=== PATIENT | male | born 1945 | race Caucasian/White ===

== ENCOUNTER 2016-10-08 20:11 | Inpatient (IN) | payer MEDICARE ==
--- NOTE | 2016-10-08 20:55 | ER Document Report ---
ED General - General Chief Complaint: Shortness Of Breath Stated Complaint: TROUBLE BREATHING Cannot obtain history due to: Altered mental status Notes: Patient is a 71-year-old male with prior history of emphysema, peripheral arterial disease with bilateral BKA's, who presents by EMS after apparently falling out of his motorized chair prior to arrival. Patient was able to call for help but was noted by EMS at time of arrival to be confused, frequently falling asleep, initially having saturations at 86%. Patient does not apparently normally use supplemental oxygen. He is otherwise a very poor historian, falls asleep during attempts at history taking and no additional meaningful history can be obtained. TRAVEL OUTSIDE OF THE [place] IN LAST 30 DAYS: No - Related Data Allergies/Adverse Reactions: No Known Drug Allergies Allergy (Verified 05/06/16 16:59) Past Medical History - General Information source: Patient, Emergency Med Personnel - Social History Smoking Status: Former Smoker Frequency of alcohol use: None Drug Abuse: None Lives with: Alone Family History: Reviewed & Not Pertinent - Past Medical History Cardiac Medical History: Reports: Hx Coronary Artery Disease, Hx Heart Attack - 2011, Hx Hypertension Denies: Hx Congestive Heart Failure Pulmonary Medical History: Reports: Hx Asthma, Hx COPD, Hx Pneumonia Denies: Hx Bronchitis, Hx Tuberculosis Neurological Medical History: Denies: Hx Cerebrovascular Accident, Hx Seizures Endocrine Medical History: Reports: Hx Diabetes Mellitus Type 2 Renal/ Medical History: Denies: Hx Benign Prostatic Hyperplasia, Hx End Stage Renal Disease, Hx Kidney Stones GI Medical History: Reports: Hx Gastroesophageal Reflux Disease, Hx Hiatal Hernia - PT UNSURE. Denies: Hx Cirrhosis, Hx Hepatitis, Hx Ulcer Musculoskeltal Medical History: Denies Hx Arthritis, Denies Hx Multiple Sclerosis Psychiatric Medical History: Reports: Hx Depression Denies: Hx Bipolar Disorder, Hx Schizophrenia Infectious Medical History: Denies: Hx Hepatitis Past Surgical History: Reports: Hx Orthopedic Surgery - Bilateral BKA. Denies: Hx Open Heart Surgery, Hx Pacemaker - Immunizations Hx Diphtheria, Pertussis, Tetanus Vaccination: - unknown Hx Pneumococcal Vaccination: 09/20/10 Review of Systems - Review of Systems Notes: Constitutional: Negative for fever. HENT: Negative for sore throat. Eyes: Negative for visual changes. Cardiovascular: Negative for chest pain. Respiratory: Positive for shortness of breath. Gastrointestinal: Negative for abdominal pain, vomiting or diarrhea. Genitourinary: Positive for decreased urine output into del rosario Musculoskeletal: Negative for back pain. Skin: Negative for rash. Neurological: Negative for headaches, weakness or numbness. 10 point ROS negative except as marked above and in HPI. Physical Exam - Vital signs Vitals: Resp 20 10/08/16 20:31 Interpretation: Tachycardic, Hypoxic, Tachypneic Notes: PHYSICAL EXAMINATION: GENERAL: Chronically ill in appearance, in moderate respiratory distress HEAD: Atraumatic, normocephalic. EYES: Pupils equal round and reactive to light, extraocular movements intact, sclera anicteric, conjunctiva are normal. ENT: nares patent, oropharynx clear without exudates. Dry mucous membranes. NECK: Normal range of motion, supple without lymphadenopathy LUNGS: Moderate respiratory distress, tachypneic mid 20s. Scattered wheezing bilaterally. HEART: Regular tachycardia without murmurs ABDOMEN: Soft, nontender, normoactive bowel sounds. No guarding, no rebound. No masses appreciated. EXTREMITIES: Bilateral BKA NEUROLOGICAL: No focal neurological deficits. Moves all extremities spontaneously and on command. PSYCH: Falls asleep in the middle of sentences. Unable to maintain a train of thought. SKIN: Warm, Dry, normal turgor, no rashes or lesions noted. Course - Re-evaluation Re-evalutation: 10/08/16 20:54 Patient presents hypoxic, tachycardic, ill in appearance. He is falling asleep in the middle of sentences and attempts to talk to me. His urine is bloody in color. He is a chronically ill bilateral amputee with G-tube in place. He is not able to provide much significant history other he states he fell out of his motorized wheelchair and was able to call for help. However each time I try to get further details history he falls asleep. He has been immediately placed on a cardiac cath lab manager, EKG obtained and does not show any acute ischemic changes. IV access has been established and labs will be obtained. 10/08/16 21:29 Patient continues to fall asleep when I talk to him, has abdominal retractions when trying to breathe and continues to be tachypneic. I will place him on BiPAP at this time. 10/08/16 23:09 Patient's respiratory effort is improved on BiPAP but his mental status remains confused with frequent episodes of falling asleep. Urinalysis with obvious infection despite changing the catheter. He was started on IV Zosyn. Suspect that this is the etiology of patient's somnolence and confusion. I discussed with his primary care provider Dr. Anders who will admit the patient to the [facility]. - Vital Signs Vital signs: Temp Pulse Resp BP Pulse Ox 98.0 F 18 127/63 H 96 10/09/16 01:01 10/09/16 01:01 10/09/16 01:01 10/09/16 01:01 - Laboratory Result Diagrams: 10/08/16 21:00 10/08/16 21:00 Laboratory results interpreted by me: 10/08/16 10/08/16 10/08/16 21:00 21:00 21:00 WBC 13.0 H Hgb 12.0 L MCH 25.6 L MCHC 30.7 L RDW 15.3 H Lymphocytes % 11.7 L Monocytes % 13.3 H Absolute Neutrophils 9.4 H Absolute Monocytes 1.7 H VBG pCO2 64.9 H VBG HCO3 32.4 H Carbon Dioxide 32 H BUN 27 H Est GFR (Non-Af Amer) 59 L Glucose 148 H ALT 19 L Creatine Kinase 50 L Urine Protein Urine Blood Urine Nitrite Ur Leukocyte Esterase Urine Ascorbic Acid 10/08/16 22:08 WBC Hgb MCH MCHC RDW Lymphocytes % Monocytes % Absolute Neutrophils Absolute Monocytes VBG pCO2 VBG HCO3 Carbon Dioxide BUN Est GFR (Non-Af Amer) Glucose ALT Creatine Kinase Urine Protein 100 H Urine Blood LARGE H Urine Nitrite POSITIVE H Ur Leukocyte Esterase LARGE H Urine Ascorbic Acid 40 H - Diagnostic Test Radiology reviewed: Image reviewed, Reports reviewed Radiology results interpreted by me: 10/08/16 23:10 Chest x-ray: No acute infiltrate - EKG Interpretation by Me Additional EKG results interpreted by me: 10/09/16 02:09 Normal sinus rhythm. Rate 78. Right bundle branch block and LAFB. Unchanged from prior. QTC 500 Critical Care Note - Critical Care Note Total time excluding time spent on procedures (mins): 35 Comments: Critical care time spent obtaining history from patient or surrogate, discussions with consultants, development of treatment plan with patient or surrogate, evaluation of patient's response to treatment, examination of patient , ordering and performing treatments and interventions, ordering and review of laboratory studies, re-evaluation of patient's condition, ordering and review of radiographic studies and review of old charts Discharge - Discharge Clinical Impression: Respiratory distress, Encephalopathy, Pyelonephritis Sepsis Qualifiers: Sepsis type: sepsis due to unspecified organism Qualified Code(s): A41.9 - Sepsis, unspecified organism Condition: Critical Disposition: ADMITTED INPATIENT Admitting Provider: [facility] Admitted: [facility]
[2016-10-08] MEDS ORDERED: IPRATROPIUM/ALBUTEROL 0.5-2.5 MG/3 ML AMPUL NEB ONE (21:14)
[2016-10-08 21:19] LABS: ABSOLUTE BASOPHILS # (AUTO) 0.1 10^3/uL (0.0-0.2); ABSOLUTE EOSINOPHILS # (AUTO) 0.3 10^3/uL (0.0-0.6); ABSOLUTE LYMPHOCYTES (AUTO) 1.5 10^3/uL (0.5-4.7); ABSOLUTE MONOCYTES (AUTO) 1.7 10^3/uL (0.1-1.4); ABSOLUTE NEUT (AUTO) 9.4 10^3/uL (1.7-8.2); BASOPHILS % (AUTO) 0.5 % (0-2); EOSINOPHILS % (AUTO) 2.1 % (0-6); LYMPHOCYTES % (AUTO) 11.7 % (13-45); MEAN CORPUSCULAR HEMOGLOBIN 25.6 pg (27.0-33.4); MEAN CORPUSCULAR HGB CONC 30.7 g/dL (32.0-36.0); MEAN CORPUSCULAR VOLUME 83 fl (80-97); MONOCYTES % (AUTO) 13.3 % (3-13); RED BLOOD COUNT 4.67 10^6/uL (4.35-5.55); RED CELL DISTRIBUTION WIDTH 15.3 % (11.5-14.0); SEGMENTED NEUTROPHILS % (AUTO) 72.4 % (42-78)
[2016-10-08 21:30] LABS: VENOUS BLOOD BASE EXCESS 4.4 mmol/L; VENOUS BLOOD HCO3 32.4 mmol/L (20-32); VENOUS BLOOD PCO2 64.9 mmHg (35-63); VENOUS BLOOD PH 7.32 (7.30-7.42)
[2016-10-08 21:37] LABS: ALANINE AMINOTRANSFERASE 19 U/L (21-72); ALBUMIN 3.9 g/dL (3.5-5.0); ALKALINE PHOSPHATASE 88 U/L (38-126); ANION GAP 10 (5-19); ASPARTATE AMINO TRANSFERASE 21 U/L (17-59); BILIRUBIN,TOTAL 0.6 mg/dL (0.2-1.3); BLOOD UREA NITROGEN 27 mg/dL (7-20); CALCIUM 9.2 mg/dL (8.4-10.2); CARBON DIOXIDE 32 mmol/L (22-30); CHLORIDE 101 mmol/L (98-107); CREATINE KINASE 50 U/L (55-170); CREATININE RESULT 1.21 mg/dL (0.52-1.25); GLUCOSE 148 mg/dL (75-110); SODIUM 142.8 mmol/L (137-145); TOTAL PROTEIN 6.8 g/dL (6.3-8.2)
[2016-10-08 21:52] LABS: CREATINE KINASE MB 1.45 ng/mL (<4.55); TROPONIN I 0.026 ng/mL
[2016-10-08 22:35] LABS: APPEARANCE,URINE CLOUDY; BILIRUBIN,URINE NEGATIVE (NEGATIVE); GLUCOSE, URINE NEGATIVE (NEGATIVE); KETONES,URINE NEGATIVE (NEGATIVE); LEUKOCYTE ESTERASE,URINE LARGE (NEGATIVE); NITRITE,URINE POSITIVE (NEGATIVE); PROTEIN,URINE 100 mg/dL (NEGATIVE); URINE SPECIFIC GRAVITY 1.014; UROBILINOGEN,URINE NEGATIVE mg/dL (<2.0)
[2016-10-08] MEDS ORDERED: PIPERACILLIN/TAZOBACTAM 3.375 GM VIAL IV ONE (23:02)
--- NOTE | 2016-10-09 08:16 | EKG REPORT ---
SEVERITY:- ABNORMAL ECG - SINUS RHYTHM RBBB AND LAFB : Confirmed by: Roge Barton MD 09-Oct-2016 08:15:13
[2016-10-09] MEDS ORDERED: DEXTROSE 40% GEL 15 GM TUBE PO PRN ×2 (08:37)
[2016-10-09] MEDS ORDERED: GLUCAGON,HUMAN RECOMB 1 MG INJ IM PRN (08:37)
[2016-10-09] MEDS ORDERED: DEXTROSE 50%-WATER 25 GM/50 ML DISP.SYRIN IV PRN ×2 (08:37)
[2016-10-09] MEDS ORDERED: IPRATROPIUM/ALBUTEROL 0.5-2.5 MG/3 ML AMPUL NEB PRN (08:38)
[2016-10-09] MEDS ORDERED: LANSOPRAZOLE 30 MG TAB.RAP.DR PO ONE (09:30)
[2016-10-09 09:41] LABS: PROTHROMBIN TIME 13.7 SEC (11.4-15.4)
[2016-10-09 09:42] LABS: PARTIAL THROMBOPLASTIN TIME 33.7 SEC (23.5-35.8)
[2016-10-09] MEDS ORDERED: PIPERACILLIN SODIUM/TAZOBACTAM 2.25 GM in NORMAL SALINE 50 ML IV ONE (09:45)
[2016-10-09] MEDS: CARVEDILOL 6.25 MG TABLET PEG SCH ×2 (11:08→23:02)
[2016-10-09] MEDS: PIPERACILLIN SODIUM/TAZOBACTAM 2.25 GM in NORMAL SALINE 50 ML IV SCH ×2 (14:40→23:02)
[2016-10-09] MEDS: NORMAL SALINE 1000 ML 1,000 ML IV PRN (14:41)
[2016-10-09] MEDS ORDERED: PIPERACILLIN SODIUM/TAZOBACTAM 3.375 GM in NORMAL SALINE 100 ML IV SCH (15:00)
--- NOTE | 2016-10-09 17:05 | PDOC H&P ---
History of Present Illness Admission Date/PCP: 10/09/16 08:30 [facility] Patient complains of: AMS, Shortness of breath History of Present Illness: TOBY HENDERSON is a 71 year old male brought to ED by EMS personnel due to reported altered mental status, falling off electric wheelchair ad falling asleep in process of talking and discussion. Patient reported self initial call for assistance but EMS staff reported episode of easy somnolence, hypoxemia and confusion. There as reported recording of pulse oximetry oxygen saturation at 86 % without oxygen supplementation. Patient do have history of significant cigarette smoking and COPD. His last hospitalization at this hospital resulted in intubation and vent support with resultant transfer to [facility] facility. He had indwelling del rosario catheter and PEG tube placement before discharge from the facility. His initial ED evaluation revealed significant urine abnormality and venous hypercapnia. In view of his presentation and need for BiPAP support, he was advised hospitalization. Past Medical History Cardiac Medical History: Reports: Coronary Artery Disease, Myocardial Infarction - 2012, Hypertension Denies: Congestive Heart Failure Pulmonary Medical History: Reports: Asthma, Chronic Obstructive Pulmonary Disease (COPD), Pneumonia Denies: Bronchitis, Tuberculosis Neurological Medical History: Denies: Seizures Endocrine Medical History: Reports: Diabetes Mellitus Type 2 Renal/ Medical History: Denies: End Stage Renal Disease GI Medical History: Reports: Gastroesophageal Reflux Disease, Hiatal Hernia - PT UNSURE Denies: Cirrhosis, Hepatitis Musculoskeltal Medical History: Denies: Arthritis Psychiatric Medical History: Reports: Depression Denies: Bipolar Disorder Hematology: Denies: Anemia, Sickle Cell Disease, Bleeding Tendencies Past Surgical History Past Surgical History: Reports: Orthopedic Surgery - Bilateral BKA Denies: Pacemaker Social History Lives with: Alone Smoking Status: Current Every Day Smoker Cigarettes Packs Per Day: 1 Last Time Smoked: 10/08/16 Frequency of Alcohol Use: None Hx Recreational Drug Use: No Drugs: None Hx Prescription Drug Abuse: No - Advance Directive Resuscitation Status: Full Code Family History Family History: Reviewed & Not Pertinent Parental Family History Reviewed: Yes Children Family History Reviewed: Yes Sibling(s) Family History Reviewed.: Yes Medication/Allergy Home Medications: Ascorbic Acid [Vitamin C 500 mg Tablet] 500 mg PEG DAILY 10/09/16 Budesonide/Formoterol Fumarate [Symbicort Hfa 160-4.5 Mcg Inhaler 6 gm] 2 puff IH Q12 10/09/16 Bumetanide [Bumex 1 mg Tablet] 1 mg PEG DAILY 10/09/16 Carvedilol [Coreg 6.25 mg Tablet] 6.25 mg PEG Q12 10/09/16 Ezetimibe [Zetia 10 mg Tablet] 10 mg PEG DAILY 10/09/16 Famotidine [Pepcid 40 mg Tablet] 40 mg PEG QHS 10/09/16 Guaifenesin [Robitussin Syrup 200 mg/10 ml Ud Cup] 200 mg PEG Q6HP PRN 10/09/16 Hydrocodone Bit/Acetaminophen [Hydrocodon-Acetaminophen 5-325] 1 tab PEG Q6 Insulin Detemir [Levemir Flextouch] 18 unit SQ Q12 10/09/16 Insulin Lispro [Humalog Insulin 100 Unit/1 ml 3 ml Vial] 0 unit SUBCUT .SLD SCALE 10/09/16 Ipratropium/Albuterol Sulfate [Duoneb 3 ml Ampul] 3 ml NEB [id number] 10/09/16 Metoclopramide HCl [Reglan 10 mg Tablet] 10 mg PEG Q6 10/09/16 Multivitamin/Iron/Folic Acid [Centrum Complete Multivit Tab] 1 tab PEG DAILY Pantoprazole Sodium [Protonix] 40 mg PEG DAILY 10/09/16 Polyethylene Glycol 3350 [Miralax Powder 17 gm/Packet] 1 packet PEG DAILY Quetiapine Fumarate [Seroquel 25 mg Tablet] 25 mg PEG Q12 10/09/16 Tiotropium [place] [Spiriva Handihaler 18 mcg/dose (30 Dose)] 1 cap IH DAILY Allergies/Adverse Reactions: No Known Drug Allergies Allergy (Verified 05/06/16 16:59) Review of Systems ROS unobtainable: Due to mental status All systems: reviewed and no additional remarkable complaints except as stated Physical Exam Vital Signs: Temp Pulse Resp BP Pulse Ox 98.0 F 74 22 H 148/60 H 100 10/09/16 12:10 10/09/16 14:00 10/09/16 12:10 10/09/16 12:10 10/09/16 12:10 Intake & Output 10/08/16 10/09/16 10/10/16 06:59 06:59 06:59 Intake Total 222 Output Total 100 Balance 122 Physical Exam: Remain on BiPAP support and arousable at the time of my assessment. General appearance: PRESENT: disheveled, obese Eye exam: PRESENT: conjunctiva pink, EOMI, PERRLA Mouth exam: PRESENT: moist - fairly. Neck exam: PRESENT: full ROM. ABSENT: carotid bruit, JVD, lymphadenopathy, thyromegaly Respiratory exam: PRESENT: decreased breath sounds, rhonchi. ABSENT: accessory muscle use, chest wall tenderness, clear to auscultation dolores, crackles, prolonged expiratory phas, rales, retraction, stridor, symmetrical, tachypnea, unlabored, wheezes, other Cardiovascular exam: PRESENT: RRR. ABSENT: diastolic murmur, rubs, systolic murmur GI/Abdominal exam: PRESENT: normal bowel sounds, soft, other - PEG site is satisfactory. ABSENT: distended, guarding, mass, organolmegaly, rebound, tenderness Gentrourinary exam: PRESENT: indwelling catheter Extremities exam: PRESENT: full ROM, left BKA, right BKA Musculoskeletal exam: PRESENT: deformity - from arthritic joint involvement Neurological exam: PRESENT: altered - but arousable Psychiatric exam: PRESENT: other - limited evaluation due to current alertness status Skin exam: PRESENT: dry, intact - except for PERG site region, warm, other - PEG site satis. ABSENT: cyanosis, rash Results Laboratory Results: see [place] lab results. I reviewed these results and they form part of my final medial decision marking process. Impressions: Chest X-Ray 10/08/16 20:38 IMPRESSION: No acute cardiopulmonary findings. Assessment & Plan - Diagnosis (1) Toxic metabolic encephalopathy Is this a current diagnosis for this admission?: YesPlan: see admitting physician orders. (2) Urinary tract infection associated with indwelling urethral catheter Is this a current diagnosis for this admission?: YesPlan: see admitting physician orders. (3) COPD (chronic obstructive pulmonary disease) Is this a current diagnosis for this admission?: YesPlan: see admitting physician orders. - Time Time Spent: 50 to 70 Minutes Medications reviewed and adjusted accordingly: Yes Anticipated discharge: Home with Homehealth Within: Other - Inpatient Certification Medical Necessity: Need Close Monitoring Due to Risk of Patient Decompensation, Need For IV Fluids, Need For Continuous Telemetry Monitoring, Need for IV Antibiotics, Risk of Complication if Not Cared For in Hospital Post Hospital Care: D/C [facility] Hand Documentation - Plan Summary Plan Summary: see admitting physician orders.
[2016-10-09] MEDS: BUDESONIDE/FORMOTEROL 160-4.5 MCG 60 PUFF/6 GM MDI IH SCH (23:08)
[2016-10-10] MEDS: INSULIN DETEMIR 100 UNIT/ML 3 ML PEN SUBCUT SCH ×3 (00:06→23:17)
[2016-10-10 06:10] LABS: ABSOLUTE EOSINOPHILS # (AUTO) 0.2 10^3/uL (0.0-0.6); ABSOLUTE LYMPHOCYTES (AUTO) 1.4 10^3/uL (0.5-4.7); ABSOLUTE MONOCYTES (AUTO) 1.2 10^3/uL (0.1-1.4); ABSOLUTE NEUT (AUTO) 7.2 10^3/uL (1.7-8.2); BASOPHILS % (AUTO) 0.3 % (0-2); EOSINOPHILS % (AUTO) 1.8 % (0-6); HEMATOCRIT 36.7 % (37.9-51.0); HEMOGLOBIN 11.3 g/dL (13.5-17.0); HGB HCT DIFFERENCE -2.8; LYMPHOCYTES % (AUTO) 13.9 % (13-45); MEAN CORPUSCULAR HEMOGLOBIN 25.9 pg (27.0-33.4); MEAN CORPUSCULAR HGB CONC 30.8 g/dL (32.0-36.0); MEAN CORPUSCULAR VOLUME 84 fl (80-97); MONOCYTES % (AUTO) 11.9 % (3-13); RED BLOOD COUNT 4.37 10^6/uL (4.35-5.55); RED CELL DISTRIBUTION WIDTH 14.9 % (11.5-14.0); SEGMENTED NEUTROPHILS % (AUTO) 72.1 % (42-78); WHITE BLOOD COUNT 9.9 10^3/uL (4.0-10.5)
[2016-10-10] MEDS: LANSOPRAZOLE 30 MG TAB.RAP.DR PO SCH (06:27)
[2016-10-10 06:28] LABS: ALANINE AMINOTRANSFERASE 19 U/L (21-72); ALKALINE PHOSPHATASE 71 U/L (38-126); ANION GAP 7 (5-19); ASPARTATE AMINO TRANSFERASE 15 U/L (17-59); BILIRUBIN,TOTAL 0.4 mg/dL (0.2-1.3); BLOOD UREA NITROGEN 29 mg/dL (7-20); CALCIUM 8.7 mg/dL (8.4-10.2); CARBON DIOXIDE 31 mmol/L (22-30); CHLORIDE 105 mmol/L (98-107); CREATININE RESULT 0.95 mg/dL (0.52-1.25); GLUCOSE 112 mg/dL (75-110); POTASSIUM 4.3 mmol/L (3.6-5.0); SODIUM 143.1 mmol/L (137-145); TOTAL PROTEIN 6.1 g/dL (6.3-8.2)
[2016-10-10] MEDS: PIPERACILLIN SODIUM/TAZOBACTAM 2.25 GM in NORMAL SALINE 50 ML IV SCH ×4 (06:28→21:51)
[2016-10-10] MEDS: ENOXAPARIN SODIUM INJ 40 MG/0.4 ML DISP.SYRIN SUBCUT SCH (10:13)
[2016-10-10] MEDS: TIOTROPIUM BROMIDE DPI 5 CAP/KIT (18 MCG/CAP) IH SCH (10:14)
[2016-10-10] MEDS: BUDESONIDE/FORMOTEROL 160-4.5 MCG 60 PUFF/6 GM MDI IH SCH ×2 (10:14→21:54)
[2016-10-10] MEDS: EZETIMIBE 10 MG TABLET PO SCH (10:15)
[2016-10-10] MEDS: CARVEDILOL 6.25 MG TABLET PEG SCH ×2 (10:16→23:15)
[2016-10-10] MEDS: INSULIN LISPRO 100 UNIT/ML 3 ML VIAL SUBCUT PRN ×2 (12:16→23:24)
--- NOTE | 2016-10-10 19:14 | PDOC PROGRESS REPORT ---
Subjective Progress Note for:: 10/10/16 Subjective:: Patient was seen by the bedside, he has metabolic encephalopathy due to UTI Physical Exam Vital Signs: Temp Pulse Resp BP Pulse Ox 97.9 F 80 24 H 130/62 H 94 10/10/16 12:18 10/10/16 14:00 10/10/16 12:18 10/10/16 12:18 10/10/16 12:18 Intake & Output 10/09/16 10/10/16 10/11/16 06:59 06:59 06:59 Intake Total 1591 1810 Output Total 525 100 Balance 1066 1710 Weight 70.5 kg General appearance: PRESENT: no acute distress Eye exam: PRESENT: PERRLA Respiratory exam: PRESENT: clear to auscultation dolores Cardiovascular exam: PRESENT: +S1, +S2 GI/Abdominal exam: PRESENT: soft Neurological exam: PRESENT: alert Results Laboratory Results: 10/10/16 05:03 10/10/16 05:03 10/10/16 10/10/16 05:03 05:03 WBC 9.9 RBC 4.37 Hgb 11.3 L Hct 36.7 L MCV 84 MCH 25.9 L MCHC 30.8 L RDW 14.9 H Plt Count 231 Seg Neutrophils % 72.1 Lymphocytes % 13.9 Monocytes % 11.9 Eosinophils % 1.8 Basophils % 0.3 Absolute Neutrophils 7.2 Absolute Lymphocytes 1.4 Absolute Monocytes 1.2 Absolute Eosinophils 0.2 Absolute Basophils 0.0 Sodium 143.1 Potassium 4.3 Chloride 105 Carbon Dioxide 31 H Anion Gap 7 BUN 29 H Creatinine 0.95 Est GFR ( Amer) > 60 Est GFR (Non-Af Amer) > 60 Glucose 112 H Calcium 8.7 Total Bilirubin 0.4 AST 15 L ALT 19 L Alkaline Phosphatase 71 Total Protein 6.1 L Albumin 3.0 L Impressions: Chest X-Ray 10/08/16 20:38 IMPRESSION: No acute cardiopulmonary findings. Assessment & Plan - Diagnosis (1) Urinary tract infection Qualifiers: Urinary tract infection type: catheter-associated UTI Indwelling urinary catheter type: indwelling urethral catheter Encounter type: initial encounter Qualified Code(s): T83.511A - Infection and inflammatory reaction due to indwelling urethral catheter, initial encounter; N39.0 - Urinary tract infection, site not specified Is this a current diagnosis for this admission?: YesPlan: Continue IV antibiotic
[2016-10-11] MEDS: PIPERACILLIN SODIUM/TAZOBACTAM 2.25 GM in NORMAL SALINE 50 ML IV SCH ×4 (03:29→22:17)
[2016-10-11] MEDS: NORMAL SALINE 1000 ML 1,000 ML IV PRN ×2 (04:18→21:10)
[2016-10-11] MEDS: INSULIN DETEMIR 100 UNIT/ML 3 ML PEN SUBCUT SCH ×2 (09:36→22:22)
[2016-10-11] MEDS: LANSOPRAZOLE 30 MG TAB.RAP.DR PO SCH (09:36)
[2016-10-11] MEDS: CARVEDILOL 6.25 MG TABLET PEG SCH ×2 (09:37→22:20)
[2016-10-11] MEDS: EZETIMIBE 10 MG TABLET PO SCH (09:37)
[2016-10-11] MEDS: BUDESONIDE/FORMOTEROL 160-4.5 MCG 60 PUFF/6 GM MDI IH SCH ×2 (09:37→22:21)
[2016-10-11] MEDS: TIOTROPIUM BROMIDE DPI 5 CAP/KIT (18 MCG/CAP) IH SCH (09:38)
[2016-10-11] MEDS: ENOXAPARIN SODIUM INJ 40 MG/0.4 ML DISP.SYRIN SUBCUT SCH (09:43)
[2016-10-11] MEDS: CLONIDINE HCL 0.2 MG TABLET PO PRN (17:27)
[2016-10-11] MEDS: INSULIN LISPRO 100 UNIT/ML 3 ML VIAL SUBCUT PRN (17:27)
--- NOTE | 2016-10-11 18:05 | PDOC PROGRESS REPORT ---
Subjective Progress Note for:: 10/11/16 Subjective:: Patient is seen by the bedside, blood pressure is elevated Physical Exam Vital Signs: Temp Pulse Resp BP Pulse Ox 98.2 F 72 20 167/64 H 98 10/11/16 16:17 10/11/16 16:17 10/11/16 16:17 10/11/16 16:17 10/11/16 16:17 Intake & Output 10/10/16 10/11/16 10/12/16 06:59 06:59 06:59 Intake Total 1591 3558 360 Output Total 525 600 200 Balance 1066 2958 160 Weight 70.5 kg General appearance: PRESENT: no acute distress Eye exam: PRESENT: PERRLA Respiratory exam: PRESENT: clear to auscultation dolores Cardiovascular exam: PRESENT: +S1, +S2 Results Laboratory Results: 10/10/16 05:03 10/10/16 05:03 Impressions: Chest X-Ray 10/08/16 20:38 IMPRESSION: No acute cardiopulmonary findings. Assessment & Plan - Diagnosis (1) Urinary tract infection Qualifiers: Urinary tract infection type: catheter-associated UTI Indwelling urinary catheter type: indwelling urethral catheter Encounter type: initial encounter Qualified Code(s): T83.511A - Infection and inflammatory reaction due to indwelling urethral catheter, initial encounter; N39.0 - Urinary tract infection, site not specified Is this a current diagnosis for this admission?: Yes
[2016-10-12] MEDS: PIPERACILLIN SODIUM/TAZOBACTAM 2.25 GM in NORMAL SALINE 50 ML IV SCH ×4 (03:17→20:23)
[2016-10-12] MEDS: LANSOPRAZOLE 30 MG TAB.RAP.DR PO SCH (06:38)
[2016-10-12] MEDS: BUDESONIDE/FORMOTEROL 160-4.5 MCG 60 PUFF/6 GM MDI IH SCH ×2 (10:49→21:51)
[2016-10-12] MEDS: CARVEDILOL 6.25 MG TABLET PEG SCH ×2 (10:50→21:51)
[2016-10-12] MEDS: TIOTROPIUM BROMIDE DPI 5 CAP/KIT (18 MCG/CAP) IH SCH (10:50)
[2016-10-12] MEDS: EZETIMIBE 10 MG TABLET PO SCH (10:50)
[2016-10-12] MEDS: INSULIN DETEMIR 100 UNIT/ML 3 ML PEN SUBCUT SCH ×2 (10:51→21:51)
[2016-10-12] MEDS: ENOXAPARIN SODIUM INJ 40 MG/0.4 ML DISP.SYRIN SUBCUT SCH (10:52)
--- NOTE | 2016-10-12 18:04 | PDOC PROGRESS REPORT ---
Subjective Progress Note for:: 10/12/16 Subjective:: Patient reported improvement in his breathing. No chest pain. Patient reported discomfort with attempts at clamping his indwelling Coleman cath in anticipation of removal. He expressed wish to keep Coleman cath in place until he is able to transfer to his wheelchair safely because he does not want to use urinal in bed ! I did explain to him associated risk of recurrent UTI with his indwelling Coleman cath. Patient did confirm that he is currently a resident at [facility]. Physical Exam Vital Signs: Temp Pulse Resp BP Pulse Ox 98.3 F 74 18 163/70 H 96 10/12/16 16:10 10/12/16 16:55 10/12/16 16:55 10/12/16 16:10 10/12/16 16:55 Intake & Output 10/11/16 10/12/16 10/13/16 06:59 06:59 06:59 Intake Total 3558 3100 459 Output Total 600 1000 200 Balance 2958 2100 259 General appearance: PRESENT: no acute distress Head exam: PRESENT: atraumatic, normocephalic Eye exam: PRESENT: conjunctiva pink, EOMI, PERRLA Mouth exam: PRESENT: moist Neck exam: PRESENT: full ROM. ABSENT: carotid bruit, JVD, lymphadenopathy, thyromegaly Respiratory exam: PRESENT: decreased breath sounds - at lung bases. ABSENT: accessory muscle use, chest wall tenderness, clear to auscultation dolores, crackles , prolonged expiratory phas, rales, retraction, rhonchi, stridor, symmetrical, tachypnea, unlabored, wheezes, other Cardiovascular exam: PRESENT: RRR. ABSENT: diastolic murmur, rubs, systolic murmur GI/Abdominal exam: PRESENT: normal bowel sounds, soft. ABSENT: distended, guarding, mass, organolmegaly, rebound, tenderness Gentrourinary exam: PRESENT: indwelling catheter Extremities exam: PRESENT: left BKA, right BKA Neurological exam: PRESENT: alert, awake, CN II-XII grossly intact, motor sensory deficit Psychiatric exam: PRESENT: appropriate affect, normal mood. ABSENT: homicidal ideation, suicidal ideation Skin exam: PRESENT: dry, warm Results Laboratory Results: 10/10/16 05:03 10/10/16 05:03 10/10/16 00:15 Nasophary ([facility] Only) MRSA Surveillance Culture - Final MRSA RECOVERED Impressions: Chest X-Ray 10/08/16 20:38 IMPRESSION: No acute cardiopulmonary findings. Assessment & Plan - Diagnosis (1) Toxic metabolic encephalopathy Is this a current diagnosis for this admission?: YesPlan: see attending physician orders. Improved. (2) Urinary tract infection associated with indwelling urethral catheter Is this a current diagnosis for this admission?: YesPlan: see attending physician orders. Continue Zosyn coverage as adequate based on urine culture and sensitivity findings. (3) COPD (chronic obstructive pulmonary disease) Is this a current diagnosis for this admission?: YesPlan: see attending physician orders. Patient is currently off BiPAP usage. He remain on supplemental oxygen at 2L/min via nasal cannula. - Time Time Spent with patient: 25-34 minutes Medications reviewed and adjusted accordingly: Yes Anticipated discharge: SNF - Inpatient Certification Medical Necessity: Need For IV Fluids, Need For Continuous Telemetry Monitoring , Need for Nebulizer Therapy and Monitoring of Response, Need for IV Antibiotics , Risk of Complication if Not Cared For in Hospital Post Hospital Care: D/C or Transfer Summary - Plan Summary Plan Summary: See attending physician orders.
[2016-10-12] MEDS: NORMAL SALINE 1000 ML 1,000 ML IV PRN (20:18)
[2016-10-13] MEDS: PIPERACILLIN SODIUM/TAZOBACTAM 2.25 GM in NORMAL SALINE 50 ML IV SCH ×2 (02:32→10:28)
[2016-10-13] MEDS: CLONIDINE HCL 0.2 MG TABLET PO PRN ×2 (04:56→18:08)
[2016-10-13 06:38] LABS: ABSOLUTE EOSINOPHILS # (AUTO) 0.2 10^3/uL (0.0-0.6); ABSOLUTE LYMPHOCYTES (AUTO) 1.1 10^3/uL (0.5-4.7); ABSOLUTE NEUT (AUTO) 6.2 10^3/uL (1.7-8.2); BASOPHILS % (AUTO) 0.3 % (0-2); EOSINOPHILS % (AUTO) 2.4 % (0-6); HEMATOCRIT 32.5 % (37.9-51.0); HEMOGLOBIN 10.5 g/dL (13.5-17.0); LYMPHOCYTES % (AUTO) 12.9 % (13-45); MEAN CORPUSCULAR HEMOGLOBIN 26.4 pg (27.0-33.4); MEAN CORPUSCULAR HGB CONC 32.3 g/dL (32.0-36.0); MEAN CORPUSCULAR VOLUME 82 fl (80-97); MONOCYTES % (AUTO) 11.7 % (3-13); RED BLOOD COUNT 3.97 10^6/uL (4.35-5.55); RED CELL DISTRIBUTION WIDTH 14.8 % (11.5-14.0); SEGMENTED NEUTROPHILS % (AUTO) 72.7 % (42-78); WHITE BLOOD COUNT 8.5 10^3/uL (4.0-10.5)
[2016-10-13 06:46] LABS: ALBUMIN 2.9 g/dL (3.5-5.0); ANION GAP 6 (5-19); BLOOD UREA NITROGEN 15 mg/dL (7-20); CARBON DIOXIDE 27 mmol/L (22-30); CHLORIDE 106 mmol/L (98-107); CREATININE RESULT 0.83 mg/dL (0.52-1.25); GLUCOSE 74 mg/dL (75-110); POTASSIUM 4.1 mmol/L (3.6-5.0); SODIUM 139.4 mmol/L (137-145); TOTAL PROTEIN 5.3 g/dL (6.3-8.2)
[2016-10-13 06:48] LABS: ALANINE AMINOTRANSFERASE 30 U/L (21-72); ALKALINE PHOSPHATASE 58 U/L (38-126); ASPARTATE AMINO TRANSFERASE 20 U/L (17-59); BILIRUBIN,TOTAL 0.5 mg/dL (0.2-1.3); CALCIUM 8.5 mg/dL (8.4-10.2)
[2016-10-13] MEDS: LANSOPRAZOLE 30 MG TAB.RAP.DR PO SCH (07:05)
[2016-10-13] MEDS: TIOTROPIUM BROMIDE DPI 5 CAP/KIT (18 MCG/CAP) IH SCH (10:27)
[2016-10-13] MEDS: EZETIMIBE 10 MG TABLET PO SCH (10:29)
[2016-10-13] MEDS: CARVEDILOL 6.25 MG TABLET PEG SCH ×2 (10:29→21:59)
[2016-10-13] MEDS: ENOXAPARIN SODIUM INJ 40 MG/0.4 ML DISP.SYRIN SUBCUT SCH (10:30)
[2016-10-13] MEDS: BUDESONIDE/FORMOTEROL 160-4.5 MCG 60 PUFF/6 GM MDI IH SCH ×2 (10:30→21:58)
[2016-10-13] MEDS: INSULIN DETEMIR 100 UNIT/ML 3 ML PEN SUBCUT SCH ×2 (10:31→21:58)
[2016-10-13] MEDS: NORMAL SALINE 1000 ML 1,000 ML IV PRN (10:31)
--- NOTE | 2016-10-13 12:41 | PDOC PROGRESS REPORT ---
Subjective Progress Note for:: 10/13/16 Subjective:: Patient denied chest pain or difficulty with breathing. No nausea or vomiting. No abdominal pain. Tolerating oral feeding. PEG site satisfactory. No fever or chills. Remain on IV Zosyn therapy. Blood culture remain no growth. Physical Exam Vital Signs: Temp Pulse Resp BP Pulse Ox 97.7 F 72 20 148/75 H 98 10/13/16 07:37 10/13/16 07:37 10/13/16 07:37 10/13/16 07:37 10/13/16 07:37 Intake & Output 10/12/16 10/13/16 10/14/16 06:59 06:59 06:59 Intake Total 3100 3403 Output Total 1000 1400 Balance 2100 2002 Weight 70 kg General appearance: PRESENT: no acute distress, obese Head exam: PRESENT: atraumatic, normocephalic Eye exam: PRESENT: conjunctiva pink, EOMI, PERRLA Mouth exam: PRESENT: moist Respiratory exam: ABSENT: accessory muscle use, chest wall tenderness, clear to auscultation dolores, crackles, decreased breath sounds, prolonged expiratory phas, rales, retraction, rhonchi, stridor, symmetrical, tachypnea, unlabored, wheezes , other Cardiovascular exam: PRESENT: RRR. ABSENT: diastolic murmur, rubs, systolic murmur GI/Abdominal exam: PRESENT: normal bowel sounds, soft, other - PEG site satisfactory. ABSENT: distended, guarding, mass, organolmegaly, rebound, tenderness Extremities exam: PRESENT: full ROM, left BKA, right BKA Musculoskeletal exam: PRESENT: deformity - arthritis involvement in multiple joints Neurological exam: PRESENT: alert, awake, CN II-XII grossly intact, motor sensory deficit Psychiatric exam: PRESENT: appropriate affect, normal mood. ABSENT: homicidal ideation, suicidal ideation Skin exam: PRESENT: dry, skin tears - left elbow region, warm Results Laboratory Results: 10/13/16 06:07 10/13/16 06:07 10/13/16 10/13/16 06:07 06:07 WBC 8.5 RBC 3.97 L Hgb 10.5 L Hct 32.5 L MCV 82 MCH 26.4 L MCHC 32.3 RDW 14.8 H Plt Count 235 Seg Neutrophils % 72.7 Lymphocytes % 12.9 L Monocytes % 11.7 Eosinophils % 2.4 Basophils % 0.3 Absolute Neutrophils 6.2 Absolute Lymphocytes 1.1 Absolute Monocytes 1.0 Absolute Eosinophils 0.2 Absolute Basophils 0.0 Sodium 139.4 Potassium 4.1 Chloride 106 Carbon Dioxide 27 Anion Gap 6 BUN 15 Creatinine 0.83 Est GFR ( Amer) > 60 Est GFR (Non-Af Amer) > 60 Glucose 74 L Calcium 8.5 Total Bilirubin 0.5 AST 20 ALT 30 Alkaline Phosphatase 58 Total Protein 5.3 L Albumin 2.9 L 10/10/16 00:15 Nasophary ([facility] Only) MRSA Surveillance Culture - Final MRSA RECOVERED Impressions: Chest X-Ray 10/08/16 20:38 IMPRESSION: No acute cardiopulmonary findings. Assessment & Plan - Diagnosis (1) Toxic metabolic encephalopathy Is this a current diagnosis for this admission?: YesPlan: see attending physician orders. Improved. (2) Urinary tract infection associated with indwelling urethral catheter Is this a current diagnosis for this admission?: YesPlan: see attending physician orders. Continue Zosyn coverage as adequate based on urine culture and sensitivity findings. Follow up on blood culture finding. (3) COPD (chronic obstructive pulmonary disease) Is this a current diagnosis for this admission?: Yes - Time Time Spent with patient: 25-34 minutes Medications reviewed and adjusted accordingly: Yes Anticipated discharge: SNF Within: when bed available - Inpatient Certification Based on my medical assessment, after consideration of the patient's comorbidities, presenting symptoms, or acuity I expect that the services needed warrant INPATIENT care.: Yes I certify that my determination is in accordance with my understanding of Medicare's requirements for reasonable and necessary INPATIENT services [42 CFR 412.3e].: Yes Medical Necessity: Need For IV Fluids, Need For Continuous Telemetry Monitoring , Need for IV Antibiotics, Risk of Complication if Not Cared For in Hospital Post Hospital Care: D/C or Transfer Summary - Plan Summary Plan Summary: See attending physician orders.
[2016-10-13] MEDS: PIPERACILLIN SODIUM/TAZOBACTAM 3.375 GM in NORMAL SALINE 100 ML IV SCH ×2 (18:09→23:47)
[2016-10-13] MEDS ORDERED: PIPERACILLIN SODIUM/TAZOBACTAM 3.375 GM in NORMAL SALINE 100 ML IV SCH (21:00)
[2016-10-14] MEDS: CLONIDINE HCL 0.2 MG TABLET PO PRN (01:42)
[2016-10-14] MEDS: NORMAL SALINE 1000 ML 1,000 ML IV PRN ×2 (01:42→20:14)
[2016-10-14] MEDS: LANSOPRAZOLE 30 MG TAB.RAP.DR PO SCH (06:39)
[2016-10-14] MEDS: PIPERACILLIN SODIUM/TAZOBACTAM 3.375 GM in NORMAL SALINE 100 ML IV SCH ×3 (06:39→17:36)
[2016-10-14] MEDS: CARVEDILOL 6.25 MG TABLET PEG SCH ×2 (09:50→22:17)
[2016-10-14] MEDS: EZETIMIBE 10 MG TABLET PO SCH (09:50)
[2016-10-14] MEDS: TIOTROPIUM BROMIDE DPI 5 CAP/KIT (18 MCG/CAP) IH SCH (09:50)
[2016-10-14] MEDS: BUDESONIDE/FORMOTEROL 160-4.5 MCG 60 PUFF/6 GM MDI IH SCH ×2 (09:51→22:17)
[2016-10-14] MEDS: INSULIN DETEMIR 100 UNIT/ML 3 ML PEN SUBCUT SCH ×2 (09:51→22:15)
[2016-10-14] MEDS: ENOXAPARIN SODIUM INJ 40 MG/0.4 ML DISP.SYRIN SUBCUT SCH (09:57)
--- NOTE | 2016-10-14 17:26 | PDOC PROGRESS REPORT ---
Subjective Progress Note for:: 10/14/16 Subjective:: Patient denied chest pain or difficulty with breathing. No nausea or vomiting. No abdominal pain. Tolerating oral feeding. PEG site satisfactory. No fever or chills. D/C IV Zosyn therapy tonight. Blood culture remain no growth x 5 days. Physical Exam Vital Signs: Temp Pulse Resp BP Pulse Ox 98.3 F 67 16 185/71 H 95 10/14/16 16:38 10/14/16 16:38 10/14/16 16:38 10/14/16 16:38 10/14/16 16:38 Intake & Output 10/13/16 10/14/16 10/15/16 06:59 06:59 06:59 Intake Total 3403 2859 Output Total 1400 2225 Balance 2002 63 Weight 70 kg 75.7 kg General appearance: PRESENT: no acute distress, well-developed, well-nourished Head exam: PRESENT: atraumatic, normocephalic Mouth exam: PRESENT: moist Respiratory exam: PRESENT: rhonchi - minimal expiratory phase. ABSENT: accessory muscle use, chest wall tenderness, clear to auscultation dolores, crackles , decreased breath sounds, prolonged expiratory phas, rales, retraction, stridor , symmetrical, tachypnea, unlabored, wheezes, other Cardiovascular exam: PRESENT: RRR. ABSENT: diastolic murmur, rubs, systolic murmur GI/Abdominal exam: PRESENT: normal bowel sounds, soft, other - PEG site satisfactory. ABSENT: distended, guarding, mass, organolmegaly, rebound, tenderness Extremities exam: PRESENT: left BKA, right BKA Neurological exam: PRESENT: alert, awake, oriented to person, oriented to place , oriented to time, oriented to situation, CN II-XII grossly intact, motor sensory deficit Psychiatric exam: PRESENT: appropriate affect, normal mood. ABSENT: homicidal ideation, suicidal ideation Skin exam: PRESENT: dry, intact, warm. ABSENT: cyanosis, rash Results Laboratory Results: 10/13/16 06:07 10/13/16 06:07 Impressions: Chest X-Ray 10/08/16 20:38 IMPRESSION: No acute cardiopulmonary findings. Assessment & Plan - Diagnosis (1) Toxic metabolic encephalopathy Is this a current diagnosis for this admission?: Yes (2) Urinary tract infection associated with indwelling urethral catheter Is this a current diagnosis for this admission?: YesPlan: D/C Zosyn after tonight's last dose. Start on Bactrim DS 1 tablet po bid from tomorrow morning. Blood culture is no growth x 5 days. (3) COPD (chronic obstructive pulmonary disease) Is this a current diagnosis for this admission?: Yes - Time Time Spent with patient: 25-34 minutes Medications reviewed and adjusted accordingly: Yes - Inpatient Certification Medical Necessity: Need Close Monitoring Due to Risk of Patient Decompensation, Need For Continuous Telemetry Monitoring, Need for IV Antibiotics, Risk of Complication if Not Cared For in Hospital Post Hospital Care: D/C or Transfer Summary - Plan Summary Plan Summary: see attending physician orders.
[2016-10-14] MEDS ORDERED: AMLODIPINE BESYLATE 5 MG TABLET PO ONE (18:45)
[2016-10-15] MEDS: LANSOPRAZOLE 30 MG TAB.RAP.DR PO SCH (05:52)
[2016-10-15] MEDS: CARVEDILOL 6.25 MG TABLET PEG SCH (09:55)
[2016-10-15] MEDS: EZETIMIBE 10 MG TABLET PO SCH (09:55)
[2016-10-15] MEDS: BUDESONIDE/FORMOTEROL 160-4.5 MCG 60 PUFF/6 GM MDI IH SCH (09:56)
[2016-10-15] MEDS: ENOXAPARIN SODIUM INJ 40 MG/0.4 ML DISP.SYRIN SUBCUT SCH (09:58)
[2016-10-15] MEDS ORDERED: SULFAMETHOXAZOLE/TRIMETHOPRIM 800-160 MG TABLET PO SCH (10:00)
[2016-10-15] MEDS ORDERED: AMLODIPINE BESYLATE 5 MG TABLET PO SCH (10:00)
[2016-10-15] MEDS: TIOTROPIUM BROMIDE DPI 5 CAP/KIT (18 MCG/CAP) IH SCH (12:04)
[2016-10-15] MEDS: INSULIN DETEMIR 100 UNIT/ML 3 ML PEN SUBCUT SCH (12:04)
[2016-10-15 12:15] VITALS: BP 172/64
--- NOTE | 2016-10-15 13:30 | PDOC TRANSFER SUMMARY ---
General - Admit/Disc Date/PCP Admission Date/Primary Care Provider: 10/09/16 08:30 TJ ARREOLA Discharge Date: 10/15/16 - Discharge Diagnosis (1) Toxic metabolic encephalopathy Is this a current diagnosis for this admission?: Yes (2) Urinary tract infection associated with indwelling urethral catheter Is this a current diagnosis for this admission?: Yes (3) COPD (chronic obstructive pulmonary disease) Is this a current diagnosis for this admission?: Yes - Additional Information Resuscitation Status: Full Code Discharge Diet: Regular - consistency, Cardiac, Diabetic Discharge Activity: Activity As Tolerated Home Medications: Ascorbic Acid [Vitamin C 500 mg Tablet] 500 mg PEG DAILY 10/09/16 Budesonide/Formoterol Fumarate [Symbicort HFA 160-4.5 mcg Inhaler 6 gm] 2 puff IH Q12 10/09/16 Bumetanide [Bumex 1 mg Tablet] 1 mg PEG DAILY 10/09/16 Carvedilol [Coreg 6.25 mg Tablet] 6.25 mg PEG Q12 10/09/16 Ezetimibe [Zetia 10 mg Tablet] 10 mg PEG DAILY 10/09/16 Famotidine [Pepcid 40 mg Tablet] 40 mg PEG QHS 10/09/16 Guaifenesin [Robitussin Syrup 200 mg/10 ml Ud Cup] 200 mg PEG Q6HP PRN 10/09/16 Hydrocodone Bit/Acetaminophen [Hydrocodon-Acetaminophen 5-325] 1 tab PEG Q6 Insulin Detemir [Levemir Flextouch] 18 unit SQ Q12 10/09/16 Insulin Lispro [Humalog Insulin (Lispro) 100 unit/mL] 0 unit SUBCUT .SLD SCALE 10/09/16 Ipratropium/Albuterol Sulfate [Duoneb 3 ml Ampul] 3 ml NEB CHL9ONS 10/09/16 Metoclopramide HCl [Reglan 10 mg Tablet] 10 mg PEG Q6 10/09/16 Multivitamin/Iron/Folic Acid [Centrum Complete Multivit Tab] 1 tab PEG DAILY Pantoprazole Sodium [Protonix] 40 mg PEG DAILY 10/09/16 Polyethylene Glycol 3350 [Miralax Powder 17 gm/Packet] 1 packet PEG DAILY Quetiapine Fumarate [Seroquel 25 mg Tablet] 25 mg PEG Q12 10/09/16 Tiotropium [place] [Spiriva Handihaler 18 mcg/dose (30 Dose)] 1 cap IH DAILY Amlodipine Besylate [Norvasc 5 mg Tablet] 5 mg PO DAILY #30 tablet 10/15/16 Sulfamethoxazole/Trimethoprim [Septra-Ds 800-160 mg Tablet] 1 tab PO Q12 #14 tablet 10/15/16 History of Present Illness Admission Date/PCP: 10/09/16 08:30 TJ ARREOLA Patient complains of: Altered mental status, Fall off electric chair History of Present Illness: TOBY HENDERSON is a 71 year old male brought to ED by EMS personnel due to reported altered mental status, falling off electric wheelchair and falling asleep in process of talking and discussion. Patient reported self initial call for assistance but EMS staff reported episode of easy somnolence, hypoxemia and confusion. There as reported recording of pulse oximetry oxygen saturation at 86 % without oxygen supplementation. Patient do have history of significant cigarette smoking and COPD. His last hospitalization at this hospital resulted in intubation and vent support with resultant transfer to [facility] facility. He had indwelling del rosario catheter and PEG tube placement before discharge from the facility. His initial ED evaluation revealed significant urine abnormality and venous hypercapnia. In view of his presentation and need for BiPAP support, he was advised hospitalization. Hospital Course Hospital Course: Patient's hypoxemia and altered mental status did resolved with use of BiPAP support. He was managed with IV Zosyn for urinary tract infection with culture growth of Enterobacter cloacae and Citrobacter freundii, both sensitive to Zosyn. Patient had del rosario catheter and PEG tube in situ for skin severe cellulitis and nutritional support. Patient overall clinical condition did improved. Patent was not agreeable to removal of Del Rosario catheter or PEG tube. He was eating adequately orally during this hospitalization. He is currently on Septra DS bid x 5 days based on organism sensitivity report. Patient is agreeable [facility]. He will arrange for office follow up upon discharge from the facility. His blood culture was no growth x 5 days. Physical Exam Vital Signs: Temp Pulse Resp BP Pulse Ox 97.4 F 67 16 172/64 H 94 10/15/16 10:59 10/15/16 10:59 10/15/16 10:59 10/15/16 10:59 10/15/16 10:59 Intake & Output 10/14/16 10/15/16 10/16/16 06:59 06:59 06:59 Intake Total 2859 3230 Output Total 2225 1900 Balance 634 1330 Weight 75.7 kg 70.1 kg General appearance: PRESENT: no acute distress, well-developed, well-nourished Head exam: PRESENT: atraumatic Eye exam: PRESENT: conjunctiva pink, EOMI, PERRLA. ABSENT: scleral icterus Neck exam: ABSENT: carotid bruit, JVD, lymphadenopathy, thyromegaly Respiratory exam: PRESENT: clear to auscultation dolores. ABSENT: rales, rhonchi, wheezes Cardiovascular exam: PRESENT: RRR. ABSENT: diastolic murmur, rubs, systolic murmur GI/Abdominal exam: PRESENT: other - peg site satisfactory. ABSENT: ascites, diminished bowel sounds, distended, firm, guarding, hernia, hyperactive bowel sounds, hypoactive bowel sounds, mass, Sorto's sign, normal bowel sounds, organolmegaly, rebound, rigid, soft, tenderness Musculoskeletal exam: PRESENT: other - bilateral BKA Neurological exam: PRESENT: alert, awake, oriented to person, oriented to place , oriented to time, oriented to situation, CN II-XII grossly intact. ABSENT: motor sensory deficit Psychiatric exam: PRESENT: appropriate affect, normal mood. ABSENT: homicidal ideation, suicidal ideation Skin exam: PRESENT: dry, intact, warm. ABSENT: cyanosis, rash Results Laboratory Results: 10/13/16 06:07 10/13/16 06:07 Impressions: Chest X-Ray 10/08/16 20:38 IMPRESSION: No acute cardiopulmonary findings. Transfer Plan - Disposition Transfer Plan: Patient will be transfer to [facility] for continuation of his care plan and stay. - Time Spent with Patient Time spent with patient: Greater than 30 Minutes Qualifiers PATEINT BEING DISCHARGED WITH ANY OF THE FOLLOWING DIAGNOSIS?: No Plan Discharge Plan: See attending physician orders. Time Spent: Greater than 30 Minutes
== END 2016-10-15 17:50 | DRG 698 ==
LOC: ER 20:11 → EH 23:34 → UNDOADMIN 23:34 → EH 10-09 03:27 → 3S 10-09 03:27
PROVIDERS: ADMIT Internal Medicine Geriatric Medicine; ATTEND Internal Medicine Geriatric Medicine
DX: T83.511A Infection and inflammatory reaction due to indwelling urethral catheter, initial encounter (principal); G92 Toxic encephalopathy; L03.90 Cellulitis, unspecified; N39.0 Urinary tract infection, site not specified; J43.9 Emphysema, unspecified; I25.10 Atherosclerotic heart disease of native coronary artery without angina pectoris; I10 Essential (primary) hypertension; E11.9 Type 2 diabetes mellitus without complications; K21.9 Gastro-esophageal reflux disease without esophagitis; B96.89 Other specified bacterial agents as the cause of diseases classified elsewhere; I73.9 Peripheral vascular disease, unspecified; I25.2 Old myocardial infarction; Z93.1 Gastrostomy status; Z79.4 Long term (current) use of insulin; Z79.51 Long term (current) use of inhaled steroids; Z89.512 Acquired absence of left leg below knee; Z89.511 Acquired absence of right leg below knee; Z87.891 Personal history of nicotine dependence
CPT/HCPCS: 36415; 71010; 80053; 81001; 82550; 82553; 82803; 82962; 84484; 85025; 85610; 85730; 87040; 87086; 87088; 87186; 93005; 93010; 94640; 94660; 99291; J1650; J1815; J2543; J3490; J7030; J7620

== ENCOUNTER 2016-11-12 11:15 | Day surgery (SDC) | payer MEDICARE ==
[2016-11-12] MEDS ORDERED: ONDANSETRON HCL INJ/PF 4 MG/2 ML SDV ONE (11:52)
[2016-11-12] MEDS ORDERED: PROMETHAZINE HCL INJ 25 MG/1 ML VIAL ONE (11:52)
[2016-11-12] MEDS ORDERED: DIPHENHYDRAMINE HCL 50 MG/ML VIAL ONE (11:52)
[2016-11-12] MEDS ORDERED: NALOXONE HCL INJ/PF 0.4 MG/1 ML SDV ONE (11:52)
[2016-11-12] MEDS ORDERED: MIDAZOLAM 2 MG/2 ML INJ ONE (11:53)
[2016-11-12] MEDS ORDERED: FLUMAZENIL INJ 0.5 MG/5 ML VIAL IV ONE (11:54)
[2016-11-12] MEDS ORDERED: GLUCAGON,HUMAN RECOMB 1 MG INJ ONE (11:54)
[2016-11-12] MEDS ORDERED: FENTANYL CITRATE INJ/PF 100 MCG/2 ML AMPUL ONE ×2 (11:54)
[2016-11-12] MEDS ORDERED: EPINEPHRINE INJ 1 MG/10 ML DISP.SYRIN ONE (11:54)
[2016-11-12] MEDS: MIDAZOLAM 2 MG/2 ML INJ ONE ×3 (12:40→12:47)
--- NOTE | 2016-11-12 12:59 | Operative Report ---
Operative Report DATE OF SURGERY: 11/12/16 Operative Report: The risks benefits and alternatives of the procedure explained to the patient in detail and informed consent is obtained that GIF Olympus video scope was inserted into the patient's mouth and hypopharynx the esophagus is identified intubated and insufflated the scope was then advanced through the esophagus stomach and duodenum retroflexion maneuver is done the esophagus stomach and first and second portions of the duodenum examined PREOPERATIVE DIAGNOSIS: Patient wants PEG tube to be removed POSTOPERATIVE DIAGNOSIS: PEG removed. Gastritis status post biopsy rule out Helicobacter pylori OPERATION: EGD with biopsy SURGEON: MICHAEL DAY ANESTHESIA: Moderate Sedation - 4 mg of Versed, 50 g of fentanyl. Conscious sedation monitoring time 15 minutes. TISSUE REMOVED OR ALTERED: Gastric specimen obtained rule out Helicobacter pylori COMPLICATIONS: None. ESTIMATED BLOOD LOSS: none. INTRAOPERATIVE FINDINGS: Mild gastritis. PEG tube is snared on the anterior. The exterior portion was cut. The bumper is removed via the patient's mouth. Both parts are intact PROCEDURE: Patient tolerated the procedure well No immediate post procedure complications are noted Patient discharged in good condition Discharge date 11/12/2016 Discharge diet: Regular. Discharge activity: Regular. When necessary follow-up Patient is instructed to call the office or proceed to the emergency room if there are any further polyps or questions We'll await on biopsies and contact patient if necessary
[2016-11-12 14:11] VITALS: BP 141/64
== END 2016-11-12 14:05 | disposition home or self-care (01) ==
LOC: END 11:15
PROVIDERS: ATTEND Internal Medicine Gastroenterology
PROC: 0DP64UZ Removal of Feeding Device from Stomach, Percutaneous Endoscopic Approach (ICD-10-PCS; 2016-11-12)
PROC: 0DB68ZX Excision of Stomach, Via Natural or Artificial Opening Endoscopic, Diagnostic (ICD-10-PCS; principal; 2016-11-12 12:30)
DX: Z43.1 Encounter for attention to gastrostomy (principal); K29.70 Gastritis, unspecified, without bleeding; F32.9 Major depressive disorder, single episode, unspecified; I25.2 Old myocardial infarction; Z86.14 Personal history of Methicillin resistant Staphylococcus aureus infection; D50.9 Iron deficiency anemia, unspecified; E78.5 Hyperlipidemia, unspecified; I25.10 Atherosclerotic heart disease of native coronary artery without angina pectoris; I73.9 Peripheral vascular disease, unspecified; J44.9 Chronic obstructive pulmonary disease, unspecified; K21.9 Gastro-esophageal reflux disease without esophagitis; I12.9 Hypertensive chronic kidney disease with stage 1 through stage 4 chronic kidney disease, or unspecified chronic kidney disease; E11.22 Type 2 diabetes mellitus with diabetic chronic kidney disease; N18.3 Chronic kidney disease, stage 3 (moderate); Z79.899 Other long term (current) drug therapy
CPT/HCPCS: 43239; 82962; 88305 ×2; J2250; J3010; J0171; J1200; J1610; J2310; J2405; J2550; J3490

== ENCOUNTER 2017-06-10 16:00 | Inpatient (IN) | payer MEDICARE ==
--- NOTE | 2017-06-10 16:05 | ER Document Report ---
ED General <MISA MAYA - Last Filed: 06/10/17 17:31> - General Mode of Arrival: Medic Information source: POA - Power of [employer] [facility], Emergency Med Personnel TRAVEL OUTSIDE OF THE [place] IN LAST 30 DAYS: No <MILA PALACIOS - Last Filed: 06/10/17 17:53> - General Stated Complaint: UNRESPONSIVE Notes: Patient is a 72-year-old male who presents to the emergency department today secondary to being found unresponsive. Patient's last known well was 0900 this morning when he talked to the daughter via phone. Home health states when they arrived at the patient's house today he was slumped over in a wheelchair with drool. EMS states on their arrival the patient was 44% on room air and improved to 50% after 6 L nasal cannula. Patient had a BTL of 202. EMS states that the daughter was adamant that the patient was a DNR/DNI and was going home to get the documents. Patient is unresponsive with a GCS of 3. (MILA PALACIOS) - Related Data Allergies/Adverse Reactions: No Known Drug Allergies Allergy (Verified 06/10/17 16:28) Past Medical History - General Information source: Emergency Med Personnel, [facility] Records - Social History Smoking Status: Former Smoker Frequency of alcohol use: None Lives with: Family Family History: Reviewed & Not Pertinent - Past Medical History Cardiac Medical History: Reports: Hx Coronary Artery Disease, Hx Heart Attack - 2011, Hx Hypertension Pulmonary Medical History: Reports: Hx Asthma, Hx COPD, Hx Pneumonia Endocrine Medical History: Reports: Hx Diabetes Mellitus Type 2 GI Medical History: Reports: Hx Gastroesophageal Reflux Disease, Hx Hiatal Hernia - PT UNSURE Psychiatric Medical History: Reports: Hx Depression Past Surgical History: Reports: Hx Orthopedic Surgery - Bilateral BKA - Immunizations Hx Diphtheria, Pertussis, Tetanus Vaccination: No - unknown Hx Pneumococcal Vaccination: 09/20/10 <MILA PALACIOS - Last Filed: 06/10/17 17:53> Review of Systems - Review of Systems -: Yes ROS unobtainable due to patient's medical condition <MILA PALACIOS - Last Filed: 06/10/17 17:53> Physical Exam <MISA MAYA - Last Filed: 06/10/17 17:31> <MILA PALACIOS - Last Filed: 06/10/17 17:53> - Vital signs Vitals: Resp 34 H 06/10/17 16:01 - Notes Notes: Physical Exam: General: Unresponsive HEENT: Normocephalic. Atraumatic. Oropharynx clear. Dry mucous membranes. Neck: Supple. Non-tender. Respiratory: Hyperventilating, very shallow inspirations. Cardiovascular: Regular rate and rhythm. Abdominal: Large diastases rectus. No distension. Back: No deformity or step off. Extremities: Upper extremities: No edema. Lower extremities: Bilateral BKA. Neurological: Unresponsive. GCS of 3. Psychological: Unable to assess. Skin: Warm. Dry. Normal color. (MILA PALACIOS) Course - Laboratory Result Diagrams: 06/10/17 16:05 06/10/17 16:05 - Diagnostic Test Radiology reviewed: Image reviewed - Changes consistent with COPD - EKG Interpretation by Me Rate: Tachycardia - Sinus tachycardia with left ventricular fascicular and right bundle branch blocks. Nonspecific ST abnormalities. Rate 108. <MISA MAYA - Last Filed: 06/10/17 17:31> - Laboratory Result Diagrams: 06/10/17 16:05 06/10/17 16:05 <MILA PALACIOS - Last Filed: 06/10/17 17:53> - Re-evaluation Re-evalutation: 06/10/17 16:30 Patient was placed on BiPAP as he did have respiratory effort, tachycardia though it was somewhat shallow. He was unresponsive and could not give history or further care wishes. Family made it very clear to EMS that the patient is a DNR/DNI. As well, they are not here currently. We will continue workup until we can define their care wishes. 06/10/17 17:30 Patient's daughter arrived and confirmed the DNR/DNI. Patient apparently had been on a ventilator extensive the last year even with tracheostomy and at one point had undergone traumatic CPR and he did not want further with this. She understands with his respiratory failure, he is at high likelihood of . They do want to continue treatment at this point but no further heroic measures in that way. 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 Anders and he requests admission to the [facility]. ( MISA MAYA) - Vital Signs Vital signs: Temp Pulse Resp BP Pulse Ox 99.7 F 29 H 116/72 94 06/10/17 16:50 06/10/17 16:50 06/10/17 16:50 06/10/17 16:50 - Laboratory Laboratory results interpreted by ms: 06/10/17 06/10/17 06/10/17 16:05 16:05 16:05 WBC 12.9 H RDW 15.3 H Seg Neutrophils % 84.4 H Lymphocytes % 8.4 L Absolute Neutrophils 10.9 H VBG pH 7.15 L* VBG pCO2 101.0 H* VBG HCO3 34.0 H Potassium 5.4 H Chloride 97 L BUN 48 H Creatinine 1.51 H Est GFR ( Amer) 55 L Est GFR (Non-Af Amer) 45 L Glucose 231 H Direct Bilirubin 0.6 H Creatine Kinase 25 L Urine Protein Urine Urobilinogen Urine Ascorbic Acid 06/10/17 17:27 WBC RDW Seg Neutrophils % Lymphocytes % Absolute Neutrophils VBG pH VBG pCO2 VBG HCO3 Potassium Chloride BUN Creatinine Est GFR ( Amer) Est GFR (Non-Af Amer) Glucose Direct Bilirubin Creatine Kinase Urine Protein >=500 H Urine Urobilinogen 4.0 H Urine Ascorbic Acid 40 H Critical Care Note - Critical Care Note Total time excluding time spent on procedures (mins): 32 <MISA MAYA - Last Filed: 06/10/17 17:31> Discharge - Discharge Admitting Provider: [facility] Unit Admitted: [facility] <MISA MAYA - Last Filed: 06/10/17 17:31> <MILA PALACIOS - Last Filed: 06/10/17 17:53> - Discharge Clinical Impression: Acute respiratory failure, COPD (chronic obstructive pulmonary disease) Condition: Critical Disposition: ADMITTED INPATIENT Scribe Documentation - Scribe Written by Mirza:: Mirza Taylor, 06/10/2017 1753 acting as scribe for :: Chelle <MILA PALACIOS - Last Filed: 06/10/17 17:53>
[2017-06-10 16:26] LABS: ABSOLUTE LYMPHOCYTES (AUTO) 1.1 10^3/uL (0.5-4.7); ABSOLUTE MONOCYTES (AUTO) 0.9 10^3/uL (0.1-1.4); ABSOLUTE NEUT (AUTO) 10.9 10^3/uL (1.7-8.2); BASOPHILS % (AUTO) 0.4 % (0-2); HEMATOCRIT 45.8 % (37.9-51.0); HEMOGLOBIN 15.1 g/dL (13.5-17.0); HGB HCT DIFFERENCE -0.5; LYMPHOCYTES % (AUTO) 8.4 % (13-45); MEAN CORPUSCULAR HEMOGLOBIN 28.3 pg (27.0-33.4); MEAN CORPUSCULAR HGB CONC 32.9 g/dL (32.0-36.0); MEAN CORPUSCULAR VOLUME 86 fl (80-97); MONOCYTES % (AUTO) 6.8 % (3-13); RED BLOOD COUNT 5.33 10^6/uL (4.35-5.55); RED CELL DISTRIBUTION WIDTH 15.3 % (11.5-14.0); SEGMENTED NEUTROPHILS % (AUTO) 84.4 % (42-78); WHITE BLOOD COUNT 12.9 10^3/uL (4.0-10.5)
[2017-06-10 16:33] LABS: PROTHROMBIN TIME 13.8 SEC (11.4-15.4)
--- NOTE | 2017-06-10 16:49 | RADIOLOGY REPORT (SQ) ---
EXAM DESCRIPTION: CHEST SINGLE VIEW COMPLETED DATE/TIME: 06/10/2017 4:20 pm REASON FOR STUDY: Unresponsive COMPARISON: 10/08/2016 EXAM PARAMETERS: NUMBER OF VIEWS: One view. TECHNIQUE: Single frontal radiographic view of the chest acquired. RADIATION DOSE: NA LIMITATIONS: None. FINDINGS: LUNGS AND PLEURA: No opacities, masses or pneumothorax. No pleural effusion. MEDIASTINUM AND HILAR STRUCTURES: No masses. Contour normal. HEART AND VASCULAR STRUCTURES: Heart normal in size. Normal vasculature. BONES: No acute findings. HARDWARE: None in the chest. OTHER: No other significant finding. IMPRESSION: NO ACUTE RADIOGRAPHIC FINDING IN THE CHEST. TECHNICAL DOCUMENTATION: JOB ID: [id number]
[2017-06-10 16:55] LABS: VENOUS BLOOD BASE EXCESS 1.1 mmol/L
[2017-06-10 16:57] LABS: VENOUS BLOOD PH 7.15 (7.30-7.42)
[2017-06-10 17:01] LABS: ALANINE AMINOTRANSFERASE 36 U/L (21-72); ALKALINE PHOSPHATASE 114 U/L (38-126); ANION GAP 13 (5-19); ASPARTATE AMINO TRANSFERASE 25 U/L (17-59); BILIRUBIN,DIRECT 0.6 mg/dL (0.0-0.4); BILIRUBIN,TOTAL 0.8 mg/dL (0.2-1.3); BLOOD UREA NITROGEN 48 mg/dL (7-20); CALCIUM 9.4 mg/dL (8.4-10.2); CARBON DIOXIDE 30 mmol/L (22-30); CHLORIDE 97 mmol/L (98-107); CREATINE KINASE 25 U/L (55-170); CREATININE RESULT 1.51 mg/dL (0.52-1.25); GLUCOSE 231 mg/dL (75-110); POTASSIUM 5.4 mmol/L (3.6-5.0); SODIUM 140.4 mmol/L (137-145); TOTAL PROTEIN 7.2 g/dL (6.3-8.2)
[2017-06-10 17:10] LABS: CREATINE KINASE MB 1.27 ng/mL (<4.55)
[2017-06-10 17:16] LABS: TROPONIN I 0.05 ng/mL
[2017-06-10] MEDS ORDERED: METHYLPREDNISOLONE INJ 125 MG/2 ML SDV IV ONE (17:26)
[2017-06-10] MEDS ORDERED: PIPERACILLIN/TAZOBACTAM 3.375 GM VIAL IV ONE (17:27)
[2017-06-10 17:44] LABS: APPEARANCE,URINE SLIGHTLY-CLOUDY; BILIRUBIN,URINE NEGATIVE (NEGATIVE); GLUCOSE, URINE NEGATIVE (NEGATIVE); KETONES,URINE NEGATIVE (NEGATIVE); LEUKOCYTE ESTERASE,URINE NEGATIVE (NEGATIVE); NITRITE,URINE NEGATIVE (NEGATIVE); PROTEIN,URINE >=500 mg/dL (NEGATIVE); URINE SPECIFIC GRAVITY 1.018
--- NOTE | 2017-06-10 18:33 | EKG REPORT ---
SEVERITY:- ABNORMAL ECG - SINUS TACHYCARDIA RBBB AND LAFB : Confirmed by: Roge Barton MD 10-Jun-2017 18:32:55
--- NOTE | 2017-06-10 19:58 | PDOC H&P ---
History of Present Illness Admission Date/PCP: 06/10/17 18:14 TJ ARREOLA MD Patient complains of: Unresponsiveness History of Present Illness: TOBY HENDERSON is a 72 year old male patient known to my practice who presented to the ED via EMS after he was found unresponsive by daughter at home. She reported talking to him earlier this morning but patient have been somewhat confused and lack memory of recent event over last 2 days. There is reported of urinary incontinence over last couple of days. There is no reported fever or chills. Daughter reported that he was slumped over in wheelchair, unresponsive, and dishevelled. His home care nurse oximetry did recorded saturation at 95% on room air but EMS personnel found patient hypoxemic with saturation in the 40% range. His hypoxemia did improved with supplemental oxygen administration. Patient has a DNR/DNI advance directive which has been honored since arrival in the ED. His initial evaluation did revealed hypoxemia, hypercapnia and respiratory acidosis state. He is currently on BiPAP support with administration of IV antibiotic, steroid and IV fluid. Patient remain nonverbal at the time of my evaluation and daughter at bedside was able to contribute to his medical history. His morbidities include COPD, current cigarette smoking, Diabetes mellitus, HTN, CAD with old VA, HLD, PAD s/p Bilateral BKA, healing stump wounds, GERD and Depression. Past Medical History Cardiac Medical History: Reports: Coronary Artery Disease, Myocardial Infarction - 2012, Hyperlipidema, Hypertension Denies: Congestive Heart Failure Pulmonary Medical History: Reports: Asthma, Chronic Obstructive Pulmonary Disease (COPD), Pneumonia Denies: Bronchitis, Tuberculosis Neurological Medical History: Denies: Seizures Endocrine Medical History: Reports: Diabetes Mellitus Type 2 Renal/ Medical History: Denies: End Stage Renal Disease GI Medical History: Reports: Gastroesophageal Reflux Disease, Hiatal Hernia - PT UNSURE Denies: Cirrhosis, Hepatitis Musculoskeltal Medical History: Denies: Arthritis Psychiatric Medical History: Reports: Depression Denies: Bipolar Disorder Hematology: Denies: Anemia, Sickle Cell Disease, Bleeding Tendencies Past Surgical History Past Surgical History: Reports: Orthopedic Surgery - Bilateral BKA Denies: Pacemaker Social History Lives with: Family Smoking Status: Former Smoker Frequency of Alcohol Use: None Hx Recreational Drug Use: No Drugs: None Hx Prescription Drug Abuse: No Family History Family History: Reviewed & Not Pertinent Parental Family History Reviewed: Yes Children Family History Reviewed: Yes Sibling(s) Family History Reviewed.: Yes Medication/Allergy Home Medications: Amlodipine Besylate [Norvasc 5 mg Tablet] 5 mg PO DAILY 06/10/17 Ascorbic Acid [Vitamin C 500 mg Tablet] 500 mg PO DAILY 06/10/17 Aspirin [[place] Aspirin] 81 mg PO DAILY 06/10/17 Budesonide/Formoterol Fumarate [Symbicort Hfa 160-4.5 Mcg Inhaler 6 gm] 2 puff IH Q12 06/10/17 Bumetanide [Bumex 1 mg Tablet] 1 tab PO DAILY 06/10/17 Carvedilol [Coreg 6.25 mg Tablet] 6.25 mg PO Q12 06/10/17 Ezetimibe [Zetia 10 mg Tablet] 10 mg PO DAILY 06/10/17 Glimepiride [Amaryl 4 mg Tablet] 4 mg PO DAILY 06/10/17 Metoclopramide HCl [Reglan 10 mg Tablet] 10 mg PO Q6 06/10/17 Multivitamin/Iron/Folic Acid [Centrum Complete Multivit Tab] 1 each PO DAILY Omeprazole 20 mg PO DAILY 06/10/17 Quetiapine Fumarate [Seroquel 25 mg Tablet] 25 mg PO Q12 06/10/17 Allergies/Adverse Reactions: No Known Drug Allergies Allergy (Verified 06/10/17 16:28) Review of Systems ROS unobtainable: Due to mental status - remain on BiPAP support. Daugther at bedside was able to contribute to his medical history. Physical Exam Vital Signs: Temp Pulse Resp BP Pulse Ox 99.7 F 29 H 116/72 94 06/10/17 16:50 06/10/17 16:50 06/10/17 16:50 06/10/17 16:50 General appearance: PRESENT: disheveled, mild distress Head exam: PRESENT: atraumatic, normocephalic Eye exam: PRESENT: PERRLA. ABSENT: conjunctiva pale, scleral icterus Mouth exam: PRESENT: moist Neck exam: PRESENT: full ROM. ABSENT: carotid bruit, JVD, lymphadenopathy, thyromegaly Respiratory exam: PRESENT: accessory muscle use, decreased breath sounds, rhonchi - minmal expirartory phase, tachypnea Cardiovascular exam: PRESENT: RRR. ABSENT: diastolic murmur, rubs, systolic murmur Pulses: PRESENT: normal femoral pulses Vascular exam: PRESENT: normal capillary refill. ABSENT: pallor GI/Abdominal exam: PRESENT: normal bowel sounds, soft. ABSENT: distended, guarding, mass, organolmegaly, rebound, tenderness Rectal exam: PRESENT: deferred Extremities exam: PRESENT: left BKA, right BKA. ABSENT: pedal edema Neurological exam: PRESENT: altered Psychiatric exam: PRESENT: appropriate affect, normal mood. ABSENT: homicidal ideation, suicidal ideation Skin exam: PRESENT: warm, other - healing bilateral stump wounds. ABSENT: pallor Results Laboratory Results: I reviewed his lab result on [place] and form significant part of my medical decision making in this case. Impressions: Chest X-Ray 06/10/17 16:07 IMPRESSION: NO ACUTE RADIOGRAPHIC FINDING IN THE CHEST. Assessment & Plan - Diagnosis (1) Acute respiratory failure Qualifiers: Respiratory failure complication: hypoxia and hypercapnia Qualified Code(s) : J96.01 - Acute respiratory failure with hypoxia; J96.02 - Acute respiratory failure with hypercapnia Is this a current diagnosis for this admission?: Yes Plan: See admitting attending physician orders. (2) COPD (chronic obstructive pulmonary disease) Qualifiers: COPD type: unspecified COPD Qualified Code(s): J44.9 - Chronic obstructive pulmonary disease, unspecified Is this a current diagnosis for this admission?: Yes Plan: See admitting attending physician orders. (3) Toxic metabolic encephalopathy Is this a current diagnosis for this admission?: Yes Plan: See admitting attending physician orders. (4) SIRS (systemic inflammatory response syndrome) Is this a current diagnosis for this admission?: Yes Plan: See admitting attending physician orders. (5) Probable sepsis Is this a current diagnosis for this admission?: Yes Plan: See admitting attending physician orders. (6) Diabetes mellitus, type 2 Qualifiers: Diabetes mellitus complication status: with unspecified complications Diabetes mellitus alf insulin use: with alf use Qualified Code(s) : E11.8 - Type 2 diabetes mellitus with unspecified complications; Z79.4 - intermodal customer service (current) use of insulin Is this a current diagnosis for this admission?: Yes Plan: See admitting attending physician orders. (7) HTN (hypertension) Qualifiers: Hypertension type: essential hypertension Qualified Code(s): I10 - Essential (primary) hypertension Is this a current diagnosis for this admission?: Yes Plan: See admitting attending physician orders. (8) HLD (hyperlipidemia) Qualifiers: Hyperlipidemia type: pure hypercholesterolemia Qualified Code(s): E78.00 - Pure hypercholesterolemia, unspecified; E78.0 - Pure hypercholesterolemia Is this a current diagnosis for this admission?: Yes Plan: See admitting attending physician orders. (9) CAD (coronary artery disease) Qualifiers: Coronary Disease-Associated Artery/Lesion type: [place] artery Associated angina: without angina Is this a current diagnosis for this admission?: Yes Plan: See admitting attending physician orders. (10) Old VA (myocardial infarction) Is this a current diagnosis for this admission?: Yes Plan: See admitting attending physician orders. (11) GERD (gastroesophageal reflux disease) Qualifiers: Esophagitis presence: without esophagitis Qualified Code(s): K21.9 - Gastro -esophageal reflux disease without esophagitis Is this a current diagnosis for this admission?: Yes Plan: See admitting attending physician orders. (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, stage 2 Is this a current diagnosis for this admission?: Yes Plan: See admitting attending physician orders. (13) Tobacco abuse disorder Is this a current diagnosis for this admission?: Yes Plan: See admitting attending physician orders. - Time Time Spent: Greater than 70 Minutes Medications reviewed and adjusted accordingly: Yes Anticipated discharge: Home with Homehealth Within: Other - Inpatient Certification Based on my medical assessment, after consideration of the patient's comorbidities, presenting symptoms, or acuity I expect that the services needed warrant INPATIENT care.: Yes I certify that my determination is in accordance with my understanding of Medicare's requirements for reasonable and necessary INPATIENT services [42 CFR 412.3e].: Yes Medical Necessity: Need Close Monitoring Due to Risk of Patient Decompensation, Need For IV Fluids, Need For Continuous Telemetry Monitoring, Need for Nebulizer Therapy and Monitoring of Response, Need for IV Antibiotics, Risk of Complication if Not Cared For in Hospital Post Hospital Care: D/C Radio Rigger Documentation - Plan Summary Plan Summary: See admitting attending physician orders.
[2017-06-10] MEDS ORDERED: DEXTROSE 40% GEL 15 GM TUBE PO PRN (20:00)
[2017-06-10] MEDS ORDERED: DEXTROSE 50%-WATER 25 GM/50 ML DISP.SYRIN IV PRN (20:00)
[2017-06-10] MEDS ORDERED: GLUCAGON,HUMAN RECOMB 1 MG INJ SUBCUT PRN (20:00)
[2017-06-10] MEDS ORDERED: ACETAMINOPHEN 650 MG SUPP.RECT PR PRN (20:10)
[2017-06-10] MEDS ORDERED: METHYLPREDNISOLONE INJ 125 MG/2 ML SDV IV SCH (20:15)
[2017-06-10 23:00] LABS: PARTIAL THROMBOPLASTIN TIME 29.7 SEC (23.5-35.8); PROTHROMBIN TIME 13.8 SEC (11.4-15.4)
[2017-06-10 23:21] LABS: CREATINE KINASE MB 1.42 ng/mL (<4.55)
[2017-06-10 23:28] LABS: TROPONIN I 0.194 ng/mL
[2017-06-11] MEDS: METHYLPREDNISOLONE INJ 125 MG/2 ML SDV IV SCH ×4 (00:31→21:48)
[2017-06-11] MEDS: PANTOPRAZOLE SODIUM 40 MG VIAL IV SCH ×3 (00:31→21:54)
[2017-06-11] MEDS: PIPERACILLIN SODIUM/TAZOBACTAM 3.375 GM in DEXTROSE 5%-WATER 100 ML IV SCH ×4 (00:32→17:55)
[2017-06-11] MEDS: NORMAL SALINE 1000 ML 1,000 ML IV PRN ×2 (00:32→17:56)
[2017-06-11 00:33] LABS: ARTERIAL BLOOD BASE EXCESS 2.1 mmol/L; ARTERIAL BLOOD O2 SATURATION 95.7 % (94-98)
[2017-06-11] MEDS: INSULIN LISPRO 100 UNIT/ML 3 ML VIAL SUBCUT PRN ×3 (00:33→17:56)
[2017-06-11 05:12] LABS: HEMOGLOBIN 14.3 g/dL (13.5-17.0)
[2017-06-11 05:22] LABS: HEMATOCRIT 43.4 % (37.9-51.0); HGB HCT DIFFERENCE -0.5; MEAN CORPUSCULAR HEMOGLOBIN 28.3 pg (27.0-33.4); MEAN CORPUSCULAR HGB CONC 32.9 g/dL (32.0-36.0); MEAN CORPUSCULAR VOLUME 86 fl (80-97); RED BLOOD COUNT 5.03 10^6/uL (4.35-5.55); RED CELL DISTRIBUTION WIDTH 15.2 % (11.5-14.0); WHITE BLOOD COUNT 11.6 10^3/uL (4.0-10.5)
[2017-06-11 05:29] LABS: CREATINE KINASE MB 1.14 ng/mL (<4.55); TROPONIN I 0.216 ng/mL
[2017-06-11 05:32] LABS: ALANINE AMINOTRANSFERASE 41 U/L (21-72); ALBUMIN 3.6 g/dL (3.5-5.0); ALKALINE PHOSPHATASE 94 U/L (38-126); ANION GAP 12 (5-19); ASPARTATE AMINO TRANSFERASE 25 U/L (17-59); BILIRUBIN,DIRECT 0.5 mg/dL (0.0-0.4); BILIRUBIN,TOTAL 0.6 mg/dL (0.2-1.3); BLOOD UREA NITROGEN 63 mg/dL (7-20); CALCIUM 8.8 mg/dL (8.4-10.2); CARBON DIOXIDE 30 mmol/L (22-30); CHLORIDE 101 mmol/L (98-107); CREATININE RESULT 2.17 mg/dL (0.52-1.25); GLUCOSE 225 mg/dL (75-110); MAGNESIUM 1.8 mg/dL (1.6-2.3); PHOSPHORUS 7.7 mg/dL (2.5-4.5); POTASSIUM 5.4 mmol/L (3.6-5.0); SODIUM 143.1 mmol/L (137-145); TOTAL PROTEIN 6.5 g/dL (6.3-8.2)
[2017-06-11 05:39] LABS: BASOPHILS % (MANUAL) 0 % (0-2); EOSINOPHILS % (MANUAL) 0 % (0-6); LYMPHOCYTES % (MANUAL) 4 % (13-45); TOTAL CELLS COUNTED 100
[2017-06-11 05:40] LABS: CREATINE KINASE < 20 U/L (55-170); TOXIC GRANULATION SLIGHT
[2017-06-11 05:41] LABS: ANISOCYTOSIS SLIGHT; OVALOCYTES SLIGHT; POIKILOCYTOSIS SLIGHT; POLYCHROMASIA SLIGHT; TEAR DROP CELLS SLIGHT
[2017-06-11] MEDS ORDERED: DEXTROSE 5%-WATER 1000 ML 1,000 ML with SODIUM BICARBONATE 50 MEQ IV PRN ×2 (07:56)
[2017-06-11] MEDS: ENOXAPARIN SODIUM INJ 40 MG/0.4 ML DISP.SYRIN SUBCUT SCH (10:47)
[2017-06-11 12:01] LABS: CREATINE KINASE MB 1.23 ng/mL (<4.55); TROPONIN I 0.144 ng/mL
--- NOTE | 2017-06-11 17:06 | PDOC PROGRESS REPORT ---
Subjective Progress Note for:: 06/11/17 Subjective:: Patient is much better, presently lucid and appropriate in responses. Remain on BiPAP support and Bicarbonate drip. No fever or chills. Denied any chest pain. Remain NPO status. Physical Exam Vital Signs: Temp Pulse Resp BP Pulse Ox 98.1 F 87 22 H 114/65 96 06/11/17 15:35 06/11/17 15:35 06/11/17 15:35 06/11/17 15:35 06/11/17 15:35 Intake & Output 06/10/17 06/11/17 06/12/17 06:59 06:59 06:59 Intake Total 485 1261 Output Total 150 150 Balance 335 1111 Weight 69.4 kg General appearance: PRESENT: cooperative, mild distress Head exam: PRESENT: atraumatic, normocephalic Eye exam: ABSENT: conjunctiva pale, scleral icterus Mouth exam: PRESENT: moist - fairly., other - BiPAP in use Respiratory exam: PRESENT: clear to auscultation dolores, decreased breath sounds - at lung bases Cardiovascular exam: PRESENT: RRR. ABSENT: diastolic murmur, rubs, systolic murmur GI/Abdominal exam: PRESENT: normal bowel sounds, soft. ABSENT: distended, guarding, mass, organolmegaly, rebound, tenderness Extremities exam: PRESENT: left BKA, right BKA Musculoskeletal exam: ABSENT: ambulatory Neurological exam: PRESENT: alert, awake, oriented to person, oriented to place , oriented to time, oriented to situation, CN II-XII grossly intact. ABSENT: motor sensory deficit Psychiatric exam: PRESENT: appropriate affect, normal mood. ABSENT: homicidal ideation, suicidal ideation Skin exam: PRESENT: dry, warm, other - bilateral stumps healed ulcers Results Laboratory Results: 06/11/17 04:35 06/11/17 04:35 06/11/17 06/11/17 06/11/17 00:24 04:35 04:35 WBC 11.6 H RBC 5.03 Hgb 14.3 Hct 43.4 MCV 86 MCH 28.3 MCHC 32.9 RDW 15.2 H Plt Count 248 Seg Neutrophils % Not Reportable Lymphocytes % Not Reportable Monocytes % Not Reportable Eosinophils % Not Reportable Basophils % Not Reportable Absolute Neutrophils Not Reportable Absolute Lymphocytes Not Reportable Absolute Monocytes Not Reportable Absolute Eosinophils Not Reportable Absolute Basophils Not Reportable Carbonic Acid 2.75 H HCO3/H2CO3 Ratio 12:1 ABG pH 7.18 L* ABG pCO2 91.3 H* ABG pO2 100.8 H ABG HCO3 33.6 H ABG O2 Saturation 95.7 ABG Base Excess 2.1 FiO2 60% Sodium 143.1 Potassium 5.4 H Chloride 101 Carbon Dioxide 30 Anion Gap 12 BUN 63 H Creatinine 2.17 H Est GFR ( Amer) 36 L Est GFR (Non-Af Amer) 30 L Glucose 225 H Calcium 8.8 Phosphorus 7.7 H Magnesium 1.8 Total Bilirubin 0.6 AST 25 ALT 41 Alkaline Phosphatase 94 Total Protein 6.5 Albumin 3.6 06/10/17 06/10/17 06/11/17 22:45 22:45 04:35 Creatine Kinase < 20 L < 20 L CK-MB (CK-2) 1.42 Troponin I 0.194 06/11/17 06/11/17 06/11/17 04:35 11:14 11:14 Creatine Kinase 74 CK-MB (CK-2) 1.14 1.23 Troponin I 0.216 0.144 Impressions: Chest X-Ray 06/10/17 16:07 IMPRESSION: NO ACUTE RADIOGRAPHIC FINDING IN THE CHEST. Assessment & Plan - Diagnosis (1) Acute respiratory failure Qualifiers: Respiratory failure complication: hypoxia and hypercapnia Qualified Code(s) : J96.01 - Acute respiratory failure with hypoxia; J96.02 - Acute respiratory failure with hypercapnia Is this a current diagnosis for this admission?: Yes (2) COPD (chronic obstructive pulmonary disease) Qualifiers: COPD type: unspecified COPD Qualified Code(s): J44.9 - Chronic obstructive pulmonary disease, unspecified Is this a current diagnosis for this admission?: Yes (3) Toxic metabolic encephalopathy Is this a current diagnosis for this admission?: Yes (4) SIRS (systemic inflammatory response syndrome) Is this a current diagnosis for this admission?: Yes (5) Probable sepsis Is this a current diagnosis for this admission?: Yes (6) Diabetes mellitus, type 2 Qualifiers: Diabetes mellitus complication status: with unspecified complications Diabetes mellitus terminal operator insulin use: with terminal operator use Qualified Code(s) : E11.8 - Type 2 diabetes mellitus with unspecified complications; Z79.4 - assisted (current) use of insulin Is this a current diagnosis for this admission?: Yes (7) HTN (hypertension) Qualifiers: Hypertension type: essential hypertension Qualified Code(s): I10 - Essential (primary) hypertension Is this a current diagnosis for this admission?: Yes (8) HLD (hyperlipidemia) Qualifiers: Hyperlipidemia type: pure hypercholesterolemia Qualified Code(s): E78.00 - Pure hypercholesterolemia, unspecified; E78.0 - Pure hypercholesterolemia Is this a current diagnosis for this admission?: Yes (9) CAD (coronary artery disease) Qualifiers: Coronary Disease-Associated Artery/Lesion type: [place] artery Associated angina: without angina Is this a current diagnosis for this admission?: Yes (10) Old [place] (myocardial infarction) Is this a current diagnosis for this admission?: Yes (11) GERD (gastroesophageal reflux disease) Qualifiers: Esophagitis presence: without esophagitis Qualified Code(s): K21.9 - Gastro -esophageal reflux disease without esophagitis Is this a current diagnosis for this admission?: Yes (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, stage 2 Is this a current diagnosis for this admission?: Yes (13) Tobacco abuse disorder Is this a current diagnosis for this admission?: Yes - Time Time Spent with patient: 35 or more minutes Medications reviewed and adjusted accordingly: Yes Anticipated discharge: Other - Possible [facility] placement upon discharge. - Inpatient Certification Based on my medical assessment, after consideration of the patient's comorbidities, presenting symptoms, or acuity I expect that the services needed warrant INPATIENT care.: Yes I certify that my determination is in accordance with my understanding of Medicare's requirements for reasonable and necessary INPATIENT services [42 CFR 412.3e].: Yes Medical Necessity: Need Close Monitoring Due to Risk of Patient Decompensation, Need For IV Fluids, Need For Continuous Telemetry Monitoring, Need for Neurological Checks, Need for IV Antibiotics, Risk of Complication if Not Cared For in Hospital - Plan Summary Plan Summary: Obtain repeat ABG if PCO2 < 50 we will try him off BiPAP support while awake and use device only while sleeping. Continue IV Levofloxacin and Cefepime coverage. Obtain BMP and CBC with diff in AM. I will discontinue Bicarb infusion. Maintain on all other current medication management. I had extensive discussion with patient and daughter regarding ASSISTED placement upon discharge. Patient do have history of JUWAN and twice on CPAP machine at home in the past.
[2017-06-11 19:22] LABS: ARTERIAL BLOOD BASE EXCESS 1.4 mmol/L; ARTERIAL BLOOD O2 SATURATION 97.2 % (94-98)
[2017-06-12] MEDS: PIPERACILLIN SODIUM/TAZOBACTAM 3.375 GM in DEXTROSE 5%-WATER 100 ML IV SCH ×5 (01:02→23:40)
[2017-06-12 05:24] LABS: HEMATOCRIT 40.9 % (37.9-51.0); HEMOGLOBIN 13.6 g/dL (13.5-17.0); HGB HCT DIFFERENCE -0.1; MEAN CORPUSCULAR HEMOGLOBIN 28.4 pg (27.0-33.4); MEAN CORPUSCULAR HGB CONC 33.1 g/dL (32.0-36.0); MEAN CORPUSCULAR VOLUME 86 fl (80-97); RED BLOOD COUNT 4.77 10^6/uL (4.35-5.55); WHITE BLOOD COUNT 10.2 10^3/uL (4.0-10.5)
[2017-06-12 05:51] LABS: BASOPHILS % (MANUAL) 0 % (0-2); EOSINOPHILS % (MANUAL) 0 % (0-6); LYMPHOCYTES % (MANUAL) 7 % (13-45); TOTAL CELLS COUNTED 100
[2017-06-12 05:52] LABS: ANISOCYTOSIS 1+; TOXIC GRANULATION SLIGHT
[2017-06-12] MEDS: NORMAL SALINE 1000 ML 1,000 ML IV PRN ×2 (06:04→22:43)
[2017-06-12] MEDS: METHYLPREDNISOLONE INJ 125 MG/2 ML SDV IV SCH ×3 (06:22→22:43)
[2017-06-12 06:45] LABS: ANION GAP 6 (5-19); BLOOD UREA NITROGEN 73 mg/dL (7-20); CALCIUM 7.9 mg/dL (8.4-10.2); CARBON DIOXIDE 32 mmol/L (22-30); CHLORIDE 103 mmol/L (98-107); CREATININE RESULT 1.99 mg/dL (0.52-1.25); GLUCOSE 231 mg/dL (75-110); PHOSPHORUS 3.7 mg/dL (2.5-4.5); POTASSIUM 4.6 mmol/L (3.6-5.0); SODIUM 141.2 mmol/L (137-145)
--- NOTE | 2017-06-12 09:22 | PDOC PROGRESS REPORT ---
Subjective Progress Note for:: 06/12/17 Subjective:: Patient is currently doing fair this morning. Patient's denied any chest pain denied any shortness of the breath. Patient did not wear any BiPAP last night. Patient's PCO2 was high yesterday Patient's otherwise feeling much better Physical Exam Vital Signs: Temp Pulse Resp BP Pulse Ox 97.6 F 77 22 H 135/64 H 96 06/12/17 04:19 06/12/17 04:19 06/12/17 04:19 06/12/17 04:19 06/12/17 04:19 Intake & Output 06/11/17 06/12/17 06/13/17 06:59 06:59 06:59 Intake Total 485 1561 1000 Output Total 150 850 Balance 518 898 4043 Weight 69.4 kg 76.1 kg General appearance: PRESENT: no acute distress, well-developed, well-nourished Head exam: PRESENT: atraumatic, normocephalic Eye exam: PRESENT: conjunctiva pink, EOMI, PERRLA. ABSENT: scleral icterus Ear exam: PRESENT: normal external ear exam Mouth exam: PRESENT: moist, tongue midline Neck exam: PRESENT: full ROM. ABSENT: carotid bruit, JVD, lymphadenopathy, thyromegaly Respiratory exam: PRESENT: clear to auscultation dolores Cardiovascular exam: PRESENT: RRR. ABSENT: diastolic murmur, rubs, systolic murmur Pulses: PRESENT: normal dorsalis pedis pul, +2 pedal pulses bilateral Vascular exam: PRESENT: normal capillary refill GI/Abdominal exam: PRESENT: normal bowel sounds, soft. ABSENT: distended, guarding, mass, organolmegaly, rebound, tenderness Rectal exam: PRESENT: deferred Extremities exam: PRESENT: left BKA, right BKA Neurological exam: PRESENT: alert, awake, oriented to person, oriented to place , oriented to time, oriented to situation, CN II-XII grossly intact. ABSENT: motor sensory deficit Psychiatric exam: PRESENT: appropriate affect, normal mood. ABSENT: homicidal ideation, suicidal ideation Skin exam: PRESENT: dry, intact, warm. ABSENT: cyanosis, rash Results Laboratory Results: 06/12/17 04:24 06/12/17 06:19 06/11/17 06/12/17 06/12/17 19:00 04:24 04:24 WBC 10.2 RBC 4.77 Hgb 13.6 Hct 40.9 MCV 86 MCH 28.4 MCHC 33.1 RDW 15.0 H Plt Count 202 Seg Neutrophils % Not Reportable Lymphocytes % Not Reportable Monocytes % Not Reportable Eosinophils % Not Reportable Basophils % Not Reportable Absolute Neutrophils Not Reportable Absolute Lymphocytes Not Reportable Absolute Monocytes Not Reportable Absolute Eosinophils Not Reportable Absolute Basophils Not Reportable Carbonic Acid 2.42 H HCO3/H2CO3 Ratio 13:1 ABG pH 7.21 L ABG pCO2 80.5 H* ABG pO2 117.1 H ABG HCO3 31.6 H ABG O2 Saturation 97.2 ABG Base Excess 1.4 FiO2 4L Sodium Cancelled Potassium Cancelled Chloride Cancelled Carbon Dioxide Cancelled Anion Gap Cancelled BUN Cancelled Creatinine Cancelled Est GFR ( Amer) Cancelled Est GFR (Non-Af Amer) Cancelled Glucose Cancelled Calcium Cancelled Phosphorus Cancelled 06/12/17 06:19 WBC RBC Hgb Hct MCV MCH MCHC RDW Plt Count Seg Neutrophils % Lymphocytes % Monocytes % Eosinophils % Basophils % Absolute Neutrophils Absolute Lymphocytes Absolute Monocytes Absolute Eosinophils Absolute Basophils Carbonic Acid HCO3/H2CO3 Ratio ABG pH ABG pCO2 ABG pO2 ABG HCO3 ABG O2 Saturation ABG Base Excess FiO2 Sodium 141.2 Potassium 4.6 Chloride 103 Carbon Dioxide 32 H Anion Gap 6 BUN 73 H Creatinine 1.99 H Est GFR ( Amer) 40 L Est GFR (Non-Af Amer) 33 L Glucose 231 H Calcium 7.9 L Phosphorus 3.7 06/10/17 06/10/17 06/11/17 22:45 22:45 04:35 Creatine Kinase < 20 L < 20 L CK-MB (CK-2) 1.42 Troponin I 0.194 06/11/17 06/11/17 06/11/17 04:35 11:14 11:14 Creatine Kinase 74 CK-MB (CK-2) 1.14 1.23 Troponin I 0.216 0.144 Impressions: Chest X-Ray 06/10/17 16:07 IMPRESSION: NO ACUTE RADIOGRAPHIC FINDING IN THE CHEST. Assessment & Plan - Diagnosis (1) Acute respiratory failure Qualifiers: Respiratory failure complication: hypoxia and hypercapnia Qualified Code(s) : J96.01 - Acute respiratory failure with hypoxia; J96.02 - Acute respiratory failure with hypercapnia Is this a current diagnosis for this admission?: Yes Plan: We will repeat the ABG patient will chronic respiratory failure but looks currently better maybe consider the BiPAP at night times if is still elevated PCO2 patient is currently on 2 L nasal cannula and very comfortable (2) CAD (coronary artery disease) Qualifiers: Coronary Disease-Associated Artery/Lesion type: [place] artery Associated angina: without angina Is this a current diagnosis for this admission?: Yes Plan: Patient's currently denied any chest pain (3) COPD (chronic obstructive pulmonary disease) Qualifiers: COPD type: unspecified COPD Qualified Code(s): J44.9 - Chronic obstructive pulmonary disease, unspecified Is this a current diagnosis for this admission?: Yes Plan: This is a nebulizer treatment every 6 hours (4) Diabetes mellitus, type 2 Qualifiers: Diabetes mellitus complication status: with unspecified complications Diabetes mellitus buttermaker insulin use: with buttermaker use Qualified Code(s) : E11.8 - Type 2 diabetes mellitus with unspecified complications; Z79.4 - correction (current) use of insulin Is this a current diagnosis for this admission?: Yes Plan: continues to current medications (5) HTN (hypertension) Qualifiers: Hypertension type: essential hypertension Qualified Code(s): I10 - Essential (primary) hypertension Is this a current diagnosis for this admission?: Yes Plan: Under control (6) Probable sepsis Is this a current diagnosis for this admission?: Yes Plan: Continues to IV antibiotic (7) Acute renal failure Qualifiers: Acute renal failure type: unspecified Qualified Code(s): N17.9 - Acute kidney failure, unspecified Is this a current diagnosis for this admission?: Yes Plan: Currently all improving - Time Time Spent with patient: 15-24 minutes Medications reviewed and adjusted accordingly: Yes Anticipated discharge: Home Within: Other - Inpatient Certification Medical Necessity: Need For IV Fluids, Need for IV Antibiotics Post Hospital Care: D/C Applications Consultant Documentation - Plan Summary Plan Summary: Continues to have antibiotics decrease the IV fluid and repeat the ABG and CBC and Chem-7 in the morning
[2017-06-12] MEDS: IPRATROPIUM/ALBUTEROL 0.5-2.5 MG/3 ML AMPUL NEB PRN ×2 (09:43→14:05)
[2017-06-12 09:59] LABS: ARTERIAL BLOOD BASE EXCESS 1.1 mmol/L; ARTERIAL BLOOD O2 SATURATION 96.6 % (94-98)
[2017-06-12] MEDS: PANTOPRAZOLE SODIUM 40 MG VIAL IV SCH ×2 (13:04→22:43)
[2017-06-12] MEDS: ENOXAPARIN SODIUM INJ 40 MG/0.4 ML DISP.SYRIN SUBCUT SCH (13:05)
[2017-06-12] MEDS: INSULIN LISPRO 100 UNIT/ML 3 ML VIAL SUBCUT PRN ×3 (13:11→23:40)
[2017-06-13] MEDS: METHYLPREDNISOLONE INJ 125 MG/2 ML SDV IV SCH ×3 (06:16→22:58)
[2017-06-13] MEDS: PIPERACILLIN SODIUM/TAZOBACTAM 3.375 GM in DEXTROSE 5%-WATER 100 ML IV SCH ×4 (06:16→22:58)
[2017-06-13 07:17] LABS: HEMATOCRIT 40.4 % (37.9-51.0); HEMOGLOBIN 13.2 g/dL (13.5-17.0); HGB HCT DIFFERENCE -0.8; MEAN CORPUSCULAR HEMOGLOBIN 27.8 pg (27.0-33.4); MEAN CORPUSCULAR HGB CONC 32.7 g/dL (32.0-36.0); MEAN CORPUSCULAR VOLUME 85 fl (80-97); RED BLOOD COUNT 4.76 10^6/uL (4.35-5.55); RED CELL DISTRIBUTION WIDTH 15.1 % (11.5-14.0); WHITE BLOOD COUNT 9.4 10^3/uL (4.0-10.5)
[2017-06-13 07:41] LABS: ANION GAP 8 (5-19); BLOOD UREA NITROGEN 77 mg/dL (7-20); CALCIUM 7.7 mg/dL (8.4-10.2); CARBON DIOXIDE 28 mmol/L (22-30); CHLORIDE 105 mmol/L (98-107); CREATININE RESULT 1.66 mg/dL (0.52-1.25); GLUCOSE 254 mg/dL (75-110); POTASSIUM 4.4 mmol/L (3.6-5.0); SODIUM 140.8 mmol/L (137-145)
[2017-06-13] MEDS: IPRATROPIUM/ALBUTEROL 0.5-2.5 MG/3 ML AMPUL NEB PRN ×4 (08:17→19:41)
[2017-06-13 08:27] LABS: BASOPHILS % (MANUAL) 0 % (0-2); EOSINOPHILS % (MANUAL) 0 % (0-6); LYMPHOCYTES % (MANUAL) 4 % (13-45); TOTAL CELLS COUNTED 100
[2017-06-13 08:28] LABS: ANISOCYTOSIS SLIGHT; HYPOCHROMASIA SLIGHT; POLYCHROMASIA SLIGHT
[2017-06-13] MEDS: PANTOPRAZOLE SODIUM 40 MG VIAL IV SCH (10:08)
[2017-06-13] MEDS: ENOXAPARIN SODIUM INJ 40 MG/0.4 ML DISP.SYRIN SUBCUT SCH (10:09)
[2017-06-13] MEDS: INSULIN LISPRO 100 UNIT/ML 3 ML VIAL SUBCUT PRN ×4 (10:11→22:58)
--- NOTE | 2017-06-13 13:09 | PDOC PROGRESS REPORT ---
Subjective Progress Note for:: 06/13/17 Subjective:: Patient is currently feeling much better. Patient's denied any chest pain without any shortness of the breath CO2 level is also improving yesterday Physical Exam Vital Signs: Temp Pulse Resp BP Pulse Ox 97.7 F 79 16 145/70 H 96 06/13/17 08:16 06/13/17 11:57 06/13/17 11:57 06/13/17 08:16 06/13/17 11:57 Intake & Output 06/12/17 06/13/17 06/14/17 06:59 06:59 06:59 Intake Total 1561 3284 810 Output Total 850 1025 Balance 711 2259 810 Weight 76.1 kg General appearance: PRESENT: no acute distress, well-developed, well-nourished Head exam: PRESENT: atraumatic, normocephalic Eye exam: PRESENT: conjunctiva pink, EOMI, PERRLA. ABSENT: scleral icterus Ear exam: PRESENT: normal external ear exam Mouth exam: PRESENT: moist, tongue midline Neck exam: PRESENT: full ROM. ABSENT: carotid bruit, JVD, lymphadenopathy, thyromegaly Respiratory exam: PRESENT: clear to auscultation dolores Cardiovascular exam: PRESENT: RRR. ABSENT: diastolic murmur, rubs, systolic murmur Pulses: PRESENT: normal dorsalis pedis pul, +2 pedal pulses bilateral Vascular exam: PRESENT: normal capillary refill GI/Abdominal exam: PRESENT: normal bowel sounds, soft. ABSENT: distended, guarding, mass, organolmegaly, rebound, tenderness Rectal exam: PRESENT: deferred Extremities exam: PRESENT: left BKA, right BKA Neurological exam: PRESENT: alert, awake, oriented to person, oriented to place , oriented to time, oriented to situation, CN II-XII grossly intact. ABSENT: motor sensory deficit Psychiatric exam: PRESENT: appropriate affect, normal mood. ABSENT: homicidal ideation, suicidal ideation Skin exam: PRESENT: dry, intact, warm. ABSENT: cyanosis, rash Results Laboratory Results: 06/13/17 06:52 06/13/17 06:52 06/13/17 06/13/17 06:52 06:52 WBC 9.4 RBC 4.76 Hgb 13.2 L Hct 40.4 MCV 85 MCH 27.8 MCHC 32.7 RDW 15.1 H Plt Count 213 Seg Neutrophils % Not Reportable Lymphocytes % Not Reportable Monocytes % Not Reportable Eosinophils % Not Reportable Basophils % Not Reportable Absolute Neutrophils Not Reportable Absolute Lymphocytes Not Reportable Absolute Monocytes Not Reportable Absolute Eosinophils Not Reportable Absolute Basophils Not Reportable Sodium 140.8 Potassium 4.4 Chloride 105 Carbon Dioxide 28 Anion Gap 8 BUN 77 H Creatinine 1.66 H Est GFR ( Amer) 49 L Est GFR (Non-Af Amer) 41 L Glucose 254 H Calcium 7.7 L 06/11/17 23:10 Nasophary (Mrsa Only) MRSA Surveillance Culture - Final NO MRSA RECOVERED 06/10/17 06/10/17 06/11/17 22:45 22:45 04:35 Creatine Kinase < 20 L < 20 L CK-MB (CK-2) 1.42 Troponin I 0.194 06/11/17 06/11/17 06/11/17 04:35 11:14 11:14 Creatine Kinase 74 CK-MB (CK-2) 1.14 1.23 Troponin I 0.216 0.144 Impressions: Chest X-Ray 06/10/17 16:07 IMPRESSION: NO ACUTE RADIOGRAPHIC FINDING IN THE CHEST. Assessment & Plan - Diagnosis (1) Acute respiratory failure Qualifiers: Respiratory failure complication: hypoxia and hypercapnia Qualified Code(s) : J96.01 - Acute respiratory failure with hypoxia; J96.02 - Acute respiratory failure with hypercapnia Is this a current diagnosis for this admission?: Yes Plan: We will repeat the ABG patient will chronic respiratory failure but looks currently better maybe consider the BiPAP at night times if is still elevated PCO2 patient is currently on 2 L nasal cannula and very comfortable (2) CAD (coronary artery disease) Qualifiers: Coronary Disease-Associated Artery/Lesion type: [place] artery Associated angina: without angina Is this a current diagnosis for this admission?: Yes Plan: Patient's currently denied any chest pain (3) COPD (chronic obstructive pulmonary disease) Qualifiers: COPD type: unspecified COPD Qualified Code(s): J44.9 - Chronic obstructive pulmonary disease, unspecified Is this a current diagnosis for this admission?: Yes Plan: This is a nebulizer treatment every 6 hours (4) Diabetes mellitus, type 2 Qualifiers: Diabetes mellitus complication status: with unspecified complications Diabetes mellitus snf insulin use: with supervisor intermediates use Qualified Code(s) : E11.8 - Type 2 diabetes mellitus with unspecified complications; Z79.4 - intermodal dispatcher (current) use of insulin Is this a current diagnosis for this admission?: Yes Plan: continues to current medications (5) HTN (hypertension) Qualifiers: Hypertension type: essential hypertension Qualified Code(s): I10 - Essential (primary) hypertension Is this a current diagnosis for this admission?: Yes Plan: Under control (6) Probable sepsis Is this a current diagnosis for this admission?: Yes Plan: Continues to IV antibiotic (7) Acute renal failure Qualifiers: Acute renal failure type: unspecified Qualified Code(s): N17.9 - Acute kidney failure, unspecified Is this a current diagnosis for this admission?: Yes Plan: Currently all improving - Time Time Spent with patient: 15-24 minutes Medications reviewed and adjusted accordingly: Yes Within: Other - Inpatient Certification Medical Necessity: Need Close Monitoring Due to Risk of Patient Decompensation Post Hospital Care: D/C Low Altitude Air Defense Gunner Documentation - Plan Summary Plan Summary: Repeat the blood work and ABG in the morning
[2017-06-14 04:46] LABS: HEMATOCRIT 41.4 % (37.9-51.0); HEMOGLOBIN 13.6 g/dL (13.5-17.0); HGB HCT DIFFERENCE -0.6; MEAN CORPUSCULAR HEMOGLOBIN 27.7 pg (27.0-33.4); MEAN CORPUSCULAR HGB CONC 32.8 g/dL (32.0-36.0); MEAN CORPUSCULAR VOLUME 84 fl (80-97); RED CELL DISTRIBUTION WIDTH 14.9 % (11.5-14.0); WHITE BLOOD COUNT 8.8 10^3/uL (4.0-10.5)
[2017-06-14 05:03] LABS: ANION GAP 11 (5-19); BLOOD UREA NITROGEN 71 mg/dL (7-20); CALCIUM 7.9 mg/dL (8.4-10.2); CARBON DIOXIDE 28 mmol/L (22-30); CHLORIDE 105 mmol/L (98-107); CREATININE RESULT 1.51 mg/dL (0.52-1.25); GLUCOSE 243 mg/dL (75-110); POTASSIUM 4.2 mmol/L (3.6-5.0); SODIUM 143.6 mmol/L (137-145)
[2017-06-14 05:34] LABS: BASOPHILS % (MANUAL) 0 % (0-2); EOSINOPHILS % (MANUAL) 0 % (0-6); LYMPHOCYTES % (MANUAL) 3 % (13-45); TOTAL CELLS COUNTED 100
[2017-06-14 05:37] LABS: ANISOCYTOSIS SLIGHT; TOXIC GRANULATION SLIGHT; TOXIC VACUOLATION PRESENT
[2017-06-14] MEDS: PIPERACILLIN SODIUM/TAZOBACTAM 3.375 GM in DEXTROSE 5%-WATER 100 ML IV SCH ×3 (06:12→17:36)
[2017-06-14] MEDS: METHYLPREDNISOLONE INJ 125 MG/2 ML SDV IV SCH (06:13)
[2017-06-14 07:06] LABS: ARTERIAL BLOOD BASE EXCESS 5.2 mmol/L; ARTERIAL BLOOD O2 SATURATION 95.6 % (94-98)
[2017-06-14] MEDS: INSULIN LISPRO 100 UNIT/ML 3 ML VIAL SUBCUT PRN ×3 (08:37→17:36)
[2017-06-14] MEDS: ENOXAPARIN SODIUM INJ 40 MG/0.4 ML DISP.SYRIN SUBCUT SCH (09:01)
--- NOTE | 2017-06-14 12:50 | PDOC PROGRESS REPORT ---
Subjective Progress Note for:: 06/14/17 Subjective:: Patient is improving and compliant with BiPAP machine. No fever or chills. Denied any chest pain. No nausea or vomiting. Tolerating oral feeding. No diarrhea or constipation. Physical Exam Vital Signs: Temp Pulse Resp BP Pulse Ox 97.7 F 76 18 139/66 H 100 06/14/17 11:32 06/14/17 11:32 06/14/17 11:32 06/14/17 11:32 06/14/17 11:32 Intake & Output 06/13/17 06/14/17 06/15/17 06:59 06:59 06:59 Intake Total 3284 2481 Output Total 1025 570 Balance 2259 1911 Weight 80.2 kg Physical Exam: General appearance: PRESENT: cooperative, mild distress Head exam: PRESENT: atraumatic, normocephalic Eye exam: ABSENT: conjunctiva pale, scleral icterus Mouth exam: PRESENT: moist - fairly., other - BiPAP in use Respiratory exam: PRESENT: clear to auscultation dolores, decreased breath sounds - at lung bases Cardiovascular exam: PRESENT: RRR. ABSENT: diastolic murmur, rubs, systolic murmur GI/Abdominal exam: PRESENT: normal bowel sounds, soft. ABSENT: distended, guarding, mass, organomegaly, rebound, tenderness Extremities exam: PRESENT: left BKA, right BKA Musculoskeletal exam: ABSENT: ambulatory Neurological exam: PRESENT: alert, awake, oriented to person, oriented to place , oriented to time, oriented to situation, CN II-XII grossly intact. ABSENT: motor sensory deficit Psychiatric exam: PRESENT: appropriate affect, normal mood. ABSENT: homicidal ideation, suicidal ideation Skin exam: PRESENT: dry, warm, other - bilateral stumps healed ulcers Results Laboratory Results: 06/14/17 03:55 06/14/17 03:55 06/14/17 06/14/17 06/14/17 03:55 03:55 06:50 WBC 8.8 RBC 4.90 Hgb 13.6 Hct 41.4 MCV 84 MCH 27.7 MCHC 32.8 RDW 14.9 H Plt Count 210 Seg Neutrophils % Not Reportable Lymphocytes % Not Reportable Monocytes % Not Reportable Eosinophils % Not Reportable Basophils % Not Reportable Absolute Neutrophils Not Reportable Absolute Lymphocytes Not Reportable Absolute Monocytes Not Reportable Absolute Eosinophils Not Reportable Absolute Basophils Not Reportable Carbonic Acid 1.41 H HCO3/H2CO3 Ratio 21:1 ABG pH 7.43 ABG pCO2 46.8 H ABG pO2 77.2 L ABG HCO3 30.4 H ABG O2 Saturation 95.6 ABG Base Excess 5.2 FiO2 3 LITERS Sodium 143.6 Potassium 4.2 Chloride 105 Carbon Dioxide 28 Anion Gap 11 BUN 71 H Creatinine 1.51 H Est GFR ( Amer) 55 L Est GFR (Non-Af Amer) 45 L Glucose 243 H Calcium 7.9 L 06/11/17 23:10 Nasophary (Mrsa Only) MRSA Surveillance Culture - Final NO MRSA RECOVERED 06/10/17 06/10/17 06/11/17 22:45 22:45 04:35 Creatine Kinase < 20 L < 20 L CK-MB (CK-2) 1.42 Troponin I 0.194 06/11/17 06/11/17 06/11/17 04:35 11:14 11:14 Creatine Kinase 74 CK-MB (CK-2) 1.14 1.23 Troponin I 0.216 0.144 Impressions: Chest X-Ray 06/10/17 16:07 IMPRESSION: NO ACUTE RADIOGRAPHIC FINDING IN THE CHEST. Assessment & Plan - Diagnosis (1) Acute respiratory failure Qualifiers: Respiratory failure complication: hypoxia and hypercapnia Qualified Code(s) : J96.01 - Acute respiratory failure with hypoxia; J96.02 - Acute respiratory failure with hypercapnia Is this a current diagnosis for this admission?: Yes (2) COPD (chronic obstructive pulmonary disease) Qualifiers: COPD type: unspecified COPD Qualified Code(s): J44.9 - Chronic obstructive pulmonary disease, unspecified Is this a current diagnosis for this admission?: Yes (3) Toxic metabolic encephalopathy Is this a current diagnosis for this admission?: Yes (4) SIRS (systemic inflammatory response syndrome) Is this a current diagnosis for this admission?: Yes (5) Probable sepsis Is this a current diagnosis for this admission?: Yes (6) Diabetes mellitus, type 2 Qualifiers: Diabetes mellitus complication status: with unspecified complications Diabetes mellitus retirement insulin use: with retirement use Qualified Code(s) : E11.8 - Type 2 diabetes mellitus with unspecified complications; 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 of insulin Is this a current diagnosis for this admission?: Yes (7) HTN (hypertension) Qualifiers: Hypertension type: essential hypertension Qualified Code(s): I10 - Essential (primary) hypertension Is this a current diagnosis for this admission?: Yes (8) HLD (hyperlipidemia) Qualifiers: Hyperlipidemia type: pure hypercholesterolemia Qualified Code(s): E78.00 - Pure hypercholesterolemia, unspecified; E78.0 - Pure hypercholesterolemia Is this a current diagnosis for this admission?: Yes (9) CAD (coronary artery disease) Qualifiers: Coronary Disease-Associated Artery/Lesion type: [place] artery Associated angina: without angina Is this a current diagnosis for this admission?: Yes (10) [place] (myocardial infarction) Is this a current diagnosis for this admission?: Yes (11) GERD (gastroesophageal reflux disease) Qualifiers: Esophagitis presence: without esophagitis Qualified Code(s): K21.9 - Gastro -esophageal reflux disease without esophagitis Is this a current diagnosis for this admission?: Yes (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, stage 2 Is this a current diagnosis for this admission?: Yes (13) Tobacco abuse disorder Is this a current diagnosis for this admission?: Yes - Time Time Spent with patient: 25-34 minutes Medications reviewed and adjusted accordingly: Yes - Inpatient Certification Based on my medical assessment, after consideration of the patient's comorbidities, presenting symptoms, or acuity I expect that the services needed warrant INPATIENT care.: Yes I certify that my determination is in accordance with my understanding of Medicare's requirements for reasonable and necessary INPATIENT services [42 CFR 412.3e].: Yes Medical Necessity: Need Close Monitoring Due to Risk of Patient Decompensation, Need For IV Fluids, Need For Continuous Telemetry Monitoring, Need for Nebulizer Therapy and Monitoring of Response, Need for IV Antibiotics, Risk of Complication if Not Cared For in Hospital Post Hospital Care: D/C Social Worker Delinquency Prevention Documentation - Plan Summary Plan Summary: Continue current antibiotic therapy. Restart on Amlodipine, Carvedalol, Glimeperide and decrease IV Solu Medrol to 40 mg q8hrs. Maintain on IV fluid support.
[2017-06-14] MEDS: NORMAL SALINE 1000 ML 1,000 ML IV PRN (13:28)
[2017-06-14] MEDS: METHYLPREDNISOLONE INJ 40 MG/1 ML SDV IV SCH ×2 (13:28→22:04)
[2017-06-14] MEDS: CARVEDILOL 6.25 MG TABLET PO SCH (21:44)
[2017-06-15] MEDS: PIPERACILLIN SODIUM/TAZOBACTAM 3.375 GM in DEXTROSE 5%-WATER 100 ML IV SCH ×4 (05:28→11:33)
[2017-06-15] MEDS: METHYLPREDNISOLONE INJ 40 MG/1 ML SDV IV SCH ×2 (05:28→13:18)
[2017-06-15 05:29] LABS: ANION GAP 6 (5-19); BLOOD UREA NITROGEN 61 mg/dL (7-20); CALCIUM 7.7 mg/dL (8.4-10.2); CARBON DIOXIDE 31 mmol/L (22-30); CHLORIDE 108 mmol/L (98-107); CREATININE RESULT 1.23 mg/dL (0.52-1.25); GLUCOSE 142 mg/dL (75-110); POTASSIUM 4.3 mmol/L (3.6-5.0); SODIUM 144.6 mmol/L (137-145)
[2017-06-15] MEDS: IPRATROPIUM/ALBUTEROL 0.5-2.5 MG/3 ML AMPUL NEB PRN ×2 (07:26→11:34)
[2017-06-15] MEDS: NORMAL SALINE 1000 ML 1,000 ML IV PRN (07:49)
[2017-06-15] MEDS: GLIMEPIRIDE 4 MG TABLET PO SCH (07:50)
[2017-06-15] MEDS: ENOXAPARIN SODIUM INJ 40 MG/0.4 ML DISP.SYRIN SUBCUT SCH (09:12)
[2017-06-15] MEDS: EZETIMIBE 10 MG TABLET PO SCH (09:15)
[2017-06-15] MEDS: AMLODIPINE BESYLATE 5 MG TABLET PO SCH (09:16)
[2017-06-15] MEDS: CARVEDILOL 6.25 MG TABLET PO SCH ×2 (09:16→21:19)
[2017-06-15] MEDS: MULTIVITAMIN TABLET PO SCH (09:17)
[2017-06-15] MEDS: ASPIRIN 81 MG TABLET, CHEWABLE PO SCH (09:17)
[2017-06-15] MEDS ORDERED: (PENDING PHARMACY ID) (Multivitamin/Iron/Folic Acid [Centrum Complete Multivit Tab] 1 EACH PO SCH (10:00)
[2017-06-15] MEDS: INSULIN LISPRO 100 UNIT/ML 3 ML VIAL SUBCUT PRN ×2 (11:43→16:26)
--- NOTE | 2017-06-15 18:03 | PDOC PROGRESS REPORT ---
Subjective Progress Note for:: 06/15/17 Subjective:: Patient is not agreeable with WINIFRED placement at this time. He continue to demonstrate breathing difficulty suggestive of chronic respiratory failure. Patient is compliant with BiPAP machine. No fever or chills. Denied any chest pain. No nausea or vomiting. Tolerating oral feeding. No diarrhea or constipation. Physical Exam Vital Signs: Temp Pulse Resp BP Pulse Ox 97.7 F 66 20 150/63 H 92 06/15/17 12:14 06/15/17 14:00 06/15/17 12:14 06/15/17 12:14 06/15/17 12:14 Intake & Output 06/14/17 06/15/17 06/16/17 06:59 06:59 06:59 Intake Total 2481 2747 Output Total 570 200 Balance 1911 2547 Weight 80.2 kg 81.1 kg Physical Exam: General appearance: PRESENT: cooperative, mild distress Head exam: PRESENT: atraumatic, normocephalic Eye exam: ABSENT: conjunctiva pale, scleral icterus Mouth exam: PRESENT: moist - fairly., other - BiPAP in use Respiratory exam: PRESENT: clear to auscultation dolores, decreased breath sounds - at lung bases Cardiovascular exam: PRESENT: RRR. ABSENT: diastolic murmur, rubs, systolic murmur GI/Abdominal exam: PRESENT: normal bowel sounds, soft. ABSENT: distended, guarding, mass, organomegaly, rebound, tenderness Extremities exam: PRESENT: left BKA, right BKA Musculoskeletal exam: ABSENT: ambulatory Neurological exam: PRESENT: alert, awake, oriented to person, oriented to place , oriented to time, oriented to situation, CN II-XII grossly intact. ABSENT: motor sensory deficit Psychiatric exam: PRESENT: appropriate affect, normal mood. ABSENT: homicidal ideation, suicidal ideation Skin exam: PRESENT: dry, warm, other - bilateral stumps healed ulcers Results Laboratory Results: 06/14/17 03:55 06/15/17 04:15 06/15/17 04:15 Sodium 144.6 Potassium 4.3 Chloride 108 H Carbon Dioxide 31 H Anion Gap 6 BUN 61 H Creatinine 1.23 Est GFR ( Amer) > 60 Est GFR (Non-Af Amer) 58 L Glucose 142 H Calcium 7.7 L 06/10/17 06/10/17 06/11/17 22:45 22:45 04:35 Creatine Kinase < 20 L < 20 L CK-MB (CK-2) 1.42 Troponin I 0.194 06/11/17 06/11/17 06/11/17 04:35 11:14 11:14 Creatine Kinase 74 CK-MB (CK-2) 1.14 1.23 Troponin I 0.216 0.144 Impressions: Chest X-Ray 06/10/17 16:07 IMPRESSION: NO ACUTE RADIOGRAPHIC FINDING IN THE CHEST. Assessment & Plan - Diagnosis (1) Acute respiratory failure Qualifiers: Respiratory failure complication: hypoxia and hypercapnia Qualified Code(s) : J96.01 - Acute respiratory failure with hypoxia; J96.02 - Acute respiratory failure with hypercapnia Is this a current diagnosis for this admission?: Yes (2) COPD (chronic obstructive pulmonary disease) Qualifiers: COPD type: unspecified COPD Qualified Code(s): J44.9 - Chronic obstructive pulmonary disease, unspecified Is this a current diagnosis for this admission?: Yes (3) Toxic metabolic encephalopathy Is this a current diagnosis for this admission?: Yes (4) SIRS (systemic inflammatory response syndrome) Is this a current diagnosis for this admission?: Yes (5) Probable sepsis Is this a current diagnosis for this admission?: Yes (6) Diabetes mellitus, type 2 Qualifiers: Diabetes mellitus complication status: with unspecified complications Diabetes mellitus care home insulin use: with adjunct faculty for medical terminology use Qualified Code(s) : E11.8 - Type 2 diabetes mellitus with unspecified complications; Z79.4 - emt intermediate (current) use of insulin Is this a current diagnosis for this admission?: Yes (7) HTN (hypertension) Qualifiers: Hypertension type: essential hypertension Qualified Code(s): I10 - Essential (primary) hypertension Is this a current diagnosis for this admission?: Yes (8) HLD (hyperlipidemia) Qualifiers: Hyperlipidemia type: pure hypercholesterolemia Qualified Code(s): E78.00 - Pure hypercholesterolemia, unspecified; E78.0 - Pure hypercholesterolemia Is this a current diagnosis for this admission?: Yes (9) CAD (coronary artery disease) Qualifiers: Coronary Disease-Associated Artery/Lesion type: [place] artery Associated angina: without angina Is this a current diagnosis for this admission?: Yes (10) [place] (myocardial infarction) Is this a current diagnosis for this admission?: Yes (11) GERD (gastroesophageal reflux disease) Qualifiers: Esophagitis presence: without esophagitis Qualified Code(s): K21.9 - Gastro -esophageal reflux disease without esophagitis Is this a current diagnosis for this admission?: Yes (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, stage 2 Is this a current diagnosis for this admission?: Yes (13) Tobacco abuse disorder Is this a current diagnosis for this admission?: Yes - Time Time Spent with patient: 25-34 minutes Medications reviewed and adjusted accordingly: Yes Anticipated discharge: Home with Homehealth Within: Other - Inpatient Certification Based on my medical assessment, after consideration of the patient's comorbidities, presenting symptoms, or acuity I expect that the services needed warrant INPATIENT care.: Yes I certify that my determination is in accordance with my understanding of Medicare's requirements for reasonable and necessary INPATIENT services [42 CFR 412.3e].: Yes Medical Necessity: Need Close Monitoring Due to Risk of Patient Decompensation, Need For IV Fluids, Need For Continuous Telemetry Monitoring, Need for Nebulizer Therapy and Monitoring of Response, Need for IV Antibiotics, Risk of Complication if Not Cared For in Hospital Post Hospital Care: D/C Second Shift Supervisor Documentation - Plan Summary Plan Summary: D/C IV Solu Medrol. Start on tapering dose oral Prednisone therapy. D/C IV Zosyn with no growth from blood and urine culture x 5 days. Start on Augmentin 500/125 mg po bid. Commence effort for CPAP machine at home for chronic Respiratory failure with hypercapnia and hypoxemia. Consider discharge home with device. Post discharge plan discussed with patient and daughter at bedside.
[2017-06-15] MEDS ORDERED: PREDNISONE 20 MG TABLET PO ONE (19:00)
[2017-06-15] MEDS: AMOXICILLIN TR/POT CLAVULANATE 500-125 MG TAB PO SCH (21:20)
[2017-06-16] MEDS: NORMAL SALINE 1000 ML 1,000 ML IV PRN ×2 (01:05→18:42)
[2017-06-16] MEDS: AMOXICILLIN TR/POT CLAVULANATE 500-125 MG TAB PO SCH ×3 (05:17→21:58)
[2017-06-16] MEDS: IPRATROPIUM/ALBUTEROL 0.5-2.5 MG/3 ML AMPUL NEB PRN ×2 (07:45→12:26)
[2017-06-16] MEDS: GLIMEPIRIDE 4 MG TABLET PO SCH (08:38)
[2017-06-16] MEDS: ENOXAPARIN SODIUM INJ 40 MG/0.4 ML DISP.SYRIN SUBCUT SCH (09:21)
[2017-06-16] MEDS: AMLODIPINE BESYLATE 5 MG TABLET PO SCH (09:21)
[2017-06-16] MEDS: CARVEDILOL 6.25 MG TABLET PO SCH ×2 (09:22→21:59)
[2017-06-16] MEDS: ASPIRIN 81 MG TABLET, CHEWABLE PO SCH (09:22)
[2017-06-16] MEDS: MULTIVITAMIN TABLET PO SCH (09:22)
[2017-06-16] MEDS: EZETIMIBE 10 MG TABLET PO SCH (09:22)
[2017-06-16] MEDS ORDERED: PREDNISONE 20 MG TABLET PO SCH (10:00)
--- NOTE | 2017-06-16 19:01 | PDOC PROGRESS REPORT ---
Subjective Progress Note for:: 06/16/17 Subjective:: No fever or chills. Denied any chest pain. Remain on BiPAP support. No nausea or vomiting. Tolerating oral feeding. No diarrhea or constipation. Physical Exam Vital Signs: Temp Pulse Resp BP Pulse Ox 98.4 F 68 20 138/85 H 94 06/16/17 15:20 06/16/17 15:20 06/16/17 15:20 06/16/17 15:20 06/16/17 15:20 Intake & Output 06/15/17 06/16/17 06/17/17 06:59 06:59 06:59 Intake Total 2747 3154 1608 Output Total 200 1925 500 Balance 2547 1229 1108 Weight 81.1 kg 84.2 kg Physical Exam: General appearance: PRESENT: cooperative, mild distress Head exam: PRESENT: atraumatic, normocephalic Eye exam: ABSENT: conjunctiva pale, scleral icterus Mouth exam: PRESENT: moist - fairly., other - BiPAP in use Respiratory exam: PRESENT: clear to auscultation dolores, decreased breath sounds - at lung bases Cardiovascular exam: PRESENT: RRR. ABSENT: diastolic murmur, rubs, systolic murmur GI/Abdominal exam: PRESENT: normal bowel sounds, soft. ABSENT: distended, guarding, mass, organomegaly, rebound, tenderness Extremities exam: PRESENT: left BKA, right BKA Musculoskeletal exam: ABSENT: ambulatory Neurological exam: PRESENT: alert, awake, oriented to person, oriented to place , oriented to time, oriented to situation, CN II-XII grossly intact. ABSENT: motor sensory deficit Psychiatric exam: PRESENT: appropriate affect, normal mood. ABSENT: homicidal ideation, suicidal ideation Skin exam: PRESENT: dry, warm, other - bilateral stumps healed ulcers Results Laboratory Results: 06/14/17 03:55 06/15/17 04:15 06/10/17 06/10/17 06/11/17 22:45 22:45 04:35 Creatine Kinase < 20 L < 20 L CK-MB (CK-2) 1.42 Troponin I 0.194 06/11/17 06/11/17 06/11/17 04:35 11:14 11:14 Creatine Kinase 74 CK-MB (CK-2) 1.14 1.23 Troponin I 0.216 0.144 Impressions: Chest X-Ray 06/10/17 16:07 IMPRESSION: NO ACUTE RADIOGRAPHIC FINDING IN THE CHEST. Assessment & Plan - Diagnosis (1) Acute respiratory failure Qualifiers: Respiratory failure complication: hypoxia and hypercapnia Qualified Code(s) : J96.01 - Acute respiratory failure with hypoxia; J96.02 - Acute respiratory failure with hypercapnia Is this a current diagnosis for this admission?: Yes (2) COPD (chronic obstructive pulmonary disease) Qualifiers: COPD type: unspecified COPD Qualified Code(s): J44.9 - Chronic obstructive pulmonary disease, unspecified Is this a current diagnosis for this admission?: Yes (3) Toxic metabolic encephalopathy Is this a current diagnosis for this admission?: Yes (4) SIRS (systemic inflammatory response syndrome) Is this a current diagnosis for this admission?: Yes (5) Probable sepsis Is this a current diagnosis for this admission?: Yes (6) Diabetes mellitus, type 2 Qualifiers: Diabetes mellitus complication status: with unspecified complications Diabetes mellitus fdc insulin use: with continuous churn buttermaker use Qualified Code(s) : E11.8 - Type 2 diabetes mellitus with unspecified complications; Z79.4 - senior care (current) use of insulin Is this a current diagnosis for this admission?: Yes (7) HTN (hypertension) Qualifiers: Hypertension type: essential hypertension Qualified Code(s): I10 - Essential (primary) hypertension Is this a current diagnosis for this admission?: Yes (8) HLD (hyperlipidemia) Qualifiers: Hyperlipidemia type: pure hypercholesterolemia Qualified Code(s): E78.00 - Pure hypercholesterolemia, unspecified; E78.0 - Pure hypercholesterolemia Is this a current diagnosis for this admission?: Yes (9) CAD (coronary artery disease) Qualifiers: Coronary Disease-Associated Artery/Lesion type: [place] artery Associated angina: without angina Is this a current diagnosis for this admission?: Yes (10) [place] (myocardial infarction) Is this a current diagnosis for this admission?: Yes (11) GERD (gastroesophageal reflux disease) Qualifiers: Esophagitis presence: without esophagitis Qualified Code(s): K21.9 - Gastro -esophageal reflux disease without esophagitis Is this a current diagnosis for this admission?: Yes (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, stage 2 Is this a current diagnosis for this admission?: Yes (13) Tobacco abuse disorder Is this a current diagnosis for this admission?: Yes - Time Time Spent with patient: 25-34 minutes Medications reviewed and adjusted accordingly: Yes Anticipated discharge: Home with Homehealth Within: within 48 hours - Inpatient Certification Based on my medical assessment, after consideration of the patient's comorbidities, presenting symptoms, or acuity I expect that the services needed warrant INPATIENT care.: Yes I certify that my determination is in accordance with my understanding of Medicare's requirements for reasonable and necessary INPATIENT services [42 CFR 412.3e].: Yes Medical Necessity: Need Close Monitoring Due to Risk of Patient Decompensation, Need For Continuous Telemetry Monitoring, Risk of Complication if Not Cared For in Hospital Post Hospital Care: D/C Client Onboarding Analyst Documentation - Plan Summary Plan Summary: D/C Coleman cath. Encourage use of bedside urinal. Decrease Prednisone to 10 mg po daily from 06/17/17. Continue on all other current medication management. Follow up on efforts at getting CPAP machine upon discharge home. I had extensive discussion with patient's daughter regarding post discharge care plan personal assistance arrangement at home. Obtain CBC with diff and BMP in am.
[2017-06-17] MEDS: DEXTROSE 40% GEL 15 GM TUBE PO PRN ×3 (01:53→16:08)
[2017-06-17 05:18] LABS: ABSOLUTE LYMPHOCYTES (AUTO) 0.6 10^3/uL (0.5-4.7); ABSOLUTE MONOCYTES (AUTO) 0.8 10^3/uL (0.1-1.4); ABSOLUTE NEUT (AUTO) 7.7 10^3/uL (1.7-8.2); EOSINOPHILS % (AUTO) 0.3 % (0-6); HEMOGLOBIN 13.1 g/dL (13.5-17.0); HGB HCT DIFFERENCE -0.7; LYMPHOCYTES % (AUTO) 6.7 % (13-45); MEAN CORPUSCULAR HEMOGLOBIN 27.6 pg (27.0-33.4); MEAN CORPUSCULAR HGB CONC 32.7 g/dL (32.0-36.0); MEAN CORPUSCULAR VOLUME 84 fl (80-97); MONOCYTES % (AUTO) 8.6 % (3-13); RED BLOOD COUNT 4.74 10^6/uL (4.35-5.55); RED CELL DISTRIBUTION WIDTH 15.2 % (11.5-14.0); SEGMENTED NEUTROPHILS % (AUTO) 84.4 % (42-78); WHITE BLOOD COUNT 9.1 10^3/uL (4.0-10.5)
[2017-06-17] MEDS: AMOXICILLIN TR/POT CLAVULANATE 500-125 MG TAB PO SCH ×3 (05:18→22:47)
[2017-06-17 05:46] LABS: BLOOD UREA NITROGEN 38 mg/dL (7-20); CALCIUM 7.7 mg/dL (8.4-10.2); CARBON DIOXIDE 29 mmol/L (22-30); CREATININE RESULT 0.86 mg/dL (0.52-1.25); GLUCOSE 99 mg/dL (75-110)
[2017-06-17 05:58] LABS: ANION GAP 5 (5-19); CHLORIDE 108 mmol/L (98-107); POTASSIUM 4.2 mmol/L (3.6-5.0); SODIUM 141.6 mmol/L (137-145)
[2017-06-17] MEDS: IPRATROPIUM/ALBUTEROL 0.5-2.5 MG/3 ML AMPUL NEB PRN ×3 (07:51→15:32)
[2017-06-17] MEDS: GLIMEPIRIDE 4 MG TABLET PO SCH (08:11)
[2017-06-17] MEDS: ASPIRIN 81 MG TABLET, CHEWABLE PO SCH (10:03)
[2017-06-17] MEDS: MULTIVITAMIN TABLET PO SCH (10:03)
[2017-06-17] MEDS: ENOXAPARIN SODIUM INJ 40 MG/0.4 ML DISP.SYRIN SUBCUT SCH (10:03)
[2017-06-17] MEDS: CARVEDILOL 6.25 MG TABLET PO SCH ×2 (10:04→22:47)
[2017-06-17] MEDS: EZETIMIBE 10 MG TABLET PO SCH (10:04)
[2017-06-17] MEDS: AMLODIPINE BESYLATE 5 MG TABLET PO SCH (10:04)
[2017-06-17] MEDS: PREDNISONE 10 MG TABLET PO SCH (10:04)
[2017-06-17] MEDS: NORMAL SALINE 1000 ML 1,000 ML IV PRN (11:35)
--- NOTE | 2017-06-17 18:04 | PDOC PROGRESS REPORT ---
Subjective Progress Note for:: 06/17/17 Subjective:: No fever or chills. Denied any chest pain. Remain on BiPAP support. No nausea or vomiting. Tolerating oral feeding. There is reported episode of diarrhea. Patient had episodes of hypoglycemia with need for glucose gel and resultant diarrhea. Physical Exam Vital Signs: Temp Pulse Resp BP Pulse Ox 98.6 F 81 20 135/68 H 96 06/17/17 10:56 06/17/17 15:32 06/17/17 15:32 06/17/17 10:56 06/17/17 15:32 Intake & Output 06/16/17 06/17/17 06/18/17 06:59 06:59 06:59 Intake Total 3154 3033 548 Output Total 1925 500 Balance 1229 2533 548 Weight 84.2 kg 83.2 kg Physical Exam: General appearance: PRESENT: cooperative, mild distress Head exam: PRESENT: atraumatic, normocephalic Eye exam: ABSENT: conjunctiva pale, scleral icterus Mouth exam: PRESENT: moist - fairly., other - BiPAP in use Respiratory exam: PRESENT: clear to auscultation dolores, decreased breath sounds - at lung bases Cardiovascular exam: PRESENT: RRR. ABSENT: diastolic murmur, rubs, systolic murmur GI/Abdominal exam: PRESENT: normal bowel sounds, soft. ABSENT: distended, guarding, mass, organomegaly, rebound, tenderness Extremities exam: PRESENT: left BKA, right BKA Musculoskeletal exam: ABSENT: ambulatory Neurological exam: PRESENT: alert, awake, oriented to person, oriented to place , oriented to time, oriented to situation, CN II-XII grossly intact. ABSENT: motor sensory deficit Psychiatric exam: PRESENT: appropriate affect, normal mood. ABSENT: homicidal ideation, suicidal ideation Skin exam: PRESENT: dry, warm, other - bilateral stumps healed ulcers Results Laboratory Results: 06/17/17 04:22 06/17/17 04:22 06/17/17 06/17/17 04:22 04:22 WBC 9.1 RBC 4.74 Hgb 13.1 L Hct 40.0 MCV 84 MCH 27.6 MCHC 32.7 RDW 15.2 H Plt Count 176 Seg Neutrophils % 84.4 H Lymphocytes % 6.7 L Monocytes % 8.6 Eosinophils % 0.3 Basophils % 0.0 Absolute Neutrophils 7.7 Absolute Lymphocytes 0.6 Absolute Monocytes 0.8 Absolute Eosinophils 0.0 Absolute Basophils 0.0 Sodium 141.6 Potassium 4.2 Chloride 108 H Carbon Dioxide 29 Anion Gap 5 BUN 38 H Creatinine 0.86 Est GFR ( Amer) > 60 Est GFR (Non-Af Amer) > 60 Glucose 99 Calcium 7.7 L 06/10/17 06/10/17 06/11/17 22:45 22:45 04:35 Creatine Kinase < 20 L < 20 L CK-MB (CK-2) 1.42 Troponin I 0.194 06/11/17 06/11/17 06/11/17 04:35 11:14 11:14 Creatine Kinase 74 CK-MB (CK-2) 1.14 1.23 Troponin I 0.216 0.144 Impressions: Chest X-Ray 06/10/17 16:07 IMPRESSION: NO ACUTE RADIOGRAPHIC FINDING IN THE CHEST. Assessment & Plan - Diagnosis (1) Acute respiratory failure Qualifiers: Respiratory failure complication: hypoxia and hypercapnia Qualified Code(s) : J96.01 - Acute respiratory failure with hypoxia; J96.02 - Acute respiratory failure with hypercapnia Is this a current diagnosis for this admission?: Yes (2) COPD (chronic obstructive pulmonary disease) Qualifiers: COPD type: unspecified COPD Qualified Code(s): J44.9 - Chronic obstructive pulmonary disease, unspecified Is this a current diagnosis for this admission?: Yes (3) Toxic metabolic encephalopathy Is this a current diagnosis for this admission?: Yes (4) SIRS (systemic inflammatory response syndrome) Is this a current diagnosis for this admission?: Yes (5) Probable sepsis Is this a current diagnosis for this admission?: Yes (6) Diabetes mellitus, type 2 Qualifiers: Diabetes mellitus complication status: with unspecified complications Diabetes mellitus residential insulin use: with residential use Qualified Code(s) : E11.8 - Type 2 diabetes mellitus with unspecified complications; Z79.4 - manager terminal (current) use of insulin Is this a current diagnosis for this admission?: Yes (7) HTN (hypertension) Qualifiers: Hypertension type: essential hypertension Qualified Code(s): I10 - Essential (primary) hypertension Is this a current diagnosis for this admission?: Yes (8) HLD (hyperlipidemia) Qualifiers: Hyperlipidemia type: pure hypercholesterolemia Qualified Code(s): E78.00 - Pure hypercholesterolemia, unspecified; E78.0 - Pure hypercholesterolemia Is this a current diagnosis for this admission?: Yes (9) CAD (coronary artery disease) Qualifiers: Coronary Disease-Associated Artery/Lesion type: picayune artery Associated angina: without angina Is this a current diagnosis for this admission?: Yes (10) Old [place] (myocardial infarction) Is this a current diagnosis for this admission?: Yes (11) GERD (gastroesophageal reflux disease) Qualifiers: Esophagitis presence: without esophagitis Qualified Code(s): K21.9 - Gastro -esophageal reflux disease without esophagitis Is this a current diagnosis for this admission?: Yes (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, stage 2 Is this a current diagnosis for this admission?: Yes (13) Tobacco abuse disorder Is this a current diagnosis for this admission?: Yes - Time Time Spent with patient: 25-34 minutes Medications reviewed and adjusted accordingly: Yes Anticipated discharge: Home with Homehealth - Inpatient Certification Based on my medical assessment, after consideration of the patient's comorbidities, presenting symptoms, or acuity I expect that the services needed warrant INPATIENT care.: Yes I certify that my determination is in accordance with my understanding of Medicare's requirements for reasonable and necessary INPATIENT services [42 CFR 412.3e].: Yes Medical Necessity: Need Close Monitoring Due to Risk of Patient Decompensation, Need For IV Fluids, Need For Continuous Telemetry Monitoring, Need for IV Antibiotics, Risk of Complication if Not Cared For in Hospital Post Hospital Care: D/C Producer Arborist Manager Documentation - Plan Summary Plan Summary: Decrease Glimepiride to 2 mg p.o daily. D/C IV fluid. Continue all other current medication management. I had discussion with daughter at bedside and [facility] will provide CPAP probably tomorrow.
[2017-06-18] MEDS: DEXTROSE 50%-WATER 25 GM/50 ML DISP.SYRIN IV PRN ×2 (01:42→06:30)
[2017-06-18] MEDS: AMOXICILLIN TR/POT CLAVULANATE 500-125 MG TAB PO SCH ×3 (05:55→22:22)
[2017-06-18] MEDS: NORMAL SALINE 1000 ML 1,000 ML IV PRN (06:01)
[2017-06-18] MEDS: GLIMEPIRIDE 1 MG TABLET PO SCH (08:42)
[2017-06-18] MEDS: ENOXAPARIN SODIUM INJ 40 MG/0.4 ML DISP.SYRIN SUBCUT SCH (09:35)
[2017-06-18] MEDS: ASPIRIN 81 MG TABLET, CHEWABLE PO SCH (09:35)
[2017-06-18] MEDS: EZETIMIBE 10 MG TABLET PO SCH (09:35)
[2017-06-18] MEDS: CARVEDILOL 6.25 MG TABLET PO SCH ×2 (09:35→22:23)
[2017-06-18] MEDS: PREDNISONE 10 MG TABLET PO SCH (09:36)
[2017-06-18] MEDS: AMLODIPINE BESYLATE 5 MG TABLET PO SCH (09:36)
[2017-06-18] MEDS: MULTIVITAMIN TABLET PO SCH (09:36)
[2017-06-18] MEDS: IPRATROPIUM/ALBUTEROL 0.5-2.5 MG/3 ML AMPUL NEB PRN (09:54)
--- NOTE | 2017-06-18 19:03 | PDOC DISCHARGE SUMMARY ---
General - Admit/Disc Date/PCP Admission Date/Primary Care Provider: 06/10/17 19:58 TJ MAXWELL Discharge Date: 06/18/17 - Discharge Diagnosis (1) Acute respiratory failure Is this a current diagnosis for this admission?: Yes (2) COPD (chronic obstructive pulmonary disease) Is this a current diagnosis for this admission?: Yes (3) Toxic metabolic encephalopathy Is this a current diagnosis for this admission?: Yes (4) SIRS (systemic inflammatory response syndrome) Is this a current diagnosis for this admission?: Yes (5) Probable sepsis Is this a current diagnosis for this admission?: Yes (6) Diabetes mellitus, type 2 Is this a current diagnosis for this admission?: Yes (7) HTN (hypertension) Is this a current diagnosis for this admission?: Yes (8) HLD (hyperlipidemia) Is this a current diagnosis for this admission?: Yes (9) CAD (coronary artery disease) Is this a current diagnosis for this admission?: Yes (10) Old [place] (myocardial infarction) Is this a current diagnosis for this admission?: Yes (11) GERD (gastroesophageal reflux disease) Is this a current diagnosis for this admission?: Yes (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, stage 2 Is this a current diagnosis for this admission?: Yes (13) Tobacco abuse disorder Is this a current diagnosis for this admission?: Yes (14) Chronic respiratory failure with hypoxia and hypercapnia Is this a current diagnosis for this admission?: Yes Summary: see attending physician orders. - Additional Information Resuscitation Status: Do Not Resuscitate Discharge Diet: Cardiac, Diabetic Discharge Activity: Activity As Tolerated Home Medications: Amlodipine Besylate [Norvasc 5 mg Tablet] 5 mg PO DAILY 06/10/17 Ascorbic Acid [Vitamin C 500 mg Tablet] 500 mg PO DAILY 06/10/17 Aspirin [[place] Aspirin] 81 mg PO DAILY 06/10/17 Budesonide/Formoterol Fumarate [Symbicort HFA 160-4.5 mcg Inhaler 6 gm] 2 puff IH Q12 06/10/17 Carvedilol [Coreg 6.25 mg Tablet] 6.25 mg PO Q12 06/10/17 Ezetimibe [Zetia 10 mg Tablet] 10 mg PO DAILY 06/10/17 Glimepiride [Amaryl 4 mg Tablet] 4 mg PO DAILY 06/10/17 Multivitamin/Iron/Folic Acid [Centrum Complete Multivit Tab] 1 each PO DAILY Omeprazole 20 mg PO DAILY 06/10/17 Quetiapine Fumarate [Seroquel 25 mg Tablet] 25 mg PO Q12 06/10/17 Acetazolamide [Diamox 250 mg Tab] 250 mg PO DAILY #30 tab 06/18/17 Prednisone [Deltasone 5 mg Tablet] 5 mg PO DAILY 7 Days #7 tablet 06/18/17 Roflumilast [Daliresp 500 mcg Tablet] 500 mcg PO DAILY #30 tablet 06/18/17 History of Present Illness History of Present Illness: TOBY HENDERSON is a 72 year old male patient known to my practice who presented to the ED via EMS after he was found unresponsive by daughter at home. She reported talking to him earlier this morning but patient have been somewhat confused and lack memory of recent event over last 2 days. There is reported of urinary incontinence over last couple of days. There is no reported fever or chills. Daughter reported that he was slumped over in wheelchair, unresponsive, and dishevelled. His home care nurse oximetry did recorded saturation at 95% on room air but EMS personnel found patient hypoxemic with saturation in the 40% range. His hypoxemia did improved with supplemental oxygen administration. Patient has a DNR/DNI advance directive which has been honored since arrival in the ED. His initial evaluation did revealed hypoxemia, hypercapnia and respiratory acidosis state. He is currently on BiPAP support with administration of IV antibiotic, steroid and IV fluid. Patient remain nonverbal at the time of my evaluation and daughter at bedside was able to contribute to his medical history. His morbidities include COPD, current cigarette smoking, Diabetes mellitus, HTN, CAD with old NH, HLD, PAD s/p Bilateral BKA, healing stump wounds, GERD and Depression. Hospital Course Hospital Course: Patient did respond to BiPAP support and antibiotic therapy. Patient remain on BiPAP support while sleeping due to his chronic respiratory failure with hypercapnia and hypoxemia. Attempt at getting him CPAP machine was unsuccessful but we are on work-in progress to get BiPAP machine for respiratory support at home. He will be discharge home today with reactivation of his home Health Agency services. He will follow up in the office as instructed upon discharge. Physical Exam Vital Signs: Temp Pulse Resp BP Pulse Ox 98.1 F 72 20 144/72 H 97 06/18/17 15:33 06/18/17 15:33 06/18/17 15:33 06/18/17 15:33 06/18/17 17:28 Intake & Output 06/17/17 06/18/17 06/19/17 06:59 06:59 06:59 Intake Total 3033 2913 1050 Output Total 500 Balance 2533 2913 1050 Weight 83.2 kg 83.5 kg Physical Exam: General appearance: PRESENT: cooperative, mild distress Head exam: PRESENT: atraumatic, normocephalic Eye exam: ABSENT: conjunctiva pale, scleral icterus Mouth exam: PRESENT: moist - fairly., other - BiPAP in use Respiratory exam: PRESENT: clear to auscultation dolores, decreased breath sounds - at lung bases Cardiovascular exam: PRESENT: RRR. ABSENT: diastolic murmur, rubs, systolic murmur GI/Abdominal exam: PRESENT: normal bowel sounds, soft. ABSENT: distended, guarding, mass, organomegaly, rebound, tenderness Extremities exam: PRESENT: left BKA, right BKA Musculoskeletal exam: ABSENT: ambulatory Neurological exam: PRESENT: alert, awake, oriented to person, oriented to place , oriented to time, oriented to situation, CN II-XII grossly intact. ABSENT: motor sensory deficit Psychiatric exam: PRESENT: appropriate affect, normal mood. ABSENT: homicidal ideation, suicidal ideation Skin exam: PRESENT: dry, warm, other - bilateral stumps healed ulcers Results Laboratory Results: 06/17/17 04:22 06/17/17 04:22 06/10/17 06/10/17 06/11/17 22:45 22:45 04:35 Creatine Kinase < 20 L < 20 L CK-MB (CK-2) 1.42 Troponin I 0.194 06/11/17 06/11/17 06/11/17 04:35 11:14 11:14 Creatine Kinase 74 CK-MB (CK-2) 1.14 1.23 Troponin I 0.216 0.144 Impressions: Chest X-Ray 06/10/17 16:07 IMPRESSION: NO ACUTE RADIOGRAPHIC FINDING IN THE CHEST. Qualifiers PATEINT BEING DISCHARGED WITH ANY OF THE FOLLOWING DIAGNOSIS?: No Plan Discharge Plan: Continue efforts at getting BiPAP machine on outpatient. Patient is willing to rent machine from the DME supplier at this time to enable discharge home tonight. He will follow up in the office as instructed upon discharge. Time Spent: Greater than 30 Minutes - More than 50 % of my time was spent in care coordination and post discharge care plan.
[2017-06-19] MEDS: AMOXICILLIN TR/POT CLAVULANATE 500-125 MG TAB PO SCH ×3 (06:28→21:16)
[2017-06-19] MEDS: AMLODIPINE BESYLATE 5 MG TABLET PO SCH (08:58)
[2017-06-19] MEDS: MULTIVITAMIN TABLET PO SCH (08:58)
[2017-06-19] MEDS: ASPIRIN 81 MG TABLET, CHEWABLE PO SCH (08:59)
[2017-06-19] MEDS: CARVEDILOL 6.25 MG TABLET PO SCH ×2 (08:59→21:16)
[2017-06-19] MEDS: GLIMEPIRIDE 1 MG TABLET PO SCH (08:59)
[2017-06-19] MEDS: EZETIMIBE 10 MG TABLET PO SCH (09:00)
[2017-06-19] MEDS: PREDNISONE 5 MG TABLET PO SCH (09:00)
[2017-06-19] MEDS: ENOXAPARIN SODIUM INJ 40 MG/0.4 ML DISP.SYRIN SUBCUT SCH (09:04)
[2017-06-19] MEDS: IPRATROPIUM/ALBUTEROL 0.5-2.5 MG/3 ML AMPUL NEB PRN ×3 (09:09→19:54)
[2017-06-20] MEDS: AMOXICILLIN TR/POT CLAVULANATE 500-125 MG TAB PO SCH ×3 (05:30→21:31)
[2017-06-20] MEDS: GLIMEPIRIDE 1 MG TABLET PO SCH (08:21)
[2017-06-20] MEDS: IPRATROPIUM/ALBUTEROL 0.5-2.5 MG/3 ML AMPUL NEB PRN ×2 (08:30→20:23)
[2017-06-20] MEDS: CARVEDILOL 6.25 MG TABLET PO SCH ×2 (09:06→21:31)
[2017-06-20] MEDS: AMLODIPINE BESYLATE 5 MG TABLET PO SCH (09:06)
[2017-06-20] MEDS: ASPIRIN 81 MG TABLET, CHEWABLE PO SCH (09:06)
[2017-06-20] MEDS: EZETIMIBE 10 MG TABLET PO SCH (09:06)
[2017-06-20] MEDS: MULTIVITAMIN TABLET PO SCH (09:06)
[2017-06-20] MEDS: PREDNISONE 5 MG TABLET PO SCH (09:06)
[2017-06-20] MEDS: ENOXAPARIN SODIUM INJ 40 MG/0.4 ML DISP.SYRIN SUBCUT SCH (09:11)
[2017-06-20] MEDS: INSULIN LISPRO 100 UNIT/ML 3 ML VIAL SUBCUT PRN (21:31)
[2017-06-21] MEDS: AMOXICILLIN TR/POT CLAVULANATE 500-125 MG TAB PO SCH (05:52)
[2017-06-21] MEDS: GLIMEPIRIDE 1 MG TABLET PO SCH (08:01)
[2017-06-21] MEDS: ASPIRIN 81 MG TABLET, CHEWABLE PO SCH (09:42)
[2017-06-21] MEDS: CARVEDILOL 6.25 MG TABLET PO SCH (09:43)
[2017-06-21] MEDS: EZETIMIBE 10 MG TABLET PO SCH (09:43)
[2017-06-21] MEDS: AMLODIPINE BESYLATE 5 MG TABLET PO SCH (09:44)
[2017-06-21] MEDS: ENOXAPARIN SODIUM INJ 40 MG/0.4 ML DISP.SYRIN SUBCUT SCH (09:48)
[2017-06-21] MEDS: IPRATROPIUM/ALBUTEROL 0.5-2.5 MG/3 ML AMPUL NEB PRN (10:30)
[2017-06-21] MEDS: MULTIVITAMIN TABLET PO SCH (10:38)
[2017-06-21] MEDS: PREDNISONE 5 MG TABLET PO SCH (10:38)
[2017-06-21 12:55] VITALS: BP 149/59
== END 2017-06-21 13:29 | disposition home health service (06) | DRG 871 ==
LOC: ER 16:00 → UNDOADMIN 18:14 → EH 18:14 → 3N 20:38 → EH 20:38
PROVIDERS: ADMIT Internal Medicine Geriatric Medicine; ATTEND Internal Medicine Geriatric Medicine
DX: A41.9 Sepsis, unspecified organism (principal); J96.21 Acute and chronic respiratory failure with hypoxia; J96.22 Acute and chronic respiratory failure with hypercapnia; G92 Toxic encephalopathy; J44.1 Chronic obstructive pulmonary disease with (acute) exacerbation; N17.9 Acute kidney failure, unspecified; Z66 Do not resuscitate; E11.9 Type 2 diabetes mellitus without complications; I10 Essential (primary) hypertension; E78.5 Hyperlipidemia, unspecified; I25.10 Atherosclerotic heart disease of native coronary artery without angina pectoris; K21.9 Gastro-esophageal reflux disease without esophagitis; L98.499 Non-pressure chronic ulcer of skin of other sites with unspecified severity; T87.89 Other complications of amputation stump; F17.210 Nicotine dependence, cigarettes, uncomplicated; I25.2 Old myocardial infarction; Z89.512 Acquired absence of left leg below knee; Z89.511 Acquired absence of right leg below knee
CPT/HCPCS: 36415; 36600; 71010; 80048; 80053; 81001; 82550; 82553; 82803; 82962; 83036; 83605; 83735; 84100; 84484; 85025; 85610; 85730; 87040; 87086; 93005; 93010; 94640; 94660; 96365; 96375; 99291; J1650; J1815; J2543; J2920; J2930; J3490; J7030; J7060; J7512; J7620; S0164

== ENCOUNTER 2019-08-14 07:38 | Inpatient (IN) | payer MEDICARE ==
[2019-08-14 08:16] LABS: ABSOLUTE EOSINOPHILS # (AUTO) 0.4 10^3/uL (0.0-0.6); ABSOLUTE LYMPHOCYTES (AUTO) 1.9 10^3/uL (0.5-4.7); ABSOLUTE MONOCYTES (AUTO) 1.4 10^3/uL (0.1-1.4); ABSOLUTE NEUT (AUTO) 9.4 10^3/uL (1.7-8.2); BASOPHILS % (AUTO) 0.3 % (0-2); EOSINOPHILS % (AUTO) 2.8 % (0-6); HEMATOCRIT 39.8 % (37.9-51.0); HEMOGLOBIN 12.8 g/dL (13.5-17.0); LYMPHOCYTES % (AUTO) 14.3 % (13-45); MEAN CORPUSCULAR HEMOGLOBIN 28.5 pg (27.0-33.4); MEAN CORPUSCULAR HGB CONC 32.2 g/dL (32.0-36.0); MEAN CORPUSCULAR VOLUME 88 fl (80-97); MONOCYTES % (AUTO) 10.5 % (3-13); PLATELET COUNT 231 10^3/uL (150-450); RED CELL DISTRIBUTION WIDTH 14.5 % (11.5-14.0); SEGMENTED NEUTROPHILS % (AUTO) 72.1 % (42-78); TOTAL CELLS COUNTED % (AUTO) 100 %
[2019-08-14 08:21] LABS: VENOUS BLOOD BASE EXCESS -5.9 mmol/L; VENOUS BLOOD HCO3 25.3 mmol/L (20-32)
--- NOTE | 2019-08-14 08:24 | RADIOLOGY REPORT (SQ) ---
EXAM DESCRIPTION: CHEST SINGLE VIEW COMPLETED DATE/TIME: 08/14/2019 8:09 am REASON FOR STUDY: bed 1 db COMPARISON: 06/10/2017. EXAM PARAMETERS: NUMBER OF VIEWS: One view. TECHNIQUE: Single frontal radiographic view of the chest acquired. RADIATION DOSE: NA LIMITATIONS: None. FINDINGS: LUNGS AND PLEURA: No opacities, masses or pneumothorax. No pleural effusion. MEDIASTINUM AND HILAR STRUCTURES: No masses. Contour normal. HEART AND VASCULAR STRUCTURES: Heart normal in size. Normal vasculature. BONES: No acute findings. HARDWARE: None in the chest. OTHER: No other significant finding. IMPRESSION: NO ACUTE RADIOGRAPHIC FINDING IN THE CHEST. TECHNICAL DOCUMENTATION: JOB ID: [id number] 1917 [employer]- All Rights Reserved Reading location - IP/workstation name: [email or web address]
[2019-08-14 08:26] LABS: VENOUS BLOOD PCO2 80.5 mmHg (35-63); VENOUS BLOOD PH 7.12 (7.30-7.42)
[2019-08-14 08:42] LABS: ALBUMIN 3.8 g/dL (3.5-5.0); ALKALINE PHOSPHATASE 79 U/L (38-126); ANION GAP 6 (5-19); ASPARTATE AMINO TRANSFERASE 30 U/L (17-59); BILIRUBIN,DIRECT 0.1 mg/dL (0.0-0.4); BILIRUBIN,TOTAL 0.3 mg/dL (0.2-1.3); BLOOD UREA NITROGEN 39 mg/dL (7-20); CARBON DIOXIDE 29 mmol/L (22-30); CHLORIDE 110 mmol/L (98-107); CREATINE KINASE 196 U/L (55-170); GLUCOSE 161 mg/dL (75-110); TOTAL PROTEIN 6.8 g/dL (6.3-8.2)
[2019-08-14 08:53] LABS: CREATINE KINASE MB 3.45 ng/mL (<4.55)
[2019-08-14 08:56] LABS: TROPONIN I 0.048 ng/mL
[2019-08-14] MEDS ORDERED: ALBUTEROL SULFATE 0.083% NEB 2.5 MG/3 ML AMPUL NEB ONE (09:19)
--- NOTE | 2019-08-14 09:48 | ER Document Report ---
Entered by MILA PALACIOS SCRIBE 08/14/19 0752 Acting as scribe for:DAISY TAI MD ED Respiratory Problem - General Stated Complaint: DIFFICULTY BREATHING Time Seen by Provider: 08/14/19 07:43 Primary Care Provider: TJ ARREOLA MD [Primary Care Provider] - Follow up as needed Mode of Arrival: Medic Information source: Patient, Friend Notes: This 74-year-old male patient presents to the emergency department today for complaints of respiratory distress. EMS states on arrival the patient had an oxygen saturation on room air of 83%. Patient was given albuterol, Atrovent, and 125 mg Solu-Medrol in route, on arrival here he was on 4L nasal cannula and was saturating 97%. Sister at bedside states the patient had a mild cough for the last few days. Patient has been "going downhill" for the last few weeks. Patient denies any fevers. Patient still smokes "a couple packs a day of cigarettes". Pertinent PMHx/PSHx: COPD, continues to smoke - additional PMHx/PSHx not pertinent to this visit as recorded. The patient is a DNR. PCP: Doctor Arreola TRAVEL OUTSIDE OF THE [place] IN LAST 30 DAYS: No - Related Data Allergies/Adverse Reactions: No Known Drug Allergies Allergy (Verified 06/10/17 16:28) Past Medical History - General Information source: Patient - Social History Smoking Status: Current Every Day Smoker Cigarette use (# per day): Yes Frequency of alcohol use: None Drug Abuse: None Lives with: Family Family History: Reviewed & Not Pertinent - Past Medical History Cardiac Medical History: Reports: Hx Coronary Artery Disease, Hx Heart Attack - 2011, Hx Hypercholesterolemia, Hx Hypertension Pulmonary Medical History: Reports: Hx Asthma, Hx COPD, Hx Pneumonia Endocrine Medical History: Reports: Hx Diabetes Mellitus Type 2 GI Medical History: Reports: Hx Gastroesophageal Reflux Disease, Hx Hiatal Hernia - PT UNSURE Psychiatric Medical History: Reports: Hx Depression Past Surgical History: Reports: Hx Orthopedic Surgery - Bilateral BKA - Immunizations Hx Diphtheria, Pertussis, Tetanus Vaccination: No - unknown Hx Pneumococcal Vaccination: 09/20/10 Review of Systems - Review of Systems Constitutional: No symptoms reported EENT: No symptoms reported Cardiovascular: No symptoms reported Respiratory: See HPI, Short of breath Gastrointestinal: No symptoms reported Genitourinary: No symptoms reported Male Genitourinary: No symptoms reported Musculoskeletal: No symptoms reported Skin: No symptoms reported Hematologic/Lymphatic: No symptoms reported Neurological/Psychological: No symptoms reported -: Yes All other systems reviewed and negative Physical Exam - Vital signs Vitals: Resp Pulse Ox 27 H 99 08/14/19 07:42 08/14/19 07:42 - Notes Notes: Physical Exam: General: Alert, appears short of breath. HEENT: Normocephalic. Atraumatic. PERRL. Extraocular movements intact. Oropharynx clear. Neck: Supple. Non-tender. Respiratory: Wheezing and rhonchi bilaterally. On a non-rebreather mask on 7-8 L of oxygen, patient saturating 100%, bumped down to 5 L and still saturating 100%, bumped down to 3 L and his oxygen saturation is 95%. Cardiovascular: Regular rate and rhythm. Abdominal: Normal Inspection. Non-tender. No distension. Normal Bowel Sounds. Back: See skin exam Extremities: Upper extremities: Normal inspection. Normal ROM. Lower extremities: Bilateral BKA's. Neurological: Normal cognition. AAOx4. Normal speech. Psychological: Normal affect. Normal Mood. Skin: Right upper back has a sebaceous cyst draining purulent discharge. Course - Vital Signs Vital signs: Temp Pulse Resp BP Pulse Ox 26 H 171/82 H 99 08/14/19 08:26 08/14/19 11:31 08/14/19 11:31 - Laboratory Result Diagrams: 08/14/19 07:45 08/14/19 07:45 Laboratory results interpreted by me: 08/14/19 08/14/19 08/14/19 07:45 07:45 07:45 WBC 13.0 H Hgb 12.8 L RDW 14.5 H Absolute Neuts (auto) 9.4 H Carbonic Acid ABG pH ABG pCO2 ABG pO2 ABG HCO3 ABG Total CO2 ABG O2 Saturation VBG pH 7.12 L* VBG pCO2 80.5 H* Sodium 145.1 H Chloride 110 H BUN 39 H Creatinine 1.33 H Est GFR (MDRD) Non-Af 52 L Glucose 161 H Creatine Kinase 196 H 08/14/19 10:26 WBC Hgb RDW Absolute Neuts (auto) Carbonic Acid 2.37 H ABG pH 7.15 L* ABG pCO2 78.6 H* ABG pO2 157.7 H ABG HCO3 26.6 H ABG Total CO2 29.0 H ABG O2 Saturation 98.4 H VBG pH VBG pCO2 Sodium Chloride BUN Creatinine Est GFR (MDRD) Non-Af Glucose Creatine Kinase - Diagnostic Test Radiology reviewed: Image reviewed, Reports reviewed - No infiltrate or failure, COPD - EKG Interpretation by Me EKG shows normal: Sinus rhythm, [place], Intervals, QRS Complexes, ST-T Waves Rate: Normal - 91 Rhythm: NSR [place]/QRS: RBBB When compared to previous EKG there are: No significant change - Consults Dr. Arreola Time consulted: 11:37 Consulted provider: will see as inpatient Critical Care Note - Critical Care Note Total time excluding time spent on procedures (mins): 40 Discharge - Discharge Clinical Impression: Respiratory distress, Acute respiratory failure with hypoxia and hypercapnia, Tobacco abuse disorder, Infected sebaceous cyst of skin Condition: Fair Disposition: ADMITTED INPATIENT Admitting Provider: [facility] Unit Admitted: [facility] Referrals: TJ ARREOLA MD [Primary Care Provider] - Follow up as needed I personally performed the services described in the documentation, reviewed and edited the documentation which was dictated to the scribe in my presence, and it accurately records my words and actions.
[2019-08-14 10:36] LABS: ARTERIAL BLOOD BASE EXCESS -4.2 mmol/L; ARTERIAL BLOOD H2CO3 2.37 mmol/L (1.05-1.35); ARTERIAL BLOOD HCO3 26.6 mmol/L (20-24); ARTERIAL BLOOD O2 SATURATION 98.4 % (94-98); ARTERIAL BLOOD PO2 157.7 mmHg (80-100)
[2019-08-14 10:41] LABS: ARTERIAL BLOOD FIO2 35%
[2019-08-14 10:42] LABS: ARTERIAL BLOOD PCO2 78.6 mmHg (35-45); ARTERIAL BLOOD PH 7.15 (7.35-7.45)
[2019-08-14 13:46] LABS: APPEARANCE,URINE SLIGHTLY-CLOUDY; BILIRUBIN,URINE NEGATIVE (NEGATIVE); COLOR,URINE YELLOW; GLUCOSE, URINE NEGATIVE (NEGATIVE); KETONES,URINE NEGATIVE (NEGATIVE); LEUKOCYTE ESTERASE,URINE MODERATE (NEGATIVE); NITRITE,URINE NEGATIVE (NEGATIVE); PROTEIN,URINE >=500 mg/dL (NEGATIVE); URINE SPECIFIC GRAVITY 1.014; UROBILINOGEN,URINE NEGATIVE mg/dL (<2.0)
--- NOTE | 2019-08-14 19:22 | PDOC H&P ---
History of Present Illness Admission Date/PCP: 08/14/19 12:03 [facility] Patient complains of: Difficulty with breathing History of Present Illness: TOBY HENDERSON is a 74 year old male patient known to my practice who presented to the ED today via EMS due to worsening difficulty with breathing. Daughter at bedside narrated that his oral intake has been downward for couple of days although he ate find when prepped food were presented to him. No repor constantino fever or chills but continue to experience baseline COPD related coughing episodes and continue to smoke cigarette. Patient is currently not using necessary CPAP machine due to his noncompliance that led to his insurance discontinuation of coverage and removal by [employer]. EMS staff reported oxygen saturation at 83% on room air upon their arrival. He was treated with albuterol and ipratropium nebulizer as well as IV Solu Medrol en route to the ED. His initial ED evaluation was remarkable for exacerbated COPD with severe hypercapnia. He will be admitted to [facility] for further evaluation and management. His morbidities are as listed below. Past Medical History Cardiac Medical History: Reports: Coronary Artery Disease, Myocardial Infarction - 2012, Hyperlipidema, Hypertension Denies: Congestive Heart Failure Pulmonary Medical History: Reports: Asthma, Chronic Obstructive Pulmonary Disease (COPD), Pneumonia Denies: Bronchitis, Tuberculosis Neurological Medical History: Denies: Seizures Endocrine Medical History: Reports: Diabetes Mellitus Type 2 Renal/ Medical History: Denies: End Stage Renal Disease GI Medical History: Reports: Gastroesophageal Reflux Disease, Hiatal Hernia - PT UNSURE Denies: Cirrhosis, Hepatitis Musculoskeltal Medical History: Denies: Arthritis Psychiatric Medical History: Reports: Depression Denies: Bipolar Disorder Hematology: Denies: Anemia, Sickle Cell Disease, Bleeding Tendencies Past Surgical History Past Surgical History: Reports: Orthopedic Surgery - Bilateral BKA Denies: Pacemaker Social History Lives with: Family Smoking Status: Current Every Day Smoker Cigarettes Packs Per Day: 2 Frequency of Alcohol Use: None Hx Recreational Drug Use: No Drugs: None Hx Prescription Drug Abuse: No - Advance Directive Resuscitation Status: Do Not Resuscitate Family History Family History: Reviewed & Not Pertinent Parental Family History Reviewed: Yes Children Family History Reviewed: Yes Sibling(s) Family History Reviewed.: Yes Medication/Allergy Home Medications: Acetazolamide [Acetazolamide ER] 500 mg PO DAILY 08/14/19 Amlodipine Besylate [Norvasc 10 mg Tablet] 10 mg PO DAILY 08/14/19 Ascorbic Acid [Vitamin C 500 mg Tablet] 1 tab PO DAILY 08/14/19 Aspirin [Ecotrin 81 mg EC Tablet] 81 mg PO DAILY 08/14/19 Carvedilol [Coreg 6.25 mg Tablet] 6.25 mg PO BID 08/14/19 Ezetimibe [Zetia 10 mg Tablet] 10 mg PO DAILY 08/14/19 Fluticasone/Vilanterol [Breo 100-25 Mcg Ellipta 14 Dose/Dpi] 1 inh IH DAILY 08/14/19 Glimepiride 2 mg PO DAILY 08/14/19 Mv-Mins/Folic/Lycopene/Ginkgo [One Daily For Men 50+ Adv Tab] 1 each PO DAILY 08/14/19 Quetiapine Fumarate [Seroquel] 25 mg PO BID 08/14/19 Roflumilast [Daliresp 500 mcg Tablet] 500 mcg PO DAILY 08/14/19 Allergies/Adverse Reactions: No Known Drug Allergies Allergy (Verified 06/10/17 16:28) Review of Systems ROS unobtainable: Due to mental status - not able to adequately communicate verbally at the time of my evaluation. Daughter did not reeal any other significant observation on review of system. All systems: reviewed and no additional remarkable complaints except as stated Physical Exam Vital Signs: Temp Pulse Resp BP Pulse Ox 97.8 F 90 15 150/66 H 100 08/14/19 16:00 08/14/19 16:00 08/14/19 16:00 08/14/19 16:00 08/14/19 16:00 Intake & Output 08/13/19 08/14/19 08/15/19 06:59 06:59 06:59 Weight 65.1 kg General appearance: PRESENT: severe distress - on BIPAP support presently Head exam: PRESENT: atraumatic, normocephalic Eye exam: PRESENT: conjunctiva pink, PERRLA. ABSENT: scleral icterus Ear exam: PRESENT: normal external ear exam Mouth exam: PRESENT: dry mucosa Respiratory exam: PRESENT: decreased breath sounds, prolonged expiratory phas, rhonchi - minimally in expiratory phase Cardiovascular exam: PRESENT: RRR. ABSENT: diastolic murmur, rubs, systolic murmur Vascular exam: ABSENT: pallor GI/Abdominal exam: PRESENT: normal bowel sounds, soft. ABSENT: distended, guarding, mass, organolmegaly, rebound, tenderness Extremities exam: PRESENT: left BKA, right BKA. ABSENT: pedal edema Musculoskeletal exam: ABSENT: ambulatory Neurological exam: PRESENT: altered - due to hypercapnia Skin exam: PRESENT: dry, warm, other - comodone lesion on upper back Results Laboratory Results: 08/14/19 07:45 08/14/19 07:45 08/14/19 08/14/19 08/14/19 07:45 07:45 07:45 WBC 13.0 H RBC 4.50 Hgb 12.8 L Hct 39.8 MCV 88 MCH 28.5 MCHC 32.2 RDW 14.5 H Plt Count 231 Seg Neutrophils % 72.1 Carbonic Acid HCO3/H2CO3 Ratio ABG pH ABG pCO2 ABG pO2 ABG HCO3 ABG O2 Saturation ABG Base Excess VBG pH 7.12 L* VBG pCO2 80.5 H* VBG HCO3 25.3 VBG Base Excess -5.9 FiO2 Sodium 145.1 H Potassium 4.0 Chloride 110 H Carbon Dioxide 29 Anion Gap 6 BUN 39 H Creatinine 1.33 H Est GFR ( Amer) > 60 Glucose 161 H Calcium 10.0 Total Bilirubin 0.3 AST 30 Alkaline Phosphatase 79 Total Protein 6.8 Albumin 3.8 Urine Color Urine Appearance Urine pH Ur Specific [place] Urine Protein Urine Glucose (UA) Urine Ketones Urine Blood Urine Nitrite Ur Leukocyte Esterase Urine WBC (Auto) Urine RBC (Auto) 08/14/19 08/14/19 10:26 13:00 WBC RBC Hgb Hct MCV MCH MCHC RDW Plt Count Seg Neutrophils % Carbonic Acid 2.37 H HCO3/H2CO3 Ratio 11:1 ABG pH 7.15 L* ABG pCO2 78.6 H* ABG pO2 157.7 H ABG HCO3 26.6 H ABG O2 Saturation 98.4 H ABG Base Excess -4.2 VBG pH VBG pCO2 VBG HCO3 VBG Base Excess FiO2 35% Sodium Potassium Chloride Carbon Dioxide Anion Gap BUN Creatinine Est GFR ( Amer) Glucose Calcium Total Bilirubin AST Alkaline Phosphatase Total Protein Albumin Urine Color YELLOW Urine Appearance SLIGHTLY-CLOUDY Urine pH 5.0 Ur Specific [place] 1.014 Urine Protein >=500 H Urine Glucose (UA) NEGATIVE Urine Ketones NEGATIVE Urine Blood NEGATIVE Urine Nitrite NEGATIVE Ur Leukocyte Esterase MODERATE H Urine WBC (Auto) 64 Urine RBC (Auto) 2 08/14/19 07:45 Back - Abscess Gram Stain - Final 08/14/19 08/14/19 07:45 07:45 Creatine Kinase 196 H CK-MB (CK-2) 3.45 Troponin I 0.048 Impressions: Chest X-Ray 08/14/19 07:40 IMPRESSION: NO ACUTE RADIOGRAPHIC FINDING IN THE CHEST. Assessment & Plan - Diagnosis (1) Acute on chronic respiratory failure with hypoxia and hypercapnia Is this a current diagnosis for this admission?: Yes Plan: See admitting attending physician orders for details about care plan. (2) Chronic obstructive pulmonary disease with acute exacerbation Is this a current diagnosis for this admission?: Yes Plan: See admitting attending physician orders for details about care plan. (3) Diabetes mellitus, type 2 Qualifiers: Diabetes mellitus half-way insulin use: with half-way use Diabetes mellitus complication status: with other specified complication Qualified Code(s): E11.69 - Type 2 diabetes mellitus with other specified complication; 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 Is this a current diagnosis for this admission?: Yes Plan: See admitting attending physician orders for details about care plan. (4) HTN (hypertension) Qualifiers: Hypertension type: essential hypertension Qualified Code(s): I10 - Essential (primary) hypertension Is this a current diagnosis for this admission?: Yes Plan: See admitting attending physician orders for details about care plan. (5) HLD (hyperlipidemia) Qualifiers: Hyperlipidemia type: unspecified Qualified Code(s): E78.5 - Hyperlipidemia, unspecified Is this a current diagnosis for this admission?: Yes Plan: See admitting attending physician orders for details about care plan. (6) Old AR (myocardial infarction) Is this a current diagnosis for this admission?: Yes Plan: See admitting attending physician orders for details about care plan. (7) GERD (gastroesophageal reflux disease) Qualifiers: Esophagitis presence: without esophagitis Qualified Code(s): K21.9 - Gastro-esophageal reflux disease without esophagitis Is this a current diagnosis for this admission?: Yes Plan: See admitting attending physician orders for details about care plan. - Time Time Spent: Greater than 70 Minutes Medications reviewed and adjusted accordingly: Yes Anticipated discharge: Home with Homehealth Within: Other - Inpatient Certification Based on my medical assessment, after consideration of the patient's comorbidi ties, presenting symptoms, or acuity I expect that the services needed warrant INPATIENT care.: Yes I certify that my determination is in accordance with my understanding of Ramez valenzuela's requirements for reasonable and necessary INPATIENT services [42 CFR 412.3e].: Yes Medical Necessity: Significant Comorbidiites Make Outpatient Treatment Too Risky, Need Close Monitoring Due to Risk of Patient Decompensation, Need For IV Fluids, Need For Continuous Telemetry Monitoring, Need for Nebulizer Therapy and Monitoring of Response, Need for IV Antibiotics, Risk of Complication if Not Cared For in Hospital, Risk of Diagnosis Which Will Require Inpatient Eval/Care/Monitoring Post Hospital Care: D/C Paramedic Documentation - Plan Summary Plan Summary: See admitting attending physician orders for details about care plan.
[2019-08-14] MEDS ORDERED: DEXTROSE 40% GEL 15 GM TUBE PO PRN ×2 (19:25)
[2019-08-14] MEDS ORDERED: GLUCAGON,HUMAN RECOMB 1 MG INJ SUBCUT PRN (19:25)
[2019-08-14] MEDS ORDERED: DEXTROSE 50%-WATER 25 GM/50 ML DISP.SYRIN IV PRN ×2 (19:25)
[2019-08-14] MEDS ORDERED: DEXTROSE 5%-NORMAL SALINE 1,000 ML IV PRN (19:40)
[2019-08-14] MEDS ORDERED: ACETAMINOPHEN 650 MG SUPP.RECT PR PRN (19:46)
[2019-08-14] MEDS: LEVOFLOXACIN 500 MG/D5W RTU 500 MG/100 ML RTUPB IV SCH (20:42)
[2019-08-14] MEDS: PANTOPRAZOLE SODIUM 40 MG VIAL IV SCH (21:09)
[2019-08-14] MEDS: METHYLPREDNISOLONE INJ 125 MG/2 ML SDV IV SCH (21:09)
[2019-08-14] MEDS: INSULIN LISPRO 100 UNIT/ML 3 ML VIAL SUBCUT SCH (21:10)
[2019-08-14] MEDS: CEFEPIME 2 GM/D5W RTU 2 GM/50 ML RTUPB IV SCH (22:16)
--- NOTE | 2019-08-14 23:54 | EKG REPORT ---
SEVERITY:- ABNORMAL ECG - SINUS RHYTHM RIGHT BUNDLE BRANCH BLOCK INFERIOR INFARCT, AGE INDETERMINATE : Confirmed by: Mariam Ferguson 14-Aug-2019 23:53:36
[2019-08-15 05:01] LABS: HEMATOCRIT 36.4 % (37.9-51.0); HEMOGLOBIN 12.1 g/dL (13.5-17.0); MEAN CORPUSCULAR HEMOGLOBIN 28.9 pg (27.0-33.4); MEAN CORPUSCULAR HGB CONC 33.2 g/dL (32.0-36.0); MEAN CORPUSCULAR VOLUME 87 fl (80-97); PLATELET COUNT 188 10^3/uL (150-450); RED BLOOD COUNT 4.18 10^6/uL (4.35-5.55); RED CELL DISTRIBUTION WIDTH 13.9 % (11.5-14.0); WHITE BLOOD COUNT 8.7 10^3/uL (4.0-10.5)
[2019-08-15] MEDS: METHYLPREDNISOLONE INJ 125 MG/2 ML SDV IV SCH ×3 (05:07→22:51)
[2019-08-15 05:21] LABS: ALBUMIN 3.2 g/dL (3.5-5.0); ALKALINE PHOSPHATASE 68 U/L (38-126); ANION GAP 7 (5-19); ASPARTATE AMINO TRANSFERASE 17 U/L (17-59); BILIRUBIN,DIRECT 0.1 mg/dL (0.0-0.4); BILIRUBIN,TOTAL 0.3 mg/dL (0.2-1.3); BLOOD UREA NITROGEN 48 mg/dL (7-20); CARBON DIOXIDE 24 mmol/L (22-30); CHLORIDE 113 mmol/L (98-107); GLUCOSE 265 mg/dL (75-110); POTASSIUM 4.3 mmol/L (3.6-5.0); TOTAL PROTEIN 5.6 g/dL (6.3-8.2)
[2019-08-15 05:46] LABS: ABSOLUTE LYMPHOCYTES# (MANUAL) 0.4 10^3/uL (0.5-4.7); ABSOLUTE MONOCYTES # (MANUAL) 0.3 10^3/uL (0.1-1.4); BASOPHILS % (MANUAL) 0 % (0-2); EOSINOPHILS % (MANUAL) 0 % (0-6); LYMPHOCYTES % (MANUAL) 5 % (13-45); MONOCYTES % (MANUAL) 4 % (3-13); SEGMENTED NEUTROPHILS % (MAN) 91 % (42-78); TOTAL CELLS COUNTED 100
[2019-08-15 05:47] LABS: PLATELET COMMENT ADEQUATE; RBC MORPHOLOGY COMMENT NORMO-CYTIC/CHROMIC
[2019-08-15 06:55] LABS: ARTERIAL BLOOD BASE EXCESS -3.4 mmol/L; ARTERIAL BLOOD FIO2 24%; ARTERIAL BLOOD H2CO3 1.41 mmol/L (1.05-1.35); ARTERIAL BLOOD O2 SATURATION 95.4 % (94-98); ARTERIAL BLOOD PCO2 46.8 mmHg (35-45); ARTERIAL BLOOD PH 7.31 (7.35-7.45); ARTERIAL BLOOD PO2 84.5 mmHg (80-100); ARTERIAL BLOOD TOTAL CO2 24.5 mmol/L (23-27)
[2019-08-15] MEDS: INSULIN LISPRO 100 UNIT/ML 3 ML VIAL SUBCUT SCH ×4 (08:24→22:49)
[2019-08-15] MEDS: CEFEPIME 2 GM/D5W RTU 2 GM/50 ML RTUPB IV SCH ×2 (09:08→22:50)
[2019-08-15] MEDS: PANTOPRAZOLE SODIUM 40 MG VIAL IV SCH ×2 (09:10→22:49)
[2019-08-15] MEDS: ENOXAPARIN SODIUM INJ 40 MG/0.4 ML DISP.SYRIN SUBCUT SCH (09:10)
[2019-08-15] MEDS: NORMAL SALINE 1000 ML 1,000 ML IV PRN (09:12)
[2019-08-15] MEDS: LEVOFLOXACIN 500 MG/D5W RTU 500 MG/100 ML RTUPB IV SCH (17:27)
--- NOTE | 2019-08-15 19:12 | PDOC PROGRESS REPORT ---
Subjective Progress Note for:: 08/15/19 Subjective:: Patient is full alert and appropriate at his baseline. Remain on supplemental oxygen via nasal cannula. No chest pain. No nausea, vomiting or abdominal pain. No fever or chills. Reason For Visit: ACUTE ON CHRONIC RESPIRATORY WITH HYPOXEMIA Physical Exam Vital Signs: Temp Pulse Resp BP Pulse Ox 97.9 F 98 17 132/47 H 98 08/15/19 11:39 08/15/19 13:46 08/15/19 11:39 08/15/19 11:39 08/15/19 11:39 Intake & Output 08/14/19 08/15/19 08/16/19 06:59 06:59 06:59 Intake Total 420 2008 Output Total 210 650 Balance 210 1358 Weight 69.5 kg General appearance: PRESENT: mild distress - on supplemental oxygen via cannula. Head exam: PRESENT: atraumatic, normocephalic Eye exam: PRESENT: conjunctiva pink. ABSENT: scleral icterus Ear exam: PRESENT: normal external ear exam Mouth exam: PRESENT: moist Respiratory exam: PRESENT: decreased breath sounds - at lung bases, rhonchi - end expiratory phase Cardiovascular exam: PRESENT: RRR. ABSENT: diastolic murmur, rubs, systolic murmur Vascular exam: ABSENT: pallor GI/Abdominal exam: PRESENT: normal bowel sounds, soft. ABSENT: distended, guarding, mass, organolmegaly, rebound, tenderness Extremities exam: PRESENT: left BKA, right BKA. ABSENT: pedal edema Neurological exam: PRESENT: alert, awake, oriented to person, oriented to place, oriented to time, oriented to situation, CN II-XII grossly intact. ABSENT: motor sensory deficit Psychiatric exam: PRESENT: appropriate affect, normal mood. ABSENT: homicidal ideation, suicidal ideation Skin exam: PRESENT: dry, warm Results Laboratory Results: 08/15/19 04:37 08/15/19 04:37 08/15/19 08/15/19 08/15/19 04:37 04:37 06:25 WBC 8.7 RBC 4.18 L Hgb 12.1 L Hct 36.4 L MCV 87 MCH 28.9 MCHC 33.2 RDW 13.9 Plt Count 188 Seg Neutrophils % Not Reportable Carbonic Acid 1.41 H HCO3/H2CO3 Ratio 16:1 ABG pH 7.31 L ABG pCO2 46.8 H ABG pO2 84.5 ABG HCO3 23.0 ABG O2 Saturation 95.4 ABG Base Excess -3.4 FiO2 24% Sodium 143.8 Potassium 4.3 Chloride 113 H Carbon Dioxide 24 Anion Gap 7 BUN 48 H Creatinine 1.34 H Est GFR ( Amer) > 60 Glucose 265 H Calcium 9.0 Total Bilirubin 0.3 AST 17 Alkaline Phosphatase 68 Total Protein 5.6 L Albumin 3.2 L 08/14/19 07:45 Back - Abscess Gram Stain - Final 08/14/19 08/14/19 07:45 07:45 Creatine Kinase 196 H CK-MB (CK-2) 3.45 Troponin I 0.048 Impressions: Chest X-Ray 08/14/19 07:40 IMPRESSION: NO ACUTE RADIOGRAPHIC FINDING IN THE CHEST. Assessment & Plan - Diagnosis (1) Acute on chronic respiratory failure with hypoxia and hypercapnia Is this a current diagnosis for this admission?: Yes (2) Chronic obstructive pulmonary disease with acute exacerbation Is this a current diagnosis for this admission?: Yes (3) Diabetes mellitus, type 2 Qualifiers: Diabetes mellitus buttermaker continuous churn insulin use: with buttermaker continuous churn use Diabetes mellitus complication status: with other specified complication Qualified Code(s): E11.69 - Type 2 diabetes mellitus with other specified complication; Z79.4 - buttermaker continuous churn (current) use of insulin Is this a current diagnosis for this admission?: Yes (4) HTN (hypertension) Qualifiers: Hypertension type: essential hypertension Qualified Code(s): I10 - Essential (primary) hypertension Is this a current diagnosis for this admission?: Yes (5) HLD (hyperlipidemia) Qualifiers: Hyperlipidemia type: unspecified Qualified Code(s): E78.5 - Hyperlipidemia, unspecified Is this a current diagnosis for this admission?: Yes (6) Old RI (myocardial infarction) Is this a current diagnosis for this admission?: Yes (7) GERD (gastroesophageal reflux disease) Qualifiers: Esophagitis presence: without esophagitis Qualified Code(s): K21.9 - Gastro-esophageal reflux disease without esophagitis Is this a current diagnosis for this admission?: Yes - Time Time Spent with patient: 35 or more minutes Level of Care: IMCU Medications reviewed and adjusted accordingly: Yes Anticipated discharge: Home with Homehealth Within: Other - Inpatient Certification Based on my medical assessment, after consideration of the patient's comorbidities, presenting symptoms, or acuity I expect that the services needed warrant INPATIENT care.: Yes I certify that my determination is in accordance with my understanding of Medicare's requirements for reasonable and necessary INPATIENT services [42 CFR 412.3e].: Yes Medical Necessity: Significant Comorbidiites Make Outpatient Treatment Too Risky, Need Close Monitoring Due to Risk of Patient Decompensation, Need For IV Fluids, Need For Continuous Telemetry Monitoring, Need for Nebulizer Therapy and Monitoring of Response, Need for IV Antibiotics, Risk of Complication if Not Cared For in Hospital, Risk of Diagnosis Which Will Require Inpatient Eval/Care/Monitoring Post Hospital Care: D/C Health And Safety Manager Documentation - Plan Summary Plan Summary: Decrease IV Solu Medrol to 80 mg q 8 hours. Restart preadmission diabetes mellitus medication. Obtain pulmonary consultation with Dr. Byrnes. Emphasized need for NIPPV device upon discharge.
[2019-08-15] MEDS: IPRATROPIUM/ALBUTEROL 0.5-2.5 MG/3 ML AMPUL NEB PRN (21:53)
[2019-08-15] MEDS ORDERED: METHYLPREDNISOLONE INJ 40 MG/1 ML SDV IV SCH (22:00)
[2019-08-16] MEDS: NORMAL SALINE 1000 ML 1,000 ML IV PRN (06:52)
[2019-08-16] MEDS: INSULIN LISPRO 100 UNIT/ML 3 ML VIAL SUBCUT SCH ×4 (08:27→21:59)
[2019-08-16] MEDS: CEFEPIME 2 GM/D5W RTU 2 GM/50 ML RTUPB IV SCH ×2 (09:32→21:56)
[2019-08-16] MEDS: PANTOPRAZOLE SODIUM 40 MG VIAL IV SCH ×2 (09:33→21:57)
[2019-08-16] MEDS: METHYLPREDNISOLONE INJ 125 MG/2 ML SDV IV SCH ×2 (09:35→21:58)
[2019-08-16] MEDS: GLIMEPIRIDE 1 MG TABLET PO SCH (09:36)
[2019-08-16] MEDS: ENOXAPARIN SODIUM INJ 40 MG/0.4 ML DISP.SYRIN SUBCUT SCH (09:36)
[2019-08-16] MEDS: ASPIRIN 81 MG TABLET, ENT COATED PO SCH (09:38)
[2019-08-16] MEDS: EZETIMIBE 10 MG TABLET PO SCH (09:38)
[2019-08-16] MEDS: MULTIVITAMIN TABLET PO SCH (09:38)
[2019-08-16] MEDS: QUETIAPINE FUMARATE 25 MG TABLET PO SCH ×2 (09:38→18:08)
[2019-08-16] MEDS: CARVEDILOL 6.25 MG TABLET PO SCH ×2 (09:38→21:58)
[2019-08-16] MEDS: AMLODIPINE BESYLATE 10 MG TABLET PO SCH (09:38)
[2019-08-16] MEDS: ACETAZOLAMIDE 500 MG CAPSULE.SA PO SCH (09:39)
[2019-08-16] MEDS: ROFLUMILAST 500 MCG TABLET PO SCH (09:39)
[2019-08-16] MEDS: ASCORBIC ACID 500 MG TABLET PO SCH (09:39)
[2019-08-16] MEDS ORDERED: GINKGO PO SCH (10:00)
[2019-08-16] MEDS ORDERED: (PENDING PHARMACY ID) (Roflumilast [Daliresp 500 Mcg Tablet] 500 MCG) PO SCH (10:00)
[2019-08-16] MEDS ORDERED: FOLIC PO SCH (10:00)
[2019-08-16] MEDS ORDERED: MV MINS PO SCH (10:00)
[2019-08-16] MEDS ORDERED: (PENDING PHARMACY ID) (Glimepiride [Glimepiride] 2 MG) PO SCH (10:00)
[2019-08-16] MEDS ORDERED: EAC PO SCH (10:00)
[2019-08-16] MEDS ORDERED: [UNRECOGNIZED DRUG - OTHER] PO SCH (10:00)
[2019-08-16] MEDS ORDERED: LYCOPENE PO SCH (10:00)
[2019-08-16] MEDS: LEVOFLOXACIN 500 MG TABLET PO SCH (18:08)
[2019-08-17] MEDS: NORMAL SALINE 1000 ML 1,000 ML IV PRN ×2 (02:49→22:55)
[2019-08-17] MEDS: INSULIN LISPRO 100 UNIT/ML 3 ML VIAL SUBCUT SCH ×4 (08:19→21:21)
[2019-08-17] MEDS: CEFEPIME 2 GM/D5W RTU 2 GM/50 ML RTUPB IV SCH ×2 (09:41→21:21)
[2019-08-17] MEDS: METHYLPREDNISOLONE INJ 125 MG/2 ML SDV IV SCH (09:42)
[2019-08-17] MEDS: ENOXAPARIN SODIUM INJ 40 MG/0.4 ML DISP.SYRIN SUBCUT SCH (09:42)
[2019-08-17] MEDS: ASPIRIN 81 MG TABLET, ENT COATED PO SCH (09:43)
[2019-08-17] MEDS: ROFLUMILAST 500 MCG TABLET PO SCH (09:43)
[2019-08-17] MEDS: AMLODIPINE BESYLATE 10 MG TABLET PO SCH (09:43)
[2019-08-17] MEDS: ASCORBIC ACID 500 MG TABLET PO SCH (09:43)
[2019-08-17] MEDS: MULTIVITAMIN TABLET PO SCH (09:43)
[2019-08-17] MEDS: QUETIAPINE FUMARATE 25 MG TABLET PO SCH ×2 (09:43→18:04)
[2019-08-17] MEDS: CARVEDILOL 6.25 MG TABLET PO SCH ×2 (09:43→21:17)
[2019-08-17] MEDS: ACETAZOLAMIDE 500 MG CAPSULE.SA PO SCH (09:44)
[2019-08-17] MEDS: GLIMEPIRIDE 1 MG TABLET PO SCH (09:44)
[2019-08-17] MEDS: EZETIMIBE 10 MG TABLET PO SCH (09:44)
[2019-08-17] MEDS: PANTOPRAZOLE SODIUM 40 MG VIAL IV SCH ×2 (09:44→21:13)
[2019-08-17] MEDS ORDERED: METHYLPREDNISOLONE INJ 125 MG/2 ML SDV IV SCH (10:00)
--- NOTE | 2019-08-17 10:00 | PDOC PROGRESS REPORT ---
Subjective Progress Note for:: 08/17/19 Subjective:: Patient was admitted for the COPD acute exacerbations in the chronic respiratory failure and wound infections Patient is currently doing much better patient's chronic smoker . Patient's denied any chest pain no short of breath Discussed with the patient and the daughter on the bedside Patient with bilateral amputations currently live by himself but according to th e daughter patients pretty much do all his work by himself Patient's use of BiPAP last night because of chronic respiratory failure We will waiting for the pulmonary consult Reason For Visit: ACUTE ON CHRONIC RESPIRATORY WITH HYPOXEMIA Physical Exam Vital Signs: Temp Pulse Resp BP Pulse Ox 97.7 F 80 16 140/65 H 98 08/17/19 08:32 08/17/19 08:32 08/17/19 08:32 08/17/19 08:32 08/17/19 08:32 Intake & Output 08/16/19 08/17/19 08/18/19 06:59 06:59 06:59 Intake Total 3058 2017 Output Total 650 Balance 2408 2017 Weight 75.6 kg 76.4 kg General appearance: PRESENT: no acute distress, well-developed, well-nourished Head exam: PRESENT: atraumatic, normocephalic Eye exam: PRESENT: conjunctiva pink, EOMI, PERRLA. ABSENT: scleral icterus Ear exam: PRESENT: normal external ear exam Mouth exam: PRESENT: moist, tongue midline Neck exam: PRESENT: full ROM. ABSENT: carotid bruit, JVD, lymphadenopathy, thyromegaly Respiratory exam: PRESENT: clear to auscultation dolores Cardiovascular exam: PRESENT: RRR. ABSENT: diastolic murmur, rubs, systolic murmur Vascular exam: PRESENT: normal capillary refill GI/Abdominal exam: PRESENT: normal bowel sounds, soft. ABSENT: distended, guarding, mass, organolmegaly, rebound, tenderness Rectal exam: PRESENT: deferred Extremities exam: PRESENT: left BKA, right BKA Neurological exam: PRESENT: alert, awake, oriented to person, oriented to place, oriented to time, oriented to situation, CN II-XII grossly intact. ABSENT: motor sensory deficit Psychiatric exam: PRESENT: appropriate affect, normal mood. ABSENT: homicidal ideation, suicidal ideation Skin exam: PRESENT: dry, intact, warm. ABSENT: cyanosis, rash Results Laboratory Results: 08/15/19 04:37 08/15/19 04:37 08/14/19 07:45 Back - Abscess Gram Stain - Final 08/14/19 08/14/19 07:45 07:45 Creatine Kinase 196 H CK-MB (CK-2) 3.45 Troponin I 0.048 Impressions: Chest X-Ray 08/14/19 07:40 IMPRESSION: NO ACUTE RADIOGRAPHIC FINDING IN THE CHEST. Assessment & Plan - Diagnosis (1) Acute on chronic respiratory failure with hypoxia and hypercapnia Is this a current diagnosis for this admission?: Yes Plan: Continues to BiPAP at night we will repeat the ABG (2) Respiratory distress Is this a current diagnosis for this admission?: Yes Plan: Currently all resolved (3) CAD (coronary artery disease) Qualifiers: Coronary Disease-Associated Artery/Lesion type: [place] artery Associated angina: without angina Is this a current diagnosis for this admission?: Yes (4) COPD (chronic obstructive pulmonary disease) Qualifiers: COPD type: unspecified COPD Qualified Code(s): J44.9 - Chronic obstructive pulmonary disease, unspecified Is this a current diagnosis for this admission?: Yes Plan: Reduce the IV Solu-Medrol continue some nebulizer treatment discussed with the patient about the smoking counseling (5) Diabetes mellitus, type 2 Qualifiers: Diabetes mellitus fdc insulin use: with intermediate designer use Diabetes mellitus complication status: with other specified complication Qualified Code(s): E11.69 - Type 2 diabetes mellitus with other specified complication; Z79.4 - senior living (current) use of insulin Is this a current diagnosis for this admission?: Yes Plan: Continues to current medications (6) HLD (hyperlipidemia) Qualifiers: Hyperlipidemia type: unspecified Qualified Code(s): E78.5 - Hyperlipidemia, unspecified Is this a current diagnosis for this admission?: Yes (7) HTN (hypertension) Qualifiers: Hypertension type: essential hypertension Qualified Code(s): I10 - Essential (primary) hypertension Is this a current diagnosis for this admission?: Yes (8) Sepsis Qualifiers: Sepsis type: sepsis due to unspecified organism Qualified Code(s): A41.9 - Sepsis, unspecified organism Is this a current diagnosis for this admission?: Yes - Time Time Spent with patient: 25-34 minutes Level of Care: IMCU Anticipated discharge: Home Within: Other - Inpatient Certification Based on my medical assessment, after consideration of the patient's comorbidities, presenting symptoms, or acuity I expect that the services needed warrant INPATIENT care.: Yes I certify that my determination is in accordance with my understanding of Medicare's requirements for reasonable and necessary INPATIENT services [42 CFR 412.3e].: Yes Post Hospital Care: D/C or Transfer Summary - Plan Summary Plan Summary: Continues to current medications Will wait for the pulmonary consult Discussed with the patient and the daughter Repeat the ABG in the morning
[2019-08-17 12:55] LABS: ARTERIAL BLOOD BASE EXCESS -8.3 mmol/L; ARTERIAL BLOOD H2CO3 1.67 mmol/L (1.05-1.35); ARTERIAL BLOOD HCO3 20.4 mmol/L (20-24); ARTERIAL BLOOD O2 SATURATION 96.4 % (94-98); ARTERIAL BLOOD PCO2 55.5 mmHg (35-45); ARTERIAL BLOOD PO2 105.6 mmHg (80-100); ARTERIAL BLOOD TOTAL CO2 22.1 mmol/L (23-27)
[2019-08-17 12:56] LABS: ARTERIAL BLOOD FIO2 5L
[2019-08-17 12:59] LABS: ARTERIAL BLOOD PH 7.18 (7.35-7.45)
[2019-08-17 15:24] LABS: ARTERIAL BLOOD BASE EXCESS -7.8 mmol/L; ARTERIAL BLOOD H2CO3 1.27 mmol/L (1.05-1.35); ARTERIAL BLOOD HCO3 18.7 mmol/L (20-24); ARTERIAL BLOOD O2 SATURATION 95.1 % (94-98); ARTERIAL BLOOD PCO2 42.1 mmHg (35-45); ARTERIAL BLOOD PH 7.27 (7.35-7.45); ARTERIAL BLOOD PO2 85.3 mmHg (80-100)
[2019-08-17 15:26] LABS: ARTERIAL BLOOD FIO2 5
[2019-08-17] MEDS: LEVOFLOXACIN 500 MG TABLET PO SCH (18:04)
[2019-08-17] MEDS: METHYLPREDNISOLONE INJ 40 MG/1 ML SDV IV SCH (21:14)
[2019-08-18 05:39] LABS: HEMATOCRIT 37.9 % (37.9-51.0); HEMOGLOBIN 12.5 g/dL (13.5-17.0); MEAN CORPUSCULAR HEMOGLOBIN 28.6 pg (27.0-33.4); MEAN CORPUSCULAR HGB CONC 32.8 g/dL (32.0-36.0); MEAN CORPUSCULAR VOLUME 87 fl (80-97); PLATELET COUNT 160 10^3/uL (150-450); RED BLOOD COUNT 4.35 10^6/uL (4.35-5.55); WHITE BLOOD COUNT 8.7 10^3/uL (4.0-10.5)
[2019-08-18 05:55] LABS: ANION GAP 7 (5-19); BLOOD UREA NITROGEN 77 mg/dL (7-20); CARBON DIOXIDE 20 mmol/L (22-30); CHLORIDE 116 mmol/L (98-107); GLUCOSE 160 mg/dL (75-110); POTASSIUM 4.5 mmol/L (3.6-5.0)
[2019-08-18 06:06] LABS: CALCIUM 7.1 mg/dL (8.4-10.2)
[2019-08-18 06:22] LABS: ABSOLUTE LYMPHOCYTES# (MANUAL) 0.2 10^3/uL (0.5-4.7); BASOPHILS % (MANUAL) 0 % (0-2); EOSINOPHILS % (MANUAL) 0 % (0-6); LYMPHOCYTES % (MANUAL) 2 % (13-45); MONOCYTES % (MANUAL) 0 % (3-13); PLATELET COMMENT ADEQUATE; RBC MORPHOLOGY COMMENT NORMO-CYTIC/CHROMIC; SEGMENTED NEUTROPHILS % (MAN) 98 % (42-78); TOTAL CELLS COUNTED 100
[2019-08-18] MEDS: METHYLPREDNISOLONE INJ 40 MG/1 ML SDV IV SCH ×2 (09:42→22:00)
[2019-08-18] MEDS: CEFEPIME 2 GM/D5W RTU 2 GM/50 ML RTUPB IV SCH (09:43)
[2019-08-18] MEDS: PANTOPRAZOLE SODIUM 40 MG VIAL IV SCH ×2 (09:43→22:00)
[2019-08-18] MEDS: ROFLUMILAST 500 MCG TABLET PO SCH (09:44)
[2019-08-18] MEDS: MULTIVITAMIN TABLET PO SCH (09:44)
[2019-08-18] MEDS: ENOXAPARIN SODIUM INJ 40 MG/0.4 ML DISP.SYRIN SUBCUT SCH (09:44)
[2019-08-18] MEDS: ASPIRIN 81 MG TABLET, ENT COATED PO SCH (09:45)
[2019-08-18] MEDS: QUETIAPINE FUMARATE 25 MG TABLET PO SCH ×2 (09:45→17:58)
[2019-08-18] MEDS: ASCORBIC ACID 500 MG TABLET PO SCH (09:45)
[2019-08-18] MEDS: GLIMEPIRIDE 1 MG TABLET PO SCH (09:47)
[2019-08-18] MEDS: ACETAZOLAMIDE 500 MG CAPSULE.SA PO SCH (09:47)
[2019-08-18] MEDS: EZETIMIBE 10 MG TABLET PO SCH (09:47)
[2019-08-18] MEDS: CARVEDILOL 6.25 MG TABLET PO SCH ×2 (09:48→22:00)
[2019-08-18] MEDS: AMLODIPINE BESYLATE 10 MG TABLET PO SCH (09:48)
[2019-08-18] MEDS: INSULIN LISPRO 100 UNIT/ML 3 ML VIAL SUBCUT SCH ×4 (09:55→22:00)
--- NOTE | 2019-08-18 10:28 | PDOC PROGRESS REPORT ---
Subjective Progress Note for:: 08/18/19 Subjective:: Patient is currently doing well Patient is to use the BiPAP Patient's denied any chest pain no short of breath Patient's having no fever no chills Reason For Visit: ACUTE ON CHRONIC RESPIRATORY WITH HYPOXEMIA Physical Exam Vital Signs: Temp Pulse Resp BP Pulse Ox 97.4 F 59 L 22 H 125/65 100 08/18/19 08:01 08/18/19 08:01 08/18/19 08:01 08/18/19 08:01 08/18/19 08:01 Intake & Output 08/17/19 08/18/19 08/19/19 06:59 06:59 06:59 Intake Total 2017 1700 Balance 2017 1700 Weight 76.4 kg 78.7 kg General appearance: PRESENT: no acute distress, well-developed, well-nourished Head exam: PRESENT: atraumatic, normocephalic Eye exam: PRESENT: conjunctiva pink, EOMI, PERRLA. ABSENT: scleral icterus Ear exam: PRESENT: normal external ear exam Mouth exam: PRESENT: moist, tongue midline Neck exam: PRESENT: full ROM. ABSENT: carotid bruit, JVD, lymphadenopathy, thyromegaly Respiratory exam: PRESENT: clear to auscultation dolores Cardiovascular exam: PRESENT: RRR. ABSENT: diastolic murmur, rubs, systolic murmur Pulses: PRESENT: normal dorsalis pedis pul, +2 pedal pulses bilateral Vascular exam: PRESENT: normal capillary refill GI/Abdominal exam: PRESENT: normal bowel sounds, soft. ABSENT: distended, guarding, mass, organolmegaly, rebound, tenderness Rectal exam: PRESENT: deferred Extremities exam: PRESENT: left BKA, right BKA, pedal edema Neurological exam: PRESENT: alert, awake, oriented to person, oriented to place, oriented to time, oriented to situation, CN II-XII grossly intact. ABSENT: motor sensory deficit Psychiatric exam: PRESENT: appropriate affect, normal mood. ABSENT: homicidal ideation, suicidal ideation Skin exam: PRESENT: dry, intact, warm. ABSENT: cyanosis, rash Results Laboratory Results: 08/18/19 04:44 08/18/19 04:44 08/17/19 08/17/19 08/18/19 12:00 15:10 04:44 WBC 8.7 RBC 4.35 Hgb 12.5 L Hct 37.9 MCV 87 MCH 28.6 MCHC 32.8 RDW 14.0 Plt Count 160 Seg Neutrophils % Not Reportable Carbonic Acid 1.67 H 1.27 HCO3/H2CO3 Ratio 12:1 14:1 ABG pH 7.18 L* 7.27 L ABG pCO2 55.5 H 42.1 ABG pO2 105.6 H 85.3 ABG HCO3 20.4 18.7 L ABG O2 Saturation 96.4 95.1 ABG Base Excess -8.3 -7.8 FiO2 5L 5 Sodium Potassium Chloride Carbon Dioxide Anion Gap BUN Creatinine Est GFR ( Amer) Glucose Calcium 08/18/19 04:44 WBC RBC Hgb Hct MCV MCH MCHC RDW Plt Count Seg Neutrophils % Carbonic Acid HCO3/H2CO3 Ratio ABG pH ABG pCO2 ABG pO2 ABG HCO3 ABG O2 Saturation ABG Base Excess FiO2 Sodium 143.0 Potassium 4.5 Chloride 116 H Carbon Dioxide 20 L Anion Gap 7 BUN 77 H Creatinine 1.99 H Est GFR ( Amer) 40 L Glucose 160 H Calcium 7.1 L 08/14/19 07:45 Back - Abscess Gram Stain - Final 08/14/19 07:45 Back - Abscess Wound Culture - Final Staphylococcus Aureus Enterococcus Faecalis(Group D) Anaerococcus (Peptostrep) Sp. Skin Meme 08/14/19 08/14/19 07:45 07:45 Creatine Kinase 196 H CK-MB (CK-2) 3.45 Troponin I 0.048 Impressions: Chest X-Ray 08/14/19 07:40 IMPRESSION: NO ACUTE RADIOGRAPHIC FINDING IN THE CHEST. Assessment & Plan - Diagnosis (1) Acute on chronic respiratory failure with hypoxia and hypercapnia Is this a current diagnosis for this admission?: Yes Plan: Continues to BiPAP at night we will repeat the ABG (2) Respiratory distress Is this a current diagnosis for this admission?: Yes Plan: Currently all resolved (3) CAD (coronary artery disease) Qualifiers: Coronary Disease-Associated Artery/Lesion type: upper [place] artery Associated angina: without angina Is this a current diagnosis for this admission?: Yes (4) COPD (chronic obstructive pulmonary disease) Qualifiers: COPD type: unspecified COPD Qualified Code(s): J44.9 - Chronic obstructive pulmonary disease, unspecified Is this a current diagnosis for this admission?: Yes Plan: Reduce the IV Solu-Medrol continue some nebulizer treatment discussed with the patient about the smoking counseling (5) Diabetes mellitus, type 2 Qualifiers: Diabetes mellitus long-term insulin use: with long-term use Diabetes mellitus complication status: with other specified complication Qualified Code(s): E11.69 - Type 2 diabetes mellitus with other specified complication; Z79.4 - long term care social worker (current) use of insulin Is this a current diagnosis for this admission?: Yes Plan: Continues to current medications (6) HLD (hyperlipidemia) Qualifiers: Hyperlipidemia type: unspecified Qualified Code(s): E78.5 - Hyperlipidemia, unspecified Is this a current diagnosis for this admission?: Yes (7) HTN (hypertension) Qualifiers: Hypertension type: essential hypertension Qualified Code(s): I10 - Essential (primary) hypertension Is this a current diagnosis for this admission?: Yes (8) Sepsis Qualifiers: Sepsis type: sepsis due to unspecified organism Qualified Code(s): A41.9 - Sepsis, unspecified organism Is this a current diagnosis for this admission?: Yes (9) Acute renal failure Qualifiers: Acute renal failure type: unspecified Qualified Code(s): N17.9 - Acute kidney failure, unspecified Is this a current diagnosis for this admission?: Yes Plan: We will get the ultrasound for the kidney increase the IV fluid Consider put the Coleman catheter after the bladder scan Consult nephrology - Time Time Spent with patient: 25-34 minutes Level of Care: IMCU Medications reviewed and adjusted accordingly: Yes - Plan Summary Plan Summary: With the patient and the daughter on the bedside regarding the all the test reports and the plans
--- NOTE | 2019-08-18 12:14 | RADIOLOGY REPORT (SQ) ---
EXAM DESCRIPTION: U/S RETROPERITON (RENAL/AORTA) COMPLETED DATE/TIME: 08/18/2019 11:30 am REASON FOR STUDY: renal failure COMPARISON: CT chest 05/09/2016 TECHNIQUE: Dynamic and static grayscale images acquired of the kidneys and bladder and recorded on P ACS. Additional selected color Doppler and spectral images recorded. LIMITATIONS: None. FINDINGS: RIGHT KIDNEY: Normal size, 10.6 cm in length. Mild cortical thinning with increased corti josue echogenicity. No solid or suspicious masses. No hydronephrosis. No calcifications. LEFT KIDNEY: Normal size, 11.3 cm in length. Normal echogenicity. No solid or suspicious masses. Le ft upper pole renal cortical cyst 2 cm in size. No hydronephrosis. No calcifications. BLADDER: No masses. OTHER FINDINGS: Incidental finding of gallstones in the gallbladder IMPRESSION: No hydronephrosis or hydroureter. Mild bilateral cortical thinning and increased cortic al echogenicity both kidneys. TECHNICAL DOCUMENTATION: JOB ID: [id number] PT [employer]- All Rights Reserved Reading location - IP/workstation name: [facility]
[2019-08-18 15:21] LABS: ARTERIAL BLOOD BASE EXCESS -7.8 mmol/L; ARTERIAL BLOOD H2CO3 1.11 mmol/L (1.05-1.35); ARTERIAL BLOOD HCO3 17.9 mmol/L (20-24); ARTERIAL BLOOD O2 SATURATION 95.3 % (94-98); ARTERIAL BLOOD PO2 83.3 mmHg (80-100)
[2019-08-18 15:27] LABS: ARTERIAL BLOOD FIO2 30%
[2019-08-18] MEDS: NORMAL SALINE 1000 ML 1,000 ML IV PRN ×2 (16:13→22:05)
--- NOTE | 2019-08-18 16:35 | PDOC CONSULTATION ---
Consultation Consult Date: 08/18/19 Attending physician:: HAMZAH ANDERSON Provider Consulted: LYN CROWE Consult reason:: Dyspnea History of Present Illness Admission Date/PCP: 08/14/19 12:03 TJ OSUNKOYA History of Present Illness: TOBY HENDERSON is a 74 year old male presented with increasing shortness of breath he states he has a cough but denies any productive phlegm he denies hemoptysis PPD was negative dates unknown. He denies any history chronic lung d isease as a child or adolescent. He admits to exposure to large amounts of passive smoke as a child as well as an adult. He is self smoked a pack a day for 66 years. 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 Past Medical History Cardiac Medical History: Reports: Coronary Artery Disease, Myocardial Infarction - 2012, Hyperlipidema, Hypertension Denies: Congestive Heart Failure Pulmonary Medical History: Reports: Asthma, Chronic Obstructive Pulmonary Disease (COPD), Pneumonia Denies: Bronchitis, Tuberculosis Neurological Medical History: Denies: Seizures Endocrine Medical History: Reports: Diabetes Mellitus Type 2 Renal/ Medical History: Denies: End Stage Renal Disease GI Medical History: Reports: Gastroesophageal Reflux Disease, Hiatal Hernia - PT UNSURE Denies: Cirrhosis, Hepatitis Musculoskeltal Medical History: Denies: Arthritis Psychiatric Medical History: Reports: Depression Denies: Bipolar Disorder Hematology: Denies: Anemia, Sickle Cell Disease, Bleeding Tendencies Infectious Medical History: Denies: Clostridium Difficile, Hepatitis B, Hepatitis C Past Surgical History Past Surgical History: Reports: Orthopedic Surgery - Bilateral BKA, Other - Bilateral cataract surgery Denies: Pacemaker Social History Information Source: Patient, [facility] Records Lives with: Family Smoking Status: Current Every Day Smoker Cigarettes Packs Per Day: 2 Number of Years Smokin Passive smoke exposure as: Both Frequency of Alcohol Use: None Hx Recreational Drug Use: No Drugs: None Hx Prescription Drug Abuse: No Do you have pets?: No Have you had any respiratory illnesses as a child?: Yes Have you been exposed to any sick contacts recently?: No Have you had any recent respiratory illnesses?: Yes Have you travelled outside of [place] in the past 12 months?: No - Advance Directive Resuscitation Status: Do Not Resuscitate Family History Parental Family History Reviewed: Yes Children Family History Reviewed: Yes Sibling(s) Family History Reviewed.: Yes Medication/Allergy Home Medications: Acetazolamide [Acetazolamide ER] 500 mg PO DAILY 08/14/19 Amlodipine Besylate [Norvasc 10 mg Tablet] 10 mg PO DAILY 08/14/19 Ascorbic Acid [Vitamin C 500 mg Tablet] 1 tab PO DAILY 08/14/19 Aspirin [Ecotrin 81 mg EC Tablet] 81 mg PO DAILY 08/14/19 Carvedilol [Coreg 6.25 mg Tablet] 6.25 mg PO BID 08/14/19 Ezetimibe [Zetia 10 mg Tablet] 10 mg PO DAILY 08/14/19 Fluticasone/Vilanterol [Breo 100-25 Mcg Ellipta 14 Dose/Dpi] 1 inh IH DAILY 08/14/19 Glimepiride 2 mg PO DAILY 08/14/19 Mv-Mins/Folic/Lycopene/Ginkgo [One Daily For Men 50+ Adv Tab] 1 each PO DAILY 08/14/19 Quetiapine Fumarate [Seroquel] 25 mg PO BID 08/14/19 Roflumilast [Daliresp 500 mcg Tablet] 500 mcg PO DAILY 08/14/19 Allergies/Adverse Reactions: No Known Drug Allergies Allergy (Verified 06/10/17 16:28) Review of Systems Gastrointestinal: PRESENT: dysphagia Physical Exam Vital Signs: Temp Pulse Resp BP Pulse Ox 97.4 F 73 26 H 125/65 97 08/18/19 08:01 08/18/19 14:00 08/18/19 14:49 08/18/19 08:01 08/18/19 14:49 Intake & Output 08/17/19 08/18/19 08/19/19 06:59 06:59 06:59 Intake Total 2017 1699 Balance 2017 1699 Weight 76.4 kg 78.7 kg General appearance: PRESENT: no acute distress, disheveled, obese Head exam: PRESENT: atraumatic, normocephalic Eye exam: PRESENT: conjunctiva pale, EOMI. ABSENT: nystagmus, periorbital swelling Mouth exam: PRESENT: dry mucosa, neck supple, tongue midline Teeth exam: PRESENT: poor dentation Neck exam: ABSENT: carotid bruit, JVD, lymphadenopathy, thyromegaly, tracheal deviation, tracheostomy Respiratory exam: PRESENT: decreased breath sounds, prolonged expiratory phas, rales, rhonchi, symmetrical, tachypnea, unlabored, wheezes. ABSENT: retraction, stridor Cardiovascular exam: PRESENT: RRR, +S1, +S2, tachycardia Pulses: PRESENT: normal radial pulses GI/Abdominal exam: PRESENT: soft. ABSENT: distended, guarding, mass, organolmegaly, rigid, tenderness Extremities exam: ABSENT: calf tenderness, clubbing, joint swelling, tenderness Musculoskeletal exam: ABSENT: deformity, dislocation Neurological exam: PRESENT: alert, awake Psychiatric exam: PRESENT: appropriate affect Skin exam: PRESENT: dry, skin tears, warm Results Laboratory Results: 08/18/19 04:44 08/18/19 04:44 08/18/19 08/18/19 08/18/19 04:44 04:44 14:58 WBC 8.7 RBC 4.35 Hgb 12.5 L Hct 37.9 MCV 87 MCH 28.6 MCHC 32.8 RDW 14.0 Plt Count 160 Seg Neutrophils % Not Reportable Carbonic Acid 1.11 HCO3/H2CO3 Ratio 16:1 ABG pH 7.30 L ABG pCO2 37.0 ABG pO2 83.3 ABG HCO3 17.9 L ABG O2 Saturation 95.3 ABG Base Excess -7.8 FiO2 30% Sodium 143.0 Potassium 4.5 Chloride 116 H Carbon Dioxide 20 L Anion Gap 7 BUN 77 H Creatinine 1.99 H Est GFR ( Amer) 40 L Glucose 160 H Calcium 7.1 L 08/14/19 07:45 Back - Abscess Gram Stain - Final 08/14/19 07:45 Back - Abscess Wound Culture - Final Staphylococcus Aureus Enterococcus Faecalis(Group D) Anaerococcus (Peptostrep) Sp. Skin Meme 08/14/19 08/14/19 07:45 07:45 Creatine Kinase 196 H CK-MB (CK-2) 3.45 Troponin I 0.048 Impressions: Chest X-Ray 08/14/19 07:40 IMPRESSION: NO ACUTE RADIOGRAPHIC FINDING IN THE CHEST. Renal Ultrasound 08/18/19 00:00 IMPRESSION: No hydronephrosis or hydroureter. Mild bilateral cortical thinning and increased cortical echogenicity both kidneys. Assessment & Plan - Diagnosis (1) Acute on chronic respiratory failure with hypoxia and hypercapnia Is this a current diagnosis for this admission?: Yes Plan: Greater than [id number] history; Generic Name Dose Route Start Last Admin Trade Name Freq PRN Reason Stop Dose Admin Methylprednisolone Sodium Succinate 40 mg 08/17/19 22:00 08/18/19 09:42 Solu-Medrol Inj/Pf 40 Mg/1 Ml Sdv IV 09/16/19 21:59 40 mg Q12 ISIDORO Albuterol/Ipratropium 3 ml 08/14/19 19:46 08/15/19 21:53 Duoneb 3 Ml Ampul NEB 09/13/19 19:45 3 ml [id number] PRN SHORTNESS OF BREATH Suggest adding Pulmicort 0.5 twice daily radiograph does not demonstrate pneumonia but areas hyperlucency and flat diaphragms (2) Tobacco abuse disorder Is this a current diagnosis for this admission?: Yes Plan: Stop smoking we discussed at length risk and dangers associated with continued tobacco use - Time Time Spent: 30 to 50 Minutes
--- NOTE | 2019-08-18 17:09 | PDOC CONSULTATION ---
Consultation Consult Date: 08/18/19 Provider Consulted: Kelby STARR Consult reason:: Acute kidney disease History of Present Illness Admission Date/PCP: 08/14/19 12:03 TJ ARREOLA History of Present Illness: TOBY HENDERSON is a 74 year old male With history of diabetic mellitus, hype rtension, severe COPD, history of sleep apnea noncompliant with CPAP was admitted with history of worsening shortness of breath. He says she has been coughing for the last few days and he is just scoliosis plan. No complaints of any chest pain, palpitations, fever or chills. Unfortunately patient still continues to smoke. Evaluations revealed that he was having acute COPD and respiratory failure. He was admitted and has been put on steroids and nebulizers and continues on BiPAP at the moment. He admits to the fact that his intake has been very poor for the last 3 to 4 days prior to his admission. He says he is making small amounts of urine. Labs and medications were reviewed. His baseline creatinine is 1.0 as per lab review, couple of months ago. Admission creatinine was 1.3 but now is gone up to 1.9 Past Medical History Cardiac Medical History: Reports: Coronary Artery Disease, Hyperlipidemia, Hypertension-primary, Myocardial Infarction - 2012 Pulmonary Medical History: Reports: Asthma, Chronic Obstructive Pulmonary Disease (COPD), Pneumonia Denies: Bronchitis, Tuberculosis Neurological Medical History: Denies: Seizures Endocrine Medical History: Reports: Diabetes Mellitus Type 2 Renal/ Medical History: Denies: Benign Prostatic Hyperplasia, End Stage Renal Disease GI Medical History: Reports: Gastroesophageal Reflux Disease, Hiatal Hernia - PT UNSURE Denies: Cirrhosis, Hepatitis Musculoskeltal Medical History: Denies: Arthritis Psychiatric Medical History: Reports: Depression Denies: Bipolar Disorder Infectious Medical History: Denies: Clostridium Difficile, Hepatitis B, Hepatitis C Past Surgical History Past Surgical History: Reports: Orthopedic Surgery - Bilateral BKA, Other - Bilateral cataract surgery Denies: Pacemaker Social History Lives with: Family Smoking Status: Current Every Day Smoker Cigarettes Packs Per Day: 2 Number of Years Smokin Frequency of Alcohol Use: None Hx Recreational Drug Use: No Drugs: None Hx Prescription Drug Abuse: No - Advance Directive Resuscitation Status: Do Not Resuscitate Family History Parental Family History Reviewed: Yes - Negative for ESRD Children Family History Reviewed: No Sibling(s) Family History Reviewed.: No Medication/Allergy Home Medications: Acetazolamide [Acetazolamide ER] 500 mg PO DAILY 08/14/19 Amlodipine Besylate [Norvasc 10 mg Tablet] 10 mg PO DAILY 08/14/19 Ascorbic Acid [Vitamin C 500 mg Tablet] 1 tab PO DAILY 08/14/19 Aspirin [Ecotrin 81 mg EC Tablet] 81 mg PO DAILY 08/14/19 Carvedilol [Coreg 6.25 mg Tablet] 6.25 mg PO BID 08/14/19 Ezetimibe [Zetia 10 mg Tablet] 10 mg PO DAILY 08/14/19 Fluticasone/Vilanterol [Breo 100-25 Mcg Ellipta 14 Dose/Dpi] 1 inh IH DAILY 08/14/19 Glimepiride 2 mg PO DAILY 08/14/19 Mv-Mins/Folic/Lycopene/Ginkgo [One Daily For Men 50+ Adv Tab] 1 each PO DAILY 08/14/19 Quetiapine Fumarate [Seroquel] 25 mg PO BID 08/14/19 Roflumilast [Daliresp 500 mcg Tablet] 500 mcg PO DAILY 08/14/19 Allergies/Adverse Reactions: No Known Drug Allergies Allergy (Verified 06/10/17 16:28) Review of Systems Constitutional: PRESENT: anorexia, fatigue, weakness. ABSENT: fever(s), headache(s), night sweats Ears: PRESENT: hearing changes Nose, Mouth, and Throat: ABSENT: mouth pain, sore throat Cardiovascular: PRESENT: dyspnea on exertion. ABSENT: chest pain, edema, orthropnea, palpitations Respiratory: PRESENT: cough, dyspnea, sputum. ABSENT: hemoptysis Gastrointestinal: PRESENT: constipation. ABSENT: abdominal pain, bloating, diarrhea, dysphagia, nausea, vomiting Integumentary: ABSENT: lesions, pruritus, rash Neurological: ABSENT: abnormal movements, abnormal speech, confusion, convulsions, focal weakness, frequent falls, lack of coordination Psychiatric: PRESENT: depression Endocrine: ABSENT: polydipsia, polyphagia, polyuria Physical Exam Vital Signs: Temp Pulse Resp BP Pulse Ox 97.4 F 73 26 H 125/65 97 08/18/19 08:01 08/18/19 14:00 08/18/19 14:49 08/18/19 08:01 08/18/19 14:49 Intake & Output 08/17/19 08/18/19 08/19/19 06:59 06:59 06:59 Intake Total 2017 170 Balance 2017 1700 Weight 76.4 kg 78.7 kg General appearance: PRESENT: severe distress - Currently on BiPAP Eye exam: PRESENT: EOMI, PERRLA. ABSENT: scleral icterus Ear exam: PRESENT: normal external ear exam Mouth exam: ABSENT: moist Neck exam: ABSENT: lymphadenopathy, meningismus, tenderness, thyromegaly, tracheal deviation Respiratory exam: PRESENT: decreased breath sounds, rhonchi - Scattered.. ABSENT: crackles Cardiovascular exam: PRESENT: +S1, +S2, systolic murmur GI/Abdominal exam: PRESENT: normal bowel sounds, soft. ABSENT: organomegaly, tenderness Extremities exam: PRESENT: other - He is a bilateral BKA. Neurological exam: PRESENT: alert, awake, oriented to person, oriented to place, oriented to time Skin exam: PRESENT: dry. ABSENT: cyanosis, erythema, mottled, rash Results Laboratory Results: 08/18/19 04:44 08/18/19 04:44 08/18/19 08/18/19 08/18/19 04:44 04:44 14:58 WBC 8.7 RBC 4.35 Hgb 12.5 L Hct 37.9 MCV 87 MCH 28.6 MCHC 32.8 RDW 14.0 Plt Count 160 Seg Neutrophils % Not Reportable Carbonic Acid 1.11 HCO3/H2CO3 Ratio 16:1 ABG pH 7.30 L ABG pCO2 37.0 ABG pO2 83.3 ABG HCO3 17.9 L ABG O2 Saturation 95.3 ABG Base Excess -7.8 FiO2 30% Sodium 143.0 Potassium 4.5 Chloride 116 H Carbon Dioxide 20 L Anion Gap 7 BUN 77 H Creatinine 1.99 H Est GFR ( Amer) 40 L Glucose 160 H Calcium 7.1 L 08/14/19 07:45 Back - Abscess Gram Stain - Final 08/14/19 07:45 Back - Abscess Wound Culture - Final Staphylococcus Aureus Enterococcus Faecalis(Group D) Anaerococcus (Peptostrep) Sp. Skin Meme 08/14/19 08/14/19 07:45 07:45 Creatine Kinase 196 H CK-MB (CK-2) 3.45 Troponin I 0.048 Impressions: Chest X-Ray 08/14/19 07:40 IMPRESSION: NO ACUTE RADIOGRAPHIC FINDING IN THE CHEST. Renal Ultrasound 08/18/19 00:00 IMPRESSION: No hydronephrosis or hydroureter. Mild bilateral cortical thinning and increased cortical echogenicity both kidneys. Assessment & Plan - Diagnosis (1) Acute on chronic respiratory failure with hypoxia and hypercapnia Is this a current diagnosis for this admission?: Yes Plan: Currently on BiPAP. On current IV steroids and nebulizers ongoing. Unfortunately continues to smoke in spite of understanding the consequences.Noncompliant with CPAP for his JUWAN/COPD (2) Tobacco abuse disorder Is this a current diagnosis for this admission?: Yes Plan: Continues to smoke till yesterday (3) Acute renal failure Qualifiers: Acute renal failure type: unspecified Qualified Code(s): N17.9 - Acute kidney failure, unspecified Is this a current diagnosis for this admission?: Yes Plan: Baseline creatinine was 1.0 couple of months ago. Admission creatinine was 1.3 and rising up to 1.9. Patient clinically dry. We will continue IV fluids for the moment and monitor the response. Renal ultrasound shows no obstructive uropathy. (4) COPD (chronic obstructive pulmonary disease) Qualifiers: COPD type: unspecified COPD Qualified Code(s): J44.9 - Chronic obstructive pulmonary disease, unspecified Is this a current diagnosis for this admission?: Yes Plan: Quite severe. Currently on BiPAP. (5) Diabetes mellitus, type 2 Qualifiers: Diabetes mellitus [employer] insulin use: with [employer] use Diabetes mellitus complication status: with other specified complication Qualified Code(s): E11.69 - Type 2 diabetes mellitus with other specified complication; Z79.4 - penitentiary (current) use of insulin Is this a current diagnosis for this admission?: Yes Plan: Unfortunately complicated. Patient seems to have rather a cavalier attitude to his medical problems unfortunately. (6) HTN (hypertension) Qualifiers: Hypertension type: essential hypertension Qualified Code(s): I10 - Essential (primary) hypertension Is this a current diagnosis for this admission?: Yes Plan: Controlled.
[2019-08-18] MEDS: LEVOFLOXACIN 500 MG TABLET PO SCH (17:58)
[2019-08-19] MEDS: NORMAL SALINE 1000 ML 1,000 ML IV PRN ×3 (01:44→22:02)
[2019-08-19 06:52] LABS: ANION GAP 6 (5-19); BLOOD UREA NITROGEN 70 mg/dL (7-20); CARBON DIOXIDE 19 mmol/L (22-30); CHLORIDE 115 mmol/L (98-107); GLUCOSE 124 mg/dL (75-110); POTASSIUM 4.3 mmol/L (3.6-5.0)
[2019-08-19 07:00] LABS: CALCIUM 6.4 mg/dL (8.4-10.2)
[2019-08-19] MEDS: INSULIN LISPRO 100 UNIT/ML 3 ML VIAL SUBCUT SCH ×4 (08:01→22:14)
[2019-08-19] MEDS ORDERED: CALCIUM GLUCONATE 1000 MG/10 ML INJ IV ONE (08:30)
[2019-08-19] MEDS: PANTOPRAZOLE SODIUM 40 MG VIAL IV SCH ×2 (09:29→22:01)
[2019-08-19] MEDS: ENOXAPARIN SODIUM INJ 40 MG/0.4 ML DISP.SYRIN SUBCUT SCH (09:29)
[2019-08-19] MEDS: METHYLPREDNISOLONE INJ 40 MG/1 ML SDV IV SCH (09:29)
[2019-08-19] MEDS: ASPIRIN 81 MG TABLET, ENT COATED PO SCH (09:30)
[2019-08-19] MEDS: ASCORBIC ACID 500 MG TABLET PO SCH (09:30)
[2019-08-19] MEDS: QUETIAPINE FUMARATE 25 MG TABLET PO SCH ×2 (09:30→17:32)
[2019-08-19] MEDS: MULTIVITAMIN TABLET PO SCH (09:30)
[2019-08-19] MEDS: CARVEDILOL 6.25 MG TABLET PO SCH ×2 (09:30→22:02)
[2019-08-19] MEDS: GLIMEPIRIDE 1 MG TABLET PO SCH (09:30)
[2019-08-19] MEDS: EZETIMIBE 10 MG TABLET PO SCH (09:30)
[2019-08-19] MEDS: AMLODIPINE BESYLATE 10 MG TABLET PO SCH (09:30)
[2019-08-19] MEDS: ROFLUMILAST 500 MCG TABLET PO SCH (09:31)
--- NOTE | 2019-08-19 10:20 | PDOC PROGRESS REPORT ---
Subjective Progress Note for:: 08/19/19 Subjective:: Patient is currently doing well Patient seen by the Dr. Byrnes adjust the BiPAP Patient seen by the Dr. Dennis from renal failure Patient ultrasound is negative for any hydronephrosis with any obstructions Patient's calcium is low Patient's last albumin was 3.2 Patient is denied any chest pain no short of breath Reason For Visit: ACUTE ON CHRONIC RESPIRATORY WITH HYPOXEMIA Physical Exam Vital Signs: Temp Pulse Resp BP Pulse Ox 97.4 F 77 20 137/56 H 99 08/19/19 08:03 08/19/19 08:03 08/19/19 08:03 08/19/19 08:03 08/19/19 08:03 Intake & Output 08/18/19 08/19/19 08/20/19 06:59 06:59 06:59 Intake Total 1700 3458 Output Total 200 Balance 1700 3258 Weight 78.7 kg 78 kg General appearance: PRESENT: no acute distress, well-developed, well-nourished Head exam: PRESENT: atraumatic, normocephalic Eye exam: PRESENT: conjunctiva pink, EOMI, PERRLA. ABSENT: scleral icterus Ear exam: PRESENT: normal external ear exam Mouth exam: PRESENT: moist, tongue midline Neck exam: PRESENT: full ROM. ABSENT: carotid bruit, JVD, lymphadenopathy, thyromegaly Respiratory exam: PRESENT: clear to auscultation dolores Cardiovascular exam: PRESENT: RRR. ABSENT: diastolic murmur, rubs, systolic murmur Vascular exam: PRESENT: normal capillary refill GI/Abdominal exam: PRESENT: normal bowel sounds, soft. ABSENT: distended, guarding, mass, organolmegaly, rebound, tenderness Rectal exam: PRESENT: deferred Extremities exam: PRESENT: left BKA, right BKA Neurological exam: PRESENT: alert, awake, oriented to person, oriented to place, oriented to time, oriented to situation, CN II-XII grossly intact. ABSENT: motor sensory deficit Psychiatric exam: PRESENT: appropriate affect, normal mood. ABSENT: homicidal ideation, suicidal ideation Skin exam: PRESENT: dry, intact, warm. ABSENT: cyanosis, rash Results Laboratory Results: 08/18/19 04:44 08/19/19 05:52 08/18/19 08/19/19 14:58 05:52 Carbonic Acid 1.11 HCO3/H2CO3 Ratio 16:1 ABG pH 7.30 L ABG pCO2 37.0 ABG pO2 83.3 ABG HCO3 17.9 L ABG O2 Saturation 95.3 ABG Base Excess -7.8 FiO2 30% Sodium 139.7 Potassium 4.3 Chloride 115 H Carbon Dioxide 19 L Anion Gap 6 BUN 70 H Creatinine 1.74 H Est GFR ( Amer) 46 L Glucose 124 H Calcium 6.4 L* 08/14/19 07:50 Blood Blood Culture - Final NO GROWTH IN 5 DAYS 08/14/19 07:45 Blood Blood Culture - Final NO GROWTH IN 5 DAYS 08/14/19 08/14/19 07:45 07:45 Creatine Kinase 196 H CK-MB (CK-2) 3.45 Troponin I 0.048 Impressions: Chest X-Ray 08/14/19 07:40 IMPRESSION: NO ACUTE RADIOGRAPHIC FINDING IN THE CHEST. Renal Ultrasound 08/18/19 00:00 IMPRESSION: No hydronephrosis or hydroureter. Mild bilateral cortical thinning and increased cortical echogenicity both kidneys. Assessment & Plan - Diagnosis (1) Acute on chronic respiratory failure with hypoxia and hypercapnia Is this a current diagnosis for this admission?: Yes Plan: Continues to current medications (2) Respiratory distress Is this a current diagnosis for this admission?: Yes Plan: As per Dr. Byrnes's not continues to BiPAP will put on the Pulmicort reduce the steroids (3) CAD (coronary artery disease) Qualifiers: Coronary Disease-Associated Artery/Lesion type: [place] artery Associated angina: without angina Is this a current diagnosis for this admission?: Yes (4) COPD (chronic obstructive pulmonary disease) Qualifiers: COPD type: unspecified COPD Qualified Code(s): J44.9 - Chronic obstructive pulmonary disease, unspecified Is this a current diagnosis for this admission?: Yes Plan: Reduce the IV Solu-Medrol continue some nebulizer treatment discussed with the patient about the smoking counseling (5) Diabetes mellitus, type 2 Qualifiers: Diabetes mellitus mcfp insulin use: with buttermaker continuous churn use Diabetes mellitus complication status: with other specified complication Qualified Code(s): E11.69 - Type 2 diabetes mellitus with other specified complication; Z79.4 - terminal carman (current) use of insulin Is this a current diagnosis for this admission?: Yes Plan: Continues to current medications (6) HLD (hyperlipidemia) Qualifiers: Hyperlipidemia type: unspecified Qualified Code(s): E78.5 - Hyperlipidemia, unspecified Is this a current diagnosis for this admission?: Yes (7) HTN (hypertension) Qualifiers: Hypertension type: essential hypertension Qualified Code(s): I10 - Essential (primary) hypertension Is this a current diagnosis for this admission?: Yes (8) Sepsis Qualifiers: Sepsis type: sepsis due to unspecified organism Qualified Code(s): A41.9 - Sepsis, unspecified organism Is this a current diagnosis for this admission?: Yes (9) Acute renal failure Qualifiers: Acute renal failure type: unspecified Qualified Code(s): N17.9 - Acute kidney failure, unspecified Is this a current diagnosis for this admission?: Yes Plan: Will replace the calcium's check the albumin Follow with the nephrology - Time Time Spent with patient: 15-24 minutes Level of Care: IMCU Medications reviewed and adjusted accordingly: Yes Anticipated discharge: Home with Homehealth Within: Other - Plan Summary Plan Summary: See other MD orders
[2019-08-19] MEDS: LEVOFLOXACIN 500 MG TABLET PO SCH (17:31)
[2019-08-19] MEDS: CALCIUM CARBONATE 500 MG TABLET PO SCH (17:31)
[2019-08-19] MEDS: BUDESONIDE NEB 0.5 MG/2 ML AMPUL NEB SCH (19:53)
[2019-08-20 05:17] LABS: HEMATOCRIT 36.1 % (37.9-51.0); MEAN CORPUSCULAR HEMOGLOBIN 28.5 pg (27.0-33.4); MEAN CORPUSCULAR HGB CONC 33.3 g/dL (32.0-36.0); MEAN CORPUSCULAR VOLUME 86 fl (80-97); PLATELET COUNT 151 10^3/uL (150-450); RED BLOOD COUNT 4.22 10^6/uL (4.35-5.55); RED CELL DISTRIBUTION WIDTH 13.8 % (11.5-14.0); WHITE BLOOD COUNT 8.6 10^3/uL (4.0-10.5)
[2019-08-20 05:39] LABS: ANION GAP 7 (5-19); BLOOD UREA NITROGEN 68 mg/dL (7-20); CARBON DIOXIDE 17 mmol/L (22-30); CHLORIDE 117 mmol/L (98-107); GLUCOSE 70 mg/dL (75-110); POTASSIUM 4.1 mmol/L (3.6-5.0)
[2019-08-20 05:41] LABS: ABSOLUTE LYMPHOCYTES# (MANUAL) 0.4 10^3/uL (0.5-4.7); ABSOLUTE MONOCYTES # (MANUAL) 0.7 10^3/uL (0.1-1.4); BAND NEUTROPHILS % (MANUAL) 2 % (3-5); BASOPHILS % (MANUAL) 0 % (0-2); EOSINOPHILS % (MANUAL) 0 % (0-6); LYMPHOCYTES % (MANUAL) 5 % (13-45); MONOCYTES % (MANUAL) 8 % (3-13); PLATELET COMMENT ADEQUATE; RBC MORPHOLOGY COMMENT NORMO-CYTIC/CHROMIC; SEGMENTED NEUTROPHILS % (MAN) 85 % (42-78); TOTAL CELLS COUNTED 100
[2019-08-20 05:53] LABS: CALCIUM 6.3 mg/dL (8.4-10.2)
[2019-08-20] MEDS ORDERED: CALCIUM GLUCONATE 1,000 MG in DEXTROSE 5%-WATER 50 ML IV ONE (06:15)
[2019-08-20] MEDS ORDERED: CALCIUM GLUCONATE 1000 MG/10 ML INJ IV ONE (06:29)
[2019-08-20] MEDS: NORMAL SALINE 1000 ML 1,000 ML IV PRN ×2 (06:36→17:42)
[2019-08-20] MEDS: INSULIN LISPRO 100 UNIT/ML 3 ML VIAL SUBCUT SCH ×4 (07:58→22:22)
[2019-08-20] MEDS: BUDESONIDE NEB 0.5 MG/2 ML AMPUL NEB SCH ×2 (08:23→19:46)
[2019-08-20] MEDS: IPRATROPIUM/ALBUTEROL 0.5-2.5 MG/3 ML AMPUL NEB PRN ×2 (08:23→14:49)
[2019-08-20] MEDS ORDERED: METHYLPREDNISOLONE INJ 40 MG/1 ML SDV IV SCH (10:00)
[2019-08-20] MEDS: ROFLUMILAST 500 MCG TABLET PO SCH (10:12)
[2019-08-20] MEDS: AMLODIPINE BESYLATE 10 MG TABLET PO SCH (10:12)
[2019-08-20] MEDS: MULTIVITAMIN TABLET PO SCH (10:12)
[2019-08-20] MEDS: CALCIUM CARBONATE 500 MG TABLET PO SCH ×2 (10:12→17:38)
[2019-08-20] MEDS: ASCORBIC ACID 500 MG TABLET PO SCH (10:12)
[2019-08-20] MEDS: ASPIRIN 81 MG TABLET, ENT COATED PO SCH (10:12)
[2019-08-20] MEDS: EZETIMIBE 10 MG TABLET PO SCH (10:12)
[2019-08-20] MEDS: PANTOPRAZOLE SODIUM 40 MG VIAL IV SCH ×3 (10:13→21:25)
[2019-08-20] MEDS: QUETIAPINE FUMARATE 25 MG TABLET PO SCH ×2 (10:13→17:37)
[2019-08-20] MEDS: GLIMEPIRIDE 1 MG TABLET PO SCH (10:14)
[2019-08-20] MEDS: ENOXAPARIN SODIUM INJ 40 MG/0.4 ML DISP.SYRIN SUBCUT SCH (10:14)
[2019-08-20] MEDS: CARVEDILOL 6.25 MG TABLET PO SCH ×2 (10:15→21:20)
--- NOTE | 2019-08-20 10:38 | PDOC PROGRESS REPORT ---
Subjective Progress Note for:: 08/20/19 Subjective:: Patient is currently doing well Patient's calcium is 6.3 the albumin is 2.8 corrected calcium is 7.3 patient's denied any chest pain no short of breath Reason For Visit: ACUTE ON CHRONIC RESPIRATORY WITH HYPOXEMIA Physical Exam Vital Signs: Temp Pulse Resp BP Pulse Ox 98.1 F 85 24 H 142/75 H 93 08/20/19 07:59 08/20/19 08:23 08/20/19 08:38 08/20/19 07:59 08/20/19 08:38 Intake & Output 08/19/19 08/20/19 08/21/19 06:59 06:59 06:59 Intake Total 3458 4159 Output Total 200 550 Balance 3258 3609 Weight 78 kg 84.2 kg General appearance: PRESENT: no acute distress, well-developed, well-nourished Head exam: PRESENT: atraumatic, normocephalic Eye exam: PRESENT: conjunctiva pink, EOMI, PERRLA. ABSENT: scleral icterus Ear exam: PRESENT: normal external ear exam Mouth exam: PRESENT: moist, tongue midline Neck exam: PRESENT: full ROM. ABSENT: carotid bruit, JVD, lymphadenopathy, thyromegaly Respiratory exam: PRESENT: clear to auscultation dolores Cardiovascular exam: PRESENT: RRR. ABSENT: diastolic murmur, rubs, systolic murmur Vascular exam: PRESENT: normal capillary refill GI/Abdominal exam: PRESENT: normal bowel sounds, soft. ABSENT: distended, guarding, mass, organolmegaly, rebound, tenderness Rectal exam: PRESENT: deferred Neurological exam: PRESENT: alert, awake, oriented to person, oriented to place, oriented to time, oriented to situation, CN II-XII grossly intact. ABSENT: motor sensory deficit Psychiatric exam: PRESENT: appropriate affect, normal mood. ABSENT: homicidal ideation, suicidal ideation Skin exam: PRESENT: dry, intact, warm. ABSENT: cyanosis, rash Results Laboratory Results: 08/20/19 04:47 08/20/19 04:47 08/19/19 08/20/19 08/20/19 05:52 04:47 04:47 WBC 8.6 RBC 4.22 L Hgb 12.0 L Hct 36.1 L MCV 86 MCH 28.5 MCHC 33.3 RDW 13.8 Plt Count 151 Seg Neutrophils % Not Reportable Sodium 141.2 Potassium 4.1 Chloride 117 H Carbon Dioxide 17 L Anion Gap 7 BUN 68 H Creatinine 1.59 H Est GFR ( Amer) 51 L Glucose 70 L Calcium 6.3 L* Albumin 2.8 L 08/14/19 07:50 Blood Blood Culture - Final NO GROWTH IN 5 DAYS 08/14/19 07:45 Blood Blood Culture - Final NO GROWTH IN 5 DAYS 08/14/19 08/14/19 07:45 07:45 Creatine Kinase 196 H CK-MB (CK-2) 3.45 Troponin I 0.048 Impressions: Chest X-Ray 08/14/19 07:40 IMPRESSION: NO ACUTE RADIOGRAPHIC FINDING IN THE CHEST. Renal Ultrasound 08/18/19 00:00 IMPRESSION: No hydronephrosis or hydroureter. Mild bilateral cortical thinning and increased cortical echogenicity both kidneys. Assessment & Plan - Diagnosis (1) Acute on chronic respiratory failure with hypoxia and hypercapnia Is this a current diagnosis for this admission?: Yes Plan: Continues to current medications (2) Respiratory distress Is this a current diagnosis for this admission?: Yes Plan: As per Dr. Byrnes's not continues to BiPAP will put on the Pulmicort reduce the steroids (3) CAD (coronary artery disease) Qualifiers: Coronary Disease-Associated Artery/Lesion type: [place] artery Associated angina: without angina Is this a current diagnosis for this admission?: Yes (4) COPD (chronic obstructive pulmonary disease) Qualifiers: COPD type: unspecified COPD Qualified Code(s): J44.9 - Chronic obstructive pulmonary disease, unspecified Is this a current diagnosis for this admission?: Yes Plan: Reduce the IV Solu-Medrol continue some nebulizer treatment discussed with the patient about the smoking counseling (5) Diabetes mellitus, type 2 Qualifiers: Diabetes mellitus custodial insulin use: with custodial use Diabetes mellitus complication status: with other specified complication Qualified Code(s): E11.69 - Type 2 diabetes mellitus with other specified complication; Z79.4 - custodial (current) use of insulin Is this a current diagnosis for this admission?: Yes Plan: Continues to current medications (6) HLD (hyperlipidemia) Qualifiers: Hyperlipidemia type: unspecified Qualified Code(s): E78.5 - Hyperlipidemia, unspecified Is this a current diagnosis for this admission?: Yes (7) HTN (hypertension) Qualifiers: Hypertension type: essential hypertension Qualified Code(s): I10 - Essential (primary) hypertension Is this a current diagnosis for this admission?: Yes (8) Sepsis Qualifiers: Sepsis type: sepsis due to unspecified organism Qualified Code(s): A41.9 - Sepsis, unspecified organism Is this a current diagnosis for this admission?: Yes (9) Acute renal failure Qualifiers: Acute renal failure type: unspecified Qualified Code(s): N17.9 - Acute kidney failure, unspecified Is this a current diagnosis for this admission?: Yes Plan: Continues to IV fluids (10) Hypocalcemia Is this a current diagnosis for this admission?: Yes Plan: Replace the calcium's - Time Time Spent with patient: 15-24 minutes Level of Care: IMCU Medications reviewed and adjusted accordingly: Yes Anticipated discharge: Home Within: Other - Plan Summary Plan Summary: Continues current medications as above
[2019-08-20] MEDS: LEVOFLOXACIN 500 MG TABLET PO SCH (17:38)
[2019-08-21] MEDS: NORMAL SALINE 1000 ML 1,000 ML IV PRN ×2 (03:39→14:38)
[2019-08-21 07:11] LABS: ABSOLUTE LYMPHOCYTES (AUTO) 1.1 10^3/uL (0.5-4.7); ABSOLUTE MONOCYTES (AUTO) 1.6 10^3/uL (0.1-1.4); BASOPHILS % (AUTO) 0.1 % (0-2); EOSINOPHILS % (AUTO) 0.2 % (0-6); HEMATOCRIT 38.2 % (37.9-51.0); HEMOGLOBIN 12.6 g/dL (13.5-17.0); LYMPHOCYTES % (AUTO) 8.2 % (13-45); MEAN CORPUSCULAR HEMOGLOBIN 28.5 pg (27.0-33.4); MEAN CORPUSCULAR HGB CONC 32.9 g/dL (32.0-36.0); MEAN CORPUSCULAR VOLUME 87 fl (80-97); MONOCYTES % (AUTO) 11.6 % (3-13); PLATELET COUNT 176 10^3/uL (150-450); RED BLOOD COUNT 4.41 10^6/uL (4.35-5.55); RED CELL DISTRIBUTION WIDTH 14.1 % (11.5-14.0); SEGMENTED NEUTROPHILS % (AUTO) 79.9 % (42-78); TOTAL CELLS COUNTED % (AUTO) 100 %; WHITE BLOOD COUNT 13.7 10^3/uL (4.0-10.5)
[2019-08-21 07:33] LABS: ANION GAP 6 (5-19); BLOOD UREA NITROGEN 61 mg/dL (7-20); CARBON DIOXIDE 18 mmol/L (22-30); CHLORIDE 118 mmol/L (98-107); GLUCOSE 80 mg/dL (75-110)
[2019-08-21 07:41] LABS: CALCIUM 6.3 mg/dL (8.4-10.2)
[2019-08-21] MEDS: IPRATROPIUM/ALBUTEROL 0.5-2.5 MG/3 ML AMPUL NEB PRN (08:58)
[2019-08-21] MEDS: BUDESONIDE NEB 0.5 MG/2 ML AMPUL NEB SCH ×2 (08:58→21:27)
[2019-08-21] MEDS: INSULIN LISPRO 100 UNIT/ML 3 ML VIAL SUBCUT SCH ×4 (09:30→22:42)
[2019-08-21] MEDS: EZETIMIBE 10 MG TABLET PO SCH (10:15)
[2019-08-21] MEDS: ASCORBIC ACID 500 MG TABLET PO SCH (10:15)
[2019-08-21] MEDS: MULTIVITAMIN TABLET PO SCH (10:15)
[2019-08-21] MEDS: QUETIAPINE FUMARATE 25 MG TABLET PO SCH ×2 (10:15→17:55)
[2019-08-21] MEDS: CARVEDILOL 6.25 MG TABLET PO SCH ×2 (10:15→22:40)
[2019-08-21] MEDS: AMLODIPINE BESYLATE 10 MG TABLET PO SCH (10:15)
[2019-08-21] MEDS: PANTOPRAZOLE SODIUM 40 MG VIAL IV SCH (10:15)
[2019-08-21] MEDS: CALCIUM CARBONATE 500 MG TABLET PO SCH ×2 (10:16→17:55)
[2019-08-21] MEDS: ROFLUMILAST 500 MCG TABLET PO SCH (10:16)
[2019-08-21] MEDS: ASPIRIN 81 MG TABLET, ENT COATED PO SCH (10:16)
[2019-08-21] MEDS: ENOXAPARIN SODIUM INJ 40 MG/0.4 ML DISP.SYRIN SUBCUT SCH (10:16)
--- NOTE | 2019-08-21 13:06 | PDOC PROGRESS REPORT ---
Subjective Progress Note for:: 08/21/19 Reason For Visit: Patient seen this morning. He presently looks a whole lot better than when I saw him last time couple of days ago he is off the BiPAP even though he says he is been using it at night. He says his abdomen is distended though not painful. He says he has bowel incontinence and does not want any laxatives. Appetite is still very used. No complaints of nausea vomiting. He denies any symptoms to indicate tetany. He denies any history of chest pains, fever or chills. Labs and medications were reviewed which show slightly rising creatinine. His calcium has dropped from an admission of 10-6.3 and he has been getting intermittent IV calcium besides p.o. Getting IV fluids. Physical Exam Vital Signs: Temp Pulse Resp BP Pulse Ox 97.9 F 77 18 122/61 98 08/21/19 11:41 08/21/19 11:41 08/21/19 11:41 08/21/19 11:41 08/21/19 11:41 Intake & Output 08/20/19 08/21/19 08/22/19 06:59 06:59 06:59 Intake Total 4159 3435 Output Total 550 Balance 3609 3435 Weight 84.2 kg 83 kg General appearance: PRESENT: no acute distress Respiratory exam: PRESENT: clear to auscultation dolores, decreased breath sounds. ABSENT: crackles Cardiovascular exam: PRESENT: +S1, +S2, systolic murmur GI/Abdominal exam: PRESENT: normal bowel sounds, soft. ABSENT: organomegaly, tenderness Extremities exam: ABSENT: pedal edema - Bilateral amputee Neurological exam: PRESENT: alert, awake, oriented to person, oriented to place Psychiatric exam: PRESENT: appropriate affect Skin exam: PRESENT: dry. ABSENT: erythema, mottled, rash Results Laboratory Results: 08/21/19 06:37 08/21/19 06:37 08/21/19 08/21/19 06:37 06:37 WBC 13.7 H RBC 4.41 Hgb 12.6 L Hct 38.2 MCV 87 MCH 28.5 MCHC 32.9 RDW 14.1 H Plt Count 176 Seg Neutrophils % 79.9 H Sodium 142.2 Potassium 4.0 Chloride 118 H Carbon Dioxide 18 L Anion Gap 6 BUN 61 H Creatinine 2.11 H Est GFR ( Amer) 37 L Glucose 80 Calcium 6.3 L* 08/20/19 10:35 Sputum Gram Stain - Final 08/20/19 10:35 Sputum Sputum Culture - Final 08/14/19 08/14/19 07:45 07:45 Creatine Kinase 196 H CK-MB (CK-2) 3.45 Troponin I 0.048 Impressions: Chest X-Ray 08/14/19 07:40 IMPRESSION: NO ACUTE RADIOGRAPHIC FINDING IN THE CHEST. Renal Ultrasound 08/18/19 00:00 IMPRESSION: No hydronephrosis or hydroureter. Mild bilateral cortical thinning and increased cortical echogenicity both kidneys. Assessment & Plan - Diagnosis (1) Acute renal failure Qualifiers: Acute renal failure type: unspecified Qualified Code(s): N17.9 - Acute kidney failure, unspecified Is this a current diagnosis for this admission?: Yes Plan: Nonoliguric. However slightly worsening creatinine now at 2.1 against a baseline of around 1.0. Continue on IV fluids.No indications for renal replacements. Monitor. (2) Acute on chronic respiratory failure with hypoxia and hypercapnia Is this a current diagnosis for this admission?: Yes Plan: Much improved than when I saw him 2 days earlier. Currently he is breathing on nasal cannula off the BiPAP. (3) Tobacco abuse disorder Is this a current diagnosis for this admission?: Yes Plan: Unfortunately continue to smoke in spite of severe COPD. (4) COPD (chronic obstructive pulmonary disease) Qualifiers: COPD type: unspecified COPD Qualified Code(s): J44.9 - Chronic obstructive pulmonary disease, unspecified Is this a current diagnosis for this admission?: Yes Plan: Much improved from admission. As per Dr. Fatima. (5) Diabetes mellitus, type 2 Qualifiers: Diabetes mellitus correction insulin use: with superintendent terminal use Diabetes mellitus complication status: with other specified complication Qualified Code(s): E11.69 - Type 2 diabetes mellitus with other specified complication; Z79.4 - salvage determiner (current) use of insulin Is this a current diagnosis for this admission?: Yes Plan: Advised tight control. (6) HTN (hypertension) Qualifiers: Hypertension type: essential hypertension Qualified Code(s): I10 - Essen tial (primary) hypertension Is this a current diagnosis for this admission?: Yes Plan: Well-controlled. (7) Hypocalcemia Is this a current diagnosis for this admission?: Yes Plan: Presently showing no signs of tetany. Current calcium is 6.3 with an albumin of 2.8 corrected calcium still below normal. We will check/initiate work-up. Start calcitriol as well besides calcium replacements.
[2019-08-21] MEDS: CALCITRIOL 0.25 MCG CAPSULE PO SCH ×2 (14:36→17:55)
--- NOTE | 2019-08-21 19:06 | PDOC PROGRESS REPORT ---
Subjective Progress Note for:: 08/16/19 Reason For Visit: ACUTE ON CHRONIC RESPIRATORY WITH HYPOXEMIA Physical Exam Vital Signs: Temp Pulse Resp BP Pulse Ox 97.7 F 87 18 141/65 H 98 08/16/19 12:00 08/16/19 12:00 08/16/19 12:00 08/16/19 12:00 08/16/19 12:00 Intake & Output 08/15/19 08/16/19 08/17/19 06:59 06:59 06:59 Intake Total 420 3058 50 Output Total 210 650 Balance 210 2408 50 Weight 69.5 kg 75.6 kg Physical Exam: General appearance: PRESENT: mild distress - on supplemental oxygen via cannula. Head exam: PRESENT: atraumatic, normocephalic Eye exam: PRESENT: conjunctiva pink. ABSENT: pallor, scleral icterus Ear exam: PRESENT: normal external ear exam Mouth exam: PRESENT: moist Respiratory exam: PRESENT: decreased breath sounds - at lung bases, rhonchi - end expiratory phase Cardiovascular exam: PRESENT: RRR. ABSENT: diastolic murmur, rubs, systolic murmur GI/Abdominal exam: PRESENT: normal bowel sounds, soft. ABSENT: distended, guarding, mass, organomegaly, rebound, tenderness Extremities exam: PRESENT: left BKA, right BKA. ABSENT: pedal edema Neurological exam: PRESENT: alert, awake, oriented to person, oriented to place, oriented to time, oriented to situation, CN II-XII grossly intact. ABSENT: motor sensory deficit Psychiatric exam: PRESENT: appropriate affect, normal mood. ABSENT: homicidal ideation, suicidal ideation Skin exam: PRESENT: dry, warm Results Laboratory Results: 08/15/19 04:37 08/15/19 04:37 08/14/19 07:45 Back - Abscess Gram Stain - Final 08/14/19 08/14/19 07:45 07:45 Creatine Kinase 196 H CK-MB (CK-2) 3.45 Troponin I 0.048 Impressions: Chest X-Ray 08/14/19 07:40 IMPRESSION: NO ACUTE RADIOGRAPHIC FINDING IN THE CHEST. Assessment & Plan - Diagnosis (1) Acute on chronic respiratory failure with hypoxia and hypercapnia Is this a current diagnosis for this admission?: Yes (2) Chronic obstructive pulmonary disease with acute exacerbation Is this a current diagnosis for this admission?: Yes (3) Diabetes mellitus, type 2 Qualifiers: Diabetes mellitus extermination inspector insulin use: with penitentiary use Diabetes mellitus complication status: with other specified complication Qualified Code(s): E11.69 - Type 2 diabetes mellitus with other specified complication; Z79.4 - [facility] (current) use of insulin Is this a current diagnosis for this admission?: Yes (4) HTN (hypertension) Qualifiers: Hypertension type: essential hypertension Qualified Code(s): I10 - Essential (primary) hypertension Is this a current diagnosis for this admission?: Yes (5) HLD (hyperlipidemia) Qualifiers: Hyperlipidemia type: unspecified Qualified Code(s): E78.5 - Hyperlipidemia, unspecified Is this a current diagnosis for this admission?: Yes (6) Old [facility] (myocardial infarction) Is this a current diagnosis for this admission?: Yes (7) GERD (gastroesophageal reflux disease) Qualifiers: Esophagitis presence: without esophagitis Qualified Code(s): K21.9 - Gastro-esophageal reflux disease without esophagitis Is this a current diagnosis for this admission?: Yes - Time Time Spent with patient: 25-34 minutes Level of Care: IMCU Medications reviewed and adjusted accordingly: Yes Anticipated discharge: Home with Homehealth Within: Other - Inpatient Certification Based on my medical assessment, after consideration of the patient's comorbidities, presenting symptoms, or acuity I expect that the services needed warrant INPATIENT care.: Yes I certify that my determination is in accordance with my understanding of Medicare's requirements for reasonable and necessary INPATIENT services [42 CFR 412.3e].: Yes Medical Necessity: Significant Comorbidiites Make Outpatient Treatment Too Risky, Need Close Monitoring Due to Risk of Patient Decompensation, Need For Continuous Telemetry Monitoring, Need for IV Antibiotics, Risk of Complication if Not Cared For in Hospital, Risk of Diagnosis Which Will Require Inpatient Eval/Care/Monitoring Post Hospital Care: D/C Head Of Ict Documentation - Plan Summary Plan Summary: Continue current medication management. Dr. Fatima will cover my service until 08/21/2019.
--- NOTE | 2019-08-21 19:15 | PDOC PROGRESS REPORT ---
Subjective Progress Note for:: 08/21/19 Subjective:: Patient remain on BiPAP support. No chest pain. No nausea, vomiting or abdominal pain. No fever or chills. There is increase edema in upper extremities, scrotal region and bilateral BKA region. Patient has been on IV fluid support due to worsening renal function. Reason For Visit: ACUTE ON CHRONIC RESPIRATORY WITH HYPOXEMIA Physical Exam Vital Signs: Temp Pulse Resp BP Pulse Ox 97.9 F 86 20 138/60 H 96 08/21/19 16:01 08/21/19 16:01 08/21/19 16:01 08/21/19 16:01 08/21/19 16:01 Intake & Output 08/20/19 08/21/19 08/22/19 06:59 06:59 06:59 Intake Total 4159 3435 1540 Output Total 550 Balance 3609 3435 1540 Weight 84.2 kg 83 kg Physical Exam: General appearance: PRESENT: mild distress - on BIPAP support and supplemental oxygen. Head exam: PRESENT: atraumatic, normocephalic Eye exam: PRESENT: conjunctiva pink. ABSENT: scleral icterus Ear exam: PRESENT: normal external ear exam Mouth exam: PRESENT: moist Respiratory exam: PRESENT: decreased breath sounds - at lung bases, rhonchi - end expiratory phase Cardiovascular exam: PRESENT: RRR. ABSENT: diastolic murmur, rubs, systolic murmur Vascular exam: ABSENT: pallor GI/Abdominal exam: PRESENT: normal bowel sounds, soft. ABSENT: distended, gu arding, mass, organomegaly, rebound, tenderness Extremities exam: PRESENT: left BKA, right BKA. Pedal edema mostly involving upper extremities, scrotum and sacral regions Neurological exam: PRESENT: alert, awake, oriented to person, oriented to place, oriented to time, oriented to situation, CN II-XII grossly intact. ABSENT: motor sensory deficit Psychiatric exam: PRESENT: appropriate affect, normal mood. ABSENT: homicidal ideation, suicidal ideation Skin exam: PRESENT: dry, warm Results Laboratory Results: 08/21/19 06:37 08/21/19 06:37 08/21/19 08/21/19 08/21/19 06:37 06:37 14:50 WBC 13.7 H RBC 4.41 Hgb 12.6 L Hct 38.2 MCV 87 MCH 28.5 MCHC 32.9 RDW 14.1 H Plt Count 176 Seg Neutrophils % 79.9 H Sodium 142.2 Potassium 4.0 Chloride 118 H Carbon Dioxide 18 L Anion Gap 6 BUN 61 H Creatinine 2.11 H Est GFR ( Amer) 37 L Glucose 80 Calcium 6.3 L* PTH Intact 371.6 H 08/20/19 10:35 Sputum Gram Stain - Final 08/20/19 10:35 Sputum Sputum Culture - Final 08/14/19 08/14/19 07:45 07:45 Creatine Kinase 196 H CK-MB (CK-2) 3.45 Troponin I 0.048 Impressions: Chest X-Ray 08/14/19 07:40 IMPRESSION: NO ACUTE RADIOGRAPHIC FINDING IN THE CHEST. Renal Ultrasound 08/18/19 00:00 IMPRESSION: No hydronephrosis or hydroureter. Mild bilateral cortical thinning and increased cortical echogenicity both kidneys. 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 Is this a current diagnosis for this admission?: Yes (4) HTN (hypertension) Qualifiers: Hypertension type: essential hypertension Qualified Code(s): I10 - Essential (primary) hypertension Is this a current diagnosis for this admission?: Yes (5) HLD (hyperlipidemia) Qualifiers: Hyperlipidemia type: unspecified Qualified Code(s): E78.5 - Hyperlipidemia, unspecified Is this a current diagnosis for this admission?: Yes (6) Old [place] (myocardial infarction) Is this a current diagnosis for this admission?: Yes (7) GERD (gastroesophageal reflux disease) Qualifiers: Esophagitis presence: without esophagitis Qualified Code(s): K21.9 - Gastro-esophageal reflux disease without esophagitis Is this a current diagnosis for this admission?: Yes (8) Acute renal failure Qualifiers: Acute renal failure type: unspecified Qualified Code(s): N17.9 - Acute kidney failure, unspecified Is this a current diagnosis for this admission?: Yes Plan: Hold IV fluid infusion. Continue to monitor renal indices. (9) Edema due to hypoalbuminemia Is this a current diagnosis for this admission?: Yes Plan: Patient will receive IV Albumin infusion total 50 gm tonight. (10) Hypocalcemia Is this a current diagnosis for this admission?: Yes Plan: Obtain BMP with albumin level in AM. - Time Time Spent with patient: 35 or more minutes Level of Care: IMCU Medications reviewed and adjusted accordingly: Yes Anticipated discharge: Home with Homehealth Within: Other - Inpatient Certification Based on my medical assessment, after consideration of the patient's comorbidities, presenting symptoms, or acuity I expect that the services needed warrant INPATIENT care.: Yes I certify that my determination is in accordance with my understanding of Medicare's requirements for reasonable and necessary INPATIENT services [42 CFR 412.3e].: Yes Medical Necessity: Significant Comorbidiites Make Outpatient Treatment Too Risky, Need Close Monitoring Due to Risk of Patient Decompensation, Need For Continuous Telemetry Monitoring, Need for Nebulizer Therapy and Monitoring of R esponse, Risk of Complication if Not Cared For in Hospital, Risk of Diagnosis Which Will Require Inpatient Eval/Care/Monitoring Post Hospital Care: D/C Obstetrics Nurse Practitioner Documentation - Plan Summary Plan Summary: See attending physician orders for details about care plan. Nephrology [employer] hcm consultant input appreciated. Overall prognosis remain poor. Patient remain on DNR status.
[2019-08-21] MEDS: ALBUMIN HUMAN 12.5 GM/50 ML RTUINJ IV SCH ×3 (20:00→22:40)
[2019-08-21] MEDS: PANTOPRAZOLE SODIUM 40 MG TABLET.DR PO SCH (22:41)
[2019-08-21] MEDS: LEVOFLOXACIN 250 MG TABLET PO SCH (22:43)
[2019-08-22] MEDS: ALBUMIN HUMAN 12.5 GM/50 ML RTUINJ IV SCH (00:35)
[2019-08-22 05:50] LABS: ANION GAP 6 (5-19); BLOOD UREA NITROGEN 50 mg/dL (7-20); CARBON DIOXIDE 20 mmol/L (22-30); CHLORIDE 119 mmol/L (98-107); GLUCOSE 73 mg/dL (75-110)
[2019-08-22 05:54] LABS: CALCIUM 6.1 mg/dL (8.4-10.2)
[2019-08-22] MEDS: INSULIN LISPRO 100 UNIT/ML 3 ML VIAL SUBCUT SCH ×4 (07:06→22:43)
[2019-08-22] MEDS ORDERED: CALCIUM GLUCONATE 2,000 MG in DEXTROSE 5%-WATER 100 ML IV ONE (08:30)
[2019-08-22] MEDS: IPRATROPIUM/ALBUTEROL 0.5-2.5 MG/3 ML AMPUL NEB PRN ×3 (08:54→19:42)
[2019-08-22] MEDS: BUDESONIDE NEB 0.5 MG/2 ML AMPUL NEB SCH ×2 (08:54→19:43)
[2019-08-22] MEDS: CARVEDILOL 6.25 MG TABLET PO SCH ×2 (09:09→22:42)
[2019-08-22] MEDS: ROFLUMILAST 500 MCG TABLET PO SCH (09:09)
[2019-08-22] MEDS: ASPIRIN 81 MG TABLET, ENT COATED PO SCH (09:09)
[2019-08-22] MEDS: ASCORBIC ACID 500 MG TABLET PO SCH (09:10)
[2019-08-22] MEDS: AMLODIPINE BESYLATE 10 MG TABLET PO SCH (09:10)
[2019-08-22] MEDS: CALCIUM CARBONATE 500 MG TABLET PO SCH ×2 (09:10→17:32)
[2019-08-22] MEDS: MULTIVITAMIN TABLET PO SCH (09:10)
[2019-08-22] MEDS: QUETIAPINE FUMARATE 25 MG TABLET PO SCH ×2 (09:10→17:32)
[2019-08-22] MEDS: PANTOPRAZOLE SODIUM 40 MG TABLET.DR PO SCH ×2 (09:10→22:42)
[2019-08-22] MEDS: ENOXAPARIN SODIUM INJ 30 MG/0.3 ML DISP.SYRIN SUBCUT SCH (09:10)
[2019-08-22] MEDS: CALCITRIOL 0.25 MCG CAPSULE PO SCH ×2 (09:10→17:32)
[2019-08-22] MEDS: EZETIMIBE 10 MG TABLET PO SCH (09:11)
--- NOTE | 2019-08-22 11:08 | PDOC PROGRESS REPORT ---
Subjective Progress Note for:: 08/22/19 Reason For Visit: Patient doing better when seen this morning. He denies any history of chest pain and breathing is better. He denies any symptoms to indicate tetany. Labs and medications were reviewed with him that shows his calcium is still critically low at 6.1. He is on p.o. calcium and I began him on calcitriol yesterday. He also has been receiving intermittent IV calcium. Patient does not recall any history of calcium disorders in the past. He drinks about 5 gallons of milk on a weekly basis which he is off now because of his hospitalization. Physical Exam Vital Signs: Temp Pulse Resp BP Pulse Ox 98.1 F 85 20 141/67 H 93 08/22/19 07:16 08/22/19 08:54 08/22/19 08:54 08/22/19 07:16 08/22/19 08:54 Intake & Output 08/21/19 08/22/19 08/23/19 06:59 06:59 06:59 Intake Total 3435 2177 Balance 3435 2177 Weight 83 kg 84.7 kg General appearance: PRESENT: no acute distress Respiratory exam: PRESENT: clear to auscultation dolores, decreased breath sounds. ABSENT: crackles Cardiovascular exam: PRESENT: +S1, +S2, systolic murmur GI/Abdominal exam: PRESENT: normal bowel sounds, soft. ABSENT: organomegaly, tenderness Extremities exam: ABSENT: pedal edema - Bilateral amputee Neurological exam: PRESENT: alert, awake, oriented to person, oriented to place Psychiatric exam: PRESENT: appropriate affect Results Laboratory Results: 08/21/19 06:37 08/22/19 04:53 08/21/19 08/22/19 14:50 04:53 Sodium 145.2 H Potassium 4.0 Chloride 119 H Carbon Dioxide 20 L Anion Gap 6 BUN 50 H Creatinine 1.21 Est GFR ( Amer) > 60 Glucose 73 L Calcium 6.1 L* PTH Intact 371.6 H 08/14/19 08/14/19 07:45 07:45 Creatine Kinase 196 H CK-MB (CK-2) 3.45 Troponin I 0.048 Impressions: Chest X-Ray 08/14/19 07:40 IMPRESSION: NO ACUTE RADIOGRAPHIC FINDING IN THE CHEST. Renal Ultrasound 08/18/19 00:00 IMPRESSION: No hydronephrosis or hydroureter. Mild bilateral cortical thinning and increased cortical echogenicity both kidneys. Assessment & Plan - Diagnosis (1) Acute renal failure Qualifiers: Acute renal failure type: unspecified Qualified Code(s): N17.9 - Acute kidney failure, unspecified Is this a current diagnosis for this admission?: Yes Plan: Nonoliguric. His renal numbers are improving and his current creatinine is down to 1.2 which is almost back to baseline. From a renal point of view I am happy with the progress he has made and I can sign off that now. (2) Hypocalcemia Is this a current diagnosis for this admission?: Yes Plan: Presently showing no signs of tetany. Current calcium is 6.1. His PTH is high at 300+ secondary to his low calcium. I want to put him on [id number] IV calcium to prevent any tetany until all medications kick in. Discussed with him the symptoms and the consequences of low calcium and he understands. On c alcitriol as well besides calcium replacements. (3) Acute on chronic respiratory failure with hypoxia and hypercapnia Is this a current diagnosis for this admission?: Yes Plan: Much improved than when I saw him 2 days earlier. Currently he is breathing on nasal cannula off the BiPAP. (4) Tobacco abuse disorder Is this a current diagnosis for this admission?: Yes Plan: Unfortunately continue to smoke in spite of severe COPD. (5) COPD (chronic obstructive pulmonary disease) Qualifiers: COPD type: unspecified COPD Qualified Code(s): J44.9 - Chronic obstructive pulmonary disease, unspecified Is this a current diagnosis for this admission?: Yes Plan: Much improved from admission. As per Dr. Fatima. 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 (7) HTN (hypertension) Qualifiers: Hypertension type: essential hypertension Qualified Code(s): I10 - Essential (primary) hypertension Is this a current diagnosis for this admission?: Yes Plan: Well-controlled.
[2019-08-22] MEDS: CALCIUM GLUCONATE 1000 MG/10 ML INJ IV SCH ×2 (14:07→22:43)
--- NOTE | 2019-08-22 18:14 | PDOC PROGRESS REPORT ---
Subjective Progress Note for:: 08/22/19 Subjective:: Patient remain off IV Fluid support presently. is renal function is improving but demonstrate fluid overload with significant scrotal swelling and extremities edema. Patient remain on BiPAP support. No chest pain. No nausea, vomiting or abdominal pain. No fever or chills. Reason For Visit: ACUTE ON CHRONIC RESPIRATORY WITH HYPOXEMIA Physical Exam Vital Signs: Temp Pulse Resp BP Pulse Ox 98.1 F 78 16 141/67 H 91 L 08/22/19 07:16 08/22/19 07:16 08/22/19 07:16 08/22/19 07:16 08/22/19 07:16 Intake & Output 08/21/19 08/22/19 08/23/19 06:59 06:59 06:59 Intake Total 3435 2177 Balance 3435 2177 Weight 83 kg 84.7 kg Physical Exam: General appearance: PRESENT: mild distress - on BIPAP support and supplemental oxygen. Head exam: PRESENT: atraumatic, normocephalic Eye exam: PRESENT: conjunctiva pink. ABSENT: scleral icterus Ear exam: PRESENT: normal external ear exam Mouth exam: PRESENT: moist Respiratory exam: PRESENT: decreased breath sounds - at lung bases, rhonchi - end expiratory phase Cardiovascular exam: PRESENT: RRR. ABSENT: diastolic murmur, rubs, systolic murmur Vascular exam: ABSENT: pallor GI/Abdominal exam: PRESENT: normal bowel sounds, soft. ABSENT: distended, guarding, mass, organomegaly, rebound, tenderness : Present: scrotal and penile edema Extremities exam: PRESENT: left BKA, right BKA. Pedal edema mostly involving upper extremities, scrotum and sacral regions Neurological exam: PRESENT: alert, awake, oriented to person, oriented to place, oriented to time, oriented to situation, CN II-XII grossly intact. ABSENT: motor sensory deficit Psychiatric exam: PRESENT: appropriate affect, normal mood. ABSENT: homicidal ideation, suicidal ideation Skin exam: PRESENT: dry, warm Results Laboratory Results: 08/21/19 06:37 08/22/19 04:53 08/21/19 08/22/19 14:50 04:53 Sodium 145.2 H Potassium 4.0 Chloride 119 H Carbon Dioxide 20 L Anion Gap 6 BUN 50 H Creatinine 1.21 Est GFR ( Amer) > 60 Glucose 73 L Calcium 6.1 L* PTH Intact 371.6 H 08/14/19 08/14/19 07:45 07:45 Creatine Kinase 196 H CK-MB (CK-2) 3.45 Troponin I 0.048 Impressions: Chest X-Ray 08/14/19 07:40 IMPRESSION: NO ACUTE RADIOGRAPHIC FINDING IN THE CHEST. Renal Ultrasound 08/18/19 00:00 IMPRESSION: No hydronephrosis or hydroureter. Mild bilateral cortical thinning and increased cortical echogenicity both kidneys. Assessment & Plan - Diagnosis (1) Acute on chronic respiratory failure with hypoxia and hypercapnia Is this a current diagnosis for this admission?: Yes (2) Chronic obstructive pulmonary disease with acute exacerbation Is this a current diagnosis for this admission?: Yes (3) Diabetes mellitus, type 2 Qualifiers: Diabetes mellitus long term care administrator insulin use: with long term care administrator use Diabetes mellitus complication status: with other specified complication Qualified Code(s): E11.69 - Type 2 diabetes mellitus with other specified complication; Z79.4 - USP (current) use of insulin Is this a current diagnosis for this admission?: Yes (4) HTN (hypertension) Qualifiers: Hypertension type: essential hypertension Qualified Code(s): I10 - Essential (primary) hypertension Is this a current diagnosis for this admission?: Yes (5) HLD (hyperlipidemia) Qualifiers: Hyperlipidemia type: unspecified Qualified Code(s): E78.5 - Hyperlipidemia, unspecified Is this a current diagnosis for this admission?: Yes (6) Old [place] (myocardial infarction) Is this a current diagnosis for this admission?: Yes (7) GERD (gastroesophageal reflux disease) Qualifiers: Esophagitis presence: without esophagitis Qualified Code(s): K21.9 - [place] ro-esophageal reflux disease without esophagitis Is this a current diagnosis for this admission?: Yes (8) Acute renal failure Qualifiers: Acute renal failure type: unspecified Qualified Code(s): N17.9 - Acute kidney failure, unspecified Is this a current diagnosis for this admission?: Yes (9) Edema due to hypoalbuminemia Is this a current diagnosis for this admission?: Yes (10) Hypocalcemia Is this a current diagnosis for this admission?: Yes - Time Time Spent with patient: 35 or more minutes Level of Care: IMCU Medications reviewed and adjusted accordingly: Yes Anticipated discharge: Home with Homehealth Within: Other - Inpatient Certification Based on my medical assessment, after consideration of the patient's comorbidities, presenting symptoms, or acuity I expect that the services needed warrant INPATIENT care.: Yes I certify that my determination is in accordance with my understanding of Medicare's requirements for reasonable and necessary INPATIENT services [42 CFR 412.3e].: Yes Medical Necessity: Significant Comorbidiites Make Outpatient Treatment Too Risky, Need Close Monitoring Due to Risk of Patient Decompensation, Need For Continuous Telemetry Monitoring, Need for Nebulizer Therapy and Monitoring of Response, Risk of Complication if Not Cared For in Hospital, Risk of Diagnosis Which Will Require Inpatient Eval/Care/Monitoring Post Hospital Care: D/C Van Loader Documentation - Plan Summary Plan Summary: Continue calcium replacement therapy and monitor for signs of tetany. D/C Acetazolamide due t possible contribution to electrolyte imbalance. Monitor his BMP response.
[2019-08-22] MEDS ORDERED: SENNOSIDES/DOCUSATE 8.6-50 MG 1 EACH TABLET PO ONE (19:30)
[2019-08-22] MEDS ORDERED: BISACODYL 10 MG SUPP.RECT PR ONE (19:30)
[2019-08-22] MEDS: LEVOFLOXACIN 250 MG TABLET PO SCH (22:44)
[2019-08-23 05:33] LABS: ANION GAP 6 (5-19); BLOOD UREA NITROGEN 43 mg/dL (7-20); CALCIUM 7.2 mg/dL (8.4-10.2); CARBON DIOXIDE 20 mmol/L (22-30); CHLORIDE 118 mmol/L (98-107); GLUCOSE 144 mg/dL (75-110); POTASSIUM 4.2 mmol/L (3.6-5.0)
[2019-08-23] MEDS: CALCIUM GLUCONATE 1000 MG/10 ML INJ IV SCH ×3 (06:11→21:37)
[2019-08-23] MEDS: INSULIN LISPRO 100 UNIT/ML 3 ML VIAL SUBCUT SCH ×4 (07:44→21:34)
[2019-08-23] MEDS: BUDESONIDE NEB 0.5 MG/2 ML AMPUL NEB SCH ×2 (08:33→19:45)
[2019-08-23] MEDS: IPRATROPIUM/ALBUTEROL 0.5-2.5 MG/3 ML AMPUL NEB PRN ×2 (08:33→17:50)
[2019-08-23] MEDS: AMLODIPINE BESYLATE 10 MG TABLET PO SCH (09:45)
[2019-08-23] MEDS: ASCORBIC ACID 500 MG TABLET PO SCH (09:45)
[2019-08-23] MEDS: QUETIAPINE FUMARATE 25 MG TABLET PO SCH ×2 (09:45→17:47)
[2019-08-23] MEDS: CALCITRIOL 0.25 MCG CAPSULE PO SCH ×2 (09:45→17:47)
[2019-08-23] MEDS: MULTIVITAMIN TABLET PO SCH (09:45)
[2019-08-23] MEDS: ROFLUMILAST 500 MCG TABLET PO SCH (09:45)
[2019-08-23] MEDS: CARVEDILOL 6.25 MG TABLET PO SCH ×2 (09:45→21:33)
[2019-08-23] MEDS: EZETIMIBE 10 MG TABLET PO SCH (09:45)
[2019-08-23] MEDS: CALCIUM CARBONATE 500 MG TABLET PO SCH ×2 (09:45→17:47)
[2019-08-23] MEDS: ASPIRIN 81 MG TABLET, ENT COATED PO SCH (09:45)
[2019-08-23] MEDS: PANTOPRAZOLE SODIUM 40 MG TABLET.DR PO SCH ×2 (09:45→21:33)
[2019-08-23] MEDS: ENOXAPARIN SODIUM INJ 30 MG/0.3 ML DISP.SYRIN SUBCUT SCH (09:46)
[2019-08-23] MEDS ORDERED: FUROSEMIDE INJ/PF 20 MG/2 ML SDV IV ONE (11:45)
--- NOTE | 2019-08-23 12:10 | PDOC PROGRESS REPORT ---
Subjective Progress Note for:: 08/23/19 Reason For Visit: Patient seen today. He generally feeling better but he is getting a bit cantankerous as he says he is wants to get home as he has been here for too many days. He denies any complaints of any chest pain, fever or chills. He has noticed some edema. No complaints to indicate tetany. Labs and medications were reviewed with him that shows improved calcium at 7.1.His urine done earlier had also has shown a large amount of proteinuria indicative of nephrotic sy ndrome. Physical Exam Vital Signs: Temp Pulse Resp BP Pulse Ox 98.1 F 89 18 133/68 H 95 08/23/19 07:46 08/23/19 08:33 08/23/19 08:33 08/23/19 07:46 08/23/19 08:33 Intake & Output 08/22/19 08/23/19 08/24/19 06:59 06:59 06:59 Intake Total 2177 1063 Balance 2177 1063 Weight 84.7 kg 85.6 kg General appearance: PRESENT: no acute distress Respiratory exam: PRESENT: clear to auscultation dolores, decreased breath sounds. ABSENT: crackles Cardiovascular exam: PRESENT: +S1, +S2, systolic murmur GI/Abdominal exam: PRESENT: normal bowel sounds, soft. ABSENT: organomegaly, tenderness Extremities exam: PRESENT: +1 edema Neurological exam: PRESENT: alert, awake, oriented to person, oriented to place Psychiatric exam: PRESENT: anxious Results Laboratory Results: 08/21/19 06:37 08/23/19 04:49 08/22/19 08/22/19 08/23/19 04:53 04:53 04:49 Sodium 143.5 Potassium 4.2 Chloride 118 H Carbon Dioxide 20 L Anion Gap 6 BUN 43 H Creatinine 1.07 Est GFR ( Amer) > 60 Glucose 144 H Calcium 7.2 L Magnesium 2.4 H Albumin 2.9 L 08/14/19 08/14/19 07:45 07:45 Creatine Kinase 196 H CK-MB (CK-2) 3.45 Troponin I 0.048 Impressions: Chest X-Ray 08/14/19 07:40 IMPRESSION: NO ACUTE RADIOGRAPHIC FINDING IN THE CHEST. Renal Ultrasound 08/18/19 00:00 IMPRESSION: No hydronephrosis or hydroureter. Mild bilateral cortical thinning and increased cortical echogenicity both kidneys. Assessment & Plan - Diagnosis (1) Acute renal failure Qualifiers: Acute renal failure type: unspecified Qualified Code(s): N17.9 - Acute kidney failure, unspecified Is this a current diagnosis for this admission?: Yes Plan: Nonoliguric. Renal numbers are back to baseline but he is got fluid overload. IV fluids have been discontinued. We will start him on low dose diuretics.. (2) Hypocalcemia Is this a current diagnosis for this admission?: Yes Plan: Improving. No signs of tetany. This will need to be monitored very closely even as an outpatient to make sure that he does not go into tetany.Explained to him the reasons why I think his calcium is low. I did explain to him the consequences which can be given very severe including cardiac arrest if his calcium got too low. 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 (5) HTN (hypertension) Qualifiers: Hypertension type: essential hypertension Qualified Code(s): I10 - Essential (primary) hypertension Is this a current diagnosis for this admission?: Yes Plan: Well-controlled.
[2019-08-23 13:33] LABS: APPEARANCE,URINE SLIGHTLY-CLOUDY; BILIRUBIN,URINE NEGATIVE (NEGATIVE); COLOR,URINE YELLOW; GLUCOSE, URINE 50 mg/dL (NEGATIVE); KETONES,URINE NEGATIVE (NEGATIVE); LEUKOCYTE ESTERASE,URINE NEGATIVE (NEGATIVE); NITRITE,URINE NEGATIVE (NEGATIVE); PROTEIN,URINE 100 mg/dL (NEGATIVE); URINE SPECIFIC GRAVITY 1.011; UROBILINOGEN,URINE NEGATIVE mg/dL (<2.0)
[2019-08-23 13:53] LABS: UR PRO/CREAT RATIO RESULT 2.2 mg/mg (0.0-0.2); URINE CREATININE 37.5 mg/dL (22-328); URINE PROTEIN 80.9 mg/dL (<12)
[2019-08-23] MEDS: FUROSEMIDE 20 MG TABLET PO SCH (17:47)
[2019-08-23] MEDS: LEVOFLOXACIN 500 MG TABLET PO SCH (21:33)
[2019-08-24] MEDS: CALCIUM GLUCONATE 1000 MG/10 ML INJ IV SCH ×3 (05:09→21:49)
[2019-08-24] MEDS: BUDESONIDE NEB 0.5 MG/2 ML AMPUL NEB SCH ×2 (08:18→20:28)
[2019-08-24] MEDS: INSULIN LISPRO 100 UNIT/ML 3 ML VIAL SUBCUT SCH ×4 (08:27→22:22)
[2019-08-24] MEDS: PANTOPRAZOLE SODIUM 40 MG TABLET.DR PO SCH ×2 (09:23→21:49)
[2019-08-24] MEDS: EZETIMIBE 10 MG TABLET PO SCH (09:23)
[2019-08-24] MEDS: ROFLUMILAST 500 MCG TABLET PO SCH (09:23)
[2019-08-24] MEDS: FUROSEMIDE 20 MG TABLET PO SCH ×2 (09:23→17:41)
[2019-08-24] MEDS: CALCIUM CARBONATE 500 MG TABLET PO SCH ×2 (09:23→17:41)
[2019-08-24] MEDS: AMLODIPINE BESYLATE 10 MG TABLET PO SCH (09:24)
[2019-08-24] MEDS: MULTIVITAMIN TABLET PO SCH (09:24)
[2019-08-24] MEDS: ASCORBIC ACID 500 MG TABLET PO SCH (09:24)
[2019-08-24] MEDS: QUETIAPINE FUMARATE 25 MG TABLET PO SCH ×2 (09:24→17:41)
[2019-08-24] MEDS: CALCITRIOL 0.25 MCG CAPSULE PO SCH ×2 (09:24→17:41)
[2019-08-24] MEDS: ASPIRIN 81 MG TABLET, ENT COATED PO SCH (09:24)
[2019-08-24] MEDS: CARVEDILOL 6.25 MG TABLET PO SCH ×2 (09:24→21:49)
[2019-08-24] MEDS: ENOXAPARIN SODIUM INJ 30 MG/0.3 ML DISP.SYRIN SUBCUT SCH (10:29)
[2019-08-24] MEDS: LEVOFLOXACIN 500 MG TABLET PO SCH (21:49)
[2019-08-25] MEDS: CALCIUM GLUCONATE 1000 MG/10 ML INJ IV SCH ×2 (05:43→14:40)
[2019-08-25] MEDS: INSULIN LISPRO 100 UNIT/ML 3 ML VIAL SUBCUT SCH ×3 (08:21→16:59)
[2019-08-25] MEDS: BUDESONIDE NEB 0.5 MG/2 ML AMPUL NEB SCH ×2 (09:01→20:32)
[2019-08-25] MEDS: FUROSEMIDE 20 MG TABLET PO SCH ×2 (10:02→17:08)
[2019-08-25] MEDS: AMLODIPINE BESYLATE 10 MG TABLET PO SCH (10:03)
[2019-08-25] MEDS: CARVEDILOL 6.25 MG TABLET PO SCH (10:04)
[2019-08-25] MEDS: CALCITRIOL 0.25 MCG CAPSULE PO SCH ×2 (10:04→17:08)
[2019-08-25] MEDS: EZETIMIBE 10 MG TABLET PO SCH (10:05)
[2019-08-25] MEDS: QUETIAPINE FUMARATE 25 MG TABLET PO SCH ×2 (10:06→17:08)
[2019-08-25] MEDS: PANTOPRAZOLE SODIUM 40 MG TABLET.DR PO SCH (10:06)
[2019-08-25] MEDS: MULTIVITAMIN TABLET PO SCH (10:07)
[2019-08-25] MEDS: ASCORBIC ACID 500 MG TABLET PO SCH (10:07)
[2019-08-25] MEDS: ROFLUMILAST 500 MCG TABLET PO SCH (10:53)
[2019-08-25] MEDS: ASPIRIN 81 MG TABLET, ENT COATED PO SCH (10:53)
[2019-08-25] MEDS: ENOXAPARIN SODIUM INJ 30 MG/0.3 ML DISP.SYRIN SUBCUT SCH (10:54)
[2019-08-25] MEDS: CALCIUM CARBONATE 500 MG TABLET PO SCH ×2 (10:54→17:08)
--- NOTE | 2019-08-25 15:49 | PDOC PROGRESS REPORT ---
Subjective Progress Note for:: 08/23/19 Subjective:: Patient remain t baseline difficulty with breathing. No chest pain. No nausea, vomiting or abdominal pain. No fever or chills. Reason For Visit: ACUTE ON CHRONIC RESPIRATORY WITH HYPOXEMIA Physical Exam Vital Signs: Temp Pulse Resp BP Pulse Ox 97.7 F 93 20 143/61 H 94 08/23/19 11:47 08/23/19 19:00 08/23/19 17:53 08/23/19 11:47 08/23/19 17:53 Intake & Output 08/22/19 08/23/19 08/24/19 06:59 06:59 06:59 Intake Total 2177 1063 1080 Output Total 300 Balance 2177 1063 780 Weight 84.7 kg 85.6 kg Physical Exam: General appearance: PRESENT: mild distress - on BIPAP support and supplemental oxygen. Head exam: PRESENT: atraumatic, normocephalic Eye exam: PRESENT: conjunctiva pink. ABSENT: pallor, scleral icterus Ear exam: PRESENT: normal external ear exam Mouth exam: PRESENT: moist Respiratory exam: PRESENT: decreased breath sounds - at lung bases ABSENT: rhonchi, wheezing Cardiovascular exam: PRESENT: RRR. ABSENT: diastolic murmur, rubs, systolic murmur GI/Abdominal exam: PRESENT: normal bowel sounds, soft. ABSENT: distended, guarding, mass, organomegaly, rebound, tenderness : Present: improving penile edema Extremities exam: PRESENT: left BKA, right BKA. Pedal edema mostly involving up per extremities, scrotum and sacral regions Neurological exam: PRESENT: alert, awake, oriented to person, oriented to place, oriented to time, oriented to situation, CN II-XII grossly intact. ABSENT: motor sensory deficit Psychiatric exam: PRESENT: appropriate affect, normal mood. ABSENT: homicidal ideation, suicidal ideation Skin exam: PRESENT: dry, warm Results Laboratory Results: 08/21/19 06:37 08/23/19 04:49 08/23/19 08/23/19 04:49 13:00 Sodium 143.5 Potassium 4.2 Chloride 118 H Carbon Dioxide 20 L Anion Gap 6 BUN 43 H Creatinine 1.07 Est GFR ( Amer) > 60 Glucose 144 H Calcium 7.2 L Urine Color YELLOW Urine Appearance SLIGHTLY-CLOUDY Urine pH 5.0 Ur Specific [place] 1.011 Urine Protein 100 H Urine Glucose (UA) 50 H Urine Ketones NEGATIVE Urine Blood NEGATIVE Urine Nitrite NEGATIVE Ur Leukocyte Esterase NEGATIVE Urine WBC (Auto) 2 Urine RBC (Auto) 1 08/14/19 08/14/19 07:45 07:45 Creatine Kinase 196 H CK-MB (CK-2) 3.45 Troponin I 0.048 Impressions: Chest X-Ray 08/14/19 07:40 IMPRESSION: NO ACUTE RADIOGRAPHIC FINDING IN THE CHEST. Renal Ultrasound 08/18/19 00:00 IMPRESSION: No hydronephrosis or hydroureter. Mild bilateral cortical thinning and increased cortical echogenicity both kidneys. 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 (current) use of insulin Is this a current diagnosis for this admission?: Yes (4) HTN (hypertension) Qualifiers: Hypertension type: essential hypertension Qualified Code(s): I10 - Essential (primary) hypertension Is this a current diagnosis for this admission?: Yes (5) HLD (hyperlipidemia) Qualifiers: Hyperlipidemia type: unspecified Qualified Code(s): E78.5 - Hyperlipidemia, unspecified Is this a current diagnosis for this admission?: Yes (6) Old [place] (myocardial infarction) Is this a current diagnosis for this admission?: Yes (7) GERD (gastroesophageal reflux disease) Qualifiers: Esophagitis presence: without esophagitis Qualified Code(s): K21.9 - Gastro-esophageal reflux disease without esophagitis Is this a current diagnosis for this admission?: Yes (8) Acute renal failure Qualifiers: Acute renal failure type: unspecified Qualified Code(s): N17.9 - Acute kidney failure, unspecified Is this a current diagnosis for this admission?: Yes (9) Edema due to hypoalbuminemia Is this a current diagnosis for this admission?: Yes (10) Hypocalcemia Is this a current diagnosis for this admission?: Yes - Time Time Spent with patient: 25-34 minutes Level of Care: IMCU Medications reviewed and adjusted accordingly: Yes Anticipated discharge: Home Within: Other - Inpatient Certification Based on my medical assessment, after consideration of the patient's comorbidities, presenting symptoms, or acuity I expect that the services needed warrant INPATIENT care.: Yes I certify that my determination is in accordance with my understanding of Medicare's requirements for reasonable and necessary INPATIENT services [42 CFR 412.3e].: Yes Medical Necessity: Significant Comorbidiites Make Outpatient Treatment Too Risky, Need Close Monitoring Due to Risk of Patient Decompensation, Need For Continuous Telemetry Monitoring, Need for Nebulizer Therapy and Monitoring of R esponse, Risk of Complication if Not Cared For in Hospital, Risk of Diagnosis Which Will Require Inpatient Eval/Care/Monitoring 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 Maintain on all other current medication management.
--- NOTE | 2019-08-25 15:56 | PDOC PROGRESS REPORT ---
Subjective Progress Note for:: 08/24/19 Subjective:: Patient remain baseline difficulty with breathing. He participated satisfactorily with PT team regarding transfer safety into and out of wheelchair. No chest pain. No nausea, vomiting or abdominal pain. No fever or chills. Reason For Visit: ACUTE ON CHRONIC RESPIRATORY WITH HYPOXEMIA Physical Exam Vital Signs: Temp Pulse Resp BP Pulse Ox 97.3 F 75 16 148/54 H 97 08/24/19 07:42 08/24/19 14:00 08/24/19 08:19 08/24/19 07:42 08/24/19 08:19 Intake & Output 08/23/19 08/24/19 08/25/19 06:59 06:59 06:59 Intake Total 1063 1080 1080 Output Total 300 0 Balance 9889 680 4329 Weight 85.6 kg 85.4 kg Physical Exam: General appearance: PRESENT: mild distress - on BIPAP support and supplemental oxygen. Head exam: PRESENT: atraumatic, normocephalic Eye exam: PRESENT: conjunctiva pink. ABSENT: pallor, scleral icterus Ear exam: PRESENT: normal external ear exam Mouth exam: PRESENT: moist Respiratory exam: PRESENT: decreased breath sounds - at lung bases ABSENT: rhonchi, wheezing Cardiovascular exam: PRESENT: RRR. ABSENT: diastolic murmur, rubs, systolic murmur GI/Abdominal exam: PRESENT: normal bowel sounds, soft. ABSENT: distended, guarding, mass, organomegaly, rebound, tenderness : Present: improving penile edema Extremities exam: PRESENT: left BKA, right BKA. Pedal edema mostly involving upper extremities, scrotum and sacral regions Neurological exam: PRESENT: alert, awake, oriented to person, oriented to place, oriented to time, oriented to situation, CN II-XII grossly intact. ABSENT: mo tor sensory deficit Psychiatric exam: PRESENT: appropriate affect, normal mood. ABSENT: homicidal i deation, suicidal ideation Skin exam: PRESENT: dry, warm Results Laboratory Results: 08/21/19 06:37 08/23/19 04:49 08/14/19 08/14/19 07:45 07:45 Creatine Kinase 196 H CK-MB (CK-2) 3.45 Troponin I 0.048 Impressions: Chest X-Ray 08/14/19 07:40 IMPRESSION: NO ACUTE RADIOGRAPHIC FINDING IN THE CHEST. Renal Ultrasound 08/18/19 00:00 IMPRESSION: No hydronephrosis or hydroureter. Mild bilateral cortical thinning and increased cortical echogenicity both kidneys. 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 Is this a current diagnosis for this admission?: Yes (4) HTN (hypertension) Qualifiers: Hypertension type: essential hypertension Qualified Code(s): I10 - Essential (primary) hypertension Is this a current diagnosis for this admission?: Yes (5) HLD (hyperlipidemia) Qualifiers: Hyperlipidemia type: unspecified Qualified Code(s): E78.5 - Hyperlipidemia, unspecified Is this a current diagnosis for this admission?: Yes (6) Old [place] (myocardial infarction) Is this a current diagnosis for this admission?: Yes (7) GERD (gastroesophageal reflux disease) Qualifiers: Esophagitis presence: without esophagitis Qualified Code(s): K21.9 - Gastro-esophageal reflux disease without esophagitis Is this a current diagnosis for this admission?: Yes (8) Acute renal failure Qualifiers: Acute renal failure type: unspecified Qualified Code(s): N17.9 - Acute kidney failure, unspecified Is this a current diagnosis for this admission?: Yes (9) Edema due to hypoalbuminemia Is this a current diagnosis for this admission?: Yes (10) Hypocalcemia Is this a current diagnosis for this admission?: Yes - Time Time Spent with patient: 25-34 minutes Level of Care: IMCU Medications reviewed and adjusted accordingly: Yes Anticipated discharge: Home Within: within 48 hours - Inpatient Certification Based on my medical assessment, after consideration of the patient's comorbidities, presenting symptoms, or acuity I expect that the services needed warrant INPATIENT care.: Yes I certify that my determination is in accordance with my understanding of Medicare's requirements for reasonable and necessary INPATIENT services [42 CFR 412.3e].: Yes Medical Necessity: Significant Comorbidiites Make Outpatient Treatment Too Risky, Need Close Monitoring Due to Risk of Patient Decompensation, Need For Continuous Telemetry Monitoring, Need for Nebulizer Therapy and Monitoring of Response, Risk of Complication if Not Cared For in Hospital, Risk of Diagnosis Which Will Require Inpatient Eval/Care/Monitoring Post Hospital Care: D/C Service 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 I discussed possible discharge home with patient at bedside.
--- NOTE | 2019-08-25 16:56 | PDOC DISCHARGE SUMMARY ---
Impression - Admit/DC Date/PCP Admission Date/Primary Care Provider: 08/14/19 12:03 TJ ARREOLA Discharge Date: 08/25/19 - Discharge Diagnosis (1) Acute on chronic respiratory failure with hypoxia and hypercapnia Is this a current diagnosis for this admission?: Yes (2) Chronic obstructive pulmonary disease with acute exacerbation Is this a current diagnosis for this admission?: Yes (3) Diabetes mellitus, type 2 Is this a current diagnosis for this admission?: Yes (4) HTN (hypertension) Is this a current diagnosis for this admission?: Yes (5) HLD (hyperlipidemia) Is this a current diagnosis for this admission?: Yes (6) Old [place] (myocardial infarction) Is this a current diagnosis for this admission?: Yes (7) GERD (gastroesophageal reflux disease) Is this a current diagnosis for this admission?: Yes (8) Acute renal failure Is this a current diagnosis for this admission?: Yes (9) Edema due to hypoalbuminemia Is this a current diagnosis for this admission?: Yes (10) Hypocalcemia Is this a current diagnosis for this admission?: Yes - Assessment Summary: Patient was admitted for CO2 narcosis and hypoxemia with altered mental status. He was initially managed with BiPAP support and eventually transitioned to nasal cannula as his mentation improved. He was seen in consultation by Dr. Byrnes, cork insulator helper, and input in his care was greatly appreciated. His blood and sputum culture were no growth after adequate period of incubation. There was concern for possible abscess in his upper back lesion and wound culture did revealed multiple organism including staphylococcus aureus, enterococcus faecalis group D. He is currently on oral Levofloxacin. His hospitalization was further complicated with profound hypocalcemia and acute renal failure. He was seen in consultation by Dr Dennis, police radio dispatcher, with adjustment in his management and eventual resolution of his elevated creatinine and low eGFR. Hi hypocalcemia was probable multifactorial in view of his renal failure, elevated total PTH, hypoalbuminemia, and borderline low vitamin d level. His renal ultrasound revealed bilateral cortical thinning and increase echogenicity. He will be discharge home today. He will follow up with Dr. Byrnes, Dr Dennis and myself as instructed upon discharge. - Additional Information Resuscitation Status: Do Not Resuscitate Discharge Diet: Cardiac, Diabetic Discharge Activity: Activity As Tolerated, Slowly Increase Activity Referrals: TJ ARREOLA MD [Primary Care Provider] - 08/31/19 2:00 pm LYN BYRNES MD [ACTIVE STAFF] - Kelby DENNIS MD [ACTIVE STAFF] - Prescriptions: Calcitriol 0.5 mcg PO BID #60 capsule Levofloxacin [Levaquin 500 mg Tablet] 500 mg PO QHS #5 tablet Calcium Carbonate [Os-Narciso 500 mg Tablet (Oyster-Shell)] 1,000 mg PO BID #120 tablet Home Medications: Acetazolamide [Acetazolamide ER] 500 mg PO DAILY 08/14/19 Amlodipine Besylate [Norvasc 10 mg Tablet] 10 mg PO DAILY 08/14/19 Ascorbic Acid [Vitamin C 500 mg Tablet] 1 tab PO DAILY 08/14/19 Aspirin [Ecotrin 81 mg EC Tablet] 81 mg PO DAILY 08/14/19 Carvedilol [Coreg 6.25 mg Tablet] 6.25 mg PO BID 08/14/19 Ezetimibe [Zetia 10 mg Tablet] 10 mg PO DAILY 08/14/19 Fluticasone/Vilanterol [Breo 100-25 Mcg Ellipta 14 Dose/Dpi] 1 inh IH DAILY 08/14/19 Glimepiride 2 mg PO DAILY 08/14/19 Mv-Mins/Folic/Lycopene/Ginkgo [One Daily For Men 50+ Adv Tab] 1 each PO DAILY 08/14/19 Quetiapine Fumarate [Seroquel] 25 mg PO BID 08/14/19 Roflumilast [Daliresp 500 mcg Tablet] 500 mcg PO DAILY 08/14/19 Calcitriol 0.5 mcg PO BID #60 capsule 08/25/19 Calcium Carbonate [Os-Narciso 500 mg Tablet (Oyster-Shell)] 1,000 mg PO BID #120 tablet 08/25/19 Levofloxacin [Levaquin 500 mg Tablet] 500 mg PO QHS #5 tablet 08/25/19 History of Present Illiness History of Present Illness: TOBY HENDERSON is a 74 year old male patient known to my practice who presented to the ED today via EMS due to worsening difficulty with breathing. Daughter at bedside narrated that his oral intake has been downward for couple of days although he ate find when prepped food were presented to him. No reported fever or chills but continue to experience baseline COPD related coughing episodes and continue to smoke cigarette. Patient is currently not using necessary CPAP machine due to his noncompliance that led to his insurance discontinuation of coverage and removal by [employer]. EMS staff reported oxygen saturation at 83% on room air upon their arrival. He was treated with albuterol and ipratropium nebulizer as well as IV Solu Medrol en route to the ED. His initial ED evaluation was remarkable for exacerbated COPD with severe hypercapnia and associated hypoxemia. He will be admitted to [facility] for further evaluation and management. His morbidities are as listed below. Hospital Course Hospital Course: Patient was admitted for CO2 narcosis with altered mental status. He was initially managed with BiPAP support and eventually transitioned to nasal can nula as his mentation improved. He was seen in consultation by Dr. Byrnes, cork insulator helper, and input in his care was greatly appreciated. His blood and sputum culture were no growth after adequate period of incubation. There was concern for possible abscess in his upper back lesion and wound culture did revealed multiple organism including staphylococcus aureus, enterococcus faecalis group D. He is currently on oral Levofloxacin. His hospitalization was further complicated with profound hypocalcemia and acute renal failure. He was seen in consultation by Dr Dennis, police radio dispatcher, with adjustment in his management and eventual resolution of his elevated creatinine and low eGFR. Hi hypocalcemia was probable multifactorial in view of his renal failure, elevated total PTH, hypoalbuminemia, and borderline low vitamin d level. His renal ultrasound revealed bilateral cortical thinning and increase echogenicity. He will be discharge home today. He will follow up with Dr. Byrnes, Dr Dennis and myself as instructed upon discharge. Physical Exam Vital Signs: Temp Pulse Resp BP Pulse Ox 98.0 F 86 17 120/47 L 98 08/25/19 11:57 08/25/19 14:00 08/25/19 11:57 08/25/19 11:57 08/25/19 11:57 Intake & Output 08/24/19 08/25/19 08/26/19 06:59 06:59 06:59 Intake Total 1080 1198 720 Output Total 300 0 0 Balance 780 1198 720 Weight 85.4 kg General appearance: PRESENT: mild distress - on BIPAP support and supplemental oxygen. Head exam: PRESENT: atraumatic, normocephalic Eye exam: PRESENT: conjunctiva pink. ABSENT: pallor, scleral icterus Ear exam: PRESENT: normal external ear exam Mouth exam: PRESENT: moist Respiratory exam: PRESENT: decreased breath sounds - at lung bases ABSENT: rhonchi, wheezing Cardiovascular exam: PRESENT: RRR. ABSENT: diastolic murmur, rubs, systolic murmur GI/Abdominal exam: PRESENT: normal bowel sounds, soft. ABSENT: distended, guarding, mass, organomegaly, rebound, tenderness : Present: improving penile edema Extremities exam: PRESENT: left BKA, right BKA. Pedal edema mostly involving upper extremities, scrotum and sacral regions Neurological exam: PRESENT: alert, awake, oriented to person, oriented to place, oriented to time, oriented to situation, CN II-XII grossly intact. ABSENT: motor sensory deficit Psychiatric exam: PRESENT: appropriate affect, normal mood. ABSENT: homicidal ideation, suicidal ideation Skin exam: PRESENT: dry, warm Results Laboratory Results: WBC 13.7 10^3/uL (4.0-10.5) H 08/21/19 06:37 RBC 4.41 10^6/uL (4.35-5.55) 08/21/19 06:37 Hgb 12.6 g/dL (13.5-17.0) L 08/21/19 06:37 Hct 38.2 % (37.9-51.0) 08/21/19 06:37 MCV 87 fl (80-97) 08/21/19 06:37 MCH 28.5 pg (27.0-33.4) 08/21/19 06:37 MCHC 32.9 g/dL (32.0-36.0) 08/21/19 06:37 RDW 14.1 % (11.5-14.0) H 08/21/19 06:37 Plt Count 176 10^3/uL (150-450) 08/21/19 06:37 Lymph % (Auto) 8.2 % (13-45) L 08/21/19 06:37 [place] % (Auto) 11.6 % (3-13) 08/21/19 06:37 Eos % (Auto) 0.2 % (0-6) 08/21/19 06:37 Baso % (Auto) 0.1 % (0-2) 08/21/19 06:37 Absolute Neuts (auto) 11.0 10^3/uL (1.7-8.2) H 08/21/19 06:37 Absolute Lymphs (auto) 1.1 10^3/uL (0.5-4.7) 08/21/19 06:37 Absolute Monos (auto) 1.6 10^3/uL (0.1-1.4) H 08/21/19 06:37 Absolute Eos (auto) 0.0 10^3/uL (0.0-0.6) 08/21/19 06:37 Absolute Basos (auto) 0.0 10^3/uL (0.0-0.2) 08/21/19 06:37 Total Counted 100 08/20/19 04:47 Seg Neutrophils % 79.9 % (42-78) H 08/21/19 06:37 Seg Neuts % (Manual) 85 % (42-78) H 08/20/19 04:47 Band Neutrophils % 2 % (3-5) L 08/20/19 04:47 Lymphocytes % (Manual) 5 % (13-45) L 08/20/19 04:47 Monocytes % (Manual) 8 % (3-13) 08/20/19 04:47 Eosinophils % (Manual) 0 % (0-6) 08/20/19 04:47 Basophils % (Manual) 0 % (0-2) 08/20/19 04:47 Abs Neuts (Manual) 7.5 10^3/uL (1.7-8.2) 08/20/19 04:47 Abs Lymphs (Manual) 0.4 10^3/uL (0.5-4.7) L 08/20/19 04:47 Abs Monocytes (Manual) 0.7 10^3/uL (0.1-1.4) 08/20/19 04:47 Absolute Eos (Manual) 0.0 10^3/uL (0.0-0.6) 08/20/19 04:47 Abs Basophils (Manual) 0.0 10^3/uL (0.0-0.2) 08/20/19 04:47 Platelet Comment ADEQUATE 08/20/19 04:47 RBC Morph Comment NORMO-CYTIC/CHROMIC 08/20/19 04:47 Carbonic Acid 1.11 mmol/L (1.05-1.35) 08/18/19 14:58 HCO3/H2CO3 Ratio 16:1 08/18/19 14:58 ABG pH 7.30 (7.35-7.45) L 08/18/19 14:58 ABG pCO2 37.0 mmHg (35-45) 08/18/19 14:58 ABG pO2 83.3 mmHg (80-100) 08/18/19 14:58 ABG HCO3 17.9 mmol/L (20-24) L 08/18/19 14:58 ABG Total CO2 19.0 mmol/L (23-27) L 08/18/19 14:58 ABG O2 Saturation 95.3 % (94-98) 08/18/19 14:58 ABG Base Excess -7.8 mmol/L 08/18/19 14:58 VBG pH 7.12 (7.30-7.42) L* 08/14/19 07:45 VBG pCO2 80.5 mmHg (35-63) H* 08/14/19 07:45 VBG HCO3 25.3 mmol/L (20-32) 08/14/19 07:45 VBG Base Excess -5.9 mmol/L 08/14/19 07:45 FiO2 30% 08/18/19 14:58 Sodium 143.5 mmol/L (137-145) 08/23/19 04:49 Potassium 4.2 mmol/L (3.6-5.0) 08/23/19 04:49 Chloride 118 mmol/L (98-107) H 08/23/19 04:49 Carbon Dioxide 20 mmol/L (22-30) L 08/23/19 04:49 Anion Gap 6 (5-19) 08/23/19 04:49 BUN 43 mg/dL (7-20) H 08/23/19 04:49 Creatinine 1.07 mg/dL (0.52-1.25) 08/23/19 04:49 Est GFR ( Amer) > 60 (>60) 08/23/19 04:49 Est GFR (MDRD) Non-Af > 60 (>60) 08/23/19 04:49 Glucose 144 mg/dL (75-110) H 08/23/19 04:49 POC Glucose 189 mg/dL (70-110) H 08/25/19 11:59 Calcium 7.2 mg/dL (8.4-10.2) L 08/23/19 04:49 Magnesium 2.4 mg/dL (1.6-2.3) H 08/22/19 04:53 Total Bilirubin 0.3 mg/dL (0.2-1.3) 08/15/19 04:37 Direct Bilirubin 0.1 mg/dL (0.0-0.4) 08/15/19 04:37 Neonat Total Bilirubin Not Reportable 08/15/19 04:37 Neonat Direct Bilirubin Not Reportable 08/15/19 04:37 Neonat Indirect Bili Not Reportable 08/15/19 04:37 AST 17 U/L (17-59) 08/15/19 04:37 ALT 20 U/L (<50) 08/15/19 04:37 Alkaline Phosphatase 68 U/L (38-126) 08/15/19 04:37 Creatine Kinase 196 U/L (55-170) H 08/14/19 07:45 CK-MB (CK-2) 3.45 ng/mL (<4.55) 08/14/19 07:45 Troponin I 0.048 ng/mL 08/14/19 07:45 Total Protein 5.6 g/dL (6.3-8.2) L 08/15/19 04:37 Albumin 2.9 g/dL (3.5-5.0) L 08/22/19 04:53 Vitamin D 25-Hydroxy 20.9 ng/mL (14.7-68.3) 08/21/19 06:37 PTH Intact 371.6 pg/mL (10.0-65.0) H 08/21/19 14:50 Urine Color YELLOW 08/23/19 13:00 Urine Appearance SLIGHTLY-CLOUDY 08/23/19 13:00 Urine pH 5.0 (5.0-9.0) 08/23/19 13:00 Ur Specific [place] 1.011 08/23/19 13:00 Urine Protein 100 mg/dL (NEGATIVE) H 08/23/19 13:00 Urine Glucose (UA) 50 mg/dL (NEGATIVE) H 08/23/19 13:00 Urine Ketones NEGATIVE mg/dL (NEGATIVE) 08/23/19 13:00 Urine Blood NEGATIVE (NEGATIVE) 08/23/19 13:00 Urine Nitrite NEGATIVE (NEGATIVE) 08/23/19 13:00 Urine Bilirubin NEGATIVE (NEGATIVE) 08/23/19 13:00 Urine Urobilinogen NEGATIVE mg/dL (<2.0) 08/23/19 13:00 Ur Leukocyte Esterase NEGATIVE (NEGATIVE) 08/23/19 13:00 Urine WBC (Auto) 2 /HPF 08/23/19 13:00 Urine RBC (Auto) 1 /HPF 08/23/19 13:00 U Hyaline Cast (Auto) 1 /LPF 08/23/19 13:00 Urine Bacteria (Auto) 3+ /HPF 08/14/19 13:00 Urine WBC Clumps FEW /HPF 08/14/19 13:00 Squamous Epi Cells Auto <1 /HPF 08/23/19 13:00 Urine Mucus (Auto) RARE /LPF 08/23/19 13:00 Urine Yeast (Budding) PRESENT /HPF 08/14/19 13:00 Urine Creatinine 37.5 mg/dL (22-328) 08/23/19 13:00 Protein/Creatinin Ratio 2.2 mg/mg (0.0-0.2) H 08/23/19 13:00 Urine Total Protein 80.9 mg/dL (<12) H 08/23/19 13:00 Urine Ascorbic Acid 20 (NEGATIVE) H 08/23/19 13:00 08/14/19 07:45 CK-MB (CK-2) 3.45 Troponin I 0.048 Impressions: Chest X-Ray 08/14/19 07:40 IMPRESSION: NO ACUTE RADIOGRAPHIC FINDING IN THE CHEST. Renal Ultrasound 08/18/19 00:00 IMPRESSION: No hydronephrosis or hydroureter. Mild bilateral cortical thinning and increased cortical echogenicity both kidneys. Plan Health Concerns: Continue cigarette smoking with severe COPD and chronic respiratory failure is a set up for high readmission rate. Extensive counseling was undertaken during my several bedside visit regarding smoking cessation. Patient is very adamant to smoking again upon discharge. Plan of Treatment: Close follow up upon discharge. Goals: Close follow up and continue efforts t smoking cessation. Time Spent: Greater than 30 Minutes Stroke Is this a Stroke Patient?: No Acute Heart Failure - Is this a Heart Failure Patient?: No
[2019-08-25 17:06] VITALS: BP 140/65
[2019-08-25 17:21] LABS: ABSOLUTE EOSINOPHILS # (AUTO) 0.2 10^3/uL (0.0-0.6); ABSOLUTE LYMPHOCYTES (AUTO) 0.7 10^3/uL (0.5-4.7); ABSOLUTE MONOCYTES (AUTO) 1.5 10^3/uL (0.1-1.4); ABSOLUTE NEUT (AUTO) 9.2 10^3/uL (1.7-8.2); BASOPHILS % (AUTO) 0.2 % (0-2); EOSINOPHILS % (AUTO) 1.4 % (0-6); HEMATOCRIT 34.9 % (37.9-51.0); HEMOGLOBIN 11.7 g/dL (13.5-17.0); LYMPHOCYTES % (AUTO) 6.2 % (13-45); MEAN CORPUSCULAR HEMOGLOBIN 28.6 pg (27.0-33.4); MEAN CORPUSCULAR HGB CONC 33.4 g/dL (32.0-36.0); MEAN CORPUSCULAR VOLUME 86 fl (80-97); MONOCYTES % (AUTO) 12.6 % (3-13); PLATELET COUNT 177 10^3/uL (150-450); RED BLOOD COUNT 4.08 10^6/uL (4.35-5.55); RED CELL DISTRIBUTION WIDTH 13.9 % (11.5-14.0); SEGMENTED NEUTROPHILS % (AUTO) 79.6 % (42-78); TOTAL CELLS COUNTED % (AUTO) 100 %; WHITE BLOOD COUNT 11.6 10^3/uL (4.0-10.5)
[2019-08-25 17:37] LABS: ALBUMIN 2.9 g/dL (3.5-5.0); ALKALINE PHOSPHATASE 69 U/L (38-126); ANION GAP 6 (5-19); ASPARTATE AMINO TRANSFERASE 27 U/L (17-59); BILIRUBIN,DIRECT 0.1 mg/dL (0.0-0.4); BILIRUBIN,TOTAL 0.5 mg/dL (0.2-1.3); BLOOD UREA NITROGEN 31 mg/dL (7-20); CALCIUM 9.1 mg/dL (8.4-10.2); CARBON DIOXIDE 28 mmol/L (22-30); CHLORIDE 109 mmol/L (98-107); GLUCOSE 169 mg/dL (75-110); POTASSIUM 4.5 mmol/L (3.6-5.0); TOTAL PROTEIN 5.3 g/dL (6.3-8.2)
== END 2019-08-25 21:07 | disposition home health service (06) | DRG 189 ==
LOC: ER 07:38 → EH 12:03 → 3W 15:00
PROVIDERS: ADMIT Internal Medicine Geriatric Medicine; ATTEND Internal Medicine Geriatric Medicine
PROC: 5A09557 Assistance with Respiratory Ventilation, Greater than 96 Consecutive Hours, Continuous Positive Airway Pressure (ICD-10-PCS; principal; 2019-08-14)
DX: J96.21 Acute and chronic respiratory failure with hypoxia (principal); J44.1 Chronic obstructive pulmonary disease with (acute) exacerbation; N17.9 Acute kidney failure, unspecified; J96.22 Acute and chronic respiratory failure with hypercapnia; E11.9 Type 2 diabetes mellitus without complications; I10 Essential (primary) hypertension; E78.5 Hyperlipidemia, unspecified; I25.10 Atherosclerotic heart disease of native coronary artery without angina pectoris; K21.9 Gastro-esophageal reflux disease without esophagitis; E88.09 Other disorders of plasma-protein metabolism, not elsewhere classified; B95.61 Methicillin susceptible Staphylococcus aureus infection as the cause of diseases classified elsewhere; B95.2 Enterococcus as the cause of diseases classified elsewhere; E83.51 Hypocalcemia; F32.9 Major depressive disorder, single episode, unspecified; Z66 Do not resuscitate; E66.9 Obesity, unspecified; L72.3 Sebaceous cyst; F17.210 Nicotine dependence, cigarettes, uncomplicated; G47.30 Sleep apnea, unspecified; I25.2 Old myocardial infarction; Z89.512 Acquired absence of left leg below knee; Z89.511 Acquired absence of right leg below knee; Z79.899 Other long term (current) drug therapy; Z91.19 Patient's noncompliance with other medical treatment and regimen; Z79.4 Long term (current) use of insulin; Z79.82 Long term (current) use of aspirin
CPT/HCPCS: 36415; 36600; 71045; 76770; 80048; 80053; 81001; 82040; 82306; 82550; 82553; 82570; 82803; 82962; 83735; 83970; 84156; 84484; 85025; 87040; 87070; 87075; 87077; 87186; 87205; 93005; 93010; 94640; 94660; 99291; C9113; J0610; J0692; J1650; J1815; J1940; J1956; J2920; J2930; J3490; J7030; J7042; J7060; J7620; P9047

== ENCOUNTER 2019-09-08 15:38 | Inpatient (IN) | payer MEDICARE ==
--- NOTE | 2019-09-08 17:04 | RADIOLOGY REPORT (SQ) ---
EXAM DESCRIPTION: CHEST SINGLE VIEW COMPLETED DATE/TIME: 09/08/2019 4:56 pm REASON FOR STUDY: Diff. Breathing COMPARISON: 08/14/2019. EXAM PARAMETERS: NUMBER OF VIEWS: One view. TECHNIQUE: Single frontal radiographic view of the chest acquired. RADIATION DOSE: NA LIMITATIONS: None. FINDINGS: LUNGS AND PLEURA: No opacities, masses or pneumothorax. No pleural effusion. MEDIASTINUM AND HILAR STRUCTURES: No masses. Contour normal. HEART AND VASCULAR STRUCTURES: Heart normal in size. Normal vasculature. BONES: No acute findings. HARDWARE: None in the chest. OTHER: No other significant finding. IMPRESSION: NO ACUTE RADIOGRAPHIC FINDING IN THE CHEST. TECHNICAL DOCUMENTATION: JOB ID: [id number] [employer]- All Rights Reserved Reading location - IP/workstation name: [email or web address]
--- NOTE | 2019-09-08 17:29 | EKG REPORT ---
SEVERITY:- ABNORMAL ECG - SINUS RHYTHM ATRIAL PREMATURE COMPLEX IVCD, CONSIDER ATYPICAL RBBB : Confirmed by: Mariam Ferguson 08-Sep-2019 17:28:55
[2019-09-08 17:43] LABS: ABSOLUTE EOSINOPHILS # (AUTO) 0.3 10^3/uL (0.0-0.6); ABSOLUTE LYMPHOCYTES (AUTO) 0.9 10^3/uL (0.5-4.7); ABSOLUTE MONOCYTES (AUTO) 0.8 10^3/uL (0.1-1.4); ABSOLUTE NEUT (AUTO) 3.3 10^3/uL (1.7-8.2); BASOPHILS % (AUTO) 0.5 % (0-2); EOSINOPHILS % (AUTO) 6.3 % (0-6); HEMATOCRIT 34.9 % (37.9-51.0); HEMOGLOBIN 11.3 g/dL (13.5-17.0); LYMPHOCYTES % (AUTO) 17.2 % (13-45); MEAN CORPUSCULAR HEMOGLOBIN 28.3 pg (27.0-33.4); MEAN CORPUSCULAR HGB CONC 32.3 g/dL (32.0-36.0); MEAN CORPUSCULAR VOLUME 88 fl (80-97); MONOCYTES % (AUTO) 15.5 % (3-13); PLATELET COUNT 256 10^3/uL (150-450); RED BLOOD COUNT 3.99 10^6/uL (4.35-5.55); SEGMENTED NEUTROPHILS % (AUTO) 60.5 % (42-78); TOTAL CELLS COUNTED % (AUTO) 100 %; WHITE BLOOD COUNT 5.4 10^3/uL (4.0-10.5)
[2019-09-08 18:04] LABS: ALBUMIN 3.3 g/dL (3.5-5.0); ALKALINE PHOSPHATASE 74 U/L (38-126); ANION GAP 6 (5-19); ASPARTATE AMINO TRANSFERASE 25 U/L (17-59); BILIRUBIN,DIRECT 0.2 mg/dL (0.0-0.4); BILIRUBIN,TOTAL 0.3 mg/dL (0.2-1.3); BLOOD UREA NITROGEN 48 mg/dL (7-20); CARBON DIOXIDE 30 mmol/L (22-30); CHLORIDE 111 mmol/L (98-107); GLUCOSE 176 mg/dL (75-110); POTASSIUM 4.2 mmol/L (3.6-5.0); TOTAL PROTEIN 6.1 g/dL (6.3-8.2)
[2019-09-08 18:17] LABS: CALCIUM 13.1 mg/dL (8.4-10.2)
[2019-09-08] MEDS ORDERED: NORMAL SALINE 1000 ML 1,000 ML IV ONE (18:37)
[2019-09-08] MEDS ORDERED: FUROSEMIDE INJ/PF 20 MG/2 ML SDV IV ONE (18:38)
[2019-09-08] MEDS ORDERED: IPRATROPIUM/ALBUTEROL 0.5-2.5 MG/3 ML AMPUL NEB ONE (18:38)
--- NOTE | 2019-09-08 18:43 | ER Document Report ---
ED Medical Screen (RME) - General Chief Complaint: Breathing Difficulty Stated Complaint: WELLNESS CHECK Time Seen by Provider: 09/08/19 18:21 Primary Care Provider: TJ ARREOLA MD [Primary Care Provider] - Follow up as needed Information source: Patient, Relative Notes: Patient presents with difficulty breathing. Daughter states that patient was at home and daughter found him slumped over in a chair, patient's pulse ox at the time was 77%. Daughter gave the patient a breathing treatments and use of his rescue inhaler and called EMS. Patient with snoring respirations and arouses to voice and tactile stimulation. Patient presently with a calcium of 13.1. Daughter states that patient was recently admitted and was given IV calcium and then went home on 2 calcium supplements. I have greeted and performed a rapid initial assessment of this patient. A comprehensive ED assessment and evaluation of the patient, analysis of test results and completion of the medical decision making process will be conducted by additional ED providers. TRAVEL OUTSIDE OF THE [place] IN LAST 30 DAYS: No - Related Data Allergies/Adverse Reactions: No Known Drug Allergies Allergy (Verified 09/08/19 16:53) Past Medical History - Past Medical History Cardiac Medical History: Reports: Hx Coronary Artery Disease, Hx Heart Attack - 2011, Hx Hypercholesterolemia, Hx Hypertension Denies: Hx Congestive Heart Failure Pulmonary Medical History: Reports: Hx Asthma, Hx COPD, Hx Pneumonia Denies: Hx Bronchitis, Hx Tuberculosis Neurological Medical History: Denies: Hx Cerebrovascular Accident, Hx Seizures, Hx Parkinson's Disease Endocrine Medical History: Reports: Hx Diabetes Mellitus Type 2 Renal/ Medical History: Denies: Hx Benign Prostatic Hyperplasia, Hx End Stage Renal Disease, Hx Kidney Stones GI Medical History: Reports: Hx Gastroesophageal Reflux Disease, Hx Hiatal Hernia - PT UNSURE. Denies: Hx Cirrhosis, Hx Hepatitis, Hx Ulcer Musculoskeltal Medical History: Denies Hx Arthritis, Denies Hx Multiple Sclerosis Psychiatric Medical History: Reports: Hx Depression Denies: Hx Bipolar Disorder, Hx Schizophrenia Infectious Medical History: Denies: Hx C-Diff, Hx Hepatitis Past Surgical History: Reports: Hx Orthopedic Surgery - Bilateral BKA, Other - Bilateral cataract surgery. Denies: Hx Open Heart Surgery, Hx Pacemaker - Immunizations Hx Diphtheria, Pertussis, Tetanus Vaccination: No - unknown Physical Exam - Vital signs Vitals: Temp Pulse Resp BP Pulse Ox 98.3 F 76 14 142/52 H 96 12/20/19 16:21 09/08/19 16:21 09/08/19 16:21 09/08/19 16:21 09/08/19 16:21 - Respiratory Respiratory status: Tachypnea Breath sounds: Rhonchi, Wheezing Course - Re-evaluation Re-evalutation: 09/08/19 18:[address] Jackson regarding patient presentation and calcium of 13.1. Advises IV fluids and Lasix at this time. - Vital Signs Vital signs: Temp Pulse Resp BP Pulse Ox 98.3 F 76 14 142/52 H 94 09/08/19 16:21 09/08/19 16:21 09/08/19 16:21 09/08/19 16:21 09/08/19 16:46 - Laboratory Result Diagrams: 09/08/19 17:20 09/08/19 17:20 Laboratory results interpreted by me: 09/08/19 09/08/19 17:20 17:20 RBC 3.99 L Hgb 11.3 L Hct 34.9 L [place] % (Auto) 15.5 H Eos % (Auto) 6.3 H Sodium 146.7 H Chloride 111 H BUN 48 H Creatinine 1.85 H Est GFR ( Amer) 43 L Est GFR (MDRD) Non-Af 36 L Glucose 176 H Calcium 13.1 H* Total Protein 6.1 L Albumin 3.3 L Doctor's Discharge - Discharge Referrals: TJ ARREOLA MD [Primary Care Provider] - Follow up as needed
[2019-09-08 21:32] LABS: ARTERIAL BLOOD BASE EXCESS -1.1 mmol/L; ARTERIAL BLOOD H2CO3 1.97 mmol/L (1.05-1.35); ARTERIAL BLOOD HCO3 27.4 mmol/L (20-24); ARTERIAL BLOOD O2 SATURATION 91.4 % (94-98); ARTERIAL BLOOD PCO2 65.3 mmHg (35-45); ARTERIAL BLOOD PH 7.24 (7.35-7.45); ARTERIAL BLOOD PO2 72.4 mmHg (80-100); ARTERIAL BLOOD TOTAL CO2 29.4 mmol/L (23-27)
[2019-09-08 21:34] LABS: ARTERIAL BLOOD FIO2 ROOM AIR
--- NOTE | 2019-09-08 22:05 | ER Document Report ---
Entered by MILA PALACIOS SCRIBE 09/08/192030 Acting as scribe for:BERTHA GONZALEZ IV, MD ED Respiratory Problem - General Chief Complaint: Breathing Difficulty Stated Complaint: WELLNESS CHECK Time Seen by Provider: 09/08/19 18:21 Primary Care Provider: TJ ARREOLA MD [Primary Care Provider] - Follow up as needed Mode of Arrival: Medic Information source: Relative Cannot obtain history due to: Altered mental status Notes: This 74-year-old male patient presents to the emergency department today after the daughter found the patient with an oxygen saturation of 77%, slumped over in his wheelchair drooling just prior to arrival. Daughter states she tried to wake the patient up and he had a decreased level of responsiveness. Daughter states that this is a similar presentation to when the patient has been CO2 retaining in the past. Daughter states that the patient was admitted here for 12 days, discharged 2 weeks ago. 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 Patient has purulent drainage coming from both lower extremity stumps. Daughter states the patient has had very fluctuating BGL's over the last few weeks which is not normal for him. Daughter states when the patient was discharged from here he was discharged on Keflex for his stump infections, oyster calcium, and Narciso-Citrate. TRAVEL OUTSIDE OF THE [place] IN LAST 30 DAYS: No - Related Data Allergies/Adverse Reactions: No Known Drug Allergies Allergy (Verified 09/08/19 16:53) Past Medical History - General Information source: Patient, Relative Cannot obtain history due to: Altered mental status - Social History Smoking Status: Former Smoker Cigarette use (# per day): No Frequency of alcohol use: None Drug Abuse: None Lives with: Family Family History: Reviewed & Not Pertinent Patient has suicidal ideation: No Patient has homicidal ideation: No - Past Medical History Cardiac Medical History: Reports: Hx Coronary Artery Disease, Hx Heart Attack - 2011, Hx Hypercholesterolemia, Hx Hypertension Pulmonary Medical History: Reports: Hx Asthma, Hx COPD, Hx Pneumonia Endocrine Medical History: Reports: Hx Diabetes Mellitus Type 2 GI Medical History: Reports: Hx Gastroesophageal Reflux Disease, Hx Hiatal Hernia - PT UNSURE Psychiatric Medical History: Reports: Hx Depression Past Surgical History: Reports: Hx Orthopedic Surgery - Bilateral BKA, Other - Bilateral cataract surgery - Immunizations Hx Diphtheria, Pertussis, Tetanus Vaccination: No - unknown Hx Pneumococcal Vaccination: 09/20/18 Review of Systems - Review of Systems Notes: given by daughter at bedside -: Yes ROS unobtainable due to patient's medical condition Constitutional: denies: Fever EENT: No symptoms reported Cardiovascular: No symptoms reported Respiratory: See HPI, Short of breath Gastrointestinal: No symptoms reported Genitourinary: No symptoms reported Male Genitourinary: No symptoms reported Musculoskeletal: No symptoms reported Skin: See HPI Hematologic/Lymphatic: No symptoms reported Neurological/Psychological: See HPI, Confusion -: Yes All other systems reviewed and negative Physical Exam - Vital signs Vitals: Temp Pulse Resp BP Pulse Ox 98.3 F 76 14 142/52 H 96 09/08/19 16:21 09/08/19 16:21 09/08/19 16:21 09/08/19 16:21 09/08/19 16:21 - Notes Notes: Physical Exam: General: Alert, sleeps through most of the exam. HEENT: Normocephalic. Atraumatic. PERRL. Extraocular movements intact. Oropharynx clear. Neck: Supple. Non-tender. Respiratory: No respiratory distress. Coarse breath sounds bilaterally. Cardiovascular: Regular rate and rhythm. Abdominal: Normal Inspection. Non-tender. No distension. Normal Bowel Sounds. Back: No gross abnormalities. Extremities: Upper extremities: Normal inspection. Normal ROM. Lower extremities: Bilateral BKAs, coverings removed which reveals significant erythema to the distal stumps bilaterally, both draining purulent yellowish colored discharge, both are tender with palpation. Neurological: Withdraws to painful stimuli. Skin: Warm. Dry. Normal color. Course - Vital Signs Vital signs: Temp Pulse Resp BP Pulse Ox 97.6 F 76 29 H 137/58 H 90 L 09/08/19 22:25 09/08/19 16:21 09/08/19 22:01 09/08/19 22:01 09/08/19 22:01 - Laboratory Result Diagrams: 09/08/19 17:20 09/08/19 17:20 Laboratory results interpreted by me: 09/08/19 09/08/19 09/08/19 17:20 17:20 19:35 RBC 3.99 L Hgb 11.3 L Hct 34.9 L [place] % (Auto) 15.5 H Eos % (Auto) 6.3 H Carbonic Acid ABG pH ABG pCO2 ABG pO2 ABG HCO3 ABG Total CO2 ABG O2 Saturation Sodium 146.7 H Chloride 111 H BUN 48 H Creatinine 1.85 H Est GFR ( Amer) 43 L Est GFR (MDRD) Non-Af 36 L Glucose 176 H Calcium 13.1 H* Total Protein 6.1 L Albumin 3.3 L PTH Intact 6.0 L 09/08/19 21:09 RBC Hgb Hct [place] % (Auto) Eos % (Auto) Carbonic Acid 1.97 H ABG pH 7.24 L ABG pCO2 65.3 H ABG pO2 72.4 L ABG HCO3 27.4 H ABG Total CO2 29.4 H ABG O2 Saturation 91.4 L Sodium Chloride BUN Creatinine Est GFR ( Amer) Est GFR (MDRD) Non-Af Glucose Calcium Total Protein Albumin PTH Intact Discharge - Discharge Clinical Impression: Acute on chronic respiratory failure with hypoxia and hypercapnia Condition: Fair Disposition: ADMITTED INPATIENT [facility] Unit Admitted: I[facility] Referrals: TJ ARREOLA MD [Primary Care Provider] - Follow up as needed I personally performed the services described in the documentation, reviewed and edited the documentation which was dictated to the scribe in my presence, and it accurately records my words and actions.
[2019-09-09 00:11] LABS: APPEARANCE,URINE CLEAR; BILIRUBIN,URINE NEGATIVE (NEGATIVE); COLOR,URINE STRAW; GLUCOSE, URINE NEGATIVE (NEGATIVE); KETONES,URINE NEGATIVE (NEGATIVE); LEUKOCYTE ESTERASE,URINE NEGATIVE (NEGATIVE); NITRITE,URINE NEGATIVE (NEGATIVE); PROTEIN,URINE 30 mg/dL (NEGATIVE); URINE SPECIFIC GRAVITY 1.008; UROBILINOGEN,URINE NEGATIVE mg/dL (<2.0)
[2019-09-09 06:39] LABS: ABSOLUTE EOSINOPHILS # (AUTO) 0.3 10^3/uL (0.0-0.6); ABSOLUTE LYMPHOCYTES (AUTO) 0.7 10^3/uL (0.5-4.7); ABSOLUTE MONOCYTES (AUTO) 0.8 10^3/uL (0.1-1.4); ABSOLUTE NEUT (AUTO) 4.1 10^3/uL (1.7-8.2); BASOPHILS % (AUTO) 0.7 % (0-2); EOSINOPHILS % (AUTO) 5.3 % (0-6); HEMATOCRIT 33.5 % (37.9-51.0); HEMOGLOBIN 10.9 g/dL (13.5-17.0); LYMPHOCYTES % (AUTO) 12.3 % (13-45); MEAN CORPUSCULAR HEMOGLOBIN 28.2 pg (27.0-33.4); MEAN CORPUSCULAR HGB CONC 32.6 g/dL (32.0-36.0); MEAN CORPUSCULAR VOLUME 87 fl (80-97); MONOCYTES % (AUTO) 13.4 % (3-13); PLATELET COUNT 272 10^3/uL (150-450); RED BLOOD COUNT 3.86 10^6/uL (4.35-5.55); RED CELL DISTRIBUTION WIDTH 13.9 % (11.5-14.0); SEGMENTED NEUTROPHILS % (AUTO) 68.3 % (42-78); TOTAL CELLS COUNTED % (AUTO) 100 %
[2019-09-09 06:46] LABS: ANION GAP 6 (5-19); BLOOD UREA NITROGEN 46 mg/dL (7-20); CARBON DIOXIDE 27 mmol/L (22-30); CHLORIDE 114 mmol/L (98-107); GLUCOSE 101 mg/dL (75-110); POTASSIUM 3.9 mmol/L (3.6-5.0)
[2019-09-09 07:07] LABS: CALCIUM 12.3 mg/dL (8.4-10.2)
[2019-09-09] MEDS: FLUTICASONE/VILANTEROL 100-25 MCG/DOSE IH SCH (11:31)
[2019-09-09] MEDS: GLIMEPIRIDE 1 MG TABLET PO SCH (11:31)
[2019-09-09] MEDS: ROFLUMILAST 500 MCG TABLET PO SCH (11:32)
[2019-09-09] MEDS: MULTIVITAMIN TABLET PO SCH (11:32)
[2019-09-09] MEDS: ASCORBIC ACID 500 MG TABLET PO SCH (11:32)
[2019-09-09] MEDS: ASPIRIN 81 MG TABLET, ENT COATED PO SCH (11:32)
[2019-09-09] MEDS: QUETIAPINE FUMARATE 25 MG TABLET PO SCH ×2 (11:32→17:27)
[2019-09-09] MEDS: CARVEDILOL 6.25 MG TABLET PO SCH ×2 (11:32→17:27)
[2019-09-09] MEDS: AMLODIPINE BESYLATE 10 MG TABLET PO SCH (11:32)
[2019-09-09] MEDS: EZETIMIBE 10 MG TABLET PO SCH (11:39)
[2019-09-09] MEDS: ACETAZOLAMIDE 500 MG CAPSULE.SA PO SCH (11:42)
[2019-09-09] MEDS ORDERED: ALBUTEROL SULFATE HFA (90 MCG/PUFF) 8 GM MDI (1 MDI/ER DISP) IH PRN (12:37)
[2019-09-09] MEDS ORDERED: IPRATROPIUM/ALBUTEROL 0.5-2.5 MG/3 ML AMPUL NEB PRN (12:37)
[2019-09-09] MEDS ORDERED: ALBUTEROL SULFATE HFA (90 MCG/PUFF) 200 PUFF/8.5 GM MDI IH PRN (12:42)
[2019-09-09] MEDS ORDERED: (PENDING PHARMACY ID) (Calcitriol [Calcitriol] 0.5 MCG) PO SCH (12:45)
[2019-09-09] MEDS ORDERED: CALCITRIOL 0.25 MCG CAPSULE PO SCH (13:00)
--- NOTE | 2019-09-09 13:15 | PDOC H&P ---
History of Present Illness Admission Date/PCP: 09/09/19 00:32 TJ ARREOLA History of Present Illness: TOBY HENDERSON is a 74 year old male, he has multiple comorbid conditions he was just recently discharged from this hospital on 08/25/2019 he has a history of chronic respiratory failure with hypoxemia and hypercapnia, he apparently was brought to the emergency room by his daughter because he was found to be lethargic at home and the oxygen saturation was 77%, he was slumped over his wheelchair drooling patient's daughter stated that he had a similar presentation the last time he was admitted to the hospital. 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 The last time he was admitted he also had acute on chronic respiratory failure due to COPD exacerbation on review of his lab work the serum calcium is 13.30 PTH is 6, creatinine is 1.85, the last time was admitted he had hypocalcemia with elevated PTH and apparently he was started on calcitriol he also had a kidney ultrasound that was consistent with medical renal disease with hyper ec hogenicity of the kidney parenchyma. History taking was a challenge sometime but overall it was adequate the daughter was also in the room, is a DNR status. Patient is presently requiring noninvasive positive pressure ventilation with BiPAP, the chest x-ray was done was negative for any acute infiltrate to suggest pneumonia. Past Medical History Cardiac Medical History: Reports: Coronary Artery Disease, Myocardial Infarction - 2012, Hyperlipidema, Hypertension Pulmonary Medical History: Reports: Asthma, Chronic Obstructive Pulmonary Disease (COPD), Pneumonia Endocrine Medical History: Reports: Diabetes Mellitus Type 2 GI Medical History: Reports: Gastroesophageal Reflux Disease, Hiatal Hernia - PT UNSURE Psychiatric Medical History: Reports: Depression Past Surgical History Past Surgical History: Reports: Orthopedic Surgery - Bilateral BKA, Other - Bilateral cataract surgery Social History Lives with: Family Smoking Status: Former Smoker Cigarettes Packs Per Day: 1 Frequency of Alcohol Use: None Hx Recreational Drug Use: No Drugs: None Hx Prescription Drug Abuse: No Family History Family History: Reviewed & Not Pertinent Parental Family History Reviewed: Yes Children Family History Reviewed: Yes Sibling(s) Family History Reviewed.: Yes Medication/Allergy Home Medications: Amlodipine Besylate [Norvasc 10 mg Tablet] 10 mg PO DAILY 08/14/19 Ascorbic Acid [Vitamin C 500 mg Tablet] 1 tab PO DAILY 08/14/19 Aspirin [Ecotrin 81 mg EC Tablet] 81 mg PO DAILY 08/14/19 Carvedilol [Coreg 6.25 mg Tablet] 6.25 mg PO BID 08/14/19 Ezetimibe [Zetia 10 mg Tablet] 10 mg PO DAILY 08/14/19 Fluticasone/Vilanterol [Breo 100-25 Mcg Ellipta 14 Dose/Dpi] 1 inh IH DAILY 08/14/19 Glimepiride 2 mg PO DAILY 08/14/19 Mv-Mins/Folic/Lycopene/Ginkgo [One Daily For Men 50+ Adv Tab] 1 each PO DAILY 08/14/19 Quetiapine Fumarate [Seroquel] 25 mg PO BID 08/14/19 Roflumilast [Daliresp 500 mcg Tablet] 500 mcg PO DAILY 08/14/19 Calcitriol 0.5 mcg PO BID #60 capsule 08/25/19 Calcium Carbonate [Os-Narciso 500 mg Tablet (Oyster-Shell)] 1,000 mg PO BID #120 tablet 08/25/19 Albuterol Sulfate [Ventolin Hfa 8 gm Mdi (1 Mdi/ER Disp)] 2 puff IH Q6HP PRN 09/09/19 Cephalexin [Keflex] 500 mg PO BID 09/09/19 Ipratropium/Albuterol Sulfate [Duoneb 3 ml Ampul] 3 ml NEB ASDIR PRN 09/09/19 Silver Sulfadiazine [Ssd] 1 applic TOP ASDIR PRN 09/09/19 Allergies/Adverse Reactions: No Known Drug Allergies Allergy (Verified 09/08/19 16:53) Review of Systems Constitutional: ABSENT: chills, fever(s), headache(s), weight gain, weight loss Eyes: ABSENT: visual disturbances Ears: ABSENT: hearing changes Cardiovascular: ABSENT: chest pain, dyspnea on exertion, edema, orthropnea, palpitations Respiratory: PRESENT: dyspnea Gastrointestinal: ABSENT: abdominal pain, constipation, diarrhea, hematemesis, hematochezia, nausea, vomiting Genitourinary: ABSENT: dysuria, hematuria Musculoskeletal: ABSENT: joint swelling Integumentary: ABSENT: rash, wounds Neurological: ABSENT: abnormal gait, abnormal speech, confusion, dizziness, focal weakness, syncope Psychiatric: ABSENT: anxiety, depression, homidical ideation, suicidal ideation Endocrine: ABSENT: cold intolerance, heat intolerance, menstrual abnormalities, polydipsia, polyuria Hematologic/Lymphatic: ABSENT: easy bleeding, easy bruising, lymphadenopathy Physical Exam Vital Signs: Temp Pulse Resp BP Pulse Ox 98.3 F 98 16 145/85 H 94 09/09/19 10:32 09/09/19 10:32 09/09/19 10:32 09/09/19 10:32 09/09/19 10:32 Intake & Output 09/08/19 09/09/19 09/10/19 06:59 06:59 06:59 Intake Total 1000 Output Total 675 Balance 325 Weight 69.6 kg General appearance: PRESENT: mild distress Head exam: PRESENT: atraumatic, normocephalic Eye exam: PRESENT: PERRLA Neck exam: PRESENT: full ROM Respiratory exam: PRESENT: decreased breath sounds Cardiovascular exam: PRESENT: +S1, +S2 GI/Abdominal exam: PRESENT: normal bowel sounds, soft Rectal exam: PRESENT: deferred Extremities exam: PRESENT: left BKA, right BKA, other Neurological exam: PRESENT: alert, CN II-XII grossly intact. ABSENT: motor sensory deficit Psychiatric exam: PRESENT: appropriate affect, normal mood Skin exam: PRESENT: dry, intact, warm Results Laboratory Results: 09/09/19 05:40 09/09/19 05:40 09/08/19 09/08/19 09/08/19 17:20 17:20 17:20 WBC 5.4 RBC 3.99 L Hgb 11.3 L Hct 34.9 L MCV 88 MCH 28.3 MCHC 32.3 RDW 14.0 Plt Count 256 Seg Neutrophils % 60.5 Carbonic Acid HCO3/H2CO3 Ratio ABG pH ABG pCO2 ABG pO2 ABG HCO3 ABG O2 Saturation ABG Base Excess FiO2 Sodium 146.7 H Potassium 4.2 Chloride 111 H Carbon Dioxide 30 Anion Gap 6 BUN 48 H Creatinine 1.85 H Est GFR ( Amer) 43 L Glucose 176 H Calcium 13.1 H* Total Bilirubin 0.3 AST 25 Alkaline Phosphatase 74 Total Protein 6.1 L Albumin 3.3 L PTH Intact Cancelled Urine Color Urine Appearance Urine pH Ur Specific [place] Urine Protein Urine Glucose (UA) Urine Ketones Urine Blood Urine Nitrite Ur Leukocyte Esterase Urine WBC (Auto) Urine RBC (Auto) 12/20/19 12/20/19 12/20/19 19:35 21:09 23:30 WBC RBC Hgb Hct MCV MCH MCHC RDW Plt Count Seg Neutrophils % Carbonic Acid 1.97 H HCO3/H2CO3 Ratio 13:1 ABG pH 7.24 L ABG pCO2 65.3 H ABG pO2 72.4 L ABG HCO3 27.4 H ABG O2 Saturation 91.4 L ABG Base Excess -1.1 FiO2 ROOM AIR Sodium Potassium Chloride Carbon Dioxide Anion Gap BUN Creatinine Est GFR ( Amer) Glucose Calcium Total Bilirubin AST Alkaline Phosphatase Total Protein Albumin PTH Intact 6.0 L Urine Color STRAW Urine Appearance CLEAR Urine pH 6.0 Ur Specific [place] 1.008 Urine Protein 30 H Urine Glucose (UA) NEGATIVE Urine Ketones NEGATIVE Urine Blood NEGATIVE Urine Nitrite NEGATIVE Ur Leukocyte Esterase NEGATIVE Urine WBC (Auto) 2 Urine RBC (Auto) 1 09/09/19 09/09/19 05:40 05:40 WBC 6.0 RBC 3.86 L Hgb 10.9 L Hct 33.5 L MCV 87 MCH 28.2 MCHC 32.6 RDW 13.9 Plt Count 272 Seg Neutrophils % 68.3 Carbonic Acid HCO3/H2CO3 Ratio ABG pH ABG pCO2 ABG pO2 ABG HCO3 ABG O2 Saturation ABG Base Excess FiO2 Sodium 146.9 H Potassium 3.9 Chloride 114 H Carbon Dioxide 27 Anion Gap 6 BUN 46 H Creatinine 1.78 H Est GFR ( Amer) 45 L Glucose 101 Calcium 12.3 H* Total Bilirubin AST Alkaline Phosphatase Total Protein Albumin PTH Intact Urine Color Urine Appearance Urine pH Ur Specific [place] Urine Protein Urine Glucose (UA) Urine Ketones Urine Blood Urine Nitrite Ur Leukocyte Esterase Urine WBC (Auto) Urine RBC (Auto) 09/08/19 17:20 Troponin I 0.044 Impressions: Chest X-Ray 09/08/19 16:34 IMPRESSION: NO ACUTE RADIOGRAPHIC FINDING IN THE CHEST. Assessment & Plan - Diagnosis (1) Acute respiratory failure with hypoxia and hypercapnia Is this a current diagnosis for this admission?: Yes Plan: Patient with acute respiratory failure with hypoxia and hypercapnia, presently requiring noninvasive positive pressure ventilation, is a DNR status, family do not want mechanical ventilation, the chest x-ray is clear of any pneumonic process. There is no obvious wheeze on auscultation of his chest but the air entry was diminished bilaterally, he has a history of COPD (2) Hypercalcemia Is this a current diagnosis for this admission?: Yes Plan: He has hypercalcemia this serum calcium is 13.1 PTH is low at 5 when he was discharged from this hospital on 08/25/2019 the serum calcium from 08/23/2019 was 7.2, the PTH from 08/21/2019 was 371.6, at that time he was diagnosed with secondary hyperparathyroidism due to chronic kidney disease, the discharge serum creatinine from the last admission was 1.07, the serum creatinine today is 1.85. He was discharged home calcitriol 0.5 MCG p.o. twice daily. The hypercalcemia and a low PTH is most likely from the calcitriol. The triad of acute kidney injury , anemia hypercalcemia low PTH may me to suspect initially that he may has paraproteinemia, we will hold the calcitriol also required serum and urine protein electrophoresis. Unlikely to be due to paraproteinemia (3) Acute renal failure superimposed on stage 3 chronic kidney disease Qualifiers: Acute renal failure type: unspecified Qualified Code(s): N17.9 - Acute kidney failure, unspecified; N18.3 - Chronic kidney disease, stage 3 (moderate) Is this a current diagnosis for this admission?: Yes Plan: The serum creatinine is 1.85, when he was discharged it was 1, there is probably prerenal component (4) COPD (chronic obstructive pulmonary disease) Qualifiers: COPD type: unspecified COPD Qualified Code(s): J44.9 - Chronic obstructive pulmonary disease, unspecified Is this a current diagnosis for this admission?: Yes (5) T2DM (type 2 diabetes mellitus) Qualifiers: Diabetes mellitus group home insulin use: with terminal supervisor use Diabetes steven litus complication status: with circulatory complication Diabetes mellitus complication detail: with peripheral angiopathy with gangrene Qualified Code(s): E11.52 - Type 2 diabetes mellitus with diabetic peripheral angiopathy with gangrene; Z79.4 - terminal makeup operator (current) use of insulin Is this a current diagnosis for this admission?: Yes
[2019-09-09] MEDS: CEPHALEXIN 500 MG CAPSULE PO SCH ×2 (13:36→21:59)
[2019-09-09] MEDS: CALCIUM CARBONATE 500 MG TABLET PO SCH ×2 (13:36→17:27)
[2019-09-09 14:46] LABS: INTERNATIONAL RATION (INR) 1.02; PROTHROMBIN TIME 13.4 SEC (11.4-15.4)
[2019-09-09 14:47] LABS: PARTIAL THROMBOPLASTIN TIME 28.6 SEC (23.5-35.8)
[2019-09-09 14:56] LABS: AMYLASE 66 U/L (30-110); ANION GAP 7 (5-19); BLOOD UREA NITROGEN 45 mg/dL (7-20); CARBON DIOXIDE 28 mmol/L (22-30); CHLORIDE 111 mmol/L (98-107); GLUCOSE 123 mg/dL (75-110); PHOSPHORUS 4.9 mg/dL (2.5-4.5); POTASSIUM 3.9 mmol/L (3.6-5.0)
[2019-09-09 15:04] LABS: CALCIUM 12.1 mg/dL (8.4-10.2)
[2019-09-09 15:10] LABS: CREATINE KINASE MB 2.54 ng/mL (<4.55); TROPONIN I 0.035 ng/mL
[2019-09-09 15:12] LABS: FREE T4 (FREE THYROXINE) 0.78 ng/dL (0.78-2.19)
[2019-09-09] MEDS: HEPARIN SOD (PORCINE) 5,000 UNIT/ML 1 ML VIAL SUBCUT SCH ×2 (15:12→22:00)
[2019-09-09 15:26] LABS: THYROID STIMULATING HORMONE 1.23 uIU/mL (0.47-4.68)
[2019-09-09 15:58] LABS: UR PRO/CREAT RATIO RESULT 1.1 mg/mg (0.0-0.2); URINE CREATININE 38.8 mg/dL (22-328)
[2019-09-09] MEDS: ACETAMINOPHEN 325 MG TABLET PO PRN (17:27)
[2019-09-09] MEDS ORDERED: HYDROMORPHONE HCL INJ/PF 2 MG/ML AMPULE IV PRN (18:16)
[2019-09-09] MEDS: NORMAL SALINE 1000 ML 1,000 ML IV PRN (19:09)
[2019-09-09 20:58] LABS: CREATINE KINASE MB 2.31 ng/mL (<4.55); TROPONIN I 0.037 ng/mL
[2019-09-09] MEDS ORDERED: GLUCAGON,HUMAN RECOMB 1 MG INJ IM PRN (21:30)
[2019-09-09] MEDS ORDERED: DEXTROSE 50%-WATER SYRINGE 25 GM/50 ML DOSE IV PRN (21:30)
[2019-09-09] MEDS ORDERED: DEXTROSE 40% GEL 15 GM TUBE X 2 PO PRN (21:30)
[2019-09-09] MEDS ORDERED: DEXTROSE 40% GEL 15 GM TUBE PO PRN (21:30)
[2019-09-09] MEDS: DEXTROSE 50%-WATER SYRINGE 12.5 GM/25 ML DOSE IV PRN (21:31)
[2019-09-09 23:36] LABS: APPEARANCE,URINE CLEAR; BILIRUBIN,URINE NEGATIVE (NEGATIVE); CALCIUM OXALATE CRYSTALS,URINE MODERATE /HPF; COLOR,URINE YELLOW; GLUCOSE, URINE NEGATIVE (NEGATIVE); KETONES,URINE NEGATIVE (NEGATIVE); LEUKOCYTE ESTERASE,URINE NEGATIVE (NEGATIVE); NITRITE,URINE NEGATIVE (NEGATIVE); PROTEIN,URINE 30 mg/dL (NEGATIVE); UROBILINOGEN,URINE NEGATIVE mg/dL (<2.0)
[2019-09-09 23:48] LABS: URINE AMPHETAMINES SCREEN NEGATIVE; URINE BARBITURATES SCREEN NEGATIVE; URINE BENZODIAZEPINES SCREEN NEGATIVE; URINE COCAINE SCREEN NEGATIVE; URINE MARIJUANA (THC) SCREEN NEGATIVE; URINE METHADONE SCREEN NEGATIVE; URINE PHENCYCLIDINE SCREEN NEGATIVE
[2019-09-10] MEDS: DEXTROSE 50%-WATER SYRINGE 12.5 GM/25 ML DOSE IV PRN (02:07)
[2019-09-10 02:27] LABS: VENOUS BLOOD BASE EXCESS -1.2 mmol/L; VENOUS BLOOD PCO2 62.4 mmHg (35-63); VENOUS BLOOD PH 7.25 (7.30-7.42)
[2019-09-10 02:59] LABS: CREATINE KINASE MB 2.44 ng/mL (<4.55); TROPONIN I 0.035 ng/mL
[2019-09-10 06:00] LABS: ABSOLUTE EOSINOPHILS # (AUTO) 0.2 10^3/uL (0.0-0.6); ABSOLUTE LYMPHOCYTES (AUTO) 0.9 10^3/uL (0.5-4.7); ABSOLUTE MONOCYTES (AUTO) 0.8 10^3/uL (0.1-1.4); ABSOLUTE NEUT (AUTO) 3.7 10^3/uL (1.7-8.2); BASOPHILS % (AUTO) 0.4 % (0-2); EOSINOPHILS % (AUTO) 3.7 % (0-6); HEMATOCRIT 35.1 % (37.9-51.0); HEMOGLOBIN 11.3 g/dL (13.5-17.0); LYMPHOCYTES % (AUTO) 15.7 % (13-45); MEAN CORPUSCULAR HEMOGLOBIN 27.8 pg (27.0-33.4); MEAN CORPUSCULAR HGB CONC 32.3 g/dL (32.0-36.0); MEAN CORPUSCULAR VOLUME 86 fl (80-97); MONOCYTES % (AUTO) 14.8 % (3-13); PLATELET COUNT 241 10^3/uL (150-450); RED BLOOD COUNT 4.08 10^6/uL (4.35-5.55); RED CELL DISTRIBUTION WIDTH 13.5 % (11.5-14.0); SEGMENTED NEUTROPHILS % (AUTO) 65.4 % (42-78); TOTAL CELLS COUNTED % (AUTO) 100 %; WHITE BLOOD COUNT 5.6 10^3/uL (4.0-10.5)
[2019-09-10 06:28] LABS: ALBUMIN 3.2 g/dL (3.5-5.0); ALKALINE PHOSPHATASE 77 U/L (38-126); ASPARTATE AMINO TRANSFERASE 21 U/L (17-59); BILIRUBIN,DIRECT 0.2 mg/dL (0.0-0.4); BILIRUBIN,TOTAL 0.4 mg/dL (0.2-1.3); CHOLESTEROL 146.45 mg/dL (0-200); TOTAL PROTEIN 5.9 g/dL (6.3-8.2); TRIGLYCERIDES 118 mg/dL (<150)
[2019-09-10] MEDS: HEPARIN SOD (PORCINE) 5,000 UNIT/ML 1 ML VIAL SUBCUT SCH ×3 (06:30→22:23)
[2019-09-10 06:39] LABS: DIRECT LDL 111 mg/dL (<100)
[2019-09-10] MEDS: FLUTICASONE/VILANTEROL 100-25 MCG/DOSE IH SCH (09:52)
[2019-09-10] MEDS: ROFLUMILAST 500 MCG TABLET PO SCH (09:53)
[2019-09-10] MEDS: ASPIRIN 81 MG TABLET, ENT COATED PO SCH (09:53)
[2019-09-10] MEDS: CEPHALEXIN 500 MG CAPSULE PO SCH ×2 (09:53→22:23)
[2019-09-10] MEDS: ASCORBIC ACID 500 MG TABLET PO SCH (09:53)
[2019-09-10] MEDS: MULTIVITAMIN TABLET PO SCH (09:53)
[2019-09-10] MEDS: EZETIMIBE 10 MG TABLET PO SCH (09:53)
[2019-09-10] MEDS: QUETIAPINE FUMARATE 25 MG TABLET PO SCH ×2 (09:53→17:35)
[2019-09-10] MEDS: ACETAZOLAMIDE 500 MG CAPSULE.SA PO SCH (09:53)
[2019-09-10] MEDS: CALCIUM CARBONATE 500 MG TABLET PO SCH ×2 (09:53→17:35)
[2019-09-10] MEDS: AMLODIPINE BESYLATE 10 MG TABLET PO SCH (09:54)
[2019-09-10] MEDS: CARVEDILOL 6.25 MG TABLET PO SCH ×2 (09:54→17:35)
[2019-09-10] MEDS: GLIMEPIRIDE 1 MG TABLET PO SCH (09:54)
[2019-09-10] MEDS: ACETAMINOPHEN 325 MG TABLET PO PRN (11:42)
[2019-09-10] MEDS: SILVER SULFADIAZINE 1% CREAM 400 GM TP SCH (11:46)
--- NOTE | 2019-09-10 14:50 | PDOC PROGRESS REPORT ---
Subjective Progress Note for:: 09/10/19 Subjective:: Patient had episode of hypoglycemia, he is not eating that much, on glimepiride, this is discontinued Reason For Visit: ACUTE RESPIRATORY ACIDOSIS,HYPERCALCEMIA,METABOLIC Physical Exam Vital Signs: Temp Pulse Resp BP Pulse Ox 97.3 F 78 17 130/55 H 100 09/10/19 07:13 09/10/19 14:00 09/10/19 07:13 09/10/19 07:13 09/10/19 07:13 Intake & Output 09/09/19 09/10/19 09/11/19 06:59 06:59 06:59 Intake Total 3330 394 8228 Output Total 675 1900 400 Balance 325 -1420 1022 Weight 69.6 kg General appearance: PRESENT: no acute distress Eye exam: PRESENT: PERRLA Respiratory exam: PRESENT: decreased breath sounds Cardiovascular exam: PRESENT: +S1, +S2 Results Laboratory Results: 09/10/19 05:43 09/09/19 14:00 09/09/19 09/09/19 09/09/19 14:00 14:00 14:00 WBC RBC Hgb Hct MCV MCH MCHC RDW Plt Count Seg Neutrophils % Carbonic Acid HCO3/H2CO3 Ratio ABG pH ABG pCO2 ABG pO2 ABG HCO3 ABG O2 Saturation ABG Base Excess VBG pH VBG pCO2 VBG HCO3 VBG Base Excess FiO2 Sodium 145.6 H Potassium 3.9 Chloride 111 H Carbon Dioxide 28 Anion Gap 7 BUN 45 H Creatinine 1.77 H Est GFR ( Amer) 45 L Glucose 123 H Calcium 12.1 H* Phosphorus 4.9 H Magnesium 2.1 Total Bilirubin AST Alkaline Phosphatase Total Protein Cancelled Albumin Cancelled Triglycerides Cholesterol LDL Cholesterol Direct VLDL Cholesterol HDL Cholesterol Amylase 66 Lipase 153.3 TSH 1.23 Free T4 0.78 Urine Color Urine Appearance Urine pH Ur Specific [place] Urine Protein Urine Glucose (UA) Urine Ketones Urine Blood Urine Nitrite Ur Leukocyte Esterase Urine WBC (Auto) Urine RBC (Auto) 09/09/19 09/09/19 09/10/19 14:50 20:30 02:10 WBC RBC Hgb Hct MCV MCH MCHC RDW Plt Count Seg Neutrophils % Carbonic Acid Cancelled HCO3/H2CO3 Ratio Cancelled ABG pH Cancelled ABG pCO2 Cancelled ABG pO2 Cancelled ABG HCO3 Cancelled ABG O2 Saturation Cancelled ABG Base Excess Cancelled VBG pH 7.25 L VBG pCO2 62.4 VBG HCO3 27.0 VBG Base Excess -1.2 FiO2 Cancelled Sodium Potassium Chloride Carbon Dioxide Anion Gap BUN Creatinine Est GFR ( Amer) Glucose Calcium Phosphorus Magnesium Total Bilirubin AST Alkaline Phosphatase Total Protein Albumin Triglycerides Cholesterol LDL Cholesterol Direct VLDL Cholesterol HDL Cholesterol Amylase Lipase TSH Free T4 Urine Color YELLOW Urine Appearance CLEAR Urine pH 5.0 Ur Specific [place] 1.010 Urine Protein 30 H Urine Glucose (UA) NEGATIVE Urine Ketones NEGATIVE Urine Blood NEGATIVE Urine Nitrite NEGATIVE Ur Leukocyte Esterase NEGATIVE Urine WBC (Auto) 4 Urine RBC (Auto) 1 09/10/19 09/10/19 05:43 05:43 WBC 5.6 RBC 4.08 L Hgb 11.3 L Hct 35.1 L MCV 86 MCH 27.8 MCHC 32.3 RDW 13.5 Plt Count 241 Seg Neutrophils % 65.4 Carbonic Acid HCO3/H2CO3 Ratio ABG pH ABG pCO2 ABG pO2 ABG HCO3 ABG O2 Saturation ABG Base Excess VBG pH VBG pCO2 VBG HCO3 VBG Base Excess FiO2 Sodium Potassium Chloride Carbon Dioxide Anion Gap BUN Creatinine Est GFR ( Amer) Glucose Calcium Phosphorus Magnesium Total Bilirubin 0.4 AST 21 Alkaline Phosphatase 77 Total Protein 5.9 L Albumin 3.2 L Triglycerides 118 Cholesterol 146.45 LDL Cholesterol Direct 111 H VLDL Cholesterol 24.0 HDL Cholesterol 28 L Amylase Lipase TSH Free T4 Urine Color Urine Appearance Urine pH Ur Specific [place] Urine Protein Urine Glucose (UA) Urine Ketones Urine Blood Urine Nitrite Ur Leukocyte Esterase Urine WBC (Auto) Urine RBC (Auto) 09/08/19 09/09/19 09/09/19 17:20 14:00 14:00 Creatine Kinase 26 L CK-MB (CK-2) Troponin I 0.044 NT-Pro-B Natriuret Pep 1480 H 09/09/19 09/09/19 09/09/19 14:00 20:14 20:14 Creatine Kinase 22 L CK-MB (CK-2) 2.54 2.31 Troponin I 0.035 0.037 NT-Pro-B Natriuret Pep 09/10/19 09/10/19 02:10 02:10 Creatine Kinase 22 L CK-MB (CK-2) 2.44 Troponin I 0.035 NT-Pro-B Natriuret Pep Impressions: Chest X-Ray 09/08/19 16:34 IMPRESSION: NO ACUTE RADIOGRAPHIC FINDING IN THE CHEST. Assessment & Plan - Diagnosis (1) Acute respiratory failure with hypoxia and hypercapnia Is this a current diagnosis for this admission?: Yes Plan: Patient continues to require NIPPV (2) Hypercalcemia Is this a current diagnosis for this admission?: Yes (3) Acute renal failure superimposed on stage 3 chronic kidney disease Qualifiers: Acute renal failure type: unspecified Qualified Code(s): N17.9 - Acute kidney failure, unspecified; N18.3 - Chronic kidney disease, stage 3 (moderate) Is this a current diagnosis for this admission?: Yes (4) COPD (chronic obstructive pulmonary disease) Qualifiers: COPD type: unspecified COPD Qualified Code(s): J44.9 - Chronic obstructive pulmonary disease, unspecified Is this a current diagnosis for this admission?: Yes (5) T2DM (type 2 diabetes mellitus) Qualifiers: Diabetes mellitus fci insulin use: with buttermaker helper use Diabetes mellitus complication status: with circulatory complication Diabetes mellitus complication detail: with peripheral angiopathy with gangrene Qualified Code(s): E11.52 - Type 2 diabetes mellitus with diabetic peripheral angiopathy with gangrene; Z79.4 - retirement (current) use of insulin Is this a current diagnosis for this admission?: Yes (6) Hypoglycemia Is this a current diagnosis for this admission?: Yes Plan: Discontinue glimepiride - Time Time Spent with patient: 35 or more minutes Level of Care: [facility]
[2019-09-10 15:33] LABS: ALKALINE PHOSPHATASE 66 U/L (38-126); ANION GAP 8 (5-19); ASPARTATE AMINO TRANSFERASE 22 U/L (17-59); BILIRUBIN,DIRECT 0.2 mg/dL (0.0-0.4); BILIRUBIN,TOTAL 0.3 mg/dL (0.2-1.3); BLOOD UREA NITROGEN 44 mg/dL (7-20); CALCIUM 11.6 mg/dL (8.4-10.2); CARBON DIOXIDE 27 mmol/L (22-30); CHLORIDE 109 mmol/L (98-107); GLUCOSE 99 mg/dL (75-110); POTASSIUM 3.6 mmol/L (3.6-5.0); TOTAL PROTEIN 5.5 g/dL (6.3-8.2)
[2019-09-10] MEDS: NORMAL SALINE 1000 ML 1,000 ML IV PRN (22:23)
[2019-09-11 05:11] LABS: HEMATOCRIT 31.3 % (37.9-51.0); HEMOGLOBIN 10.4 g/dL (13.5-17.0); MEAN CORPUSCULAR HEMOGLOBIN 28.5 pg (27.0-33.4); MEAN CORPUSCULAR HGB CONC 33.1 g/dL (32.0-36.0); MEAN CORPUSCULAR VOLUME 86 fl (80-97); PLATELET COUNT 203 10^3/uL (150-450); RED BLOOD COUNT 3.64 10^6/uL (4.35-5.55); RED CELL DISTRIBUTION WIDTH 13.6 % (11.5-14.0); WHITE BLOOD COUNT 5.6 10^3/uL (4.0-10.5)
[2019-09-11 05:38] LABS: ALBUMIN 2.9 g/dL (3.5-5.0); ALKALINE PHOSPHATASE 69 U/L (38-126); ASPARTATE AMINO TRANSFERASE 24 U/L (17-59); BILIRUBIN,DIRECT 0.2 mg/dL (0.0-0.4); BILIRUBIN,TOTAL 0.3 mg/dL (0.2-1.3); TOTAL PROTEIN 5.6 g/dL (6.3-8.2)
[2019-09-11 05:43] LABS: ABSOLUTE LYMPHOCYTES# (MANUAL) 0.8 10^3/uL (0.5-4.7); ABSOLUTE MONOCYTES # (MANUAL) 0.8 10^3/uL (0.1-1.4); BAND NEUTROPHILS % (MANUAL) 1 % (3-5); BASOPHILS % (MANUAL) 1 % (0-2); EOSINOPHILS % (MANUAL) 2 % (0-6); LYMPHOCYTES % (MANUAL) 15 % (13-45); MONOCYTES % (MANUAL) 14 % (3-13); SEGMENTED NEUTROPHILS % (MAN) 67 % (42-78); TOTAL CELLS COUNTED 100
[2019-09-11 05:44] LABS: RBC MORPHOLOGY COMMENT NORMO-CYTIC/CHROMIC
[2019-09-11 05:45] LABS: PLATELET COMMENT ADEQUATE
[2019-09-11] MEDS: HEPARIN SOD (PORCINE) 5,000 UNIT/ML 1 ML VIAL SUBCUT SCH ×3 (06:08→22:51)
[2019-09-11] MEDS: ACETAZOLAMIDE 500 MG CAPSULE.SA PO SCH (10:33)
[2019-09-11] MEDS: AMLODIPINE BESYLATE 10 MG TABLET PO SCH (10:34)
[2019-09-11] MEDS: EZETIMIBE 10 MG TABLET PO SCH (10:34)
[2019-09-11] MEDS: ASPIRIN 81 MG TABLET, ENT COATED PO SCH (10:34)
[2019-09-11] MEDS: ROFLUMILAST 500 MCG TABLET PO SCH (10:34)
[2019-09-11] MEDS: CEPHALEXIN 500 MG CAPSULE PO SCH (10:34)
[2019-09-11] MEDS: CARVEDILOL 6.25 MG TABLET PO SCH ×2 (10:34→18:37)
[2019-09-11] MEDS: CALCIUM CARBONATE 500 MG TABLET PO SCH ×2 (10:35→18:37)
[2019-09-11] MEDS: FLUTICASONE/VILANTEROL 100-25 MCG/DOSE IH SCH (10:35)
[2019-09-11] MEDS: MULTIVITAMIN TABLET PO SCH (10:35)
[2019-09-11] MEDS: ASCORBIC ACID 500 MG TABLET PO SCH (10:35)
[2019-09-11] MEDS: QUETIAPINE FUMARATE 25 MG TABLET PO SCH ×2 (10:35→18:37)
[2019-09-11] MEDS: SILVER SULFADIAZINE 1% CREAM 400 GM TP SCH (10:36)
--- NOTE | 2019-09-11 12:45 | EKG REPORT ---
SEVERITY:- ABNORMAL ECG - SINUS RHYTHM VENTRICULAR PREMATURE COMPLEX RIGHT BUNDLE BRANCH BLOCK : Confirmed by: Kristan Husain MD 11-Sep-2019 12:44:14
[2019-09-11 17:51] LABS: ARTERIAL BLOOD BASE EXCESS -3.1 mmol/L; ARTERIAL BLOOD H2CO3 1.37 mmol/L (1.05-1.35); ARTERIAL BLOOD PCO2 45.6 mmHg (35-45); ARTERIAL BLOOD PH 7.32 (7.35-7.45); ARTERIAL BLOOD PO2 119.2 mmHg (80-100); ARTERIAL BLOOD TOTAL CO2 24.4 mmol/L (23-27)
[2019-09-11 17:55] LABS: ARTERIAL BLOOD FIO2 3.5
[2019-09-11] MEDS: NORMAL SALINE 1000 ML 1,000 ML IV PRN (18:44)
--- NOTE | 2019-09-11 21:52 | PDOC PROGRESS REPORT ---
Subjective Progress Note for:: 09/11/19 Subjective:: Refused to use hospital bed due to reported lack of comfort. Preferred sleeping in bedside reclined chair. Remain on supplemental oxygen via nasal cannula. No reported fever or chills. No nausea or vomiting. P.O intake remain poor. No chest pain. Reason For Visit: ACUTE RESPIRATORY ACIDOSIS,HYPERCALCEMIA,METABOLIC Physical Exam Vital Signs: Temp Pulse Resp BP Pulse Ox 98.4 F 80 18 124/57 L 97 09/11/19 17:24 09/11/19 17:24 09/11/19 17:24 09/11/19 17:24 09/11/19 17:24 Intake & Output 09/10/19 09/11/19 09/12/19 06:59 06:59 06:59 Intake Total 480 1720 1592 Output Total 1900 675 100 Balance -1420 1045 1492 General appearance: PRESENT: mild distress - on supplemental oxygen Head exam: PRESENT: atraumatic, normocephalic Eye exam: PRESENT: conjunctiva pink. ABSENT: scleral icterus Ear exam: PRESENT: normal external ear exam Mouth exam: PRESENT: moist - fairly Respiratory exam: PRESENT: decreased breath sounds - at lung bases, rhonchi - minimal end expiratory phase. Cardiovascular exam: PRESENT: RRR. ABSENT: diastolic murmur, rubs, systolic murmur Vascular exam: ABSENT: pallor GI/Abdominal exam: PRESENT: normal bowel sounds, soft. ABSENT: distended, guarding, mass, organolmegaly, rebound, tenderness Extremities exam: PRESENT: left BKA, right BKA. ABSENT: pedal edema Neurological exam: PRESENT: alert, awake Psychiatric exam: PRESENT: appropriate affect, normal mood. ABSENT: homicidal ideation, suicidal ideation Skin exam: PRESENT: dry, warm, other - blister lesions on BKA stums with some d egree of skin breakdown with surrounding erythema. Results Laboratory Results: 09/11/19 03:58 09/10/19 15:00 09/11/19 09/11/19 09/11/19 03:58 03:58 17:35 WBC 5.6 RBC 3.64 L Hgb 10.4 L Hct 31.3 L MCV 86 MCH 28.5 MCHC 33.1 RDW 13.6 Plt Count 203 Seg Neutrophils % Not Reportable Carbonic Acid 1.37 H HCO3/H2CO3 Ratio 16:1 ABG pH 7.32 L ABG pCO2 45.6 H ABG pO2 119.2 H ABG HCO3 23.0 ABG O2 Saturation 98.0 ABG Base Excess -3.1 FiO2 3.5 Total Bilirubin 0.3 AST 24 Alkaline Phosphatase 69 Total Protein 5.6 L Albumin 2.9 L 09/08/19 09/09/19 09/09/19 17:20 14:00 14:00 Creatine Kinase 26 L CK-MB (CK-2) Troponin I 0.044 NT-Pro-B Natriuret Pep 1480 H 09/09/19 09/09/19 09/09/19 14:00 20:14 20:14 Creatine Kinase 22 L CK-MB (CK-2) 2.54 2.31 Troponin I 0.035 0.037 NT-Pro-B Natriuret Pep 09/10/19 09/10/19 02:10 02:10 Creatine Kinase 22 L CK-MB (CK-2) 2.44 Troponin I 0.035 NT-Pro-B Natriuret Pep Impressions: Chest X-Ray 09/08/19 16:34 IMPRESSION: NO ACUTE RADIOGRAPHIC FINDING IN THE CHEST. Assessment & Plan - Diagnosis (1) Acute on chronic respiratory failure with hypoxia and hypercapnia Is this a current diagnosis for this admission?: Yes Plan: Continue current supportive care. Maintain on BiPAP support while sleeping. (2) COPD (chronic obstructive pulmonary disease) Qualifiers: COPD type: COPD with acute exacerbation Qualified Code(s): J44.1 - Chronic obstructive pulmonary disease with (acute) exacerbation Is this a current diagnosis for this admission?: Yes Plan: Continue current medication management. (3) Cystitis due to Pseudomonas Is this a current diagnosis for this admission?: Yes Plan: Start on IV Fortaz coverage. D/C oral Keflex. Follow up on blood culture findings. (4) T2DM (type 2 diabetes mellitus) Qualifiers: Diabetes mellitus group home insulin use: with long wall shear operator use Diabetes mellitus complication status: with circulatory complication Diabetes mellitus complication detail: with peripheral angiopathy with gangrene Qualified Code(s): E11.52 - Type 2 diabetes mellitus with diabetic peripheral angiopathy with gangrene; Z79.4 - detention (current) use of insulin Is this a current diagnosis for this admission?: Yes Plan: Continue insulin coverage. (5) HTN (hypertension) Qualifiers: Hypertension type: essential hypertension Qualified Code(s): I10 - Essential (primary) hypertension Is this a current diagnosis for this admission?: Yes Plan: Continue current medication management. (6) HLD (hyperlipidemia) Qualifiers: Hyperlipidemia type: unspecified Qualified Code(s): E78.5 - Hyperlipidemia, unspecified Is this a current diagnosis for this admission?: Yes Plan: continue current medication management. (7) Pressure ulcer of BKA stump, stage 2 Is this a current diagnosis for this admission?: Yes Plan: Start on wound cleaning with soap and water with application of Silverdine cream daily. - Time Time Spent with patient: 35 or more minutes Level of Care: IMCU Medications reviewed and adjusted accordingly: Yes Anticipated discharge: Home with Homehealth, SNF - Inpatient Certification Based on my medical assessment, after consideration of the patient's comorbidities, presenting symptoms, or acuity I expect that the services needed warrant INPATIENT care.: Yes I certify that my determination is in accordance with my understanding of Medicare's requirements for reasonable and necessary INPATIENT services [42 CFR 412.3e].: Yes Medical Necessity: Significant Comorbidiites Make Outpatient Treatment Too Risky, Need Close Monitoring Due to Risk of Patient Decompensation, Need For IV Fluids, Need For Continuous Telemetry Monitoring, Need for Nebulizer Therapy and Monitoring of Response, Need for IV Antibiotics, Risk of Complication if Not Cared For in Hospital, Risk of Diagnosis Which Will Require Inpatient Eval/Care/Monitoring Post Hospital Care: D/C L[place] Documentation, D/C or Transfer Summary - Plan Summary Plan Summary: See attending physician orders for details about care plan.
[2019-09-12 05:15] LABS: ABSOLUTE EOSINOPHILS # (AUTO) 0.1 10^3/uL (0.0-0.6); ABSOLUTE LYMPHOCYTES (AUTO) 0.8 10^3/uL (0.5-4.7); ABSOLUTE MONOCYTES (AUTO) 1.1 10^3/uL (0.1-1.4); ALBUMIN 2.9 g/dL (3.5-5.0); ALKALINE PHOSPHATASE 70 U/L (38-126); ASPARTATE AMINO TRANSFERASE 25 U/L (17-59); BASOPHILS % (AUTO) 0.4 % (0-2); BILIRUBIN,DIRECT 0.1 mg/dL (0.0-0.4); BILIRUBIN,TOTAL 0.2 mg/dL (0.2-1.3); EOSINOPHILS % (AUTO) 1.7 % (0-6); HEMATOCRIT 30.9 % (37.9-51.0); HEMOGLOBIN 10.2 g/dL (13.5-17.0); LYMPHOCYTES % (AUTO) 13.6 % (13-45); MEAN CORPUSCULAR HEMOGLOBIN 28.4 pg (27.0-33.4); MEAN CORPUSCULAR HGB CONC 32.8 g/dL (32.0-36.0); MEAN CORPUSCULAR VOLUME 87 fl (80-97); MONOCYTES % (AUTO) 17.9 % (3-13); PLATELET COUNT 174 10^3/uL (150-450); RED BLOOD COUNT 3.58 10^6/uL (4.35-5.55); RED CELL DISTRIBUTION WIDTH 13.8 % (11.5-14.0); SEGMENTED NEUTROPHILS % (AUTO) 66.4 % (42-78); TOTAL CELLS COUNTED % (AUTO) 100 %; TOTAL PROTEIN 5.5 g/dL (6.3-8.2)
[2019-09-12] MEDS ORDERED: CEFTAZIDIME INJ 1 GM VIAL ONE (06:16)
[2019-09-12] MEDS: CEFTAZIDIME PENTAHYDRATE 1 GM in DEXTROSE 5%-WATER 50 ML IV SCH ×2 (06:41→17:42)
[2019-09-12] MEDS: HEPARIN SOD (PORCINE) 5,000 UNIT/ML 1 ML VIAL SUBCUT SCH ×3 (06:43→21:31)
[2019-09-12] MEDS: ROFLUMILAST 500 MCG TABLET PO SCH (10:41)
[2019-09-12] MEDS: AMLODIPINE BESYLATE 10 MG TABLET PO SCH (10:41)
[2019-09-12] MEDS: ASPIRIN 81 MG TABLET, ENT COATED PO SCH (10:41)
[2019-09-12] MEDS: ACETAZOLAMIDE 500 MG CAPSULE.SA PO SCH (10:41)
[2019-09-12] MEDS: MULTIVITAMIN TABLET PO SCH (10:41)
[2019-09-12] MEDS: EZETIMIBE 10 MG TABLET PO SCH (10:41)
[2019-09-12] MEDS: ASCORBIC ACID 500 MG TABLET PO SCH (10:42)
[2019-09-12] MEDS: QUETIAPINE FUMARATE 25 MG TABLET PO SCH ×2 (10:42→17:42)
[2019-09-12] MEDS: CALCIUM CARBONATE 500 MG TABLET PO SCH ×2 (10:42→17:42)
[2019-09-12] MEDS: CARVEDILOL 6.25 MG TABLET PO SCH ×2 (10:42→17:41)
[2019-09-12] MEDS: FLUTICASONE/VILANTEROL 100-25 MCG/DOSE IH SCH (10:42)
[2019-09-12] MEDS: SILVER SULFADIAZINE 1% CREAM 50 GM TOP SCH (10:42)
[2019-09-12] MEDS: SILVER SULFADIAZINE 1% CREAM 400 GM TP SCH (10:43)
[2019-09-12 14:37] LABS: ALBUMIN UR 72.7 % (.); ALPHA-1-GLOBULIN URINE 1.4 % (.); ALPHA-2-GLOBULIN URINE 5.8 % (.); GAMMA GLOBULIN URINE 9.6 % (.); M-SPIKE % UR Not Observed % (Not Observ); PROTEIN TOTAL URINE 33.4 mg/dL (Not Estab.)
[2019-09-12] MEDS: NORMAL SALINE 1000 ML 1,000 ML IV PRN (17:44)
--- NOTE | 2019-09-12 18:58 | PDOC PROGRESS REPORT ---
Subjective Progress Note for:: 09/12/19 Subjective:: Patient is more engaging today. Denied any chest pain. Remain compliant with use of BiPAP machine while sleeping. No reported fever or chills. No abdominal pain, nausea or vomiting. Reason For Visit: ACUTE RESPIRATORY ACIDOSIS,HYPERCALCEMIA,METABOLIC Physical Exam Vital Signs: Temp Pulse Resp BP Pulse Ox 97.4 F 84 19 133/67 H 98 09/12/19 15:27 09/12/19 15:27 09/12/19 15:27 09/12/19 15:27 09/12/19 17:38 Intake & Output 09/11/19 09/12/19 09/13/19 06:59 06:59 06:59 Intake Total 1720 1592 1000 Output Total 675 550 0 Balance 1045 1042 1000 Physical Exam: General appearance: PRESENT: mild distress - on supplemental oxygen Head exam: PRESENT: atraumatic, normocephalic Eye exam: PRESENT: conjunctiva pink. ABSENT: pallor, scleral icterus Ear exam: PRESENT: normal external ear exam Mouth exam: PRESENT: moist - fairly Respiratory exam: PRESENT: decreased breath sounds - at lung bases, rhonchi - minimal end expiratory phase. Cardiovascular exam: PRESENT: RRR. ABSENT: diastolic murmur, rubs, systolic mu rmur Vascular exam: ABSENT: pallor GI/Abdominal exam: PRESENT: normal bowel sounds, soft. ABSENT: distended, guarding, mass, organomegaly, rebound, tenderness Extremities exam: PRESENT: left BKA, right BKA. ABSENT: pedal edema Neurological exam: PRESENT: alert, awake Psychiatric exam: PRESENT: appropriate affect, normal mood. ABSENT: homicidal ideation, suicidal ideation Skin exam: PRESENT: dry, warm, other - improving bilateral BKA stumps skin breakdown with surrounding erythema. Results Laboratory Results: 09/12/19 04:35 09/10/19 15:00 09/12/19 09/12/19 04:35 04:35 WBC 6.0 RBC 3.58 L Hgb 10.2 L Hct 30.9 L MCV 87 MCH 28.4 MCHC 32.8 RDW 13.8 Plt Count 174 Seg Neutrophils % 66.4 Total Bilirubin 0.2 AST 25 Alkaline Phosphatase 70 Total Protein 5.5 L Albumin 2.9 L 09/08/19 09/09/19 09/09/19 17:20 14:00 14:00 Creatine Kinase 26 L CK-MB (CK-2) Troponin I 0.044 NT-Pro-B Natriuret Pep 1480 H 09/09/19 09/09/19 09/09/19 14:00 20:14 20:14 Creatine Kinase 22 L CK-MB (CK-2) 2.54 2.31 Troponin I 0.035 0.037 NT-Pro-B Natriuret Pep 09/10/19 09/10/19 02:10 02:10 Creatine Kinase 22 L CK-MB (CK-2) 2.44 Troponin I 0.035 NT-Pro-B Natriuret Pep Impressions: Chest X-Ray 09/08/19 16:34 IMPRESSION: NO ACUTE RADIOGRAPHIC FINDING IN THE CHEST. Assessment & Plan - Diagnosis (1) Acute on chronic respiratory failure with hypoxia and hypercapnia Is this a current diagnosis for this admission?: Yes (2) COPD (chronic obstructive pulmonary disease) Qualifiers: COPD type: COPD with acute exacerbation Qualified Code(s): J44.1 - Chronic obstructive pulmonary disease with (acute) exacerbation Is this a current diagnosis for this admission?: Yes (3) Cystitis due to Pseudomonas Is this a current diagnosis for this admission?: Yes (4) T2DM (type 2 diabetes mellitus) Qualifiers: Diabetes mellitus prison insulin use: with buttermaker continuous churn use Diabetes mellitus complication status: with circulatory complication Diabetes mellitus complication detail: with peripheral angiopathy with gangrene Qualified Code(s): E11.52 - Type 2 diabetes mellitus with diabetic peripheral angiopathy with gangrene; Z79.4 - local company 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 (current) use of insulin Is this a current diagnosis for this admission?: Yes (5) HTN (hypertension) Qualifiers: Hypertension type: essential hypertension Qualified Code(s): I10 - Essential (primary) hypertension Is this a current diagnosis for this admission?: Yes (6) HLD (hyperlipidemia) Qualifiers: Hyperlipidemia type: unspecified Qualified Code(s): E78.5 - Hyperlipidemia, unspecified Is this a current diagnosis for this admission?: Yes (7) Pressure ulcer of BKA stump, stage 2 Is this a current diagnosis for this admission?: Yes - Time Time Spent with patient: 35 or more minutes Level of Care: IMCU Medications reviewed and adjusted accordingly: Yes Anticipated discharge: Home with Homehealth Within: Other - Inpatient Certification Based on my medical assessment, after consideration of the patient's comorbidities, presenting symptoms, or acuity I expect that the services needed warrant INPATIENT care.: Yes I certify that my determination is in accordance with my understanding of Medicare's requirements for reasonable and necessary INPATIENT services [42 CFR 412.3e].: Yes Medical Necessity: Significant Comorbidiites Make Outpatient Treatment Too Risky, Need Close Monitoring Due to Risk of Patient Decompensation, Need For IV Fluids, Need For Continuous Telemetry Monitoring, Need for IV Antibiotics, Risk of Complication if Not Cared For in Hospital, Risk of Diagnosis Which Will Require Inpatient Eval/Care/Monitoring Post Hospital Care: D/C Nutrition And Dietetics Instructor Documentation - Plan Summary Plan Summary: Continue current medication management. Follow up on blood culture findings.
[2019-09-13] MEDS: CEFTAZIDIME PENTAHYDRATE 1 GM in DEXTROSE 5%-WATER 50 ML IV SCH ×2 (05:22→17:48)
[2019-09-13] MEDS: HEPARIN SOD (PORCINE) 5,000 UNIT/ML 1 ML VIAL SUBCUT SCH ×3 (05:24→21:02)
[2019-09-13] MEDS: CALCIUM CARBONATE 500 MG TABLET PO SCH ×2 (09:36→17:49)
[2019-09-13] MEDS: ASCORBIC ACID 500 MG TABLET PO SCH (09:38)
[2019-09-13] MEDS: CARVEDILOL 6.25 MG TABLET PO SCH ×2 (09:38→17:48)
[2019-09-13] MEDS: MULTIVITAMIN TABLET PO SCH (09:38)
[2019-09-13] MEDS: QUETIAPINE FUMARATE 25 MG TABLET PO SCH ×2 (09:39→17:49)
[2019-09-13] MEDS: ROFLUMILAST 500 MCG TABLET PO SCH (09:39)
[2019-09-13] MEDS: ACETAZOLAMIDE 500 MG CAPSULE.SA PO SCH (09:39)
[2019-09-13] MEDS: ASPIRIN 81 MG TABLET, ENT COATED PO SCH (09:39)
[2019-09-13] MEDS: EZETIMIBE 10 MG TABLET PO SCH (09:39)
[2019-09-13] MEDS: AMLODIPINE BESYLATE 10 MG TABLET PO SCH (09:39)
[2019-09-13] MEDS: FLUTICASONE/VILANTEROL 100-25 MCG/DOSE IH SCH (09:40)
[2019-09-13] MEDS: SILVER SULFADIAZINE 1% CREAM 50 GM TOP SCH (09:40)
[2019-09-13] MEDS: SILVER SULFADIAZINE 1% CREAM 400 GM TP SCH (09:41)
[2019-09-13] MEDS: NORMAL SALINE 1000 ML 1,000 ML IV PRN (13:39)
--- NOTE | 2019-09-13 16:52 | PDOC PROGRESS REPORT ---
Subjective Progress Note for:: 09/13/19 Subjective:: Seen by the bedside, he is essentially dependent on noninvasive positive pressure ventilation, there is no particularly new complaint Reason For Visit: ACUTE RESPIRATORY ACIDOSIS,HYPERCALCEMIA,METABOLIC Physical Exam Vital Signs: Temp Pulse Resp BP Pulse Ox 97.4 F 63 16 113/47 L 100 09/13/19 11:35 09/13/19 14:00 09/13/19 11:35 09/13/19 11:35 09/13/19 11:35 Intake & Output 09/12/19 09/13/19 09/14/19 06:59 06:59 06:59 Intake Total 1592 1630 996 Output Total 550 850 Balance 1042 780 996 Weight 61.4 kg General appearance: PRESENT: no acute distress Eye exam: PRESENT: PERRLA Respiratory exam: PRESENT: clear to auscultation dolorse Cardiovascular exam: PRESENT: +S1, +S2 GI/Abdominal exam: PRESENT: soft Neurological exam: PRESENT: alert Results Laboratory Results: 09/12/19 04:35 09/10/19 15:00 09/08/19 09/09/19 09/09/19 17:20 14:00 14:00 Creatine Kinase 26 L CK-MB (CK-2) Troponin I 0.044 NT-Pro-B Natriuret Pep 1480 H 09/09/19 09/09/19 09/09/19 14:00 20:14 20:14 Creatine Kinase 22 L CK-MB (CK-2) 2.54 2.31 Troponin I 0.035 0.037 NT-Pro-B Natriuret Pep 09/10/19 09/10/19 02:10 02:10 Creatine Kinase 22 L CK-MB (CK-2) 2.44 Troponin I 0.035 NT-Pro-B Natriuret Pep Impressions: Chest X-Ray 09/08/19 16:34 IMPRESSION: NO ACUTE RADIOGRAPHIC FINDING IN THE CHEST. Assessment & Plan - Diagnosis (1) Acute respiratory failure with hypoxia and hypercapnia Is this a current diagnosis for this admission?: Yes (2) Hypercalcemia Is this a current diagnosis for this admission?: Yes (3) Acute renal failure superimposed on stage 3 chronic kidney disease Qualifiers: Acute renal failure type: unspecified Qualified Code(s): N17.9 - Acute kid gabriel failure, unspecified; N18.3 - Chronic kidney disease, stage 3 (moderate) Is this a current diagnosis for this admission?: Yes (4) COPD (chronic obstructive pulmonary disease) Qualifiers: COPD type: COPD with acute exacerbation Qualified Code(s): J44.1 - Chronic obstructive pulmonary disease with (acute) exacerbation Is this a current diagnosis for this admission?: Yes (5) T2DM (type 2 diabetes mellitus) Qualifiers: Diabetes mellitus termite control servicer insulin use: with termite control servicer use Diabetes mellitus complication status: with circulatory complication Diabetes mellitus complication detail: with peripheral angiopathy with gangrene Qualified Code(s): E11.52 - Type 2 diabetes mellitus with diabetic peripheral angiopathy with gangrene; Z79.4 - assisted (current) use of insulin Is this a current diagnosis for this admission?: Yes (6) Hypoglycemia Is this a current diagnosis for this admission?: Yes - Time Time Spent with patient: 25-34 minutes - Plan Summary Plan Summary: Patient will continue present line of management
[2019-09-14] MEDS: HEPARIN SOD (PORCINE) 5,000 UNIT/ML 1 ML VIAL SUBCUT SCH ×3 (05:53→21:30)
[2019-09-14] MEDS: CEFTAZIDIME PENTAHYDRATE 1 GM in DEXTROSE 5%-WATER 50 ML IV SCH ×2 (05:58→17:09)
[2019-09-14] MEDS: AMLODIPINE BESYLATE 10 MG TABLET PO SCH (09:55)
[2019-09-14] MEDS: EZETIMIBE 10 MG TABLET PO SCH (09:55)
[2019-09-14] MEDS: ASPIRIN 81 MG TABLET, ENT COATED PO SCH (09:55)
[2019-09-14] MEDS: ROFLUMILAST 500 MCG TABLET PO SCH (09:55)
[2019-09-14] MEDS: CARVEDILOL 6.25 MG TABLET PO SCH ×2 (09:56→17:09)
[2019-09-14] MEDS: SILVER SULFADIAZINE 1% CREAM 50 GM TOP SCH (09:56)
[2019-09-14] MEDS: ACETAZOLAMIDE 500 MG CAPSULE.SA PO SCH (09:56)
[2019-09-14] MEDS: QUETIAPINE FUMARATE 25 MG TABLET PO SCH ×2 (09:56→17:09)
[2019-09-14] MEDS: ASCORBIC ACID 500 MG TABLET PO SCH (09:56)
[2019-09-14] MEDS: MULTIVITAMIN TABLET PO SCH (09:56)
[2019-09-14] MEDS: FLUTICASONE/VILANTEROL 100-25 MCG/DOSE IH SCH (09:56)
[2019-09-14] MEDS: CALCIUM CARBONATE 500 MG TABLET PO SCH ×2 (09:57→17:10)
[2019-09-14] MEDS: NORMAL SALINE 1000 ML 1,000 ML IV PRN (10:00)
[2019-09-14] MEDS ORDERED: DEXTROSE 40% GEL 15 GM TUBE X 2 PO PRN (13:00)
[2019-09-14] MEDS ORDERED: DEXTROSE 50%-WATER SYRINGE 12.5 GM/25 ML DOSE IV PRN (13:00)
[2019-09-14] MEDS ORDERED: DEXTROSE 40% GEL 15 GM TUBE PO PRN (13:00)
[2019-09-14] MEDS ORDERED: GLUCAGON,HUMAN RECOMB 1 MG INJ IM PRN (13:00)
[2019-09-14] MEDS ORDERED: DEXTROSE 50%-WATER SYRINGE 25 GM/50 ML DOSE IV PRN (13:00)
[2019-09-14 13:36] LABS: A/G RATIO. 1.1 (0.7-1.7); ALBUMIN 3 2.7 g/dL (2.9-4.4); ALPHA-1-GLOBULIN 0.3 g/dL (0.0-0.4); BETA GLOBULIN 0.8 g/dL (0.7-1.3); GAMMA GLOBULINS 0.7 g/dL (0.4-1.8); IMMUNOGLOBULIN A 130 mg/dL (61-437); IMMUNOGLOBULIN G 697 mg/dL (700-1600); IMMUNOGLOBULIN M 87 mg/dL (15-143); MONOCLONAL-SPIKE Not Observed g/dL (Not Observ); PROTEIN TOTAL SERUM 5.4 g/dL (6.0-8.5)
--- NOTE | 2019-09-14 14:57 | PDOC PROGRESS REPORT ---
Subjective Progress Note for:: 09/14/19 Subjective:: Patient seen by the bedside, he has no new complaints, he continues to require NIPPV Reason For Visit: ACUTE RESPIRATORY ACIDOSIS,HYPERCALCEMIA,METABOLIC Physical Exam Vital Signs: Temp Pulse Resp BP Pulse Ox 97.9 F 81 22 H 133/59 H 100 09/14/19 11:21 09/14/19 11:21 09/14/19 11:21 09/14/19 11:21 09/14/19 11:21 Intake & Output 09/13/19 09/14/19 09/15/19 06:59 06:59 06:59 Intake Total 1630 1716 1000 Output Total 850 250 Balance 780 1466 1000 Weight 61.4 kg 56.8 kg General appearance: PRESENT: no acute distress Eye exam: PRESENT: PERRLA Respiratory exam: PRESENT: clear to auscultation dolores Cardiovascular exam: PRESENT: +S1, +S2 GI/Abdominal exam: PRESENT: soft Neurological exam: PRESENT: alert, CN II-XII grossly intact Results Laboratory Results: 09/12/19 04:35 09/10/19 15:00 09/09/19 14:50 Total Protein 5.4 L 09/09/19 14:15 Blood Blood Culture - Final NO GROWTH IN 5 DAYS 09/09/19 14:00 Blood Blood Culture - Final NO GROWTH IN 5 DAYS 09/09/19 14:50 Catheterized Urine Urine Culture - Final Pseudomonas Aeruginosa Enterococcus Faecium (Group D) 09/08/19 09/09/19 09/09/19 17:20 14:00 14:00 Creatine Kinase 26 L CK-MB (CK-2) Troponin I 0.044 NT-Pro-B Natriuret Pep 1480 H 09/09/19 09/09/19 09/09/19 14:00 20:14 20:14 Creatine Kinase 22 L CK-MB (CK-2) 2.54 2.31 Troponin I 0.035 0.037 NT-Pro-B Natriuret Pep 09/10/19 09/10/19 02:10 02:10 Creatine Kinase 22 L CK-MB (CK-2) 2.44 Troponin I 0.035 NT-Pro-B Natriuret Pep Impressions: Chest X-Ray 09/08/19 16:34 IMPRESSION: NO ACUTE RADIOGRAPHIC FINDING IN THE CHEST. Assessment & Plan - Diagnosis (1) Acute respiratory failure with hypoxia and hypercapnia Is this a current diagnosis for this admission?: Yes (2) Hypercalcemia Is this a current diagnosis for this admission?: Yes (3) Acute renal failure superimposed on stage 3 chronic kidney disease Qualifiers: Acute renal failure type: unspecified Qualified Code(s): N17.9 - Acute kidney failure, unspecified; N18.3 - Chronic kidney disease, stage 3 (moderate) Is this a current diagnosis for this admission?: Yes (4) COPD (chronic obstructive pulmonary disease) Qualifiers: COPD type: COPD with acute exacerbation Qualified Code(s): J44.1 - Chronic obstructive pulmonary disease with (acute) exacerbation Is this a current diagnosis for this admission?: Yes (5) T2DM (type 2 diabetes mellitus) Qualifiers: Diabetes mellitus exterminator helper termite insulin use: with exterminator helper termite use Diabetes mellitus complication status: with circulatory complication Diabetes mellitus complication detail: with peripheral angiopathy with gangrene Qualified Code(s): E11.52 - Type 2 diabetes mellitus with diabetic peripheral angiopathy with gangrene; Z79.4 - exterminator helper termite (current) use of insulin Is this a current diagnosis for this admission?: Yes (6) Hypoglycemia Is this a current diagnosis for this admission?: Yes - Time Time Spent with patient: 25-34 minutes
[2019-09-14] MEDS ORDERED: INSULIN LISPRO 100 UNIT/ML 3 ML VIAL SUBCUT SCH (16:00)
[2019-09-14] MEDS: INSULIN LISPRO 100 UNIT/ML 3 ML VIAL SUBCUT SCH (21:30)
[2019-09-15] MEDS: HEPARIN SOD (PORCINE) 5,000 UNIT/ML 1 ML VIAL SUBCUT SCH ×3 (05:02→21:11)
[2019-09-15] MEDS: NORMAL SALINE 1000 ML 1,000 ML IV PRN (05:06)
[2019-09-15] MEDS: CEFTAZIDIME PENTAHYDRATE 1 GM in DEXTROSE 5%-WATER 50 ML IV SCH ×2 (05:07→18:16)
[2019-09-15] MEDS: INSULIN LISPRO 100 UNIT/ML 3 ML VIAL SUBCUT SCH ×4 (08:22→21:45)
[2019-09-15] MEDS: ASCORBIC ACID 500 MG TABLET PO SCH (09:43)
[2019-09-15] MEDS: ACETAZOLAMIDE 500 MG CAPSULE.SA PO SCH (09:43)
[2019-09-15] MEDS: CARVEDILOL 6.25 MG TABLET PO SCH ×2 (09:43→17:09)
[2019-09-15] MEDS: ROFLUMILAST 500 MCG TABLET PO SCH (09:43)
[2019-09-15] MEDS: MULTIVITAMIN TABLET PO SCH (09:44)
[2019-09-15] MEDS: ASPIRIN 81 MG TABLET, ENT COATED PO SCH (09:44)
[2019-09-15] MEDS: AMLODIPINE BESYLATE 10 MG TABLET PO SCH (09:44)
[2019-09-15] MEDS: FLUTICASONE/VILANTEROL 100-25 MCG/DOSE IH SCH (09:44)
[2019-09-15] MEDS: SILVER SULFADIAZINE 1% CREAM 50 GM TOP SCH (09:44)
[2019-09-15] MEDS: EZETIMIBE 10 MG TABLET PO SCH (09:44)
[2019-09-15] MEDS: QUETIAPINE FUMARATE 25 MG TABLET PO SCH ×2 (09:44→17:09)
[2019-09-15] MEDS: CALCIUM CARBONATE 500 MG TABLET PO SCH ×2 (09:45→17:09)
[2019-09-15 12:09] LABS: ARTERIAL BLOOD BASE EXCESS -5.4 mmol/L; ARTERIAL BLOOD H2CO3 1.21 mmol/L (1.05-1.35); ARTERIAL BLOOD HCO3 20.3 mmol/L (20-24); ARTERIAL BLOOD O2 SATURATION 97.3 % (94-98); ARTERIAL BLOOD PCO2 40.3 mmHg (35-45); ARTERIAL BLOOD PH 7.32 (7.35-7.45); ARTERIAL BLOOD PO2 103.4 mmHg (80-100); ARTERIAL BLOOD TOTAL CO2 21.5 mmol/L (23-27)
[2019-09-15 12:10] LABS: ARTERIAL BLOOD FIO2 ROOM AIR
[2019-09-15] MEDS ORDERED: NORMAL SALINE 1000 ML 1,000 ML IV ONE (20:19)
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
[2019-09-16 03:29] LABS: C DIFFICILE GDH POSITIVE (NEGATIVE)
[2019-09-16] MEDS: CEFTAZIDIME PENTAHYDRATE 1 GM in DEXTROSE 5%-WATER 50 ML IV SCH ×2 (05:10→18:17)
[2019-09-16] MEDS: HEPARIN SOD (PORCINE) 5,000 UNIT/ML 1 ML VIAL SUBCUT SCH ×3 (05:15→21:51)
[2019-09-16 05:24] LABS: HEMATOCRIT 31.8 % (37.9-51.0); HEMOGLOBIN 10.5 g/dL (13.5-17.0); MEAN CORPUSCULAR HEMOGLOBIN 27.8 pg (27.0-33.4); MEAN CORPUSCULAR VOLUME 84 fl (80-97); PLATELET COUNT 115 10^3/uL (150-450); RED BLOOD COUNT 3.77 10^6/uL (4.35-5.55); RED CELL DISTRIBUTION WIDTH 13.7 % (11.5-14.0); WHITE BLOOD COUNT 5.7 10^3/uL (4.0-10.5)
[2019-09-16 05:44] LABS: ANION GAP 11 (5-19); BLOOD UREA NITROGEN 31 mg/dL (7-20); CALCIUM 8.8 mg/dL (8.4-10.2); CARBON DIOXIDE 19 mmol/L (22-30); CHLORIDE 117 mmol/L (98-107); GLUCOSE 75 mg/dL (75-110); POTASSIUM 3.2 mmol/L (3.6-5.0)
[2019-09-16] MEDS: INSULIN LISPRO 100 UNIT/ML 3 ML VIAL SUBCUT SCH ×4 (08:26→21:51)
[2019-09-16] MEDS: SILVER SULFADIAZINE 1% CREAM 50 GM TOP SCH (09:19)
[2019-09-16] MEDS: ASCORBIC ACID 500 MG TABLET PO SCH (09:20)
[2019-09-16] MEDS: ACETAZOLAMIDE 500 MG CAPSULE.SA PO SCH (09:20)
[2019-09-16] MEDS: FLUTICASONE/VILANTEROL 100-25 MCG/DOSE IH SCH (09:20)
[2019-09-16] MEDS: CARVEDILOL 6.25 MG TABLET PO SCH ×2 (09:20→18:18)
[2019-09-16] MEDS: ASPIRIN 81 MG TABLET, ENT COATED PO SCH (09:20)
[2019-09-16] MEDS: EZETIMIBE 10 MG TABLET PO SCH (09:20)
[2019-09-16] MEDS: QUETIAPINE FUMARATE 25 MG TABLET PO SCH ×2 (09:20→18:18)
[2019-09-16] MEDS: ROFLUMILAST 500 MCG TABLET PO SCH (09:20)
[2019-09-16] MEDS: MULTIVITAMIN TABLET PO SCH (09:21)
[2019-09-16] MEDS: AMLODIPINE BESYLATE 10 MG TABLET PO SCH (09:21)
[2019-09-16] MEDS: NORMAL SALINE 1000 ML 1,000 ML IV PRN (11:08)
[2019-09-16] MEDS ORDERED: POTASSIUM CHLORIDE 10 MEQ TABLET.ER PO ONE (15:21)
--- NOTE | 2019-09-16 15:21 | PDOC PROGRESS REPORT ---
Subjective Progress Note for:: 09/16/19 Subjective:: Patient denied any chest pain. Patient remain on remain on BiPAP support. No reported fever or chills. No nausea, vomiting, or abdominal pain. No reported fever or chills. Patient remain more lucid since last clinical evaluation. Reason For Visit: ACUTE RESPIRATORY ACIDOSIS,HYPERCALCEMIA,METABOLIC Physical Exam Vital Signs: Temp Pulse Resp BP Pulse Ox 97.9 F 94 31 H 150/68 H 93 09/16/19 07:01 09/16/19 07:01 09/16/19 11:30 09/16/19 07:01 09/16/19 08:30 Intake & Output 09/15/19 09/16/19 09/17/19 06:59 06:59 06:59 Intake Total 2625 1100 25 Output Total 300 Balance 2325 1100 25 Weight 57 kg 60.7 kg Physical Exam: General appearance: PRESENT: mild distress - on supplemental oxygen and BiPAP support Head exam: PRESENT: atraumatic, normocephalic Eye exam: PRESENT: conjunctiva pink. ABSENT: pallor, scleral icterus Ear exam: PRESENT: normal external ear exam Mouth exam: PRESENT: moist - fairly Respiratory exam: PRESENT: decreased breath sounds - at lung bases Cardiovascular exam: PRESENT: RRR. ABSENT: diastolic murmur, rubs, systolic murmur GI/Abdominal exam: PRESENT: normal bowel sounds, soft. ABSENT: distended, guarding, mass, organomegaly, rebound, tenderness Extremities exam: PRESENT: left BKA, right BKA. ABSENT: pedal edema Neurological exam: PRESENT: alert, awake, more lucid and appropriate in simple responses Psychiatric exam: PRESENT: appropriate affect, normal mood. ABSENT: homicidal ideation, suicidal ideation Skin exam: PRESENT: dry, warm, other - improving bilateral BKA stumps skin breakdown with surrounding erythema. Results Laboratory Results: 09/16/19 04:48 09/16/19 04:48 09/15/19 09/16/19 09/16/19 19:00 04:48 04:48 WBC 5.7 RBC 3.77 L Hgb 10.5 L Hct 31.8 L MCV 84 MCH 27.8 MCHC 33.0 RDW 13.7 Plt Count 115 L Sodium 146.8 H Potassium 3.2 L Chloride 117 H Carbon Dioxide 19 L Anion Gap 11 BUN 31 H Creatinine 1.39 H Est GFR ( Amer) > 60 Glucose 75 Calcium 8.8 Stl C.difficile Tox PCR NEGATIVE 09/08/19 09/09/19 09/09/19 17:20 14:00 14:00 Creatine Kinase 26 L CK-MB (CK-2) Troponin I 0.044 NT-Pro-B Natriuret Pep 1480 H 09/09/19 09/09/19 09/09/19 14:00 20:14 20:14 Creatine Kinase 22 L CK-MB (CK-2) 2.54 2.31 Troponin I 0.035 0.037 NT-Pro-B Natriuret Pep 09/10/19 09/10/19 02:10 02:10 Creatine Kinase 22 L CK-MB (CK-2) 2.44 Troponin I 0.035 NT-Pro-B Natriuret Pep Impressions: Chest X-Ray 09/08/19 16:34 IMPRESSION: NO ACUTE RADIOGRAPHIC FINDING IN THE CHEST. Assessment & Plan - Diagnosis (1) Acute on chronic respiratory failure with hypoxia and hypercapnia Is this a current diagnosis for this admission?: Yes (2) COPD (chronic obstructive pulmonary disease) Qualifiers: COPD type: COPD with acute exacerbation Qualified Code(s): J44.1 - Chronic obstructive pulmonary disease with (acute) exacerbation Is this a current diagnosis for this admission?: Yes (3) Cystitis due to Pseudomonas Is this a current diagnosis for this admission?: Yes (4) T2DM (type 2 diabetes mellitus) Qualifiers: Diabetes mellitus long term care social worker insulin use: with long term care social worker use Diabetes mellitus complication status: with circulatory complication Diabetes mellitus complication detail: with peripheral angiopathy with gangrene Qualified Code(s): E11.52 - Type 2 diabetes mellitus with diabetic peripheral angiopathy with gangrene; Z79.4 - penitentiary (current) use of insulin Is this a current diagnosis for this admission?: Yes (5) HTN (hypertension) Qualifiers: Hypertension type: essential hypertension Qualified Code(s): I10 - Essential (primary) hypertension Is this a current diagnosis for this admission?: Yes (6) HLD (hyperlipidemia) Qualifiers: Hyperlipidemia type: unspecified Qualified Code(s): E78.5 - Hyperlipidemia, unspecified Is this a current diagnosis for this admission?: Yes (7) Pressure ulcer of BKA stump, stage 2 Is this a current diagnosis for this admission?: Yes (8) Hypercalcemia due to a drug Is this a current diagnosis for this admission?: Yes (9) Hypokalemia Is this a current diagnosis for this admission?: Yes Plan: Patient will receive potassium chloride replacement therapy. - Time Time Spent with patient: 35 or more minutes Level of Care: IMCU Medications reviewed and adjusted accordingly: Yes Anticipated discharge: Home with Homehealth Within: Other - Inpatient Certification Based on my medical assessment, after consideration of the patient's comorbidities, presenting symptoms, or acuity I expect that the services needed warrant INPATIENT care.: Yes I certify that my determination is in accordance with my understanding of [facility]'s requirements for reasonable and necessary INPATIENT services [42 CFR 412.3e].: Yes Medical Necessity: Significant Comorbidiites Make Outpatient Treatment Too Risky, Need Close Monitoring Due to Risk of Patient Decompensation, Need For Continuous Telemetry Monitoring, Need for IV Antibiotics, Risk of Complication if Not Cared For in Hospital, Risk of Diagnosis Which Will Require Inpatient Eval/Care/Monitoring Post Hospital Care: D/C Cellophaner Documentation - Plan Summary Plan Summary: Continue current medication management. Patient will receive potassium replacement. Obtain serum Mag level.
[2019-09-17] MEDS: HEPARIN SOD (PORCINE) 5,000 UNIT/ML 1 ML VIAL SUBCUT SCH ×3 (05:30→21:21)
[2019-09-17] MEDS: CEFTAZIDIME PENTAHYDRATE 1 GM in DEXTROSE 5%-WATER 50 ML IV SCH ×2 (05:30→17:02)
[2019-09-17] MEDS: NORMAL SALINE 1000 ML 1,000 ML IV PRN (08:56)
[2019-09-17] MEDS: INSULIN LISPRO 100 UNIT/ML 3 ML VIAL SUBCUT SCH ×4 (08:57→21:52)
[2019-09-17] MEDS: MULTIVITAMIN TABLET PO SCH (11:31)
[2019-09-17] MEDS: EZETIMIBE 10 MG TABLET PO SCH (11:31)
[2019-09-17] MEDS: ACETAZOLAMIDE 500 MG CAPSULE.SA PO SCH (11:31)
[2019-09-17] MEDS: ASCORBIC ACID 500 MG TABLET PO SCH (11:31)
[2019-09-17] MEDS: ASPIRIN 81 MG TABLET, ENT COATED PO SCH (11:31)
[2019-09-17] MEDS: QUETIAPINE FUMARATE 25 MG TABLET PO SCH ×2 (11:31→17:02)
[2019-09-17] MEDS: ROFLUMILAST 500 MCG TABLET PO SCH (11:32)
[2019-09-17] MEDS: FLUTICASONE/VILANTEROL 100-25 MCG/DOSE IH SCH (11:32)
[2019-09-17] MEDS: AMLODIPINE BESYLATE 10 MG TABLET PO SCH (11:32)
[2019-09-17] MEDS: CARVEDILOL 6.25 MG TABLET PO SCH ×2 (11:32→17:02)
[2019-09-17] MEDS: SILVER SULFADIAZINE 1% CREAM 50 GM TOP SCH (11:33)
--- NOTE | 2019-09-17 22:41 | PDOC PROGRESS REPORT ---
Subjective Progress Note for:: 09/17/19 Subjective:: Patient denied any chest pain. Remain on remain on BiPAP support. No reported fever or chills. No nausea, vomiting, or abdominal pain. No reported fever or chills. Reason For Visit: ACUTE RESPIRATORY ACIDOSIS,HYPERCALCEMIA,METABOLIC Physical Exam Vital Signs: Temp Pulse Resp BP Pulse Ox 98.3 F 89 20 127/55 H 98 09/17/19 07:14 09/17/19 07:14 09/17/19 07:14 09/17/19 07:14 09/17/19 07:14 Intake & Output 09/16/19 09/17/19 09/18/19 06:59 06:59 06:59 Intake Total 3579 499 6526 Balance 3855 002 2611 Weight 60.7 kg 59 kg Physical Exam: General appearance: PRESENT: mild distress - on supplemental oxygen and BiPAP support Head exam: PRESENT: atraumatic, normocephalic Eye exam: PRESENT: conjunctiva pink. ABSENT: pallor, scleral icterus Ear exam: PRESENT: normal external ear exam Mouth exam: PRESENT: moist - fairly Respiratory exam: PRESENT: decreased breath sounds - at lung bases Cardiovascular exam: PRESENT: RRR. ABSENT: diastolic murmur, rubs, systolic murmur GI/Abdominal exam: PRESENT: normal bowel sounds, soft. ABSENT: distended, guarding, mass, organomegaly, rebound, tenderness Extremities exam: PRESENT: left BKA, right BKA. ABSENT: pedal edema Neurological exam: PRESENT: alert, awake, more lucid and appropriate in simple responses Psychiatric exam: PRESENT: appropriate affect, normal mood. ABSENT: homicidal ideation, suicidal ideation Skin exam: PRESENT: dry, warm, other - improving bilateral BKA stumps skin breakdown with surrounding erythema. Results Laboratory Results: 09/16/19 04:48 09/16/19 04:48 09/16/19 04:48 Magnesium 1.9 09/08/19 09/09/19 09/09/19 17:20 14:00 14:00 Creatine Kinase 26 L CK-MB (CK-2) Troponin I 0.044 NT-Pro-B Natriuret Pep 1480 H 09/09/19 09/09/19 09/09/19 14:00 20:14 20:14 Creatine Kinase 22 L CK-MB (CK-2) 2.54 2.31 Troponin I 0.035 0.037 NT-Pro-B Natriuret Pep 09/10/19 09/10/19 02:10 02:10 Creatine Kinase 22 L CK-MB (CK-2) 2.44 Troponin I 0.035 NT-Pro-B Natriuret Pep Impressions: Chest X-Ray 09/08/19 16:34 IMPRESSION: NO ACUTE RADIOGRAPHIC FINDING IN THE CHEST. Assessment & Plan - Diagnosis (1) Acute on chronic respiratory failure with hypoxia and hypercapnia Is this a current diagnosis for this admission?: Yes (2) COPD (chronic obstructive pulmonary disease) Qualifiers: COPD type: COPD with acute exacerbation Qualified Code(s): J44.1 - Chronic obstructive pulmonary disease with (acute) exacerbation Is this a current diagnosis for this admission?: Yes (3) Cystitis due to Pseudomonas Is this a current diagnosis for this admission?: Yes (4) T2DM (type 2 diabetes mellitus) Qualifiers: Diabetes mellitus group home insulin use: with group home use Diabetes mellitus complication status: with circulatory complication Diabetes mellitus complication detail: with peripheral angiopathy with gangrene Qualified Code (s): E11.52 - Type 2 diabetes mellitus with diabetic peripheral angiopathy with gangrene; Z79.4 - terminal press operator (current) use of insulin Is this a current diagnosis for this admission?: Yes (5) HTN (hypertension) Qualifiers: Hypertension type: essential hypertension Qualified Code(s): I10 - Essential (primary) hypertension Is this a current diagnosis for this admission?: Yes (6) HLD (hyperlipidemia) Qualifiers: Hyperlipidemia type: unspecified Qualified Code(s): E78.5 - Hyperlipidemia, unspecified Is this a current diagnosis for this admission?: Yes (7) Pressure ulcer of BKA stump, stage 2 Is this a current diagnosis for this admission?: Yes (8) Hypercalcemia due to a drug Is this a current diagnosis for this admission?: Yes (9) Hypokalemia Is this a current diagnosis for this admission?: Yes - Time Time Spent with patient: 25-34 minutes Level of Care: IMCU Medications reviewed and adjusted accordingly: Yes Anticipated discharge: Home with Homehealth, SNF Within: Other - Inpatient Certification Based on my medical assessment, after consideration of the patient's comorbidities, presenting symptoms, or acuity I expect that the services needed warrant INPATIENT care.: Yes I certify that my determination is in accordance with my understanding of Medicare's requirements for reasonable and necessary INPATIENT services [42 CFR 412.3e].: Yes Medical Necessity: Significant Comorbidiites Make Outpatient Treatment Too Risky, Need Close Monitoring Due to Risk of Patient Decompensation, Need For IV Fluids, Need for IV Antibiotics, Risk of Complication if Not Cared For in Hospital, Risk of Diagnosis Which Will Require Inpatient Eval/Care/Monitoring Post Hospital Care: D/C Fresh Foods Technician Documentation, D/C or Transfer Summary - Plan Summary Plan Summary: Continue current medication management.
[2019-09-18] MEDS: HEPARIN SOD (PORCINE) 5,000 UNIT/ML 1 ML VIAL SUBCUT SCH ×3 (05:33→23:20)
[2019-09-18] MEDS: CEFTAZIDIME PENTAHYDRATE 1 GM in DEXTROSE 5%-WATER 50 ML IV SCH ×2 (05:35→17:10)
[2019-09-18] MEDS: NORMAL SALINE 1000 ML 1,000 ML IV PRN (05:36)
[2019-09-18] MEDS: INSULIN LISPRO 100 UNIT/ML 3 ML VIAL SUBCUT SCH ×4 (07:57→23:20)
[2019-09-18] MEDS: EZETIMIBE 10 MG TABLET PO SCH (10:12)
[2019-09-18] MEDS: ACETAZOLAMIDE 500 MG CAPSULE.SA PO SCH (10:12)
[2019-09-18] MEDS: FLUTICASONE/VILANTEROL 100-25 MCG/DOSE IH SCH (10:12)
[2019-09-18] MEDS: CARVEDILOL 6.25 MG TABLET PO SCH ×2 (10:12→17:10)
[2019-09-18] MEDS: MULTIVITAMIN TABLET PO SCH (10:12)
[2019-09-18] MEDS: ROFLUMILAST 500 MCG TABLET PO SCH (10:12)
[2019-09-18] MEDS: ASCORBIC ACID 500 MG TABLET PO SCH (10:12)
[2019-09-18] MEDS: ASPIRIN 81 MG TABLET, ENT COATED PO SCH (10:12)
[2019-09-18] MEDS: AMLODIPINE BESYLATE 10 MG TABLET PO SCH (10:12)
[2019-09-18] MEDS: QUETIAPINE FUMARATE 25 MG TABLET PO SCH ×2 (10:12→17:10)
[2019-09-18] MEDS: SILVER SULFADIAZINE 1% CREAM 50 GM TOP SCH (10:13)
--- NOTE | 2019-09-18 14:57 | PDOC PROGRESS REPORT ---
Subjective Progress Note for:: 09/18/19 Subjective:: Patient denied any chest pain. He remain on remain on BiPAP support. No reported fever or chills. No nausea, vomiting, or abdominal pain. No reported fever or chills. Reason For Visit: ACUTE RESPIRATORY ACIDOSIS,HYPERCALCEMIA,METABOLIC Physical Exam Vital Signs: Temp Pulse Resp BP Pulse Ox 97.4 F 77 28 H 145/65 H 96 09/18/19 11:58 09/18/19 11:58 09/18/19 11:58 09/18/19 11:58 09/18/19 11:58 Intake & Output 09/17/19 09/18/19 09/19/19 06:59 06:59 06:59 Intake Total 275 2620 277 Balance 275 2620 277 Weight 59 kg 61.9 kg Physical Exam: General appearance: PRESENT: mild distress - on supplemental oxygen and BiPAP support Head exam: PRESENT: atraumatic, normocephalic Eye exam: PRESENT: conjunctiva pink. ABSENT: pallor, scleral icterus Ear exam: PRESENT: normal external ear exam Mouth exam: PRESENT: moist - fairly Respiratory exam: PRESENT: decreased breath sounds - at lung bases Cardiovascular exam: PRESENT: RRR. ABSENT: diastolic murmur, rubs, systolic murmur GI/Abdominal exam: PRESENT: normal bowel sounds, soft. ABSENT: distended, guarding, mass, organomegaly, rebound, tenderness Extremities exam: PRESENT: left BKA, right BKA. ABSENT: pedal edema Neurological exam: PRESENT: alert, awake, more lucid and appropriate in simple responses Psychiatric exam: PRESENT: appropriate affect, normal mood. ABSENT: homicidal ideation, suicidal ideation Skin exam: PRESENT: dry, warm, other - improving bilateral BKA stumps skin breakdown with surrounding erythema. Results Laboratory Results: 09/16/19 04:48 09/16/19 04:48 09/08/19 09/09/19 09/09/19 17:20 14:00 14:00 Creatine Kinase 26 L CK-MB (CK-2) Troponin I 0.044 NT-Pro-B Natriuret Pep 1480 H 09/09/19 09/09/19 09/09/19 14:00 20:14 20:14 Creatine Kinase 22 L CK-MB (CK-2) 2.54 2.31 Troponin I 0.035 0.037 NT-Pro-B Natriuret Pep 09/10/19 09/10/19 02:10 02:10 Creatine Kinase 22 L CK-MB (CK-2) 2.44 Troponin I 0.035 NT-Pro-B Natriuret Pep Impressions: Chest X-Ray 09/08/19 16:34 IMPRESSION: NO ACUTE RADIOGRAPHIC FINDING IN THE CHEST. Assessment & Plan - Diagnosis (1) Acute on chronic respiratory failure with hypoxia and hypercapnia Is this a current diagnosis for this admission?: Yes (2) COPD (chronic obstructive pulmonary disease) Qualifiers: COPD type: COPD with acute exacerbation Qualified Code(s): J44.1 - Chronic obstructive pulmonary disease with (acute) exacerbation Is this a current diagnosis for this admission?: Yes (3) Cystitis due to Pseudomonas Is this a current diagnosis for this admission?: Yes (4) T2DM (type 2 diabetes mellitus) Qualifiers: Diabetes mellitus watermaster insulin use: with senior living use Diabetes mellitus complication status: with circulatory complication Diabetes mellitus complication detail: with peripheral angiopathy with gangrene Qualified Code(s): E11.52 - Type 2 diabetes mellitus with diabetic peripheral angiopathy with gangrene; Z79.4 - long-term (current) use of insulin Is this a current diagnosis for this admission?: Yes (5) HTN (hypertension) Qualifiers: Hypertension type: essential hypertension Qualified Code(s): I10 - Essential (primary) hypertension Is this a current diagnosis for this admission?: Yes (6) HLD (hyperlipidemia) Qualifiers: Hyperlipidemia type: unspecified Qualified Code(s): E78.5 - Hyperlipidemia, unspecified Is this a current diagnosis for this admission?: Yes (7) Pressure ulcer of BKA stump, stage 2 Is this a current diagnosis for this admission?: Yes (8) Hypercalcemia due to a drug Is this a current diagnosis for this admission?: Yes (9) Hypokalemia Is this a current diagnosis for this admission?: Yes - Time Time Spent with patient: 35 or more minutes Level of Care: IMCU Medications reviewed and adjusted accordingly: Yes Anticipated discharge: Home with Homehealth Within: Other - Inpatient Certification Medical Necessity: Significant Comorbidiites Make Outpatient Treatment Too Risky, Need Close Monitoring Due to Risk of Patient Decompensation, Need For IV Fluids, Need For Continuous Telemetry Monitoring, Need for Nebulizer Therapy and Monitoring of Response, Need for IV Antibiotics, Risk of Complication if Not Cared For in Hospital, Risk of Diagnosis Which Will Require Inpatient Eval/Care/Monitoring Post Hospital Care: D/C Nurse Private Duty Documentation - Plan Summary Plan Summary: Continue current medication management. Obtain CBC with diff, BMP in AM. His overall prognosis remain poor.
[2019-09-19] MEDS: NORMAL SALINE 1000 ML 1,000 ML IV PRN (02:07)
[2019-09-19] MEDS: HEPARIN SOD (PORCINE) 5,000 UNIT/ML 1 ML VIAL SUBCUT SCH ×3 (05:15→21:06)
[2019-09-19 05:38] LABS: HEMATOCRIT 29.9 % (37.9-51.0); HEMOGLOBIN 9.9 g/dL (13.5-17.0); MEAN CORPUSCULAR HEMOGLOBIN 27.9 pg (27.0-33.4); MEAN CORPUSCULAR HGB CONC 33.2 g/dL (32.0-36.0); MEAN CORPUSCULAR VOLUME 84 fl (80-97); PLATELET COUNT 110 10^3/uL (150-450); RED BLOOD COUNT 3.55 10^6/uL (4.35-5.55); RED CELL DISTRIBUTION WIDTH 13.7 % (11.5-14.0); WHITE BLOOD COUNT 5.9 10^3/uL (4.0-10.5)
[2019-09-19 05:49] LABS: ANION GAP 9 (5-19); BLOOD UREA NITROGEN 22 mg/dL (7-20); CALCIUM 7.5 mg/dL (8.4-10.2); CARBON DIOXIDE 19 mmol/L (22-30); CHLORIDE 118 mmol/L (98-107); GLUCOSE 118 mg/dL (75-110); POTASSIUM 3.4 mmol/L (3.6-5.0)
[2019-09-19 06:09] LABS: ABSOLUTE LYMPHOCYTES# (MANUAL) 0.8 10^3/uL (0.5-4.7); ABSOLUTE MONOCYTES # (MANUAL) 0.2 10^3/uL (0.1-1.4); BAND NEUTROPHILS % (MANUAL) 2 % (3-5); BASOPHILS % (MANUAL) 1 % (0-2); EOSINOPHILS % (MANUAL) 0 % (0-6); LYMPHOCYTES % (MANUAL) 13 % (13-45); MONOCYTES % (MANUAL) 4 % (3-13); SEGMENTED NEUTROPHILS % (MAN) 79 % (42-78); TOTAL CELLS COUNTED 100
[2019-09-19 06:10] LABS: PLATELET COMMENT DECREASED
--- NOTE | 2019-09-19 08:56 | RADIOLOGY REPORT (SQ) ---
EXAM DESCRIPTION: CHEST SINGLE VIEW COMPLETED DATE/TIME: 09/19/2019 8:47 am REASON FOR STUDY: declining pt respiratory status COMPARISON: 09/08/2019. FINDINGS: Single-view chest AP portable upright. Compared to prior study, mild vascular congestion has developed. Trace right pleural effusion now no constantino. Lungs are otherwise hyperinflated. Stable cardiomediastinal silhouette. No pneumothorax. TECHNICAL DOCUMENTATION: JOB ID: [id number] Reading location - IP/workstation name: [email or web address]
[2019-09-19 08:59] LABS: ARTERIAL BLOOD H2CO3 1.37 mmol/L (1.05-1.35); ARTERIAL BLOOD HCO3 19.8 mmol/L (20-24); ARTERIAL BLOOD O2 SATURATION 96.1 % (94-98); ARTERIAL BLOOD PCO2 45.4 mmHg (35-45); ARTERIAL BLOOD PH 7.26 (7.35-7.45); ARTERIAL BLOOD PO2 94.3 mmHg (80-100); ARTERIAL BLOOD TOTAL CO2 21.2 mmol/L (23-27)
[2019-09-19] MEDS: INSULIN LISPRO 100 UNIT/ML 3 ML VIAL SUBCUT SCH ×4 (08:59→22:17)
[2019-09-19 09:00] LABS: ARTERIAL BLOOD FIO2 35%
[2019-09-19] MEDS: QUETIAPINE FUMARATE 25 MG TABLET PO SCH ×2 (09:22→17:32)
[2019-09-19] MEDS: CARVEDILOL 6.25 MG TABLET PO SCH ×2 (09:22→17:31)
[2019-09-19] MEDS: ACETAZOLAMIDE 500 MG CAPSULE.SA PO SCH (09:22)
[2019-09-19] MEDS: AMLODIPINE BESYLATE 10 MG TABLET PO SCH (09:22)
[2019-09-19] MEDS: ASPIRIN 81 MG TABLET, ENT COATED PO SCH (09:23)
[2019-09-19] MEDS: FLUTICASONE/VILANTEROL 100-25 MCG/DOSE IH SCH (09:23)
[2019-09-19] MEDS: MULTIVITAMIN TABLET PO SCH (09:23)
[2019-09-19] MEDS: ASCORBIC ACID 500 MG TABLET PO SCH (09:23)
[2019-09-19] MEDS: EZETIMIBE 10 MG TABLET PO SCH (09:23)
[2019-09-19] MEDS: ROFLUMILAST 500 MCG TABLET PO SCH (09:23)
[2019-09-19] MEDS: SILVER SULFADIAZINE 1% CREAM 50 GM TOP SCH (09:23)
--- NOTE | 2019-09-19 11:22 | PDOC PROGRESS REPORT ---
Subjective Progress Note for:: 09/19/19 Subjective:: Patient continue to demonstrate episodes of confusion and intermittent increase breathing rate. He remain on BiPAP support. No reported or observed chest pain. No reported fever or chills. No nausea, vomiting, or abdominal pain. No reported fever or chills. Reason For Visit: ACUTE RESPIRATORY ACIDOSIS,HYPERCALCEMIA,METABOLIC Physical Exam Vital Signs: Temp Pulse Resp BP Pulse Ox 98.0 F 93 24 H 134/49 H 98 09/19/19 08:15 09/19/19 08:15 09/19/19 08:15 09/19/19 08:15 09/19/19 08:15 Intake & Output 09/18/19 09/19/19 09/20/19 06:59 06:59 06:59 Intake Total 2620 1602 344 Balance 2620 1602 344 Weight 61.9 kg 58.2 kg Physical Exam: General appearance: PRESENT: mild distress - on supplemental oxygen and BiPAP support Head exam: PRESENT: atraumatic, normocephalic Eye exam: PRESENT: conjunctiva pink. ABSENT: pallor, scleral icterus Ear exam: PRESENT: normal external ear exam Mouth exam: PRESENT: moist - fairly Respiratory exam: PRESENT: decreased breath sounds - at lung bases Cardiovascular exam: PRESENT: RRR. ABSENT: diastolic murmur, rubs, systolic murmur GI/Abdominal exam: PRESENT: normal bowel sounds, soft. ABSENT: distended, guarding, mass, organomegaly, rebound, tenderness Extremities exam: PRESENT: left BKA, right BKA. ABSENT: pedal edema Neurological exam: PRESENT: alert, awake, more lucid and appropriate in simple responses Psychiatric exam: PRESENT: appropriate affect, normal mood. ABSENT: homicidal ideation, suicidal ideation Skin exam: PRESENT: dry, warm, other - improving bilateral BKA stumps skin breakdown and surrounding erythema. Results Laboratory Results: 09/19/19 04:49 09/19/19 04:49 09/19/19 09/19/19 09/19/19 04:49 04:49 08:21 WBC 5.9 RBC 3.55 L Hgb 9.9 L Hct 29.9 L MCV 84 MCH 27.9 MCHC 33.2 RDW 13.7 Plt Count 110 L Seg Neutrophils % Not Reportable Carbonic Acid 1.37 H HCO3/H2CO3 Ratio 14:1 ABG pH 7.26 L ABG pCO2 45.4 H ABG pO2 94.3 ABG HCO3 19.8 L ABG O2 Saturation 96.1 ABG Base Excess -7.0 FiO2 35% Sodium 145.9 H Potassium 3.4 L Chloride 118 H Carbon Dioxide 19 L Anion Gap 9 BUN 22 H Creatinine 1.20 Est GFR ( Amer) > 60 Glucose 118 H Calcium 7.5 L 09/08/19 09/09/19 09/09/19 17:20 14:00 14:00 Creatine Kinase 26 L CK-MB (CK-2) Troponin I 0.044 NT-Pro-B Natriuret Pep 1480 H 09/09/19 09/09/19 09/09/19 14:00 20:14 20:14 Creatine Kinase 22 L CK-MB (CK-2) 2.54 2.31 Troponin I 0.035 0.037 NT-Pro-B Natriuret Pep 09/10/19 09/10/19 02:10 02:10 Creatine Kinase 22 L CK-MB (CK-2) 2.44 Troponin I 0.035 NT-Pro-B Natriuret Pep Assessment & Plan - Diagnosis (1) Acute on chronic respiratory failure with hypoxia and hypercapnia Is this a current diagnosis for this admission?: Yes (2) COPD (chronic obstructive pulmonary disease) Qualifiers: COPD type: COPD with acute exacerbation Qualified Code(s): J44.1 - Chronic obstructive pulmonary disease with (acute) exacerbation Is this a current diagnosis for this admission?: Yes (3) Cystitis due to Pseudomonas Is this a current diagnosis for this admission?: Yes (4) T2DM (type 2 diabetes mellitus) Qualifiers: Diabetes mellitus intermediate card tender insulin use: with fdc use Diabetes mellitus complication status: with circulatory complication Diabetes mellitus complication detail: with peripheral angiopathy with gangrene Qualified Code(s): E11.52 - Type 2 diabetes mellitus with diabetic peripheral angiopathy with gangrene; 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 Is this a current diagnosis for this admission?: Yes (5) HTN (hypertension) Qualifiers: Hypertension type: essential hypertension Qualified Code(s): I10 - Essential (primary) hypertension Is this a current diagnosis for this admission?: Yes (6) HLD (hyperlipidemia) Qualifiers: Hyperlipidemia type: unspecified Qualified Code(s): E78.5 - Hyperlipidemia, unspecified Is this a current diagnosis for this admission?: Yes (7) Pressure ulcer of BKA stump, stage 2 Is this a current diagnosis for this admission?: Yes (8) Hypercalcemia due to a drug Is this a current diagnosis for this admission?: Yes (9) Hypokalemia Is this a current diagnosis for this admission?: Yes - Time Time Spent with patient: 35 or more minutes Level of Care: IMCU Medications reviewed and adjusted accordingly: Yes Anticipated discharge: Home with Homehealth, SNF, Hospice Within: Other - Inpatient Certification Based on my medical assessment, after consideration of the patient's comorbidities, presenting symptoms, or acuity I expect that the services needed warrant INPATIENT care.: Yes I certify that my determination is in accordance with my understanding of Medicare's requirements for reasonable and necessary INPATIENT services [42 CFR 412.3e].: Yes Medical Necessity: Significant Comorbidiites Make Outpatient Treatment Too Risky, Need Close Monitoring Due to Risk of Patient Decompensation, Need For IV Fluids, Need For Continuous Telemetry Monitoring, Need for Nebulizer Therapy and Monitoring of Response, Risk of Complication if Not Cared For in Hospital, Risk of Diagnosis Which Will Require Inpatient Eval/Care/Monitoring Post Hospital Care: D/C Senior Physical Therapist Documentation, D/C or Transfer Summary - Plan Summary Plan Summary: D/C IV fluid support due to developing vascular congestion. Obtain D-Dimer and complete echocardiogram evaluation for worsening shortness of breath.
--- NOTE | 2019-09-20 00:21 | RADIOLOGY REPORT (SQ) ---
EXAM DESCRIPTION: Nuclear medicine lung perfusion scan CLINICAL HISTORY: 74 years Male SOB, RESPIRATORY DISTRESS, D-dimer 11.92, TECHNIQUE: Nuclear medicine perfusion scan performed using 5.36 mCi intravenous technetium 99m MAA. 8 views. Ventilation images were unable to be acquired. COMPARISON: Chest radiograph performed the same day. FINDINGS: No large perfusion defect is identified. Heterogeneous distribution of radiotracer is noted bilaterally. There is apparent increased localization of radiotracer within the left hemithorax compared with the right side. IMPRESSION: No large perfusion defect identified. Heterogeneous distribution of radiotracer is a nonspecific finding. Unable to apply PIOPED criteria given lack of ventilation imaging.
[2019-09-20] MEDS: HEPARIN SOD (PORCINE) 5,000 UNIT/ML 1 ML VIAL SUBCUT SCH ×3 (05:18→21:29)
[2019-09-20] MEDS: INSULIN LISPRO 100 UNIT/ML 3 ML VIAL SUBCUT SCH ×4 (09:00→21:45)
[2019-09-20] MEDS: MULTIVITAMIN TABLET PO SCH (09:31)
[2019-09-20] MEDS: CARVEDILOL 6.25 MG TABLET PO SCH ×2 (09:31→17:33)
[2019-09-20] MEDS: ASCORBIC ACID 500 MG TABLET PO SCH (09:31)
[2019-09-20] MEDS: AMLODIPINE BESYLATE 10 MG TABLET PO SCH (09:31)
[2019-09-20] MEDS: QUETIAPINE FUMARATE 25 MG TABLET PO SCH ×2 (09:31→17:33)
[2019-09-20] MEDS: ROFLUMILAST 500 MCG TABLET PO SCH (09:31)
[2019-09-20] MEDS: FLUTICASONE/VILANTEROL 100-25 MCG/DOSE IH SCH (09:31)
[2019-09-20] MEDS: ASPIRIN 81 MG TABLET, ENT COATED PO SCH (09:31)
[2019-09-20] MEDS: ACETAZOLAMIDE 500 MG CAPSULE.SA PO SCH (09:32)
[2019-09-20] MEDS: SILVER SULFADIAZINE 1% CREAM 50 GM TOP SCH (09:32)
[2019-09-20] MEDS: EZETIMIBE 10 MG TABLET PO SCH (09:32)
--- NOTE | 2019-09-20 13:07 | PDOC PROGRESS REPORT ---
Subjective Progress Note for:: 09/20/19 Subjective:: Patient remain on BiPAP support. His D-Dimer was elevated but VQ scan was inconclusive about PE. No reported or observed chest pain. No reported fever or chills. No nausea, vomiting, or abdominal pain. Reason For Visit: ACUTE RESPIRATORY ACIDOSIS,HYPERCALCEMIA,METABOLIC Physical Exam Vital Signs: Temp Pulse Resp BP Pulse Ox 97.4 F 102 H 23 H 150/67 H 97 09/20/19 08:27 09/20/19 08:27 09/20/19 08:27 09/20/19 08:27 09/20/19 08:27 Intake & Output 09/19/19 09/20/19 09/21/19 06:59 06:59 06:59 Intake Total 1602 584 Balance 1602 584 Weight 58.2 kg 72.4 kg Physical Exam: General appearance: PRESENT: mild distress - on supplemental oxygen and BiPAP support Head exam: PRESENT: atraumatic, normocephalic Eye exam: PRESENT: conjunctiva pink. ABSENT: pallor, scleral icterus Ear exam: PRESENT: normal external ear exam Mouth exam: PRESENT: moist - fairly Respiratory exam: PRESENT: decreased breath sounds - at lung bases Cardiovascular exam: PRESENT: RRR. ABSENT: diastolic murmur, rubs, systolic murmur GI/Abdominal exam: PRESENT: normal bowel sounds, soft. ABSENT: distended, guarding, mass, organomegaly, rebound, tenderness Extremities exam: PRESENT: left BKA, right BKA. ABSENT: pedal edema Neurological exam: PRESENT: alert, awake, more lucid and appropriate in simple responses Psychiatric exam: PRESENT: appropriate affect, normal mood. ABSENT: homicidal ideation, suicidal ideation Skin exam: PRESENT: dry, warm, other - improving bilateral BKA stumps skin breakdown and surrounding erythema. Results Laboratory Results: 09/19/19 04:49 09/19/19 04:49 09/08/19 09/09/19 09/09/19 17:20 14:00 14:00 Creatine Kinase 26 L CK-MB (CK-2) Troponin I 0.044 NT-Pro-B Natriuret Pep 1480 H 09/09/19 09/09/19 09/09/19 14:00 20:14 20:14 Creatine Kinase 22 L CK-MB (CK-2) 2.54 2.31 Troponin I 0.035 0.037 NT-Pro-B Natriuret Pep 09/10/19 09/10/19 02:10 02:10 Creatine Kinase 22 L CK-MB (CK-2) 2.44 Troponin I 0.035 NT-Pro-B Natriuret Pep Impressions: Lung Scan-VQ NM 09/19/19 00:00 IMPRESSION: No large perfusion defect identified. Heterogeneous distribution of radiotracer is a nonspecific finding. Unable to apply PIOPED criteria given lack of ventilation imaging. Assessment & Plan - Diagnosis (1) Acute on chronic respiratory failure with hypoxia and hypercapnia Is this a current diagnosis for this admission?: Yes (2) COPD (chronic obstructive pulmonary disease) Qualifiers: COPD type: COPD with acute exacerbation Qualified Code(s): J44.1 - Chronic obstructive pulmonary disease with (acute) exacerbation Is this a current diagnosis for this admission?: Yes (3) Cystitis due to Pseudomonas Is this a current diagnosis for this admission?: Yes (4) T2DM (type 2 diabetes mellitus) Qualifiers: Diabetes mellitus terminal worker insulin use: with penitentiary use Diabetes mellitus complication status: with circulatory complication Diabetes mellitus complication detail: with peripheral angiopathy with gangrene Qualified Code( s): E11.52 - Type 2 diabetes mellitus with diabetic peripheral angiopathy with gangrene; Z79.4 - MCFP (current) use of insulin Is this a current diagnosis for this admission?: Yes (5) HTN (hypertension) Qualifiers: Hypertension type: essential hypertension Qualified Code(s): I10 - Essential (primary) hypertension Is this a current diagnosis for this admission?: Yes (6) HLD (hyperlipidemia) Qualifiers: Hyperlipidemia type: unspecified Qualified Code(s): E78.5 - Hyperlipidemia, unspecified Is this a current diagnosis for this admission?: Yes (7) Pressure ulcer of BKA stump, stage 2 Is this a current diagnosis for this admission?: Yes (8) Hypercalcemia due to a drug Is this a current diagnosis for this admission?: Yes (9) Hypokalemia Is this a current diagnosis for this admission?: Yes - Time Time Spent with patient: 35 or more minutes Level of Care: IMCU Medications reviewed and adjusted accordingly: Yes Anticipated discharge: Home with Homehealth, SNF, Hospice Within: Other - Inpatient Certification Based on my medical assessment, after consideration of the patient's comorbidities, presenting symptoms, or acuity I expect that the services needed warrant INPATIENT care.: Yes I certify that my determination is in accordance with my understanding of Medicare's requirements for reasonable and necessary INPATIENT services [42 CFR 412.3e].: Yes Medical Necessity: Significant Comorbidiites Make Outpatient Treatment Too Risky, Need Close Monitoring Due to Risk of Patient Decompensation, Need For IV Fluids, Need For Continuous Telemetry Monitoring, Need for Nebulizer Therapy and Monitoring of Response, Risk of Complication if Not Cared For in Hospital, Risk of Diagnosis Which Will Require Inpatient Eval/Care/Monitoring Post Hospital Care: D/C Foreman Or Supervisor And Operator Documentation, D/C or Transfer Summary - Plan Summary Plan Summary: Continue current medication management. Obtain lower extremities venous Doppler evaluation. Follow up on echocardiography findings. Overall prognosis remain poor.
--- NOTE | 2019-09-20 15:12 | XCELERA REPORT ---
[address] [address] Transthoracic Echocardiogram Report Name: TOBY HENDERSON Age: 74 yrs Gender: Male : 1945 Patient Status: Inpatient Patient Location: [address] [place] [address] Study Date: 09/19/2019 07:16 PM Height: 60 in Weight: 128 lb BSA: 1.5 m2 Procedure: A two-dimensional transthoracic echocardiogram with color flow and Doppler was performed. The study was technically limited with all images being suboptimal in quality. The study was technically difficult with many images being suboptimal in quality. Reason For Study: HORTNESS OF BREATH History: HORTNESS OF BREATH. Ordering Physician: TJ ARREOLA Performed By: Camilla Mancilla Interpretation Summary The left ventricle is normal in size. There is normal left ventricular wall thickness. LV EF is 55% Left ventricular systolic function is low normal. Doppler measurements suggest impaired left ventricular relaxation, which is associated with grade I/IV or mild diastolic dysfunction The left ventricular wall motion is normal. There is no thrombus. No VSD ,ASD, or PFO seen. The right ventricle is normal in size and function. The right ventricle is not well visualized secondary to technical limitations The right atrium is normal. The left atrial size is normal. There is no evidence of mitral valve prolapse. There is no vegetation seen on the mitral valve. There is no mitral valve stenosis. There is a trace amount of mitral regurgitation There is no aortic valvular vegetation. There is no aortic valve stenosis There is aortic sclerosis without aortic stenosis. There is no LVOT obstruction. There is a trace amount of aortic regurgitation There is no tricuspid stenosis. There is a mild amount of tricuspid regurgitation There is moderate pulmonary hypertension by echo RVSP is 50 t0 55 mm of Hg , with RA mean of 15 to 20. There is no pulmonic valvular stenosis. There is a trace amount of pulmonic regurgitation The aortic root is normal size. The inferior vena cava appeared dilated and decreased < 50% with respiration (RAP 15-20 mmHg) Cannot excude a small right sided pericardial effusion. There are no echocardiographic or Doppler indications for cardiac tamponade MMode/2D Measurements & Calculations RVDd: 2.3 cm LVIDd: 5.6 cm FS: 32.8 % Ao root diam: 3.3 cm IVSd: 1.1 cm LVIDs: 3.8 cm EDV(Teich): LVPWd: 0.98 cm 154.4 ml Ao root area: ESV(Teich): 8.3 cm2 60.7 ml LA dimension: EF(Teich): 60.7 % 3.0 cm LVLd ap4: 7.5 cm SV(MOD-sp4): EDV(MOD-sp4): 76.0 ml 116.0 ml LVLs ap4: 6.7 cm ESV(MOD-sp4): 40.0 ml EF(MOD-sp4): 65.5 % Doppler Measurements & Calculations MV E max jacky: MV P1/2t max jacky: Ao V2 max: LV V1 max P.9 cm/sec 99.1 cm/sec 132.0 cm/sec 2.4 mmHg MV A max jacky: MV P1/2t: 45.8 msec Ao max PG: LV V1 max: 99.2 cm/sec MVA(P1/2t): 4.8 cm2 7.0 mmHg 77.5 cm/sec MV E/A: 0.84 MV dec slope: 633.3 cm/sec2 MV dec time: 0.20 sec PA V2 max: PI end-d jacky: TR max jacky: MV P1/2t-pr_phl: 120.8 cm/sec 143.9 cm/sec 295.9 cm/sec 45.8 msec PA max PG: TR max P.8 mmHg 35.0 mmHg Left Ventricle The left ventricle is normal in size. There is normal left ventricular wall thickness. LV EF is 55%. Left ventricular systolic function is low normal. Doppler measurements suggest impaired left ventricular relaxation, which is associated with grade I/IV or mild diastolic dysfunction. The left ventricular wall motion is normal. There is no thrombus. No VSD ,ASD, or PFO seen. Right Ventricle The right ventricle is normal in size and function. The right ventricle is not well visualized secondary to technical limitations. Atria The right atrium is normal. The left atrial size is normal. Mitral Valve There is mild mitral annular calcification. There is no evidence of mitral valve prolapse. There is no vegetation seen on the mitral valve. There is no mitral valve stenosis. There is a trace amount of mitral regurgitation. Aortic Valve There is no aortic valvular vegetation. There is no aortic valve stenosis. There is aortic sclerosis without aortic stenosis. There is no LVOT obstruction. There is a trace amount of aortic regurgitation. Tricuspid Valve There is no tricuspid stenosis. There is a mild amount of tricuspid regurgitation. There is moderate pulmonary hypertension by echo. RVSP is 50 t0 55 mm of Hg , with RA mean of 15 to 20. Pulmonic Valve There is no pulmonic valvular stenosis. There is a trace amount of pulmonic regurgitation. Great Vessels The aortic root is normal size. The inferior vena cava appeared dilated and decreased < 50% with respiration (RAP 15-20 mmHg). Effusions Cannot excude a small right sided pericardial effusion. There are no echocardiographic or Doppler indications for cardiac tamponade. : TJ ARREOLA Lakshmi
[2019-09-21] MEDS: HEPARIN SOD (PORCINE) 5,000 UNIT/ML 1 ML VIAL SUBCUT SCH ×3 (05:11→21:07)
[2019-09-21] MEDS: INSULIN LISPRO 100 UNIT/ML 3 ML VIAL SUBCUT SCH ×4 (09:44→22:11)
[2019-09-21] MEDS: CARVEDILOL 6.25 MG TABLET PO SCH ×2 (10:27→17:35)
[2019-09-21] MEDS: QUETIAPINE FUMARATE 25 MG TABLET PO SCH ×2 (10:27→17:35)
[2019-09-21] MEDS: MULTIVITAMIN TABLET PO SCH (10:27)
[2019-09-21] MEDS: EZETIMIBE 10 MG TABLET PO SCH (10:27)
[2019-09-21] MEDS: AMLODIPINE BESYLATE 10 MG TABLET PO SCH (10:27)
[2019-09-21] MEDS: ROFLUMILAST 500 MCG TABLET PO SCH (10:28)
[2019-09-21] MEDS: FLUTICASONE/VILANTEROL 100-25 MCG/DOSE IH SCH (10:28)
[2019-09-21] MEDS: SILVER SULFADIAZINE 1% CREAM 50 GM TOP SCH (10:28)
[2019-09-21] MEDS: ACETAZOLAMIDE 500 MG CAPSULE.SA PO SCH (10:28)
[2019-09-21] MEDS: ASPIRIN 81 MG TABLET, ENT COATED PO SCH (10:28)
[2019-09-21] MEDS: ASCORBIC ACID 500 MG TABLET PO SCH (10:28)
--- NOTE | 2019-09-21 10:42 | RADIOLOGY REPORT (SQ) ---
EXAM DESCRIPTION: VENOUS BILATERAL LOWER COMPLETED DATE/TIME: 09/21/2019 9:08 am REASON FOR STUDY: Difficulty with breathing, High D-Dimer, r/o DVT COMPARISON: None. TECHNIQUE: Dynamic and static cevallos scale and color images acquired of both lower extremity venous sy stems. Selected spectral images acquired with additional compression and augmentation maneuvers. Imag es stored on PACS. LIMITATIONS: None. FINDINGS: RIGHT LEG COMMON FEMORAL AND FEMORAL: Normal phasicity, compression and augmentation. No visualized echogenic m aterial on cevallos scale. No defects on color images. Status post BKA. LEFT LEG COMMON FEMORAL AND FEMORAL: Normal phasicity, compression and augmentation. No visualized echogenic m aterial on cevallos scale. No defects on color images. Status post BKA. IMPRESSION: NO EVIDENCE DVT OR SVT IN EITHER LEG. TECHNICAL DOCUMENTATION: JOB ID: [id number] [employer]- All Rights Reserved Reading location - IP/workstation name: [email or web address]
--- NOTE | 2019-09-21 12:01 | RADIOLOGY REPORT (SQ) ---
EXAM DESCRIPTION: CHEST SINGLE VIEW COMPLETED DATE/TIME: 09/21/2019 11:48 am REASON FOR STUDY: chest pain COMPARISON: 09/19/2019 EXAM PARAMETERS: NUMBER OF VIEWS: One view. TECHNIQUE: Single frontal radiographic view of the chest acquired. RADIATION DOSE: NA LIMITATIONS: None. FINDINGS: LUNGS AND PLEURA: There is slight haziness in the right base. The right heart border and right hemidiaphragm are well-defined. MEDIASTINUM AND HILAR STRUCTURES: No masses. Contour normal. HEART AND VASCULAR STRUCTURES: Heart normal in size. Normal vasculature. BONES: No acute findings. HARDWARE: None in the chest. OTHER: No other significant finding. IMPRESSION: Cannot entirely exclude a limited right lower lobe pneumonia. TECHNICAL DOCUMENTATION: JOB ID: [id number] [employer]- All Rights Reserved Reading location - IP/workstation name: [email or web address]
[2019-09-21 12:27] LABS: CREATINE KINASE MB 2.27 ng/mL (<4.55); TROPONIN I 0.03 ng/mL
--- NOTE | 2019-09-21 14:51 | EKG REPORT ---
SEVERITY:- ABNORMAL ECG - SINUS RHYTHM NONSPECIFIC IVCD WITH LAD INFERIOR INFARCT, OLD PROBABLE POSTERIOR INFARCT : Confirmed by: Roge Barton MD 21-Sep-2019 14:50:35
[2019-09-21 17:17] LABS: ARTERIAL BLOOD BASE EXCESS -4.6 mmol/L; ARTERIAL BLOOD FIO2 35%; ARTERIAL BLOOD H2CO3 1.26 mmol/L (1.05-1.35); ARTERIAL BLOOD HCO3 21.2 mmol/L (20-24); ARTERIAL BLOOD O2 SATURATION 97.4 % (94-98); ARTERIAL BLOOD PCO2 41.8 mmHg (35-45); ARTERIAL BLOOD PH 7.32 (7.35-7.45); ARTERIAL BLOOD PO2 104.2 mmHg (80-100); ARTERIAL BLOOD TOTAL CO2 22.5 mmol/L (23-27)
[2019-09-21 17:39] LABS: CREATINE KINASE MB 2.23 ng/mL (<4.55); TROPONIN I 0.034 ng/mL
[2019-09-21 17:49] LABS: ANION GAP 6 (5-19); BLOOD UREA NITROGEN 24 mg/dL (7-20); CARBON DIOXIDE 22 mmol/L (22-30); CHLORIDE 117 mmol/L (98-107); GLUCOSE 170 mg/dL (75-110); POTASSIUM 3.9 mmol/L (3.6-5.0)
--- NOTE | 2019-09-21 19:31 | PDOC PROGRESS REPORT ---
Subjective Progress Note for:: 09/21/19 Subjective:: Patient had episode of labored breathing this morning. He remain on BiPAP support. No reported or observed chest pain. No reported fever or chills. No nausea, vomiting, or abdominal pain. His venous doppler was negative for DVT. Reason For Visit: ACUTE RESPIRATORY ACIDOSIS,HYPERCALCEMIA,METABOLIC Physical Exam Vital Signs: Temp Pulse Resp BP Pulse Ox 98.0 F 82 32 H 121/46 L 100 09/21/19 15:31 09/21/19 15:31 09/21/19 15:31 09/21/19 15:31 09/21/19 15:31 Intake & Output 09/20/19 09/21/19 09/22/19 06:59 06:59 06:59 Intake Total 584 572 120 Balance 584 572 120 Weight 72.4 kg 72.8 kg 72.8 kg Physical Exam: General appearance: PRESENT: mild distress - on supplemental oxygen and BiPAP support Head exam: PRESENT: atraumatic, normocephalic Eye exam: PRESENT: conjunctiva pink. ABSENT: pallor, scleral icterus Ear exam: PRESENT: normal external ear exam Mouth exam: PRESENT: moist - fairly Respiratory exam: PRESENT: decreased breath sounds - at lung bases Cardiovascular exam: PRESENT: RRR. ABSENT: diastolic murmur, rubs, systolic murmur GI/Abdominal exam: PRESENT: normal bowel sounds, soft. ABSENT: distended, guarding, mass, organomegaly, rebound, tenderness Extremities exam: PRESENT: left BKA, right BKA. ABSENT: pedal edema Neurological exam: PRESENT: alert, awake, more lucid and appropriate in simple responses Psychiatric exam: PRESENT: appropriate affect, normal mood. ABSENT: homicidal ideation, suicidal ideation Skin exam: PRESENT: dry, warm, other - improving bilateral BKA stumps skin rod [place] and surrounding erythema. Results Laboratory Results: 09/19/19 04:49 09/21/19 16:55 09/21/19 09/21/19 16:55 17:00 Carbonic Acid 1.26 HCO3/H2CO3 Ratio 16:1 ABG pH 7.32 L ABG pCO2 41.8 ABG pO2 104.2 H ABG HCO3 21.2 ABG O2 Saturation 97.4 ABG Base Excess -4.6 FiO2 35% Sodium 144.6 Potassium 3.9 Chloride 117 H Carbon Dioxide 22 Anion Gap 6 BUN 24 H Creatinine 1.19 Est GFR ( Amer) > 60 Glucose 170 H Calcium 8.0 L 09/08/19 09/09/19 09/09/19 17:20 14:00 14:00 Creatine Kinase 26 L CK-MB (CK-2) Troponin I 0.044 NT-Pro-B Natriuret Pep 1480 H 09/09/19 09/09/19 09/09/19 14:00 20:14 20:14 Creatine Kinase 22 L CK-MB (CK-2) 2.54 2.31 Troponin I 0.035 0.037 NT-Pro-B Natriuret Pep 09/10/19 09/10/19 09/21/19 02:10 02:10 11:49 Creatine Kinase 22 L 28 L CK-MB (CK-2) 2.44 Troponin I 0.035 NT-Pro-B Natriuret Pep 09/21/19 09/21/19 09/21/19 11:49 16:55 16:55 Creatine Kinase 25 L CK-MB (CK-2) 2.27 2.23 Troponin I 0.030 0.034 NT-Pro-B Natriuret Pep Impressions: Lung Scan-VQ NM 09/19/19 00:00 IMPRESSION: No large perfusion defect identified. Heterogeneous distribution of radiotracer is a nonspecific finding. Unable to apply PIOPED criteria given lack of ventilation imaging. Chest X-Ray 09/21/19 00:00 IMPRESSION: Cannot entirely exclude a limited right lower lobe pneumonia. Venous Doppler Study 09/21/19 00:00 IMPRESSION: NO EVIDENCE DVT OR SVT IN EITHER LEG. Assessment & Plan - Diagnosis (1) Acute on chronic respiratory failure with hypoxia and hypercapnia Is this a current diagnosis for this admission?: Yes (2) COPD (chronic obstructive pulmonary disease) Qualifiers: COPD type: COPD with acute exacerbation Qualified Code(s): J44.1 - Chronic obstructive pulmonary disease with (acute) exacerbation Is this a current diagnosis for this admission?: Yes (3) Cystitis due to Pseudomonas Is this a current diagnosis for this admission?: Yes (4) T2DM (type 2 diabetes mellitus) Qualifiers: Diabetes mellitus long term acute care registered nurse insulin use: with long term acute care registered nurse use Diabetes mellitus complication status: with circulatory complication Diabetes mellitus complication detail: with peripheral angiopathy with gangrene Qualified Code(s): E11.52 - Type 2 diabetes mellitus with diabetic peripheral angiopathy with gangrene; Z79.4 - half-way (current) use of insulin Is this a current diagnosis for this admission?: Yes (5) HTN (hypertension) Qualifiers: Hypertension type: essential hypertension Qualified Code(s): I10 - Essential (primary) hypertension Is this a current diagnosis for this admission?: Yes (6) HLD (hyperlipidemia) Qualifiers: Hyperlipidemia type: unspecified Qualified Code(s): E78.5 - Hyperlipidemia, unspecified Is this a current diagnosis for this admission?: Yes (7) Pressure ulcer of BKA stump, stage 2 Is this a current diagnosis for this admission?: Yes (8) Hypercalcemia due to a drug Is this a current diagnosis for this admission?: Yes (9) Hypokalemia Is this a current diagnosis for this admission?: Yes - Time Time Spent with patient: 35 or more minutes Level of Care: IMCU Medications reviewed and adjusted accordingly: Yes Anticipated discharge: Home with Homehealth, SNF, Hospice Within: Other - Inpatient Certification Based on my medical assessment, after consideration of the patient's comorbidities, presenting symptoms, or acuity I expect that the services needed warrant INPATIENT care.: Yes I certify that my determination is in accordance with my understanding of Medicare's requirements for reasonable and necessary INPATIENT services [42 CFR 412.3e].: Yes Medical Necessity: Significant Comorbidiites Make Outpatient Treatment Too Risky, Need Close Monitoring Due to Risk of Patient Decompensation, Need For IV Fluids, Need For Continuous Telemetry Monitoring, Need for Nebulizer Therapy and Monitoring of Response, Risk of Complication if Not Cared For in Hospital, Risk of Diagnosis Which Will Require Inpatient Eval/Care/Monitoring Post Hospital Care: D/C Career Center Advisor Documentation, D/C or Transfer Summary - Plan Summary Plan Summary: See attending physician orders for details about care plan.Overall prognosis remain poor.
[2019-09-21] MEDS: METHYLPREDNISOLONE INJ 125 MG/2 ML SDV IV SCH (21:03)
[2019-09-21] MEDS: IPRATROPIUM/ALBUTEROL 0.5-2.5 MG/3 ML AMPUL NEB PRN (21:06)
[2019-09-21] MEDS ORDERED: HALOPERIDOL LACTATE INJ 5 MG/1 ML VIAL ONE (21:22)
[2019-09-21] MEDS: HALOPERIDOL LACTATE INJ 5 MG/1 ML VIAL IV PRN (21:25)
[2019-09-21 23:22] LABS: CREATINE KINASE MB 2.2 ng/mL (<4.55); TROPONIN I 0.042 ng/mL
[2019-09-22 05:09] LABS: HEMOGLOBIN 9.7 g/dL (13.5-17.0); MEAN CORPUSCULAR HEMOGLOBIN 28.1 pg (27.0-33.4); MEAN CORPUSCULAR HGB CONC 33.5 g/dL (32.0-36.0); MEAN CORPUSCULAR VOLUME 84 fl (80-97); PLATELET COUNT 129 10^3/uL (150-450); RED BLOOD COUNT 3.46 10^6/uL (4.35-5.55); RED CELL DISTRIBUTION WIDTH 14.1 % (11.5-14.0); WHITE BLOOD COUNT 6.6 10^3/uL (4.0-10.5)
[2019-09-22 05:24] LABS: ALBUMIN 2.8 g/dL (3.5-5.0); ALKALINE PHOSPHATASE 79 U/L (38-126); ANION GAP 9 (5-19); ASPARTATE AMINO TRANSFERASE 22 U/L (17-59); BILIRUBIN,DIRECT 0.3 mg/dL (0.0-0.4); BILIRUBIN,TOTAL 0.4 mg/dL (0.2-1.3); BLOOD UREA NITROGEN 24 mg/dL (7-20); CALCIUM 7.8 mg/dL (8.4-10.2); CARBON DIOXIDE 19 mmol/L (22-30); CHLORIDE 118 mmol/L (98-107); GLUCOSE 197 mg/dL (75-110); TOTAL PROTEIN 5.7 g/dL (6.3-8.2)
[2019-09-22 05:40] LABS: ABSOLUTE LYMPHOCYTES# (MANUAL) 0.3 10^3/uL (0.5-4.7); ABSOLUTE MONOCYTES # (MANUAL) 0.1 10^3/uL (0.1-1.4); BAND NEUTROPHILS % (MANUAL) 2 % (3-5); BASOPHILS % (MANUAL) 0 % (0-2); EOSINOPHILS % (MANUAL) 0 % (0-6); LYMPHOCYTES % (MANUAL) 5 % (13-45); MONOCYTES % (MANUAL) 2 % (3-13); SEGMENTED NEUTROPHILS % (MAN) 91 % (42-78); TOTAL CELLS COUNTED 100
[2019-09-22 05:42] LABS: ANISOCYTOSIS SLIGHT; BURR CELLS SLIGHT; OVALOCYTES SLIGHT; PLATELET COMMENT DECREASED; POIKILOCYTOSIS SLIGHT; POLYCHROMASIA SLIGHT; SCHISTOCYTES SLIGHT; TOXIC GRANULATION SLIGHT
[2019-09-22] MEDS: HEPARIN SOD (PORCINE) 5,000 UNIT/ML 1 ML VIAL SUBCUT SCH ×3 (05:43→21:18)
[2019-09-22] MEDS: METHYLPREDNISOLONE INJ 125 MG/2 ML SDV IV SCH ×3 (06:17→21:18)
[2019-09-22] MEDS: INSULIN LISPRO 100 UNIT/ML 3 ML VIAL SUBCUT SCH ×4 (08:17→21:59)
[2019-09-22] MEDS: EZETIMIBE 10 MG TABLET PO SCH (10:32)
[2019-09-22] MEDS: MULTIVITAMIN TABLET PO SCH (10:32)
[2019-09-22] MEDS: AMLODIPINE BESYLATE 10 MG TABLET PO SCH (10:32)
[2019-09-22] MEDS: ACETAZOLAMIDE 500 MG CAPSULE.SA PO SCH (10:32)
[2019-09-22] MEDS: QUETIAPINE FUMARATE 25 MG TABLET PO SCH ×2 (10:32→17:28)
[2019-09-22] MEDS: CARVEDILOL 6.25 MG TABLET PO SCH ×2 (10:32→17:28)
[2019-09-22] MEDS: ASPIRIN 81 MG TABLET, ENT COATED PO SCH (10:32)
[2019-09-22] MEDS: ASCORBIC ACID 500 MG TABLET PO SCH (10:32)
[2019-09-22] MEDS: ROFLUMILAST 500 MCG TABLET PO SCH (10:32)
[2019-09-22] MEDS: SILVER SULFADIAZINE 1% CREAM 50 GM TOP SCH (10:33)
[2019-09-22] MEDS: HALOPERIDOL LACTATE INJ 5 MG/1 ML VIAL IV PRN ×2 (10:33→22:56)
[2019-09-22] MEDS: NORMAL SALINE 1000 ML 1,000 ML IV PRN (10:34)
[2019-09-22] MEDS: IPRATROPIUM/ALBUTEROL 0.5-2.5 MG/3 ML AMPUL NEB PRN (11:38)
--- NOTE | 2019-09-22 13:15 | PDOC PROGRESS REPORT ---
Subjective Progress Note for:: 09/22/19 Subjective:: Patient is currently off BiPAP support and self feeding presently. Remain on supplemental oxygen via nasal cannula. No chest pain. No abdominal pain, nausea, or vomiting. Reason For Visit: ACUTE RESPIRATORY ACIDOSIS,HYPERCALCEMIA,METABOLIC Physical Exam Vital Signs: Temp Pulse Resp BP Pulse Ox 97.9 F 92 28 H 128/49 H 98 09/22/19 12:33 09/22/19 12:33 09/22/19 12:33 09/22/19 12:33 09/22/19 12:33 Intake & Output 09/21/19 09/22/19 09/23/19 06:59 06:59 06:59 Intake Total 572 1030 797 Output Total 250 200 Balance 572 780 597 Weight 72.8 kg 74.6 kg Physical Exam: General appearance: PRESENT: mild distress - on supplemental oxygen and BiPAP support Head exam: PRESENT: atraumatic, normocephalic Eye exam: PRESENT: conjunctiva pink. ABSENT: pallor, scleral icterus Ear exam: PRESENT: normal external ear exam Mouth exam: PRESENT: moist - fairly Respiratory exam: PRESENT: decreased breath sounds - at lung bases Cardiovascular exam: PRESENT: RRR. ABSENT: diastolic murmur, rubs, systolic murmur GI/Abdominal exam: PRESENT: normal bowel sounds, soft. ABSENT: distended, guarding, mass, organomegaly, rebound, tenderness Extremities exam: PRESENT: left BKA, right BKA. ABSENT: pedal edema Neurological exam: PRESENT: alert, awake, more lucid and appropriate in simple responses Psychiatric exam: PRESENT: appropriate affect, normal mood. ABSENT: homicidal ideation, suicidal ideation Skin exam: PRESENT: dry, warm, other - improving bilateral BKA stumps skin breakdown and surrounding erythema. Results Laboratory Results: 09/22/19 04:36 09/22/19 04:36 09/21/19 09/21/19 09/22/19 16:55 17:00 04:36 WBC 6.6 RBC 3.46 L Hgb 9.7 L Hct 29.0 L MCV 84 MCH 28.1 MCHC 33.5 RDW 14.1 H Plt Count 129 L Seg Neutrophils % Not Reportable Carbonic Acid 1.26 HCO3/H2CO3 Ratio 16:1 ABG pH 7.32 L ABG pCO2 41.8 ABG pO2 104.2 H ABG HCO3 21.2 ABG O2 Saturation 97.4 ABG Base Excess -4.6 FiO2 35% Sodium 144.6 Potassium 3.9 Chloride 117 H Carbon Dioxide 22 Anion Gap 6 BUN 24 H Creatinine 1.19 Est GFR ( Amer) > 60 Glucose 170 H Calcium 8.0 L Total Bilirubin AST Alkaline Phosphatase Total Protein Albumin 09/22/19 04:36 WBC RBC Hgb Hct MCV MCH MCHC RDW Plt Count Seg Neutrophils % Carbonic Acid HCO3/H2CO3 Ratio ABG pH ABG pCO2 ABG pO2 ABG HCO3 ABG O2 Saturation ABG Base Excess FiO2 Sodium 146.2 H Potassium 4.0 Chloride 118 H Carbon Dioxide 19 L Anion Gap 9 BUN 24 H Creatinine 1.04 Est GFR ( Amer) > 60 Glucose 197 H Calcium 7.8 L Total Bilirubin 0.4 AST 22 Alkaline Phosphatase 79 Total Protein 5.7 L Albumin 2.8 L 09/08/19 09/09/19 09/09/19 17:20 14:00 14:00 Creatine Kinase 26 L CK-MB (CK-2) Troponin I 0.044 NT-Pro-B Natriuret Pep 1480 H 09/09/19 09/09/19 09/09/19 14:00 20:14 20:14 Creatine Kinase 22 L CK-MB (CK-2) 2.54 2.31 Troponin I 0.035 0.037 NT-Pro-B Natriuret Pep 09/10/19 09/10/19 09/21/19 02:10 02:10 11:49 Creatine Kinase 22 L 28 L CK-MB (CK-2) 2.44 Troponin I 0.035 NT-Pro-B Natriuret Pep 09/21/19 09/21/19 09/21/19 11:49 16:55 16:55 Creatine Kinase 25 L CK-MB (CK-2) 2.27 2.23 Troponin I 0.030 0.034 NT-Pro-B Natriuret Pep 09/21/19 09/21/19 22:47 22:47 Creatine Kinase 35 L CK-MB (CK-2) 2.20 Troponin I 0.042 NT-Pro-B Natriuret Pep Impressions: Lung Scan-VQ NM 09/19/19 00:00 IMPRESSION: No large perfusion defect identified. Heterogeneous distribution of radiotracer is a nonspecific finding. Unable to apply PIOPED criteria given lack of ventilation imaging. Chest X-Ray 09/21/19 00:00 IMPRESSION: Cannot entirely exclude a limited right lower lobe pneumonia. Venous Doppler Study 09/21/19 00:00 IMPRESSION: NO EVIDENCE DVT OR SVT IN EITHER LEG. Assessment & Plan - Diagnosis (1) Acute on chronic respiratory failure with hypoxia and hypercapnia Is this a current diagnosis for this admission?: Yes (2) COPD (chronic obstructive pulmonary disease) Qualifiers: COPD type: COPD with acute exacerbation Qualified Code(s): J44.1 - Chronic obstructive pulmonary disease with (acute) exacerbation Is this a current diagnosis for this admission?: Yes (3) Cystitis due to Pseudomonas Is this a current diagnosis for this admission?: Yes (4) T2DM (type 2 diabetes mellitus) Qualifiers: Diabetes mellitus watermaster insulin use: with longterm use Diabetes mellitus complication status: with circulatory complication Diabetes mellitus complication detail: with peripheral angiopathy with gangrene Qualified Code(s): E11.52 - Type 2 diabetes mellitus with diabetic peripheral angiopathy with gangrene; Z79.4 - intermediate (current) use of insulin Is this a current diagnosis for this admission?: Yes (5) HTN (hypertension) Qualifiers: Hypertension type: essential hypertension Qualified Code(s): I10 - Essential (primary) hypertension Is this a current diagnosis for this admission?: Yes (6) HLD (hyperlipidemia) Qualifiers: Hyperlipidemia type: unspecified Qualified Code(s): E78.5 - Hyperlipidemia, unspecified Is this a current diagnosis for this admission?: Yes (7) Pressure ulcer of BKA stump, stage 2 Is this a current diagnosis for this admission?: Yes (8) Hypercalcemia due to a drug Is this a current diagnosis for this admission?: Yes (9) Hypokalemia Is this a current diagnosis for this admission?: Yes - Time Time Spent with patient: 25-34 minutes Level of Care: IMCU Medications reviewed and adjusted accordingly: Yes Anticipated discharge: Home with Homehealth, SNF, Hospice Within: Other - Inpatient Certification Based on my medical assessment, after consideration of the patient's comorbidities, presenting symptoms, or acuity I expect that the services needed warrant INPATIENT care.: Yes I certify that my determination is in accordance with my understanding of Medicare's requirements for reasonable and necessary INPATIENT services [42 CFR 412.3e].: Yes Medical Necessity: Significant Comorbidiites Make Outpatient Treatment Too Risky, Need Close Monitoring Due to Risk of Patient Decompensation, Need For IV Fluids, Need For Continuous Telemetry Monitoring, Need for Nebulizer Therapy and Monitoring of Response, Risk of Complication if Not Cared For in Hospital, Risk of Diagnosis Which Will Require Inpatient Eval/Care/Monitoring Post Hospital Care: D/C Industrial Maintenance 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 Follow up on pulmonary consult recommendations.
[2019-09-23] MEDS: HEPARIN SOD (PORCINE) 5,000 UNIT/ML 1 ML VIAL SUBCUT SCH ×3 (05:23→22:20)
[2019-09-23] MEDS: METHYLPREDNISOLONE INJ 125 MG/2 ML SDV IV SCH ×3 (05:23→21:16)
[2019-09-23] MEDS: NORMAL SALINE 1000 ML 1,000 ML IV PRN (05:27)
[2019-09-23] MEDS: INSULIN LISPRO 100 UNIT/ML 3 ML VIAL SUBCUT SCH ×4 (08:32→22:30)
[2019-09-23] MEDS: ASCORBIC ACID 500 MG TABLET PO SCH (09:29)
[2019-09-23] MEDS: QUETIAPINE FUMARATE 25 MG TABLET PO SCH ×2 (09:29→17:46)
[2019-09-23] MEDS: MULTIVITAMIN TABLET PO SCH (09:29)
[2019-09-23] MEDS: ACETAZOLAMIDE 500 MG CAPSULE.SA PO SCH (09:29)
[2019-09-23] MEDS: EZETIMIBE 10 MG TABLET PO SCH (09:29)
[2019-09-23] MEDS: ASPIRIN 81 MG TABLET, ENT COATED PO SCH (09:29)
[2019-09-23] MEDS: ROFLUMILAST 500 MCG TABLET PO SCH (09:29)
[2019-09-23] MEDS: AMLODIPINE BESYLATE 10 MG TABLET PO SCH (09:29)
[2019-09-23] MEDS: CARVEDILOL 6.25 MG TABLET PO SCH ×2 (09:29→17:46)
[2019-09-23] MEDS: SILVER SULFADIAZINE 1% CREAM 50 GM TOP SCH (09:33)
--- NOTE | 2019-09-23 10:49 | PDOC PROGRESS REPORT ---
Subjective Progress Note for:: 09/23/19 Subjective:: Patient is currently on a BiPAP Feeling much better According to the nursing staff patient is more alert awake Patient's denied any chest pain denied any shortness of the breath Denied any abdominal pain Reason For Visit: ACUTE RESPIRATORY ACIDOSIS,HYPERCALCEMIA,METABOLIC Physical Exam Vital Signs: Temp Pulse Resp BP Pulse Ox 97.6 F 83 16 146/60 H 100 09/23/19 07:16 09/23/19 07:16 09/23/19 07:16 09/23/19 07:16 09/23/19 07:16 Intake & Output 09/22/19 09/23/19 09/24/19 06:59 06:59 06:59 Intake Total 1030 1981 330 Output Total 250 350 Balance 780 1631 330 Weight 74.6 kg 72.7 kg Physical Exam: Currently on a BiPAP General appearance: PRESENT: no acute distress, well-developed, well-nourished Head exam: PRESENT: atraumatic, normocephalic Eye exam: PRESENT: conjunctiva pink, EOMI, PERRLA. ABSENT: scleral icterus Ear exam: PRESENT: normal external ear exam Mouth exam: PRESENT: moist, tongue midline Neck exam: PRESENT: full ROM. ABSENT: carotid bruit, JVD, lymphadenopathy, thyromegaly Cardiovascular exam: PRESENT: RRR. ABSENT: diastolic murmur, rubs, systolic murmur Vascular exam: PRESENT: normal capillary refill GI/Abdominal exam: PRESENT: normal bowel sounds, soft. ABSENT: distended, guarding, mass, organolmegaly, rebound, tenderness Rectal exam: PRESENT: deferred Extremities exam: PRESENT: left BKA, right BKA Neurological exam: PRESENT: alert, awake, oriented to person, oriented to place, oriented to time. ABSENT: motor sensory deficit Psychiatric exam: PRESENT: appropriate affect, normal mood. ABSENT: homicidal ideation, suicidal ideation Skin exam: PRESENT: dry, intact, warm. ABSENT: cyanosis, rash Results Laboratory Results: 09/22/19 04:36 09/22/19 04:36 09/08/19 09/09/19 09/09/19 17:20 14:00 14:00 Creatine Kinase 26 L CK-MB (CK-2) Troponin I 0.044 NT-Pro-B Natriuret Pep 1480 H 12/09/09/19 09/09/19 14:00 20:14 20:14 Creatine Kinase 22 L CK-MB (CK-2) 2.54 2.31 Troponin I 0.035 0.037 NT-Pro-B Natriuret Pep 09/10/19 09/10/19 09/21/19 02:10 02:10 11:49 Creatine Kinase 22 L 28 L CK-MB (CK-2) 2.44 Troponin I 0.035 NT-Pro-B Natriuret Pep 09/21/19 09/21/19 09/21/19 11:49 16:55 16:55 Creatine Kinase 25 L CK-MB (CK-2) 2.27 2.23 Troponin I 0.030 0.034 NT-Pro-B Natriuret Pep 09/21/19 09/21/19 22:47 22:47 Creatine Kinase 35 L CK-MB (CK-2) 2.20 Troponin I 0.042 NT-Pro-B Natriuret Pep Impressions: Lung Scan-VQ NM 09/19/19 00:00 IMPRESSION: No large perfusion defect identified. Heterogeneous distribution of radiotracer is a nonspecific finding. Unable to apply PIOPED criteria given lack of ventilation imaging. Chest X-Ray 09/21/19 00:00 IMPRESSION: Cannot entirely exclude a limited right lower lobe pneumonia. Venous Doppler Study 09/21/19 00:00 IMPRESSION: NO EVIDENCE DVT OR SVT IN EITHER LEG. Assessment & Plan - Diagnosis (1) Acute on chronic respiratory failure with hypoxia and hypercapnia Is this a current diagnosis for this admission?: Yes Plan: Continues on the BiPAP will get the ABG (2) COPD (chronic obstructive pulmonary disease) Qualifiers: COPD type: COPD with acute exacerbation Qualified Code(s): J44.1 - Chronic obstructive pulmonary disease with (acute) exacerbation Is this a current diagnosis for this admission?: Yes Plan: Continues IV Solu-Medrol's consider to reduce the dose to 80 mg (3) Cystitis due to Pseudomonas Is this a current diagnosis for this admission?: Yes Plan: Start the patient on the cefepime (4) Hypercalcemia due to a drug Is this a current diagnosis for this admission?: Yes (5) T2DM (type 2 diabetes mellitus) Qualifiers: Diabetes mellitus senior living insulin use: with senior living use Diabetes mellitus complication status: with circulatory complication Diabetes mellitus complication detail: with peripheral angiopathy with gangrene Qualified Code(s): E11.52 - Type 2 diabetes mellitus with diabetic peripheral angiopathy with gangrene; Z79.4 - terminal worker (current) use of insulin Is this a current diagnosis for this admission?: Yes Plan: To the sliding scales (6) CAD (coronary artery disease) Qualifiers: Coronary Disease-Associated Artery/Lesion type: [place] artery Associated angina: without angina Is this a current diagnosis for this admission?: Yes (7) HLD (hyperlipidemia) Qualifiers: Hyperlipidemia type: unspecified Qualified Code(s): E78.5 - Hyperlipidemia, unspecified Is this a current diagnosis for this admission?: Yes (8) HTN (hypertension) Qualifiers: Hypertension type: essential hypertension Qualified Code(s): I10 - Essential (primary) hypertension Is this a current diagnosis for this admission?: Yes (9) Pressure ulcer of BKA stump, stage 2 Is this a current diagnosis for this admission?: Yes - Time Time Spent with patient: 15-24 minutes Level of Care: IMCU Medications reviewed and adjusted accordingly: Yes Within: Other - Plan Summary Plan Summary: As per the culture we will start the patient on IV cefepime to cover the Pseudomonas Continues the current medications Get the ABG
[2019-09-23] MEDS: IPRATROPIUM/ALBUTEROL 0.5-2.5 MG/3 ML AMPUL NEB SCH ×3 (13:05→20:12)
[2019-09-23] MEDS: CEFEPIME 1 GM/D5W RTU 1 GM/50 ML RTUPB IV SCH (13:20)
[2019-09-23 13:31] LABS: ARTERIAL BLOOD BASE EXCESS -6.3 mmol/L; ARTERIAL BLOOD HCO3 19.5 mmol/L (20-24); ARTERIAL BLOOD O2 SATURATION 96.7 % (94-98); ARTERIAL BLOOD PCO2 39.8 mmHg (35-45); ARTERIAL BLOOD PH 7.31 (7.35-7.45); ARTERIAL BLOOD PO2 95.7 mmHg (80-100); ARTERIAL BLOOD TOTAL CO2 20.7 mmol/L (23-27)
[2019-09-23 13:32] LABS: ARTERIAL BLOOD FIO2 35%
[2019-09-23] MEDS: HALOPERIDOL LACTATE INJ 5 MG/1 ML VIAL IV PRN (21:16)
[2019-09-24] MEDS: IPRATROPIUM/ALBUTEROL 0.5-2.5 MG/3 ML AMPUL NEB SCH ×6 (00:44→20:04)
[2019-09-24] MEDS: CEFEPIME 1 GM/D5W RTU 1 GM/50 ML RTUPB IV SCH ×3 (00:45→23:18)
[2019-09-24] MEDS: NORMAL SALINE 1000 ML 1,000 ML IV PRN ×2 (02:57→23:18)
[2019-09-24] MEDS: METHYLPREDNISOLONE INJ 125 MG/2 ML SDV IV SCH ×3 (05:05→21:17)
[2019-09-24] MEDS: HEPARIN SOD (PORCINE) 5,000 UNIT/ML 1 ML VIAL SUBCUT SCH ×3 (05:05→21:16)
[2019-09-24 05:14] LABS: HEMATOCRIT 29.5 % (37.9-51.0); HEMOGLOBIN 9.9 g/dL (13.5-17.0); MEAN CORPUSCULAR HEMOGLOBIN 27.6 pg (27.0-33.4); MEAN CORPUSCULAR HGB CONC 33.5 g/dL (32.0-36.0); MEAN CORPUSCULAR VOLUME 82 fl (80-97); PLATELET COUNT 169 10^3/uL (150-450); RED BLOOD COUNT 3.58 10^6/uL (4.35-5.55); RED CELL DISTRIBUTION WIDTH 14.3 % (11.5-14.0); WHITE BLOOD COUNT 9.1 10^3/uL (4.0-10.5)
[2019-09-24 05:16] LABS: ANION GAP 6 (5-19); BLOOD UREA NITROGEN 44 mg/dL (7-20); CALCIUM 7.3 mg/dL (8.4-10.2); CARBON DIOXIDE 20 mmol/L (22-30); CHLORIDE 118 mmol/L (98-107); GLUCOSE 211 mg/dL (75-110); POTASSIUM 4.1 mmol/L (3.6-5.0)
[2019-09-24 06:17] LABS: ABSOLUTE LYMPHOCYTES# (MANUAL) 0.5 10^3/uL (0.5-4.7); ABSOLUTE MONOCYTES # (MANUAL) 0.2 10^3/uL (0.1-1.4); BASOPHILS % (MANUAL) 0 % (0-2); EOSINOPHILS % (MANUAL) 0 % (0-6); LYMPHOCYTES % (MANUAL) 5 % (13-45); MONOCYTES % (MANUAL) 2 % (3-13); SEGMENTED NEUTROPHILS % (MAN) 93 % (42-78); TOTAL CELLS COUNTED 100
[2019-09-24 06:28] LABS: ANISOCYTOSIS SLIGHT; OVALOCYTES 1+; PLATELET COMMENT ADEQUATE; POIKILOCYTOSIS SLIGHT; SCHISTOCYTES SLIGHT; TEAR DROP CELLS SLIGHT; TOXIC GRANULATION 1+
--- NOTE | 2019-09-24 10:21 | PDOC PROGRESS REPORT ---
Subjective Progress Note for:: 09/24/19 Subjective:: Patient is currently on a BiPAP Feeling much better According to the nursing staff patient is more alert awake Patient's denied any chest pain denied any shortness of the breath Denied any abdominal pain Reason For Visit: ACUTE RESPIRATORY ACIDOSIS,HYPERCALCEMIA,METABOLIC Physical Exam Vital Signs: Temp Pulse Resp BP Pulse Ox 97.5 F 89 19 138/60 H 99 09/24/19 03:47 09/24/19 08:09 09/24/19 08:09 09/24/19 08:07 09/24/19 08:09 Intake & Output 09/23/19 09/24/19 09/25/19 06:59 06:59 06:59 Intake Total 1981 2019 Output Total 350 Balance 1631 2019 Weight 72.7 kg 72.6 kg General appearance: PRESENT: no acute distress, well-developed, well-nourished Head exam: PRESENT: atraumatic, normocephalic Eye exam: PRESENT: conjunctiva pink, EOMI, PERRLA. ABSENT: scleral icterus Ear exam: PRESENT: normal external ear exam Mouth exam: PRESENT: moist, tongue midline Neck exam: PRESENT: full ROM. ABSENT: carotid bruit, JVD, lymphadenopathy, thyromegaly Cardiovascular exam: PRESENT: RRR. ABSENT: diastolic murmur, rubs, systolic murmur Vascular exam: PRESENT: normal capillary refill GI/Abdominal exam: PRESENT: normal bowel sounds, soft. ABSENT: distended, guarding, mass, organolmegaly, rebound, tenderness Rectal exam: PRESENT: deferred Neurological exam: PRESENT: alert, awake, oriented to person, oriented to place, oriented to time, oriented to situation, CN II-XII grossly intact. ABSENT: motor sensory deficit Psychiatric exam: PRESENT: appropriate affect, normal mood. ABSENT: homicidal ideation, suicidal ideation Skin exam: PRESENT: dry, intact, warm. ABSENT: cyanosis, rash Results Laboratory Results: 09/24/19 04:36 09/24/19 04:36 09/23/19 09/24/19 09/24/19 13:04 04:36 04:36 WBC 9.1 RBC 3.58 L Hgb 9.9 L Hct 29.5 L MCV 82 MCH 27.6 MCHC 33.5 RDW 14.3 H Plt Count 169 Seg Neutrophils % Not Reportable Carbonic Acid 1.20 HCO3/H2CO3 Ratio 16:1 ABG pH 7.31 L ABG pCO2 39.8 ABG pO2 95.7 ABG HCO3 19.5 L ABG O2 Saturation 96.7 ABG Base Excess -6.3 FiO2 35% Sodium 143.8 Potassium 4.1 Chloride 118 H Carbon Dioxide 20 L Anion Gap 6 BUN 44 H Creatinine 1.10 Est GFR ( Amer) > 60 Glucose 211 H Calcium 7.3 L 09/08/19 09/09/19 09/09/19 17:20 14:00 14:00 Creatine Kinase 26 L CK-MB (CK-2) Troponin I 0.044 NT-Pro-B Natriuret Pep 1480 H 09/09/19 09/09/19 09/09/19 14:00 20:14 20:14 Creatine Kinase 22 L CK-MB (CK-2) 2.54 2.31 Troponin I 0.035 0.037 NT-Pro-B Natriuret Pep 09/10/19 09/10/19 09/21/19 02:10 02:10 11:49 Creatine Kinase 22 L 28 L CK-MB (CK-2) 2.44 Troponin I 0.035 NT-Pro-B Natriuret Pep 09/21/19 09/21/19 09/21/19 11:49 16:55 16:55 Creatine Kinase 25 L CK-MB (CK-2) 2.27 2.23 Troponin I 0.030 0.034 NT-Pro-B Natriuret Pep 09/21/19 09/21/19 22:47 22:47 Creatine Kinase 35 L CK-MB (CK-2) 2.20 Troponin I 0.042 NT-Pro-B Natriuret Pep Impressions: Lung Scan-VQ NM 09/19/19 00:00 IMPRESSION: No large perfusion defect identified. Heterogeneous distribution of radiotracer is a nonspecific finding. Unable to apply PIOPED criteria given lack of ventilation imaging. Chest X-Ray 09/21/19 00:00 IMPRESSION: Cannot entirely exclude a limited right lower lobe pneumonia. Venous Doppler Study 09/21/19 00:00 IMPRESSION: NO EVIDENCE DVT OR SVT IN EITHER LEG. Assessment & Plan - Diagnosis (1) Acute on chronic respiratory failure with hypoxia and hypercapnia Is this a current diagnosis for this admission?: Yes Plan: Continues on the BiPAP will get the ABG (2) COPD (chronic obstructive pulmonary disease) Qualifiers: COPD type: COPD with acute exacerbation Qualified Code(s): J44.1 - Chronic obstructive pulmonary disease with (acute) exacerbation Is this a current diagnosis for this admission?: Yes Plan: Continues IV Solu-Medrol's consider to reduce the dose to 80 mg (3) Cystitis due to Pseudomonas Is this a current diagnosis for this admission?: Yes Plan: Start the patient on the cefepime (4) Hypercalcemia due to a drug Is this a current diagnosis for this admission?: Yes (5) T2DM (type 2 diabetes mellitus) Qualifiers: Diabetes mellitus ad terminal makeup operator insulin use: with ad terminal makeup operator use Diabetes mellitus complication status: with circulatory complication Diabetes mellitus complication detail: with peripheral angiopathy with gangrene Qualified Code(s): E11.52 - Type 2 diabetes mellitus with diabetic peripheral angiopathy with gangrene; Z79.4 - vermin exterminator (current) use of insulin Is this a current diagnosis for this admission?: Yes Plan: To the sliding scales (6) CAD (coronary artery disease) Qualifiers: Coronary Disease-Associated Artery/Lesion type: [place] artery Associated angina: without angina Is this a current diagnosis for this admission?: Yes (7) HLD (hyperlipidemia) Qualifiers: Hyperlipidemia type: unspecified Qualified Code(s): E78.5 - Hyperlipidemia, unspecified Is this a current diagnosis for this admission?: Yes (8) HTN (hypertension) Qualifiers: Hypertension type: essential hypertension Qualified Code(s): I10 - Essential (primary) hypertension Is this a current diagnosis for this admission?: Yes (9) Pressure ulcer of BKA stump, stage 2 Is this a current diagnosis for this admission?: Yes - Time Time Spent with patient: 15-24 minutes Level of Care: IMCU Medications reviewed and adjusted accordingly: Yes Anticipated discharge: Other Within: Other - Plan Summary Plan Summary: Continues to current medications Discussed with the daughter about patient's current conditions with the poor prognosis
[2019-09-24] MEDS: INSULIN LISPRO 100 UNIT/ML 3 ML VIAL SUBCUT SCH ×4 (10:35→21:16)
[2019-09-24] MEDS: ACETAZOLAMIDE 500 MG CAPSULE.SA PO SCH (10:38)
[2019-09-24] MEDS: SILVER SULFADIAZINE 1% CREAM 50 GM TOP SCH (10:39)
[2019-09-24] MEDS: ASCORBIC ACID 500 MG TABLET PO SCH (10:39)
[2019-09-24] MEDS: ASPIRIN 81 MG TABLET, ENT COATED PO SCH (10:39)
[2019-09-24] MEDS: QUETIAPINE FUMARATE 25 MG TABLET PO SCH ×2 (10:39→21:17)
[2019-09-24] MEDS: ROFLUMILAST 500 MCG TABLET PO SCH (10:39)
[2019-09-24] MEDS: AMLODIPINE BESYLATE 10 MG TABLET PO SCH (10:39)
[2019-09-24] MEDS: CARVEDILOL 6.25 MG TABLET PO SCH ×2 (10:39→21:17)
[2019-09-24] MEDS: EZETIMIBE 10 MG TABLET PO SCH (10:39)
[2019-09-24] MEDS: MULTIVITAMIN TABLET PO SCH (10:39)
[2019-09-24] MEDS: HALOPERIDOL LACTATE INJ 5 MG/1 ML VIAL IV PRN (11:10)
[2019-09-24] MEDS ORDERED: LORAZEPAM 0.5 MG TABLET PO PRN (13:51)
[2019-09-24] MEDS ORDERED: LORAZEPAM 1 MG TABLET ONE (13:53)
[2019-09-25] MEDS: IPRATROPIUM/ALBUTEROL 0.5-2.5 MG/3 ML AMPUL NEB SCH ×6 (00:39→19:37)
[2019-09-25] MEDS: METHYLPREDNISOLONE INJ 125 MG/2 ML SDV IV SCH ×3 (05:17→22:48)
[2019-09-25] MEDS: HEPARIN SOD (PORCINE) 5,000 UNIT/ML 1 ML VIAL SUBCUT SCH ×3 (05:17→22:48)
[2019-09-25 05:34] LABS: ANION GAP 8 (5-19); BLOOD UREA NITROGEN 52 mg/dL (7-20); CALCIUM 7.4 mg/dL (8.4-10.2); CARBON DIOXIDE 19 mmol/L (22-30); CHLORIDE 117 mmol/L (98-107); GLUCOSE 144 mg/dL (75-110); POTASSIUM 4.3 mmol/L (3.6-5.0)
[2019-09-25] MEDS: INSULIN LISPRO 100 UNIT/ML 3 ML VIAL SUBCUT SCH ×4 (08:49→22:49)
[2019-09-25] MEDS: ACETAZOLAMIDE 500 MG CAPSULE.SA PO SCH (09:02)
[2019-09-25] MEDS: ROFLUMILAST 500 MCG TABLET PO SCH (09:03)
[2019-09-25] MEDS: MULTIVITAMIN TABLET PO SCH (09:03)
[2019-09-25] MEDS: EZETIMIBE 10 MG TABLET PO SCH (09:03)
[2019-09-25] MEDS: QUETIAPINE FUMARATE 25 MG TABLET PO SCH ×2 (09:03→17:19)
[2019-09-25] MEDS: ASCORBIC ACID 500 MG TABLET PO SCH (09:03)
[2019-09-25] MEDS: SILVER SULFADIAZINE 1% CREAM 50 GM TOP SCH (09:03)
[2019-09-25] MEDS: ASPIRIN 81 MG TABLET, ENT COATED PO SCH (09:03)
[2019-09-25] MEDS: AMLODIPINE BESYLATE 10 MG TABLET PO SCH (09:04)
[2019-09-25] MEDS: CARVEDILOL 6.25 MG TABLET PO SCH ×2 (09:04→17:20)
[2019-09-25] MEDS: HALOPERIDOL LACTATE INJ 5 MG/1 ML VIAL IV PRN (12:07)
[2019-09-25] MEDS: CEFEPIME 1 GM/D5W RTU 1 GM/50 ML RTUPB IV SCH ×2 (12:17→23:29)
--- NOTE | 2019-09-25 17:31 | PDOC PROGRESS REPORT ---
Subjective Progress Note for:: 09/25/19 Subjective:: Patient continue to demonstrate episodes of anxiety and hyperventilation of BiPAP support. No chest pain. No abdominal pain, nausea, or vomiting. Reason For Visit: ACUTE RESPIRATORY ACIDOSIS,HYPERCALCEMIA,METABOLIC Physical Exam Vital Signs: Temp Pulse Resp BP Pulse Ox 98.0 F 117 H 18 156/66 H 96 09/25/19 16:47 09/25/19 16:47 09/25/19 16:47 09/25/19 16:47 09/25/19 16:47 Intake & Output 09/24/19 09/25/19 09/26/19 06:59 06:59 06:59 Intake Total 2019 1770 510 Balance 2019 1770 510 Weight 72.6 kg 72.4 kg Physical Exam: General appearance: PRESENT: mild distress - on supplemental oxygen and BiPAP support Head exam: PRESENT: atraumatic, normocephalic Eye exam: PRESENT: conjunctiva pink. ABSENT: pallor, scleral icterus Ear exam: PRESENT: normal external ear exam Mouth exam: PRESENT: moist - fairly Respiratory exam: PRESENT: decreased breath sounds - at lung bases Cardiovascular exam: PRESENT: RRR. ABSENT: diastolic murmur, rubs, systolic murmur GI/Abdominal exam: PRESENT: normal bowel sounds, soft. ABSENT: distended, guarding, mass, organomegaly, rebound, tenderness Extremities exam: PRESENT: left BKA, right BKA. ABSENT: pedal edema Neurological exam: PRESENT: alert, awake, more lucid and appropriate in simple responses Psychiatric exam: PRESENT: appropriate affect, normal mood. ABSENT: homicidal ideation, suicidal ideation Skin exam: PRESENT: dry, warm, other - improving bilateral BKA stumps skin breakdown and surrounding erythema. Results Laboratory Results: 09/24/19 04:36 09/25/19 04:16 09/25/19 04:16 Sodium 144.3 Potassium 4.3 Chloride 117 H Carbon Dioxide 19 L Anion Gap 8 BUN 52 H Creatinine 1.15 Est GFR ( Amer) > 60 Glucose 144 H Calcium 7.4 L 09/08/19 09/09/19 09/09/19 17:20 14:00 14:00 Creatine Kinase 26 L CK-MB (CK-2) Troponin I 0.044 NT-Pro-B Natriuret Pep 1480 H 09/09/19 09/09/19 09/09/19 14:00 20:14 20:14 Creatine Kinase 22 L CK-MB (CK-2) 2.54 2.31 Troponin I 0.035 0.037 NT-Pro-B Natriuret Pep 09/10/19 09/10/19 09/21/19 02:10 02:10 11:49 Creatine Kinase 22 L 28 L CK-MB (CK-2) 2.44 Troponin I 0.035 NT-Pro-B Natriuret Pep 09/21/19 09/21/19 09/21/19 11:49 16:55 16:55 Creatine Kinase 25 L CK-MB (CK-2) 2.27 2.23 Troponin I 0.030 0.034 NT-Pro-B Natriuret Pep 09/21/19 09/21/19 22:47 22:47 Creatine Kinase 35 L CK-MB (CK-2) 2.20 Troponin I 0.042 NT-Pro-B Natriuret Pep Impressions: Lung Scan-VQ NM 09/19/19 00:00 IMPRESSION: No large perfusion defect identified. Heterogeneous distribution of radiotracer is a nonspecific finding. Unable to apply PIOPED criteria given lack of ventilation imaging. Chest X-Ray 09/21/19 00:00 IMPRESSION: Cannot entirely exclude a limited right lower lobe pneumonia. Venous Doppler Study 09/21/19 00:00 IMPRESSION: NO EVIDENCE DVT OR SVT IN EITHER LEG. Assessment & Plan - Diagnosis (1) Acute on chronic respiratory failure with hypoxia and hypercapnia Is this a current diagnosis for this admission?: Yes (2) COPD (chronic obstructive pulmonary disease) Qualifiers: COPD type: COPD with acute exacerbation Qualified Code(s): J44.1 - Chronic obstructive pulmonary disease with (acute) exacerbation Is this a current diagnosis for this admission?: Yes Plan: Decrease IV Solu Medrol 80 mg p.o q8 hours. Follow up on pulmonary consult request. (3) Cystitis due to Pseudomonas Is this a current diagnosis for this admission?: Yes (4) T2DM (type 2 diabetes mellitus) Qualifiers: Diabetes mellitus long goods drier insulin use: with half-way use Diabetes mellitus complication status: with circulatory complication Diabetes mellitus complication detail: with peripheral angiopathy with gangrene Qualified Code(s): E11.52 - Type 2 diabetes mellitus with diabetic peripheral angiopathy with gangrene; Z79.4 - vermin exterminator (current) use of insulin Is this a current diagnosis for this admission?: Yes (5) HTN (hypertension) Qualifiers: Hypertension type: essential hypertension Qualified Code(s): I10 - Essential (primary) hypertension Is this a current diagnosis for this admission?: Yes (6) HLD (hyperlipidemia) Qualifiers: Hyperlipidemia type: unspecified Qualified Code(s): E78.5 - Hyperlipidemia, unspecified Is this a current diagnosis for this admission?: Yes (7) Pressure ulcer of BKA stump, stage 2 Is this a current diagnosis for this admission?: Yes (8) Hypercalcemia due to a drug Is this a current diagnosis for this admission?: Yes (9) Hypokalemia Is this a current diagnosis for this admission?: Yes (10) Anxiety hyperventilation Is this a current diagnosis for this admission?: Yes Plan: Change IV haloperidol to 1mg q8 hours. - Time Time Spent with patient: 35 or more minutes Level of Care: IMCU Medications reviewed and adjusted accordingly: Yes Anticipated discharge: Home with Homehealth, SNF, Hospice Within: Other - Inpatient Certification Based on my medical assessment, after consideration of the patient's c omorbidities, presenting symptoms, or acuity I expect that the services needed warrant INPATIENT care.: Yes I certify that my determination is in accordance with my understanding of Medicare's requirements for reasonable and necessary INPATIENT services [42 CFR 412.3e].: Yes Medical Necessity: Significant Comorbidiites Make Outpatient Treatment Too Risky, Need Close Monitoring Due to Risk of Patient Decompensation, Need For IV Fluids, Need For Continuous Telemetry Monitoring, Need for Nebulizer Therapy and Monitoring of Response, Need for IV Antibiotics, Risk of Complication if Not Cared For in Hospital, Risk of Diagnosis Which Will Require Inpatient Eval/Care/Monitoring Post Hospital Care: D/C Geophysical E Logger Documentation, D/C or Transfer Summary - Plan Summary Plan Summary: See attending physician orders for details about care plan.
[2019-09-25] MEDS: HALOPERIDOL LACTATE INJ 5 MG/1 ML VIAL IV SCH ×2 (20:08→22:53)
[2019-09-25] MEDS: NORMAL SALINE 1000 ML 1,000 ML IV PRN (22:50)
[2019-09-26] MEDS: IPRATROPIUM/ALBUTEROL 0.5-2.5 MG/3 ML AMPUL NEB SCH ×6 (00:05→20:37)
[2019-09-26 05:23] LABS: ANION GAP 6 (5-19); BLOOD UREA NITROGEN 65 mg/dL (7-20); CALCIUM 7.2 mg/dL (8.4-10.2); CARBON DIOXIDE 19 mmol/L (22-30); CHLORIDE 119 mmol/L (98-107); GLUCOSE 238 mg/dL (75-110); POTASSIUM 4.6 mmol/L (3.6-5.0)
[2019-09-26] MEDS: METHYLPREDNISOLONE INJ 125 MG/2 ML SDV IV SCH ×3 (05:25→21:33)
[2019-09-26] MEDS: HALOPERIDOL LACTATE INJ 5 MG/1 ML VIAL IV SCH ×2 (05:25→14:02)
[2019-09-26] MEDS: HEPARIN SOD (PORCINE) 5,000 UNIT/ML 1 ML VIAL SUBCUT SCH ×3 (05:25→21:32)
[2019-09-26] MEDS: ROFLUMILAST 500 MCG TABLET PO SCH (09:21)
[2019-09-26] MEDS: CARVEDILOL 6.25 MG TABLET PO SCH ×2 (09:22→17:41)
[2019-09-26] MEDS: MULTIVITAMIN TABLET PO SCH (09:22)
[2019-09-26] MEDS: ASCORBIC ACID 500 MG TABLET PO SCH (09:22)
[2019-09-26] MEDS: QUETIAPINE FUMARATE 25 MG TABLET PO SCH ×2 (09:22→17:41)
[2019-09-26] MEDS: ASPIRIN 81 MG TABLET, ENT COATED PO SCH (09:23)
[2019-09-26] MEDS: ACETAZOLAMIDE 500 MG CAPSULE.SA PO SCH (09:23)
[2019-09-26] MEDS: INSULIN LISPRO 100 UNIT/ML 3 ML VIAL SUBCUT SCH ×4 (09:23→21:43)
[2019-09-26] MEDS: SILVER SULFADIAZINE 1% CREAM 50 GM TOP SCH (09:24)
[2019-09-26] MEDS: AMLODIPINE BESYLATE 10 MG TABLET PO SCH (09:24)
[2019-09-26] MEDS: EZETIMIBE 10 MG TABLET PO SCH (09:24)
[2019-09-26] MEDS: CEFEPIME 1 GM/D5W RTU 1 GM/50 ML RTUPB IV SCH (11:47)
[2019-09-26] MEDS ORDERED: MORPHINE SULFATE 10 MG/ML INJ IV ONE (14:30)
[2019-09-26] MEDS ORDERED: MORPHINE SULFATE 10 MG/ML INJ IV PRN ×2 (19:55→22:57)
[2019-09-27] MEDS: MORPHINE SULFATE 10 MG/ML INJ IV PRN ×5 (00:15→16:05)
[2019-09-27] MEDS: IPRATROPIUM/ALBUTEROL 0.5-2.5 MG/3 ML AMPUL NEB SCH ×3 (00:16→08:10)
[2019-09-27] MEDS: HEPARIN SOD (PORCINE) 5,000 UNIT/ML 1 ML VIAL SUBCUT SCH ×2 (05:34→13:25)
[2019-09-27] MEDS: METHYLPREDNISOLONE INJ 125 MG/2 ML SDV IV SCH ×2 (05:34→13:57)
[2019-09-27] MEDS ORDERED: HALOPERIDOL LACTATE INJ 5 MG/1 ML VIAL IV PRN (08:10)
--- NOTE | 2019-09-27 08:17 | PDOC PROGRESS REPORT ---
Subjective Progress Note for:: 09/26/19 Subjective:: Patient continue to experience significant difficulty with breathing while of BiPAP support. Family at bedside including daughter, son, and granddaughters. Family decided to make patient comfort care at this time. Patient will retain his DNR status. Reason For Visit: ACUTE RESPIRATORY ACIDOSIS,HYPERCALCEMIA,METABOLIC Physical Exam Vital Signs: Temp Pulse Resp BP Pulse Ox 98.1 F 89 35 H 147/54 H 98 09/26/19 15:36 09/26/19 16:39 09/26/19 16:39 09/26/19 15:36 09/26/19 16:39 Intake & Output 09/25/19 09/26/19 09/27/19 06:59 06:59 06:59 Intake Total 1770 2170 0 Balance 1770 2170 0 Weight 72.4 kg 75.9 kg General appearance: PRESENT: severe distress Head exam: PRESENT: atraumatic, normocephalic Respiratory exam: PRESENT: accessory muscle use, decreased breath sounds, tachypnea Cardiovascular exam: PRESENT: RRR. ABSENT: diastolic murmur, rubs, systolic murmur GI/Abdominal exam: PRESENT: normal bowel sounds Extremities exam: PRESENT: left BKA, right BKA Neurological exam: PRESENT: awake Psychiatric exam: PRESENT: agitated Focused psych exam: PRESENT: delusional Skin exam: PRESENT: dry, warm Results Laboratory Results: 09/24/19 04:36 09/26/19 04:36 09/26/19 04:36 Sodium 143.9 Potassium 4.6 Chloride 119 H Carbon Dioxide 19 L Anion Gap 6 BUN 65 H Creatinine 1.42 H Est GFR ( Amer) 59 L Glucose 238 H Calcium 7.2 L 09/08/19 09/09/19 09/09/19 17:20 14:00 14:00 Creatine Kinase 26 L CK-MB (CK-2) Troponin I 0.044 NT-Pro-B Natriuret Pep 1480 H 09/09/19 09/09/19 09/09/19 14:00 20:14 20:14 Creatine Kinase 22 L CK-MB (CK-2) 2.54 2.31 Troponin I 0.035 0.037 NT-Pro-B Natriuret Pep 09/10/19 09/10/19 09/21/19 02:10 02:10 11:49 Creatine Kinase 22 L 28 L CK-MB (CK-2) 2.44 Troponin I 0.035 NT-Pro-B Natriuret Pep 09/21/19 09/21/19 09/21/19 11:49 16:55 16:55 Creatine Kinase 25 L CK-MB (CK-2) 2.27 2.23 Troponin I 0.030 0.034 NT-Pro-B Natriuret Pep 09/21/19 09/21/19 22:47 22:47 Creatine Kinase 35 L CK-MB (CK-2) 2.20 Troponin I 0.042 NT-Pro-B Natriuret Pep Impressions: Lung Scan-VQ NM 09/19/19 00:00 IMPRESSION: No large perfusion defect identified. Heterogeneous distribution of radiotracer is a nonspecific finding. Unable to apply PIOPED criteria given lack of ventilation imaging. Chest X-Ray 09/21/19 00:00 IMPRESSION: Cannot entirely exclude a limited right lower lobe pneumonia. Venous Doppler Study 09/21/19 00:00 IMPRESSION: NO EVIDENCE DVT OR SVT IN EITHER LEG. 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: with intermodal owner operator truck driver use Diabetes mellitus complication status: with circulatory complication Diabetes mellitus complication detail: with peripheral angiopathy with gangrene Qualified Code(s): E11.52 - Type 2 diabetes mellitus with diabetic peripheral angiopathy with gangrene; Z79.4 - remote computer terminal operator (current) use of insulin Is this a current diagnosis for this admission?: Yes (5) HTN (hypertension) Qualifiers: Hypertension type: essential hypertension Qualified Code(s): I10 - Essential (primary) hypertension Is this a current diagnosis for this admission?: Yes (6) HLD (hyperlipidemia) Qualifiers: Hyperlipidemia type: unspecified Qualified Code(s): E78.5 - Hyperlipidemia, unspecified Is this a current diagnosis for this admission?: Yes (7) Pressure ulcer of BKA stump, stage 2 Is this a current diagnosis for this admission?: Yes (8) Hypercalcemia due to a drug Is this a current diagnosis for this admission?: Yes (9) Hypokalemia Is this a current diagnosis for this admission?: Yes (10) Anxiety hyperventilation Is this a current diagnosis for this admission?: Yes - Time Time Spent with patient: 35 or more minutes Level of Care: IMCU Medications reviewed and adjusted accordingly: Yes Anticipated discharge: Hospice Within: Other - Inpatient Certification Based on my medical assessment, after consideration of the patient's comorbidities, presenting symptoms, or acuity I expect that the services needed warrant INPATIENT care.: Yes I certify that my determination is in accordance with my understanding of Medicare's requirements for reasonable and necessary INPATIENT services [42 CFR 412.3e].: Yes Medical Necessity: Significant Comorbidiites Make Outpatient Treatment Too Risky, Need Close Monitoring Due to Risk of Patient Decompensation, Need For Continuous Telemetry Monitoring, Need for Nebulizer Therapy and Monitoring of Response, Need for Pain Control, Risk of Complication if Not Cared For in Hospit al, Risk of Diagnosis Which Will Require Inpatient Eval/Care/Monitoring Post Hospital Care: D/C Delivery Helper Documentation - Plan Summary Plan Summary: Patient will be made comfort care with intend to alleviate discomfort from difficulty with breathing, pain and anxiety. His overall prognosis remain very poor.
--- NOTE | 2019-09-27 08:22 | PDOC PROGRESS REPORT ---
Subjective Progress Note for:: 09/27/19 Subjective:: Patient is currently off BiPAP support and all non essential medications. He remain on IV Morphine and supplemental oxygen via nasal cannula. Family reported episodes of agitation and requested for restart of his Haloperidol. Reason For Visit: ACUTE RESPIRATORY ACIDOSIS,HYPERCALCEMIA,METABOLIC Physical Exam Vital Signs: Temp Pulse Resp BP Pulse Ox 98.1 F 103 H 28 H 147/54 H 97 09/26/19 15:36 09/27/19 02:00 09/26/19 20:35 09/26/19 15:36 09/27/19 00:01 Intake & Output 09/26/19 09/27/19 09/28/19 06:59 06:59 06:59 Intake Total 2170 1000 Balance 2170 1000 Weight 75.9 kg General appearance: PRESENT: mild distress Respiratory exam: PRESENT: decreased breath sounds Cardiovascular exam: PRESENT: RRR. ABSENT: diastolic murmur, rubs, systolic murmur GI/Abdominal exam: PRESENT: normal bowel sounds Neurological exam: PRESENT: altered - due to Morphine administartion. Psychiatric exam: PRESENT: agitated - as per family report, anxious - as per family report Skin exam: PRESENT: dry, warm Results Laboratory Results: 09/24/19 04:36 09/26/19 04:36 09/08/19 09/09/19 09/09/19 17:20 14:00 14:00 Creatine Kinase 26 L CK-MB (CK-2) Troponin I 0.044 NT-Pro-B Natriuret Pep 1480 H 09/09/19 09/09/19 09/09/19 14:00 20:14 20:14 Creatine Kinase 22 L CK-MB (CK-2) 2.54 2.31 Troponin I 0.035 0.037 NT-Pro-B Natriuret Pep 09/10/19 09/10/19 09/21/19 02:10 02:10 11:49 Creatine Kinase 22 L 28 L CK-MB (CK-2) 2.44 Troponin I 0.035 NT-Pro-B Natriuret Pep 09/21/19 09/21/19 09/21/19 11:49 16:55 16:55 Creatine Kinase 25 L CK-MB (CK-2) 2.27 2.23 Troponin I 0.030 0.034 NT-Pro-B Natriuret Pep 09/21/19 09/21/19 22:47 22:47 Creatine Kinase 35 L CK-MB (CK-2) 2.20 Troponin I 0.042 NT-Pro-B Natriuret Pep Impressions: Lung Scan-VQ NM 09/19/19 00:00 IMPRESSION: No large perfusion defect identified. Heterogeneous distribution of radiotracer is a nonspecific finding. Unable to apply PIOPED criteria given lack of ventilation imaging. Chest X-Ray 09/21/19 00:00 IMPRESSION: Cannot entirely exclude a limited right lower lobe pneumonia. Venous Doppler Study 09/21/19 00:00 IMPRESSION: NO EVIDENCE DVT OR SVT IN EITHER LEG. Assessment & Plan - Diagnosis (1) Acute on chronic respiratory failure with hypoxia and hypercapnia Is this a current diagnosis for this admission?: Yes (2) COPD (chronic obstructive pulmonary disease) Qualifiers: COPD type: COPD with acute exacerbation Qualified Code(s): J44.1 - Chronic obstructive pulmonary disease with (acute) exacerbation Is this a current diagnosis for this admission?: Yes (3) Cystitis due to Pseudomonas Is this a current diagnosis for this admission?: Yes (4) T2DM (type 2 diabetes mellitus) Qualifiers: Diabetes mellitus remote computer terminal operator insulin use: with remote computer terminal operator use Diabetes steven litus complication status: with circulatory complication Diabetes mellitus complication detail: with peripheral angiopathy with gangrene Qualified Code(s): E11.52 - Type 2 diabetes mellitus with diabetic peripheral angiopathy with gangrene; Z79.4 - custodial (current) use of insulin Is this a current diagnosis for this admission?: Yes (5) HTN (hypertension) Qualifiers: Hypertension type: essential hypertension Qualified Code(s): I10 - Essential (primary) hypertension Is this a current diagnosis for this admission?: Yes (6) HLD (hyperlipidemia) Qualifiers: Hyperlipidemia type: unspecified Qualified Code(s): E78.5 - Hyperlipidemia, unspecified Is this a current diagnosis for this admission?: Yes (7) Pressure ulcer of BKA stump, stage 2 Is this a current diagnosis for this admission?: Yes (8) Hypercalcemia due to a drug Is this a current diagnosis for this admission?: Yes (9) Hypokalemia Is this a current diagnosis for this admission?: Yes (10) Anxiety hyperventilation Is this a current diagnosis for this admission?: Yes - Time Time Spent with patient: 25-34 minutes Level of Care: IMCU Medications reviewed and adjusted accordingly: Yes Anticipated discharge: Hospice Within: Other - Inpatient Certification Based on my medical assessment, after consideration of the patient's comorbidities, presenting symptoms, or acuity I expect that the services needed warrant INPATIENT care.: Yes I certify that my determination is in accordance with my understanding of Medicare's requirements for reasonable and necessary INPATIENT services [42 CFR 412.3e].: Yes Medical Necessity: Significant Comorbidiites Make Outpatient Treatment Too Risky, Need Close Monitoring Due to Risk of Patient Decompensation, Need For Continuous Telemetry Monitoring, Need for Pain Control, Risk of Complication if Not Cared For in Hospital, Risk of Diagnosis Which Will Require Inpatient Eval/Care/Monitoring Post Hospital Care: D/C Glove Examiner Documentation - Plan Summary Plan Summary: Restart on IV Haloperidol 1 mg q4 hours prn for agitation and anxiety management. Continue all other current medication management.
[2019-09-27 09:02] VITALS: BP 122/49
[2019-09-27] MEDS: INSULIN LISPRO 100 UNIT/ML 3 ML VIAL SUBCUT SCH ×3 (10:21→15:18)
[2019-09-27] MEDS: SILVER SULFADIAZINE 1% CREAM 50 GM TOP SCH (12:21)
--- NOTE | 2019-09-30 19:19 | Death Summary ---
Summary Date : 09/27/19 Time of :: 17:25 Resuscitation Status: Comfort Measures Only Primary Care Provider: TJ ARREOLA MD - Final Diagnosis (1) Acute on chronic respiratory failure with hypoxia and hypercapnia Is this a current diagnosis for this admission?: Yes (2) COPD (chronic obstructive pulmonary disease) Is this a current diagnosis for this admission?: Yes (3) Cystitis due to Pseudomonas Is this a current diagnosis for this admission?: Yes (4) T2DM (type 2 diabetes mellitus) Is this a current diagnosis for this admission?: Yes (5) HTN (hypertension) Is this a current diagnosis for this admission?: Yes (6) HLD (hyperlipidemia) Is this a current diagnosis for this admission?: Yes (7) Pressure ulcer of BKA stump, stage 2 Is this a current diagnosis for this admission?: Yes (8) Hypercalcemia due to a drug Is this a current diagnosis for this admission?: Yes (9) Hypokalemia Is this a current diagnosis for this admission?: Yes (10) Anxiety hyperventilation Is this a current diagnosis for this admission?: Yes Hospital Course:: Patient was admitted for exacerbated COPD with acute on chronic hypoxemic and hypercapnic respiratory failure. He was managed with bronchodilators, IV Solu Medrol, and antibiotic coverage along with BiPAP support. His hospitalization was compounded with Pseudomonas cystitis and end phase development of limited right lower lobe pneumonia. Despite appropriate medication management his condition continue to deteriorate. He was made a do not resuscitate by his family and eventually placed on comfort care. Patient succumbed to his acute illness and pronounced at 17:25 hour on 09/27/2019.
== END 2019-09-27 17:25 | DRG 189 ==
LOC: ER 15:38 → EH 09-09 00:32 → 3W 09-09 10:10
PROVIDERS: ADMIT Internal Medicine; ATTEND Internal Medicine Geriatric Medicine
PROC: 5A09557 Assistance with Respiratory Ventilation, Greater than 96 Consecutive Hours, Continuous Positive Airway Pressure (ICD-10-PCS; principal; 2019-09-08)
DX: J96.21 Acute and chronic respiratory failure with hypoxia (principal); J44.1 Chronic obstructive pulmonary disease with (acute) exacerbation; E11.52 Type 2 diabetes mellitus with diabetic peripheral angiopathy with gangrene; E83.52 Hypercalcemia; J96.22 Acute and chronic respiratory failure with hypercapnia; B96.5 Pseudomonas (aeruginosa) (mallei) (pseudomallei) as the cause of diseases classified elsewhere; B95.2 Enterococcus as the cause of diseases classified elsewhere; N30.90 Cystitis, unspecified without hematuria; Z66 Do not resuscitate; E78.5 Hyperlipidemia, unspecified; E87.6 Hypokalemia; I25.10 Atherosclerotic heart disease of native coronary artery without angina pectoris; K21.9 Gastro-esophageal reflux disease without esophagitis; N18.3 Chronic kidney disease, stage 3 (moderate); I12.9 Hypertensive chronic kidney disease with stage 1 through stage 4 chronic kidney disease, or unspecified chronic kidney disease; E11.649 Type 2 diabetes mellitus with hypoglycemia without coma; L89.892 Pressure ulcer of other site, stage 2; E11.22 Type 2 diabetes mellitus with diabetic chronic kidney disease; T50.905A Adverse effect of unspecified drugs, medicaments and biological substances, initial encounter; Y92.9 Unspecified place or not applicable; I25.2 Old myocardial infarction; Z78.1 Physical restraint status; Z89.512 Acquired absence of left leg below knee; Z89.511 Acquired absence of right leg below knee; Z87.891 Personal history of nicotine dependence; Z79.899 Other long term (current) drug therapy; Z79.4 Long term (current) use of insulin
CPT/HCPCS: 36415; 36600; 71045; 78580; 80048; 80053; 80061; 80076; 80307; 81001; 82040; 82150; 82550; 82553; 82570; 82803; 82962; 83036; 83690; 83735; 83880; 83970; 84100; 84156; 84165; 84166; 84439; 84443; 84484; 85025; 85027; 85379; 85610; 85730; 86320; 87040; 87070; 87086; 87088; 87186; 87324; 87449; 87493; 93005; 93010; 93306; 93970; 94640; 94660; 96361; 96374; 99285; A9540; J0692; J0713; J1630; J1644; J1815; J1940; J2270; J2930; J3490; J7030; J7060; J7620; Q9969